=== PATIENT | female | born 1980 | race Caucasian/White ===

== ENCOUNTER 2016-07-06 23:08 | Emergency (ER) | payer SELFPAY ==
[~2016-07-06] VITALS: Ht 160 cm; Wt 45.9 kg
[~2016-07-06 23:08] MED LIST: AMOX500T PO
[2016-07-06 23:16] VITALS: BP 92/68; PULSE 80; RESP 16; TEMP 98.7; O2SAT 97
[2016-07-07 00:45] VITALS: BP 95/65; PULSE 78; RESP 18; TEMP 98.7; O2SAT 98
--- NOTE | 2016-07-07 00:57 | PD ---
HPI Chief Complaint: Medical Clearance Time Seen by Provider: 00:51 Travel History International Travel<30 days: No Contact w/Intl Traveler<30days: No Traveled to known affect area: No History of Present Illness HPI The patient is a 36-year-old female that apparently was here yesterday regarding nausea and vomiting without diarrhea. She feels fine now and wants to go back to work. She denies any fever or diarrhea. 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 The patient thinks it was food poisoning. PFSH Past Medical History Asthma: Yes Blood Disorders: No Anxiety: Yes Depression: Yes Cancer: No Cardiovascular Problems: Yes (ENDOCARDITIS) High Cholesterol: No Chest Pain: Yes Cerebrovascular Accident: No Diabetes: No Diminished Hearing: No Endocrine: No Gastrointestinal Disorders: No GERD: No Genitourinary: No Headaches: No Hepatitis: Yes (HEPATITIS C) Hypertension: No Immune Disorder: No Implanted Vascular Access Dvce: No Kidney Stones: No Musculoskeletal: Yes Neurologic: Yes Psychiatric: No Reproductive: No Respiratory: Yes (ASTHMA TIL AGE 13) Migraines: Yes Seizures: No Thyroid Disease: No Ulcer: No Tetanus Vaccination: > 5 Years Influenza Vaccination: No ?: Not LMP: 06/03/16 : 3 Para: 1 Miscarriage: 2 Past Surgical History Abdominal Surgery: No Cardiac Surgery: No Section: Yes (X 1) Ear Surgery: No Endocrine Surgery: No Eye Surgery: No Genitourinary Surgery: Yes Gynecologic Surgery: No Neurologic Surgery: No Oral Surgery: No Pacemaker: No Thoracic Surgery: No Other Surgery: Yes (C SECTION) Social History Alcohol Use: No Tobacco Use: Yes (4 CIGARETTES PER DAY) 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 Her vital signs are normal. SKIN: Warm and dry. HEAD: Normocephalic. EYES: No scleral icterus. No injection or drainage. NECK: Supple, trachea midline. No JVD or lymphadenopathy. CARDIOVASCULAR: Regular rate and rhythm without murmurs, gallops, or rubs. RESPIRATORY: Breath sounds equal bilaterally. No accessory muscle use. GASTROINTESTINAL: Abdomen soft, non-tender, nondistended. No guarding or rebound is present. MUSCULOSKELETAL: No cyanosis, or edema. BACK: Nontender without obvious deformity. No CVA tenderness. Data Data Last Documented VS Vital Signs Date Time Temp Pulse Resp B/P Pulse Ox O2 Delivery O2 Flow Rate FiO2 07/07/16 00:45 98.7 78 18 95/65 98 MDM Medical Decision Making Medical Screen Exam Complete: Yes Emergency Medical Condition: Yes Medical Record Reviewed: Yes Differential Diagnosis Food poisoning, bacterial enteritis, viral gastroenteritis, gastritis Narrative Course The patient likely has food poisoning. She never had diarrhea, fever or evidence of an infection. All of her symptoms have resolved now. She will be able to go back to work. Nevertheless, she should wash hands very frequently. Diagnosis Primary Impression: Food poisoning Additional Instructions: Wash hands frequently, particularly after you go to the bathroom. Follow-up with your primary care physician next week if you get recurrent symptoms. Med/Other Pt SpecificInfo: No Change to Meds Scripts No Active Prescriptions or Reported Meds Disposition: DISCHARGE HOME Condition: Stable Mata Rodriguez MD Jul 07, 2016 00:57
[2016-07-07 01:05] VITALS: BP 95/64; PULSE 76; RESP 18; O2SAT 97
== END 2016-07-07 01:06 | disposition home or self-care (01) ==
LOC: PHED 23:08
DX: A05.9 Bacterial foodborne intoxication, unspecified (principal); J45.909 Unspecified asthma, uncomplicated; Z72.0 Tobacco use
CPT/HCPCS: 99281

== ENCOUNTER 2016-08-26 16:45 | Emergency (ER) | payer SELFPAY ==
[~2016-08-26] VITALS: Ht 160 cm; Wt 45.0 kg
[2016-08-26 16:48] VITALS: BP 105/59; PULSE 62; RESP 14; TEMP 98.2; O2SAT 98
--- NOTE | 2016-08-26 17:04 | PD ---
HPI . needs note to go to work Chief Complaint: Medical Clearance Time Seen by Provider: 17:04 Travel History International Travel<30 days: No Contact w/Intl Traveler<30days: No Traveled to known affect area: No History of Present Illness HPI 36 yr old female who works at [employer] here for a note to return to work because she was sick from eating bad Checkers. She has no complaints and feels much better. PFSH Past Medical History Asthma: Yes Blood Disorders: No Anxiety: Yes Depression: Yes Cancer: No Cardiovascular Problems: Yes High Cholesterol: No Chest Pain: Yes Cerebrovascular Accident: No Diabetes: No Diminished Hearing: No Endocrine: No Gastrointestinal Disorders: No GERD: No Genitourinary: No Headaches: No Hepatitis: Yes (HEPATITIS C) Hypertension: No Immune Disorder: No Implanted Vascular Access Dvce: No Kidney Stones: No Musculoskeletal: Yes Neurologic: Yes Psychiatric: No Reproductive: No Respiratory: Yes (ASTHMA TIL AGE 13) Migraines: Yes Seizures: No Thyroid Disease: No Ulcer: No Tetanus Vaccination: > 5 Years Influenza Vaccination: No ?: Not LMP: 08/12/16 : 3 Para: 1 Miscarriage: 2 Past Surgical History Abdominal Surgery: No Cardiac Surgery: No Section: Yes (X 1) Ear Surgery: No Endocrine Surgery: No Eye Surgery: No Genitourinary Surgery: Yes Gynecologic Surgery: No Neurologic Surgery: No Oral Surgery: No Pacemaker: No Thoracic Surgery: No Other Surgery: Yes (C SECTION) Social History Alcohol Use: No Tobacco Use: Yes (8 CIGARETTES PER DAY) Substance Use: No (HX IV OPIATES) Allergies-Medications (Allergen,Severity, Reaction): Coded Allergies: Bee Sting (Verified Allergy, Severe, rash, 08/26/16) *MDRO Multi-Drug Resistant Organism (Verified Allergy, Unknown, 07/07/16) Acinetobacter lwoffii Acinetobacter baumannii 2014 Reported Meds & Prescriptions Reported Meds & Active Scripts Active No Active Prescriptions or Reported Medications Review of Systems General / Constitutional: No: Fever Eyes: No: Visual changes HENT: No: Headaches Cardiovascular: No: Chest Pain or Discomfort Respiratory: No: Shortness of Breath Gastrointestinal: No: Abdominal Pain Genitourinary: No: Dysuria Musculoskeletal: No: Pain Skin: No Rash Neurologic: No: Weakness Psychiatric: No: Depression Endocrine: No: Polydipsia Hematologic/Lymphatic: No: Easy Bruising Physical Exam Narrative GENERAL: AAO x 3, no acute distress, Well-nourished, well-developed patient. SKIN: Warm and dry. No visible rashes or bruising. excoriations to the face from picking at skin. no active infection HEAD: Normocephalic and atraumatic. EYES: No scleral icterus. No injection or drainage. ENT: No nasal drainage noted. Mucous membranes pink. Airway patent. NECK: Supple, trachea midline. No JVD. CARDIOVASCULAR: Regular rate and rhythm without murmurs, gallops, or rubs. RESPIRATORY: Breath sounds equal bilaterally. No accessory muscle use. No rhonchi or rales. GASTROINTESTINAL: Abdomen soft, non-tender, nondistended. EXTREMITIES: No cyanosis or edema. BACK: Nontender without obvious deformity. No CVA tenderness. PSYCH: AAO x 3, normal affect. Data Data Last Documented VS Vital Signs Date Time Temp Pulse Resp B/P Pulse Ox O2 Delivery O2 Flow Rate FiO2 08/26/16 16:56 16 08/26/16 16:48 98.2 62 105/59 98 MDM Medical Decision Making Medical Screen Exam Complete: Yes Emergency Medical Condition: Yes Medical Record Reviewed: Yes Differential Diagnosis medical clearance, less likely acute gastroenteritis Narrative Course 36 yr old female who works at [employer] here for a note to return to work because she was sick from eating bad Checkers. She has no complaints and feels much better. Patient seen and examined. She has no acute findings. She will be given a note to return to work. She thanked me for her care. Diagnosis Primary Impression: Food poisoning Qualified Code: T62.94XA - Food poisoning, undetermined intent, initial encounter Patient Instructions: General Instructions Departure Forms: Tests/Procedures, Work Release Enter return to work date: Aug 26, 2016 Scripts No Active Prescriptions or Reported Meds Disposition: DISCHARGE HOME Condition: Stable Ashley Alonzo Aug 26, 2016 17:04
== END 2016-08-26 17:47 | disposition home or self-care (01) ==
LOC: NEPD 16:45
DX: T62.94XA Toxic effect of unspecified noxious substance eaten as food, undetermined, initial encounter (principal); J45.909 Unspecified asthma, uncomplicated; B19.20 Unspecified viral hepatitis C without hepatic coma; F17.210 Nicotine dependence, cigarettes, uncomplicated
CPT/HCPCS: 99282

== ENCOUNTER 2016-10-27 18:22 | Emergency (ER) | payer SELFPAY ==
[~2016-10-27] VITALS: Ht 160 cm; Wt 55.0 kg
[2016-10-27 18:24] VITALS: BP 108/60; PULSE 71; O2SAT 99
[2016-10-27 20:00] VITALS: BP 110/62; PULSE 72; RESP 18; TEMP 98; O2SAT 98
--- NOTE | 2016-10-27 21:35 | RADRPT ---
EXAM DATE/TIME: 10/27/2016 20:55 [facility] COMPARISON: CHEST SINGLE AP, November 13, 2015, 16:59. CHEST PA & LAT, August 31, 2013, 14:04. INDICATIONS : Patient states she has had severe chest pain for two days, she states she previously had fluid behind her heart and she is having the same symptoms. MEDICAL HISTORY : Endocarditis SURGICAL HISTORY : None. ENCOUNTER: Initial ACUITY: 1 day PAIN SCORE: 10/10 LOCATION: Bilateral chest FINDINGS: PA and lateral views of the chest. The lungs are clear. Cardiomediastinal silhouette within normal li mits. No evidence of pleural effusion or pneumothorax. CONCLUSION: No acute cardiopulmonary disease identified. Erasmo Thibodeaux MD on October 27, 2016 at 21:31 Board Certified Radiologist. This report was verified electronically.
--- NOTE | 2016-10-27 22:15 | PD ---
HPI Chief Complaint: Chest Pain Time Seen by Provider: 22:13 Travel History International Travel<30 days: No Contact w/Intl Traveler<30days: No Traveled to known affect area: No History of Present Illness HPI Patient comes in complaining of substernal chest pain on going for 3 days. Patient states pain feels similar to when she had pericardial effusion previously secondary to endocarditis. 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 Patient states she is reformed times 2 years. Patient denies any known fevers, vomiting, abdominal pain, back pain, injury, or numbness or tingling anywhere. Patient reports the pain radiates across her chest and shortness of breath. Patient reports she is supposed to get her valve replacement is uncertain which one and she never did have this done. PFSH Past Medical History Asthma: Yes Blood Disorders: No Anxiety: Yes Depression: Yes Cancer: No Cardiovascular Problems: Yes High Cholesterol: No Chest Pain: Yes Cerebrovascular Accident: No Diabetes: No Diminished Hearing: No Endocrine: No Gastrointestinal Disorders: No GERD: No Genitourinary: No Headaches: No Hepatitis: Yes (HEPATITIS C) Hypertension: No Immune Disorder: No Implanted Vascular Access Dvce: No Kidney Stones: No Musculoskeletal: Yes Neurologic: Yes Psychiatric: No Reproductive: No Respiratory: Yes (ASTHMA TIL AGE 13) Migraines: Yes Seizures: No Thyroid Disease: No Ulcer: No : 3 Para: 1 Miscarriage: 2 Past Surgical History Abdominal Surgery: No Cardiac Surgery: No Section: Yes (X 1) Ear Surgery: No Endocrine Surgery: No Eye Surgery: No Genitourinary Surgery: Yes Gynecologic Surgery: No Neurologic Surgery: No Oral Surgery: No Pacemaker: No Thoracic Surgery: No Other Surgery: Yes (C SECTION) Social History Alcohol Use: No Tobacco Use: Yes (8 CIGARETTES PER DAY) Substance Use: No (HX IV OPIATES) Allergies-Medications (Allergen,Severity, Reaction): Coded Allergies: Bee Sting (Verified Allergy, Severe, rash, 08/26/16) *MDRO Multi-Drug Resistant Organism (Verified Allergy, Unknown, 07/07/16) Acinetobacter lwoffii Acinetobacter baumannii 2013 Reported Meds & Prescriptions Reported Meds & Active Scripts Active No Active Prescriptions or Reported Medications Review of Systems Except as stated in HPI: all other systems reviewed are Neg Physical Exam Narrative GENERAL: Well-developed, well nourished, in no acute distress, and non-ill appearing. SKIN: Focused skin assessment warm and dry. HEAD: Atraumatic. Normocephalic. EYES: Pupils equal and round. EOMI. No scleral icterus. No injection or drainage. ENT: No nasal bleeding or discharge. Mucous membranes pink and moist. NECK: Trachea midline. Supple. No nuclear rigidity. CARDIOVASCULAR: Regular rate and rhythm. Murmur appreciated. RESPIRATORY: No accessory muscle use. No respiratory distress. Clear to auscultation. Breath sounds equal bilaterally. GASTROINTESTINAL: Abdomen soft, non-tender, nondistended. Hepatic and splenic margins not palpable. No pulsatile mass. MUSCULOSKELETAL: No obvious deformities. No clubbing. No cyanosis. No edema. Full range of motion. NEUROLOGICAL: Awake and alert. No obvious cranial nerve deficits. Motor grossly within normal limits. Normal speech. PSYCHIATRIC: Appropriate mood and affect; insight and judgment normal. Data Data Last Documented VS Vital Signs Date Time Temp Pulse Resp B/P Pulse Ox O2 Delivery O2 Flow Rate FiO2 10/27/16 22:42 66 18 99/54 99 Room Air 10/27/16 20:00 98.0 Orders Electrocardiogram (10/27/16 20:42) Chest, Pa & Lat (10/27/16 20:42) Ed Poc Ultrasound (10/27/16 ) Basic Metabolic Panel (Bmp) (10/27/16 22:19) Ckmb (Isoenzyme) Profile (10/27/16 22:19) Complete Blood Count With Diff (10/27/16 22:19) Magnesium (Mg) (10/27/16 22:19) Prothrombin Time / Inr (Pt) (10/27/16 22:19) Act Partial Throm Time (Ptt) (10/27/16 22:19) Troponin I (10/27/16 22:19) Ecg Monitoring (10/27/16 22:19) Bilateral Bp Monitoring (10/27/16 22:19) Iv Access Insert/Monitor (10/27/16 22:19) Oximetry (10/27/16 22:19) Oxygen Administration (10/27/16 22:19) Sodium Chloride 0.9% Flush (Ns Flush) (10/27/16 22:30) Blood Culture (10/27/16 22:28) MDM Medical Decision Making Medical Screen Exam Complete: Yes Emergency Medical Condition: Yes Interpretation(s) Chest x-ray read by the radiologist shows: No acute cardiopulmonary disease. Differential Diagnosis Acute coronary syndrome, endocarditis, pericarditis, pneumonia, pneumothorax, electrolyte abnormality, other Narrative Course Patient seen and examined. Initial laboratory and radiological studies were ordered. Patient was signed out to Dr. Lilly at the end of shift. Please see her doctors for final diagnosis and disposition. Scripts No Active Prescriptions or Reported Meds Gilbert Campbell Oct 27, 2016 22:15
[2016-10-27] MEDS ORDERED: SODIUM CHLORIDE 0.9% FLUSH 10 ML FLUSH IVF PRN (22:30)
[2016-10-27 22:42] VITALS: BP 99/54; PULSE 66; RESP 18; O2SAT 99
[2016-10-27 23:10] VITALS: BP_SYST 104; BP_SYST 106; BP_DIAS 63; BP_DIAS 65
[2016-10-28] LABS: AUTOMATED NEUTROPHIL # 5.4 TH/MM3 (1.8-7.7); BASOPHIL % 0.5 % (0.0-2.0); EOSINOPHIL % 0.4 % (0.0-4.0); HEMO FLAGS DIFF FINAL; MEAN CELL VOLUME 93.2 FL (80.0-100.0); MEAN CORPUSCULAR HEMOGLOBIN 31.1 PG (27.0-34.0); MEAN CORPUSCULAR HGB CONC 33.4 % (32.0-36.0); MONO % 10.8 % (0.0-8.0); NEUT % 64.3 % (16.0-70.0); PLATELET COUNT 134 TH/MM3 (150-450); RED BLOOD COUNT 4.51 MIL/MM3 (4.00-5.30); RED CELL DISTRIBUTION WIDTH 14.2 % (11.6-17.2); WHITE BLOOD COUNT 8.3 TH/MM3 (4.0-11.0)
[2016-10-28 00:15] LABS: APTT (PATIENT) 27.9 SEC (24.3-30.1)
--- NOTE | 2016-10-28 00:17 | PD ---
Data Data Last Documented VS Vital Signs Date Time Temp Pulse Resp B/P Pulse Ox O2 Delivery O2 Flow Rate FiO2 10/27/16 23:31 Room Air 10/27/16 23:10 106/63 104/65 10/27/16 22:42 66 18 99 10/27/16 20:00 98.0 Orders Electrocardiogram (10/27/16 20:42) Chest, Pa & Lat (10/27/16 20:42) Ed Poc Ultrasound (10/27/16 ) Basic Metabolic Panel (Bmp) (10/27/16 22:19) Ckmb (Isoenzyme) Profile (10/27/16 22:19) Complete Blood Count With Diff (10/27/16 22:19) Magnesium (Mg) (10/27/16 22:19) Prothrombin Time / Inr (Pt) (10/27/16 22:19) Act Partial Throm Time (Ptt) (10/27/16 22:19) Troponin I (10/27/16 22:19) Ecg Monitoring (10/27/16 22:19) Bilateral Bp Monitoring (10/27/16 22:19) Iv Access Insert/Monitor (10/27/16 22:19) Oximetry (10/27/16 22:19) Oxygen Administration (10/27/16 22:19) Sodium Chloride 0.9% Flush (Ns Flush) (10/27/16 22:30) Blood Culture (10/27/16 22:28) Labs Laboratory Tests Test 10/27/16 23:30 White Blood Count 8.3 TH/MM3 Red Blood Count 4.51 MIL/MM3 Hemoglobin 14.0 GM/DL Hematocrit 42.0 % Mean Corpuscular Volume 93.2 FL Mean Corpuscular Hemoglobin 31.1 PG Mean Corpuscular Hemoglobin 33.4 % Concent Red Cell Distribution Width 14.2 % Platelet Count 134 TH/MM3 Mean Platelet Volume 10.1 FL Neutrophils (%) (Auto) 64.3 % Lymphocytes (%) (Auto) 24.0 % Monocytes (%) (Auto) 10.8 % Eosinophils (%) (Auto) 0.4 % Basophils (%) (Auto) 0.5 % Neutrophils # (Auto) 5.4 TH/MM3 Lymphocytes # (Auto) 2.0 TH/MM3 Monocytes # (Auto) 0.9 TH/MM3 Eosinophils # (Auto) 0.0 TH/MM3 Basophils # (Auto) 0.0 TH/MM3 CBC Comment DIFF FINAL Differential Comment Prothrombin Time 11.0 SEC Prothromb Time International 1.0 RATIO Ratio Activated Partial 27.9 SEC Thromboplast Time Sodium Level 136 MEQ/L Potassium Level 4.1 MEQ/L Chloride Level 103 MEQ/L Carbon Dioxide Level 26.5 MEQ/L Anion Gap 7 MEQ/L Blood Urea Nitrogen 14 MG/DL Creatinine 0.89 MG/DL Estimat Glomerular Filtration 72 ML/MIN Rate Random Glucose 92 MG/DL Calcium Level 8.7 MG/DL Magnesium Level 1.9 MG/DL Total Creatine Kinase 73 U/L Troponin I LESS THAN 0.02 NG/ML MDM Supervised Visit with KENDELL: Yes Narrative Course I, Dr. Lilly, have reviewed the advance practice practioner's documentation and am in agreement, met with the patient face to face, made the diagnosis, and the medical decision making was done by me. *My assessment and Findings: 36-year-old female with reported history of former IV drug abuse, Dilaudid, previous bacteremia with endocarditis , significant pleural effusion requiring drainage here with complaint of chest pain. She's had 3 days of primarily intermittent substernal chest pain. States that this feels similar to when she's had a pericardial effusion in the past. Mild associated shortness of breath. She denies any recent IV drug abuse stating that she's been clean for approximately 2 years. No fevers, chills. Regular rate and rhythm on exam without evidence of murmur, clear to auscultation. Differential includes atypical chest pain, pericardial effusion, bacteremia, endocarditis, and less likely ACS, PE or dissection. Twelve-lead EKG shows sinus rhythm without ST or T-wave abnormalities and normal intervals. Chest x- ray unremarkable. Bedside ultrasound performed without evidence of pericardial effusion, please see procedure note. Blood cultures were sent, but not febrile or tachycardic here and patient does not have any evidence of new track gurrola on exam. Laboratory workup unremarkable. Blood cultures remain pending. Patient will be discharged home. Procedures Procedure Narrative Emergency department cardiac ultrasound was performed with patient consent. Phased array probe was used in the parasternal long/short access, four-chamber apical revealing no evidence of pericardial effusion. Patient's overall cardiac squeeze was normo-dynamic. Diagnosis Primary Impression: Atypical chest pain Referrals: [facility] as needed Additional Instruction: Tylenol, Motrin as needed for pain. Return to the ER for the warning signs discussed. Med/Other Pt SpecificInfo: No Change to Meds Scripts No Active Prescriptions or Reported Meds Disposition: 01 DISCHARGE HOME Condition: Stable Yakelin Lilly MD Oct 28, 2016 00:17
[2016-10-28 00:28] LABS: ANION GAP 7 MEQ/L (5-15); BICARBONATE 26.5 MEQ/L (21.0-32.0); BLOOD UREA NITROGEN 14 MG/DL (7-18); CHLORIDE 103 MEQ/L (98-107); GLOMERULAR FILTRATION RATE 72 ML/MIN (>89); MAGNESIUM 1.9 MG/DL (1.5-2.5); POTASSIUM 4.1 MEQ/L (3.5-5.1); SODIUM (NA) 136 MEQ/L (136-145)
[2016-10-28 00:31] LABS: CREATINE KINASE 73 U/L (26-192)
--- NOTE | 2016-10-28 13:10 | EKG ---
Date Performed: 10/27/2016 Time Performed: 22:54:47 PTAGE: 36 years EKG: Sinus rhythm INCOMPLETE RIGHT BUNDLE BRANCH BLOCK BORDERLINE ECG NO PREVIOUS TRACING DOCTOR: Modesto Starr Interpretating Date/Time 10/28/2016 13:08:37
== END 2016-10-28 01:55 | disposition home or self-care (01) ==
LOC: NEPE 18:22
DX: R07.2 Precordial pain (principal); R06.02 Shortness of breath; R94.31 Abnormal electrocardiogram [ECG] [EKG]; Z72.0 Tobacco use
CPT/HCPCS: 71020; 80048; 82550; 83735; 84484; 85025; 85610; 85730; 87040; 93005; 99285

== ENCOUNTER 2016-11-22 17:48 | Emergency (ER) | payer SELFPAY ==
[~2016-11-22] VITALS: Ht 160 cm; Wt 45.0 kg
[2016-11-22 17:50] VITALS: BP 118/74; PULSE 88; RESP 20; TEMP 99.1; O2SAT 96
--- NOTE | 2016-11-22 18:31 | PD ---
Physical Exam Date Seen by Provider: Nov 22, 2016 Time Seen by Provider: 18:27 Narrative 36 yo female here for evaluation of left foot pain. Per patient is swollen and painful. Blisters noted. No obvious injury. Going on for some time. Walks a lot. Comes here with significant other with same. Vitals are stable. Awaiting bed placement. Data Data Last Documented VS Vital Signs Date Time Temp Pulse Resp B/P Pulse Ox O2 Delivery O2 Flow Rate FiO2 11/22/16 17:50 99.1 88 20 118/74 96 Room Air [facility] Medical Record Reviewed: Yes Supervised Visit with KENDELL: No Scripts No Active Prescriptions or Reported Meds Raúl Jarrett Nov 22, 2016 18:31
[2016-11-22] MEDS ORDERED: LAMI1SPR TOPICAL (20:42)
--- NOTE | 2016-11-22 20:43 | PD ---
HPI Chief Complaint: Skin Problem Time Seen by Provider: 20:42 Travel History International Travel<30 days: No Contact w/Intl Traveler<30days: No Traveled to known affect area: No History of Present Illness HPI 36-year-old white female presents to emergency Department with complaints of blistering and sores in her feet from walking and when she is. She states the pain is moderate but can be more severe with ambulation. Denies any fever or chills. No alleviating factors. PFSH Past Medical History Asthma: Yes Blood Disorders: No Anxiety: Yes Depression: Yes Cancer: No Cardiovascular Problems: Yes (VEGETATION ON HEART) High Cholesterol: No Chest Pain: Yes Cerebrovascular Accident: No Diabetes: No Diminished Hearing: No Endocrine: No Gastrointestinal Disorders: No GERD: No Genitourinary: No Headaches: Yes Hepatitis: Yes (HEPATITIS C) Hypertension: No Immune Disorder: No Implanted Vascular Access Dvce: No Kidney Stones: No Musculoskeletal: Yes Neurologic: Yes Psychiatric: No Reproductive: No Respiratory: Yes (ASTHMA TIL AGE 13) Migraines: Yes Seizures: No Thyroid Disease: No Ulcer: No Tetanus Vaccination: > 5 Years ?: Not : 3 Para: 1 Miscarriage: 2 Past Surgical History Abdominal Surgery: No Cardiac Surgery: No Section: Yes (X 1) Ear Surgery: No Endocrine Surgery: No Eye Surgery: No Genitourinary Surgery: Yes Gynecologic Surgery: No Neurologic Surgery: No Oral Surgery: No Pacemaker: No Thoracic Surgery: No Other Surgery: Yes (C SECTION) Social History Alcohol Use: No Tobacco Use: No Substance Use: No (HX IV OPIATES ON FOR 9.5 YRS) Allergies-Medications (Allergen,Severity, Reaction): Coded Allergies: Bee Sting (Verified Allergy, Severe, rash, 11/22/16) *MDRO Multi-Drug Resistant Organism (Verified Allergy, Unknown, 11/22/16) Acinetobacter lwoffii Acinetobacter baumannii 2013 Reported Meds & Prescriptions Reported Meds & Active Scripts Active No Active Prescriptions or Reported Medications Review of Systems Except as stated in HPI: all other systems reviewed are Neg Physical Exam Narrative GENERAL: This is a well-nourished, well-developed patient, in no apparent distress. SKIN: Patient has erythema and maceration of the distal forefoot and toes from wet shoes. No signs of secondary infection, ecchymoses or lesions. Warm and dry. HEAD: Atraumatic. Normocephalic. EYES: PERRL, EOMI, no discharge or injection. No scleral icterus. EARS: Clear NOSE: Nasal turbinates appear normal. THROAT: Mucosa pink and moist. Airway patent. NECK: Trachea midline. supple, moves head freely. LUNGS: Clear to auscultation. CV: Regular in rhythm. ABDOMEN: Soft nontender. EXT: No clubbing cyanosis or edema. Data Data Last Documented VS Vital Signs Date Time Temp Pulse Resp B/P Pulse Ox O2 Delivery O2 Flow Rate FiO2 11/22/16 17:50 99.1 88 20 118/74 96 Room Air MDM Medical Decision Making Medical Screen Exam Complete: Yes Emergency Medical Condition: Yes Medical Record Reviewed: Yes Differential Diagnosis MDM: High Differential diagnoses: Abscess, folliculitis, cellulitis, lymphangitis, abrasion, contact dermatitis, tinea Narrative Course This is tinea Diagnosis Primary Impression: tinea pedis Patient Instructions: General Instructions Additional Instructions: Rest. Elevation. Keep clean and dry. Lamisil. Follow-up with a medical doctor in 1-2 weeks. Med/Other Pt SpecificInfo: Prescription(s) given Scripts Terbinafine Topical (Lamisil At Topical)1 % Spray1 Applic TOPICAL BID #1 BOTTLE Ref 0 Prov:Sam Pickering MD 11/22/16 Disposition: 01 DISCHARGE HOME Condition: Stable Eulogio Cardenas Nov 22, 2016 20:43
== END 2016-11-22 20:55 | disposition home or self-care (01) ==
LOC: NEPK 17:48
DX: B35.3 Tinea pedis (principal); B19.20 Unspecified viral hepatitis C without hepatic coma; J45.909 Unspecified asthma, uncomplicated; F41.9 Anxiety disorder, unspecified; F32.9 Major depressive disorder, single episode, unspecified; Z88.8 Allergy status to other drugs, medicaments and biological substances
CPT/HCPCS: 99283

== ENCOUNTER 2018-01-04 10:40 | Inpatient (IN) ==
--- NOTE | 2018-01-04 14:29 | ED ---
HPI General Chief complaint: Extremity Problem,Nontraumatic Stated complaint: General Pain Time Seen by Provider: 01/04/18 14:04 Source: patient, RN notes reviewed and old records reviewed Mode of arrival: wheelchair Limitations: no limitations History of Present Illness HPI narrative: 37-year-old female with history of IV drug use presents to the emergency department for evaluation of generalized weakness, inability to walk. She reports pain in her midline cervical, thoracic, lumbar spine. She reports when she moves her legs, she has severe pain in her lower back. She also reports right-sided chest pain, feels like it is "swollen". Patient is here in 2013 was admitted for endocarditis, sepsis, enhancement in soft tissues/ paraspinal area of L5-S1. She also states she was treated for pericardial effusion in [place] in 2014 and had it drained. She states that she was supposed to undergo surgery, but cannot because of insurance issues. Upon first questioning, the patient declines using IV drugs. However upon instructed the patient how important it was to let me know if she uses IV drugs , she did admit to using IV heroin a week ago. She does have track gurrola on her upper extremities. She states that she feels like she is running a fever. She is not currently on any prescribed medications. Current pain is 10/10. She denies . Location: chest, back, upper extremity and lower extremity Radiation: non-radiation Severity: moderate Severity scale (1-10): 10 Quality: aching Pain Consistency: constant Relieving factors: immobilization Exacerbating factors: movement Related Data Home Medications Medication Instructions Recorded Confirmed No Known Home Medications 01/04/18 01/04/18 Allergies Allergy/AdvReac Type Severity Reaction Status Date / Time bee venom protein (honey bee) Allergy Severe rash Verified 01/04/18 14:34 Review of Systems ROS: all other systems reviewed are negative PMFSH Medical History Medical History Abscess in epidural space of lumbar spine (Acute) Endocarditis (Acute) Hepatitis C (Acute) Hypokalemia (Acute) Hyponatremia (Acute) IVDU (intravenous drug user) (Acute) Osteomyelitis (Acute) Pneumonia (Acute) Renal failure (Acute) Sepsis (Acute) Thrombocytopenia (Acute) UTI (urinary tract infection) (Acute) Surgical History Surgical History History of heart surgery (Acute) Social History Social History Substance History: Active Abuse Smoking Status: Heavy tobacco smoker Tobacco Type: Cigarettes How Often Do You Have a Drink Containing Alcohol: Never Recent Travel in [facility] within the Last 8 Weeks: No Recent Out of Country Travel within the Last 8 Weeks: No Substance Abuse Detail Heroin: Substance Use Status: Active Immunization History Tetanus Immunization: Never Vaccinated Hx Influenza Vaccine This Season: No Exam Narrative Exam Narrative: GENERAL: Thin female patient, appears older than her stated age. Temp 99.7 SKIN: Focused skin assessment warm/dry. HEAD: Normocephalic. Atraumatic EYES: No scleral icterus. No injection or drainage. NECK: Supple, trachea midline. No JVD or lymphadenopathy. CARDIOVASCULAR: Regular rate and rhythm without murmurs, gallops, or rubs. RESPIRATORY: Breath sounds equal bilaterally. No accessory muscle use. Lung sounds are clear to auscultation GASTROINTESTINAL: Abdomen soft, non-tender, nondistended. MUSCULOSKELETAL: No cyanosis, or edema. BACK: No obvious deformity. No CVA tenderness. Patient reports tenderness to palpation over the cervical, thoracic, lumbar spine. Course Initial Documented Vital Signs Temperature 98.5 F 01/04/18 10:45 Pulse Rate 95 H 01/04/18 10:45 Respiratory Rate 18 01/04/18 10:45 Blood Pressure 84/54 L 01/04/18 10:45 Pulse Oximetry 97 01/04/18 10:45 Last Documented Vital Signs Temperature 98.5 F 01/04/18 10:45 Pulse Rate 113 H 01/04/18 17:42 Respiratory Rate 27 H 01/04/18 17:42 Blood Pressure 108/61 01/04/18 17:42 Pulse Oximetry 95 01/04/18 17:42 Medical Decision Making KENDELL Attestation KENDELL supervised visit: Yes Attestation: I, Dr. Ramon, have reviewed the advance practice practitioner's documentation and am in agreement, met with the patient face to face, made the diagnosis, and the medical decision making was done by me. *My assessment and Findings: Patient seen and evaluated with PA, please see PA notes for further details. Here with general weakness, pain all over the body but especially in the back, has previous history of IV drug use, endocarditis, spinal infections, status post valve replacement as well. She came in fairly hypotensive. There is a very high suspicion of sepsis and underlying infection especially with her story. Sepsis workup was initiated. IV vancomycin and antibiotics were initiated in the ER. Chest x-ray shows some signs of pulmonary edema. With patient's cardiac history, there is concern of underlying CHF as well. EKG shows sinus tachycardia at a rate of 100 bpm. She has a right bundle branch block pattern. I do not see any signs of acute ST elevations. Patient's troponin is elevated and there is concern of underlying cardiac issues. Case was discussed with Dr. Rick who states he will see the patient. At this point, case was discussed with Dr. Driscoll, machine deicer element winder for admission. Aggregate critical care time was 30 minutes. Time to perform other separately billable procedures was not included in the critical care time. My time did not include minutes spent treating any other patients simultaneously or on activities that did not directly contribute to the patient's treatment. The services I provided to this patient were to treat and/or prevent clinically significant deterioration that could result in: Worsening sepsis, cardiopulmonary arrest, dysrhythmias, paralysis, I provided critical care services requiring my management, as noted below: Chart data review, documentation time, medication orders and management, vital sign assessments/reviewing monitor data, ordering and reviewing lab tests, ordering and interpreting/reviewing x-rays and diagnostic studies, care of the patient and discussion of the patient with the admitting physicians. MDM Narrative Medical decision making narrative: 37 year old female presents to the emergency department for pain to right arm, bilateral legs, back for 2 days. She does admit IV drug use. According to chart, she has history of endocarditis, sepsis. EKG, CBC, CMP, Magnesium, CK, Troponin, PTT, PT/INR, UA, UDS, UPT, lactic acid, blood cultures x2, chest x-ray, MRI of the cervical, thoracic, and lumbar spine are ordered and pending. Patient is given NS 1 Liter IV bolus, Zofran 4 mg IV. Patient is given vancomycin 1 g IV, Zosyn 3.375 g IV. EKG [-]. CBC shows normal WBC of 6.3, low platelets of 46, 45 band neutrophils. CMP shows hyponatremia of 127, BUN of 32, creatinine of 1.12, glucose 127. Magnesium is 1.8. CK is 4077. Troponin is 2.41. Lipase is 53. PTT is 31.2. PT/INR is 11.6/1.1. UDS and UA are pending. UPT is negative. Chest x-ray shows slight CHF. MRI is unable to be completed because patient has pacemaker wires in her from a previous pacemaker that was removed. CT cervical spine, thoracic spine, lumbar spine are ordered and pending. CT pulmonary angiogram is ordered and pending. Case was discussed with Dr. Driscoll, machine deicer element winder, who accepted admission. I also discussed the case with Dr. Rick, lead pony rider, who is aware of the patient. Medical Screen Exam Complete: Yes Emergency Medical Condition: Yes Medical Records Medical records reviewed: Yes I reviewed the patient's medical records. Lab Data Lab results reviewed: Yes I reviewed the patient's lab results. Result diagrams: 01/04/18 14:30 01/04/18 14:30 POC Results POC Urine Results Negative Lab Results 01/04/18 01/04/18 01/04/18 Range/Units 14:30 14:30 14:30 WBC 6.3 (4.0-11.0) th/mm3 RBC 4.29 (4.00-5.30) mil/mm3 Hgb 13.3 (11.6-15.3) gm/dL Hct 40.1 (35.0-46.0) % MCV 93.5 (80.0-100.0) fL MCH 31.1 (27.0-34.0) pg MCHC 33.2 (32.0-36.0) % RDW 15.4 (11.6-17.2) % Plt Count 46 L (150-450) th/mm3 MPV 10.2 (7.0-11.0) fL Prelim Diff (Auto) Slide review pending Neut % (Auto) 92.7 H (16.0-70.0) % Lymph % (Auto) 3.4 L (9.0-44.0) % Adair % (Auto) 2.8 (0.0-8.0) % Eos % (Auto) 0.9 (0.0-4.0) % Baso % (Auto) 0.2 (0.0-2.0) % Neut # (Auto) 5.8 (1.8-7.7) th/mm3 Lymph # (Auto) 0.2 L (1.0-4.8) th/mm3 Adair # (Auto) 0.2 (0.0-0.9) th/mm3 Eos # (Auto) 0.1 (0.0-0.4) th/mm3 Baso # (Auto) 0.0 (0.0-0.2) th/mm3 WBC Differential Manual diff final Seg Neuts % (Manual) 48 (16-70) % Band Neuts % (Manual) 45 H (0-6) % Lymphocytes % (Manual) 3 L (9-44) % Monocytes % (Manual) 2 (0-8) % Metamyelocytes % (Man) 2 H (0-1) % Abs Neuts (Manual) 6.0 (1.8-7.7) th/mm3 Differential Comment . Platelet Estimate Low L (Normal) Platelet Morphology Enlarged H (Normal) RBC Morphology Normal (Normal) ESR (0-20) mm/hr PT 11.6 (9.8-11.6) sec INR 1.1 Ratio APTT 31.2 H (24.3-30.1) sec Sodium (136-145) meq/L Potassium (3.5-5.1) meq/L Chloride (98-107) meq/L Carbon Dioxide (21.0-32.0) meq/L Anion Gap (5-15) meq/L BUN (7-18) mg/dL Creatinine (0.50-1.00) mg/dL Estimated GFR (>89) mL/min Random Glucose (74-106) mg/dL Lactic Acid (0.4-2.0) mmol/L Calcium (8.5-10.1) mg/dL Magnesium 1.8 (1.5-2.5) mg/dL Total Bilirubin (0.2-1.0) mg/dL AST (15-37) U/L ALT (10-53) U/L Alkaline Phosphatase (45-117) U/L Total Creatine Kinase (26-192) U/L CK-MB (CK-2) (0.5-3.6) ng/mL CK-MB (CK-2) % (0.0-4.0) % Troponin I 2.41 H* (0.02-0.05) ng/mL Total Protein (6.4-8.2) g/dL Albumin (3.4-5.0) g/dL Lipase 53 L (73-393) U/L 01/04/18 01/04/1818 Range/Units 14:30 14:30 14:30 WBC (4.0-11.0) th/mm3 RBC (4.00-5.30) mil/mm3 Hgb (11.6-15.3) gm/dL Hct (35.0-46.0) % MCV (80.0-100.0) fL MCH (27.0-34.0) pg MCHC (32.0-36.0) % RDW (11.6-17.2) % Plt Count (150-450) th/mm3 MPV (7.0-11.0) fL Prelim Diff (Auto) Neut % (Auto) (16.0-70.0) % Lymph % (Auto) (9.0-44.0) % Adair % (Auto) (0.0-8.0) % Eos % (Auto) (0.0-4.0) % Baso % (Auto) (0.0-2.0) % Neut # (Auto) (1.8-7.7) th/mm3 Lymph # (Auto) (1.0-4.8) th/mm3 Adair # (Auto) (0.0-0.9) th/mm3 Eos # (Auto) (0.0-0.4) th/mm3 Baso # (Auto) (0.0-0.2) th/mm3 WBC Differential Seg Neuts % (Manual) (16-70) % Band Neuts % (Manual) (0-6) % Lymphocytes % (Manual) (9-44) % Monocytes % (Manual) (0-8) % Metamyelocytes % (Man) (0-1) % Abs Neuts (Manual) (1.8-7.7) th/mm3 Differential Comment Platelet Estimate (Normal) Platelet Morphology (Normal) RBC Morphology (Normal) ESR (0-20) mm/hr PT (9.8-11.6) sec INR Ratio APTT (24.3-30.1) sec Sodium 127 L (136-145) meq/L Potassium 3.6 (3.5-5.1) meq/L Chloride 94 L (98-107) meq/L Carbon Dioxide 24.3 (21.0-32.0) meq/L Anion Gap 9 (5-15) meq/L BUN 32 H (7-18) mg/dL Creatinine 1.12 H (0.50-1.00) mg/dL Estimated GFR 55 L (>89) mL/min Random Glucose 127 H (74-106) mg/dL Lactic Acid 2.5 H (0.4-2.0) mmol/L Calcium 8.5 (8.5-10.1) mg/dL Magnesium (1.5-2.5) mg/dL Total Bilirubin 1.0 (0.2-1.0) mg/dL AST 235 H (15-37) U/L ALT 103 H (10-53) U/L Alkaline Phosphatase 103 (45-117) U/L Total Creatine Kinase 4077 H (26-192) U/L CK-MB (CK-2) 20.5 H (0.5-3.6) ng/mL CK-MB (CK-2) % 0.5 (0.0-4.0) % Troponin I (0.02-0.05) ng/mL Total Protein 8.4 H (6.4-8.2) g/dL Albumin 3.1 L (3.4-5.0) g/dL Lipase (73-393) U/L 01/04/18 Range/Units 14:30 WBC (4.0-11.0) th/mm3 RBC (4.00-5.30) mil/mm3 Hgb (11.6-15.3) gm/dL Hct (35.0-46.0) % MCV (80.0-100.0) fL MCH (27.0-34.0) pg MCHC (32.0-36.0) % RDW (11.6-17.2) % Plt Count (150-450) th/mm3 MPV (7.0-11.0) fL Prelim Diff (Auto) Neut % (Auto) (16.0-70.0) % Lymph % (Auto) (9.0-44.0) % Adair % (Auto) (0.0-8.0) % Eos % (Auto) (0.0-4.0) % Baso % (Auto) (0.0-2.0) % Neut # (Auto) (1.8-7.7) th/mm3 Lymph # (Auto) (1.0-4.8) th/mm3 Adair # (Auto) (0.0-0.9) th/mm3 Eos # (Auto) (0.0-0.4) th/mm3 Baso # (Auto) (0.0-0.2) th/mm3 WBC Differential Seg Neuts % (Manual) (16-70) % Band Neuts % (Manual) (0-6) % Lymphocytes % (Manual) (9-44) % Monocytes % (Manual) (0-8) % Metamyelocytes % (Man) (0-1) % Abs Neuts (Manual) (1.8-7.7) th/mm3 Differential Comment Platelet Estimate (Normal) Platelet Morphology (Normal) RBC Morphology (Normal) ESR 53 H (0-20) mm/hr PT (9.8-11.6) sec INR Ratio APTT (24.3-30.1) sec Sodium (136-145) meq/L Potassium (3.5-5.1) meq/L Chloride (98-107) meq/L Carbon Dioxide (21.0-32.0) meq/L Anion Gap (5-15) meq/L BUN (7-18) mg/dL Creatinine (0.50-1.00) mg/dL Estimated GFR (>89) mL/min Random Glucose (74-106) mg/dL Lactic Acid (0.4-2.0) mmol/L Calcium (8.5-10.1) mg/dL Magnesium (1.5-2.5) mg/dL Total Bilirubin (0.2-1.0) mg/dL AST (15-37) U/L ALT (10-53) U/L Alkaline Phosphatase (45-117) U/L Total Creatine Kinase (26-192) U/L CK-MB (CK-2) (0.5-3.6) ng/mL CK-MB (CK-2) % (0.0-4.0) % Troponin I (0.02-0.05) ng/mL Total Protein (6.4-8.2) g/dL Albumin (3.4-5.0) g/dL Lipase (73-393) U/L Imaging Data Attestation: I personally reviewed and interpreted this imaging study as follows : Radiologist's impression: Chest X-Ray 08/24/18 14:21 CONCLUSION: Slight CHF. Discharge Plan Discharge Disposition Patient Disposition: 30 Still Patient Discharge Details Diagnosis: Sepsis, Rhabdomyolysis, Elevated troponin, IVDU (intravenous drug user) Physicians Team ED Provider: Angel Ramon ED Midlevel Provider: Genesis Patel Primary Care Provider: Primary Care Carolina Espitia Attending Provider: Margarito Driscoll Other Providers: Tod Segura Franklyn Status ED Status: Admitted Patient
[2018-01-04] MEDS ORDERED: Sod Chloride 0.9% Inj 1,000 ML IV.SIG ONE (14:39)
[2018-01-04] MEDS ORDERED: Vancomycin Inj 1,000 MG in Sodium Chlor 0.9% Inj 250 ML IV.SIG ONE (14:42)
[2018-01-04] MEDS ORDERED: Piperacil/Tazo 3.375 GM Premix 50 ML IV.SIG ONE (14:44)
--- NOTE | 2018-01-04 14:53 | XR ---
EXAM DATE: 01/04/2018 2:44 PM EDT AGE/SEX: 37 years / Female INDICATIONS: Chest pain and shortness of breath. CLINICAL DATA: This is the patient's initial encounter. Patient reports that signs and symptoms have been present for 1 day and indicates a pain score of 8/10. MEDICAL/SURGICAL HISTORY: Asthma. . Valve replacement. [place] [facility] [place]. . FINDINGS: There is mild haziness to the perivascular structures most likely pulmonary edema. Slight cardiomegal y seen. Focal consolidation is not seen. CONCLUSION: Slight CHF. Electronically signed by: Alix Johnson MD 01/04/2018 2:52 PM EDT
[2018-01-04 14:59] LABS: Baso % (Auto) 0.2 % (0.0-2.0); Eos # (Auto) 0.1 th/mm3 (0.0-0.4); Eos % (Auto) 0.9 % (0.0-4.0); Hematocrit 40.1 % (35.0-46.0); Hemoglobin 13.3 gm/dL (11.6-15.3); Lymph # (Auto) 0.2 th/mm3 (1.0-4.8); Lymph % (Auto) 3.4 % (9.0-44.0); Mean Corpuscular HGB Conc 33.2 % (32.0-36.0); Mean Corpuscular Hemoglobin 31.1 pg (27.0-34.0); Mean Corpuscular Volume 93.5 fL (80.0-100.0); Mean Platelet Volume 10.2 fL (7.0-11.0); Mono # (Auto) 0.2 th/mm3 (0.0-0.9); Mono % (Auto) 2.8 % (0.0-8.0); Neut # (Auto) 5.8 th/mm3 (1.8-7.7); Neut % (Auto) 92.7 % (16.0-70.0); Platelet Count 46 th/mm3 (150-450); Red Blood Count 4.29 mil/mm3 (4.00-5.30); Red Cell Distribution Width 15.4 % (11.6-17.2); White Blood Count 6.3 th/mm3 (4.0-11.0)
[2018-01-04 15:09] LABS: Activated Partial Thrombo Time 31.2 sec (24.3-30.1); INR 1.1 Ratio; Prothrombin Time 11.6 sec (9.8-11.6)
[2018-01-04 15:24] LABS: Alanine Aminotransferase 103 U/L (10-53); Albumin 3.1 g/dL (3.4-5.0); Anion Gap 9 meq/L (5-15); Aspartate Aminotransferase 235 U/L (15-37); Blood Urea Nitrogen 32 mg/dL (7-18); Calcium 8.5 mg/dL (8.5-10.1); Carbon Dioxide 24.3 meq/L (21.0-32.0); Chloride 94 meq/L (98-107); Glomerular Filtration Rate 55 mL/min (>89); Glucose,Random 127 mg/dL (74-106); Magnesium 1.8 mg/dL (1.5-2.5); Potassium 3.6 meq/L (3.5-5.1); Sodium 127 meq/L (136-145)
[2018-01-04 15:26] LABS: Alkaline Phosphatase 103 U/L (45-117); Total Protein 8.4 g/dL (6.4-8.2)
[2018-01-04 15:34] LABS: Lymphocytes 3 % (9-44); Metamyelocytes 2 % (0-1); Monocytes 2 % (0-8); RBC Morphology Normal (Normal)
[2018-01-04 15:39] LABS: Troponin I 2.41 ng/mL (0.02-0.05)
[2018-01-04 16:05] LABS: CKMB Percent 0.5 % (0.0-4.0); Creatine Kinase MB 20.5 ng/mL (0.5-3.6)
[2018-01-04] MEDS ORDERED: Vancomycin Consult Pharmacy OTHER PRN (16:55)
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
--- NOTE | 2018-01-04 17:53 | CT ---
EXAM DATE: 01/04/2018 5:45 PM EDT AGE/SEX: 37 years / Female INDICATIONS: Embolism, Heart surgery 3 months ago with valve replacement, complains of chest pain CLINICAL DATA: This is the patient's initial encounter. Patient reports that signs and symptoms have been present for 1 day and indicates a pain score of 10/10. MEDICAL/SURGICAL HISTORY: Hepatitis C. Sepsis. Renal failure, abscess in epidural lumbar spine . Heart valve replacement RADIATION DOSE: 8.96 CTDI (mGy) COMPARISON: No prior exams available for comparison. TECHNIQUE: Volumetric scanning was performed using a multi-row detector CT scanner during bolus infu ann marie of 74ML ml Omnipaque 350 (iohexol) nonionic water-soluble contrast as a single exam dose. The d rufino was post processed with a variety of visualization algorithms including full volume maximum inten sity projection and sliding thin slab reformation. Using automated exposure control and adjustment o f the mA and/or kV according to patient size, radiation dose was kept as low as reasonably achievable to obtain optimal diagnostic quality images. DICOM format image data is available electronically fo r review and comparison. FINDINGS: There is no evidence of PE for technique. The patient is status post median sternotomy. Soft tissue density is present within the anterior mediastinum measures 4.7 cm in AP diameter and it extends towa rds the right side of the mediastinum as well in this location it measures almost 5.3 cm in maximum d iameter. There are small lymph nodes within the mediastinum particularly the AP window as well. Splee n measures 12.3 cm in AP diameter slightly enlarged. Scattered parenchymal infiltrates are seen bilaterally most likely inflammatory process. There is no pleural effusion. CONCLUSION: 1. Abnormal soft tissue density within the mediastinum unusual appearance for adenopathy partially c ould be hyperplasia of the patient's thymic gland, however underlying neoplastic process such as lymp janet is not excluded. 2. Slight cardiomegaly. 3. Bilateral parenchymal infiltrates in the lungs. Electronically signed by: Alix Johnson MD 01/04/2018 5:52 PM EDT
--- NOTE | 2018-01-04 18:00 | CT ---
EXAM DATE: 01/04/2018 5:52 PM EDT AGE/SEX: 37 years / Female INDICATIONS: Abscess, History of abscess in epidural of lumbar spine, complains of right hip pain wi th no known injury CLINICAL DATA: This is the patient's initial encounter. Patient reports that signs and symptoms have been present for 1 day and indicates a pain score of 10/10. MEDICAL/SURGICAL HISTORY: Hepatitis C. Sepsis. renal failure, abscess in epidural of lumbar sp ine . Heart valve replacement RADIATION DOSE: 14.84 CTDI (mGy) COMPARISON: No prior exams available for comparison. TECHNIQUE: Contiguous axial images were obtained using helical multi-row detector technique. Data s ets were acquired after intravenous administration of 74ML ml Omnipaque 350 (iohexol) nonionic water -soluble contrast as a cumulative dose for multiple exams.. The volumetric data was post-processed w ith multiplanar reconstruction in oblique axial, sagittal and coronal planes. Using automated exposur e control and adjustment of the mA and/or kV according to patient size, radiation dose was kept as lo w as reasonably achievable to obtain optimal diagnostic quality images. DICOM format image data is a vailable electronically for review and comparison. FINDINGS: No significant subluxation or soft tissue swelling is seen. No definite epidural abscess is identifi ed. C2-C3: No appreciable compromise to the thecal sac, exiting nerve roots are seen. The neural foramin a are patent bilaterally. No appreciable thecal sac stenosis is seen. C3-C4: No appreciable compromise to the thecal sac, exiting nerve roots are seen. The neural foramin a are patent bilaterally. No appreciable thecal sac stenosis is seen. C4-C5: No appreciable compromise to the thecal sac, exiting nerve roots are seen. The neural foramin a are patent bilaterally. No appreciable thecal sac stenosis is seen. C5-C6: No appreciable compromise to the thecal sac, exiting nerve roots are seen. The neural foramin a are patent bilaterally. No appreciable thecal sac stenosis is seen. C6-C7: No appreciable compromise to the thecal sac, exiting nerve roots are seen. The neural foramin a are patent bilaterally. No appreciable thecal sac stenosis is seen. C7-T1: No appreciable compromise to the thecal sac, exiting nerve roots are seen. The neural foramin a are patent bilaterally. No appreciable thecal sac stenosis is seen. CONCLUSION: Unremarkable study. Electronically signed by: Alix Johnson MD 01/04/2018 5:58 PM EDT
--- NOTE | 2018-01-04 18:04 | CT ---
EXAM DATE: 01/04/2018 5:59 PM EDT AGE/SEX: 37 years / Female INDICATIONS: Abscess, history of abscess in epidural of lumbar spine, right hip pain with no known i njury CLINICAL DATA: This is the patient's initial encounter. Patient reports that signs and symptoms have been present for 1 day and indicates a pain score of 10/10. MEDICAL/SURGICAL HISTORY: Hepatitis C. Sepsis. Centimeters Renal failure . Heart valve replacem ent RADIATION DOSE: 13.41 CTDI (mGy) ; Combined studies COMPARISON: No prior exams available for comparison. TECHNIQUE: Contiguous axial images were acquired using a multirow detector CT scanner after intraven ous administration of 74ML ml Omnipaque 350 (iohexol) nonionic water-soluble contrast as a cumulativ e dose for multiple exams. Multiplanar reconstruction in the sagittal and coronal planes was perfor med. Using automated exposure control and adjustment of the mA and/or kV according to patient size, radiation dose was kept as low as reasonably achievable to obtain optimal diagnostic quality images. DICOM format image data is available electronically for review and comparison. FINDINGS: No significant compression deformities are seen. Discs spaces are grossly intact and not significant ly narrowed. No definite epidural abscess. T1-T2: No appreciable compromise to the thecal sac, spinal cord, or the exiting nerve roots are seen . The neural foramina are grossly patent bilaterally. T2-T3: No appreciable compromise to the thecal sac, spinal cord, or the exiting nerve roots are seen . The neural foramina are grossly patent bilaterally. T3-T4: No appreciable compromise to the thecal sac, spinal cord, or the exiting nerve roots are seen . The neural foramina are grossly patent bilaterally. T4-T5: No appreciable compromise to the thecal sac, spinal cord, or the exiting nerve roots are seen . The neural foramina are grossly patent bilaterally. T5-T6: No appreciable compromise to the thecal sac, spinal cord, or the exiting nerve roots are seen . The neural foramina are grossly patent bilaterally. T6-T7: No appreciable compromise to the thecal sac, spinal cord, or the exiting nerve roots are seen . The neural foramina are grossly patent bilaterally. T7-T8: No appreciable compromise to the thecal sac, spinal cord, or the exiting nerve roots are seen . The neural foramina are grossly patent bilaterally. T8-T9: No appreciable compromise to the thecal sac, spinal cord, or the exiting nerve roots are seen . The neural foramina are grossly patent bilaterally. T9-T10: No appreciable compromise to the thecal sac, spinal cord, or the exiting nerve roots are see n. The neural foramina are grossly patent bilaterally. T10-T11: No appreciable compromise to the thecal sac, spinal cord, or the exiting nerve roots are se en. The neural foramina are grossly patent bilaterally. T11-T12: No appreciable compromise to the thecal sac, spinal cord, or the exiting nerve roots are se en. The neural foramina are grossly patent bilaterally. T12-L1: No appreciable compromise to the thecal sac, spinal cord, or the exiting nerve roots are see n. The neural foramina are grossly patent bilaterally. CONCLUSION: Essentially unremarkable study. Electronically signed by: Alix Johnson MD 01/04/2018 6:03 PM EDT
[2018-01-04 18:07] LABS: Bacteria,Urine Occasional /hpf; Bilirubin,Urine Negative (Negative); Clarity,Urine Cloudy (Clear); Color,Urine Yellow (Yellw/Straw); Glucose,Urine (UA) Negative (Negative); Leukocyte Esterase,Urine Negative (Negative); Nitrite,Urine Negative (Negative); Specific Gravity,Urine 1.023 (1.002-1.035); Squamous Epithelial Cell,Urine 4 /hpf (0-5)
--- NOTE | 2018-01-04 18:22 | CT ---
EXAM DATE: 01/04/2018 6:04 PM EDT AGE/SEX: 37 years / Female INDICATIONS: Abscess, history of abscess in epidural lumbar spine CLINICAL DATA: This is the patient's initial encounter. Patient reports that signs and symptoms have been present for 1 day and indicates a pain score of 10/10. MEDICAL/SURGICAL HISTORY: Hepatitis C. Sepsis. Renal failure . Heart valve replacement RADIATION DOSE: 13.41 CTDI (mGy) ; Combined studies COMPARISON: No prior exams available for comparison. TECHNIQUE: Contiguous axial images were acquired with a multirow detector CT scanner after intraveno us administration of 74ML ml Omnipaque 350 (iohexol) nonionic water-soluble contrast as a cumulative dose for multiple exams. Multiplanar reconstructions in the sagittal and coronal plane were also pe rformed. Using automated exposure control and adjustment of the mA and/or kV according to patient siz e, radiation dose was kept as low as reasonably achievable to obtain optimal diagnostic quality image s. DICOM format image data is available electronically for review and comparison. FINDINGS: Vertebrae: Normal vertebral body height. Alignment: Normal. No subluxation. Post Contrast: No abnormal areas of enhancement are seen in the cord, dural or paraspinal regions. T12-L1: The thecal sac has a normal diameter. No evidence of disc bulge or protrusion. The neural foramina are patent bilaterally. L1-L2: The thecal sac has a normal diameter. No evidence of disc bulge or protrusion. The neural f oramina are patent bilaterally. L2-L3: The thecal sac has a normal diameter. No evidence of disc bulge or protrusion. The neural f oramina are patent bilaterally. L3-L4: The thecal sac has a normal diameter. No evidence of disc bulge or protrusion. The neural f oramina are patent bilaterally. L4-L5: Broad-based bulging of the disc flattens the ventral margin of thecal sac and extends into th e neural foramen bilaterally. L5-S1: Broad-based bulging of the disc flattens the ventral margin of the thecal sac and extends int o the neural foramen bilaterally. The lateral recesses are patent. CONCLUSION: 1. Mild bulging of the L4-5 and L5-S1 disks. 2. No abnormal areas of epidural enhancement seen. Electronically signed by: Tan Mckenzie MD 01/04/2018 6:21 PM EDT
[2018-01-04 18:32] LABS: Amphetamine Screen,Urine Neg (Neg); Barbiturate Screen,Urine Neg (Neg); Cannabinoid Screen,Urine Pos (Neg); Cocaine Screen,Urine Pos (Neg)
[2018-01-04 18:33] LABS: Opiate Screen,Urine Neg (Neg)
[2018-01-04] MEDS: Famotidine 20 MG Tablet PO SCH (20:00)
[2018-01-04] MEDS ORDERED: Enoxaparin Inj 40 MG/0.4 ML Syringe SQ SCH (20:00)
[2018-01-04 20:40] LABS: Troponin I 1.61 ng/mL (0.02-0.05)
[2018-01-04] MEDS: Gabapentin 100 MG Capsule PO SCH (21:42)
[2018-01-05 02:31] LABS: Hematocrit 36.5 % (35.0-46.0); Hemoglobin 12.5 gm/dL (11.6-15.3); Mean Corpuscular HGB Conc 34.1 % (32.0-36.0); Mean Corpuscular Hemoglobin 31.6 pg (27.0-34.0); Mean Corpuscular Volume 92.5 fL (80.0-100.0); Mean Platelet Volume 10.2 fL (7.0-11.0); Platelet Count 28 th/mm3 (150-450); Red Blood Count 3.95 mil/mm3 (4.00-5.30); Red Cell Distribution Width 15.2 % (11.6-17.2); White Blood Count 5.7 th/mm3 (4.0-11.0)
[2018-01-05 03:02] LABS: Alanine Aminotransferase 75 U/L (10-53); Albumin 2.4 g/dL (3.4-5.0); Alkaline Phosphatase 77 U/L (45-117); Anion Gap 10 meq/L (5-15); Aspartate Aminotransferase 132 U/L (15-37); Blood Urea Nitrogen 24 mg/dL (7-18); Calcium 7.8 mg/dL (8.5-10.1); Carbon Dioxide 22.7 meq/L (21.0-32.0); Chloride 100 meq/L (98-107); Creatine Kinase 1551 U/L (26-192); Glomerular Filtration Rate 62 mL/min (>89); Glucose,Random 98 mg/dL (74-106); Phosphorus 3.1 mg/dL (2.5-4.9); Potassium 3.3 meq/L (3.5-5.1); Sodium 133 meq/L (136-145); Total Protein 6.8 g/dL (6.4-8.2)
[2018-01-05 03:04] LABS: Troponin I 0.94 ng/mL (0.02-0.05)
[2018-01-05] MEDS: Vancomycin Inj 850 MG in Sodium Chlor 0.9% Inj 250 ML IV.SIG SCH ×2 (03:40→17:08)
[2018-01-05 03:49] LABS: CKMB Percent 0.3 % (0.0-4.0); Creatine Kinase MB 5.4 ng/mL (0.5-3.6)
[2018-01-05 03:55] LABS: Lymphocytes 10 % (9-44); Monocytes 11 % (0-8)
[2018-01-05] MEDS ORDERED: Chlorhexidine Gluconate 2% 1 Pack (2 Cloths) TOPICAL PRN (04:00)
[2018-01-05] MEDS: Gabapentin 100 MG Capsule PO SCH ×3 (04:59→22:12)
[2018-01-05] MEDS: Chlorhexidine Gluconate 2% 1 Pack (2 Cloths) TOPICAL SCH (04:59)
[2018-01-05] MEDS: Acetaminophen 325 MG Tablet PO PRN ×2 (05:47→15:41)
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
[2018-01-05] MEDS: Famotidine 20 MG Tablet PO SCH ×2 (08:43→22:12)
--- NOTE | 2018-01-05 09:01 | P.CONID ---
History of Present Illness Service: Infectious disease Consult date: 01/05/18 Requesting Physician: Margarito Driscoll Reason for Consult: Evaluate patient for possible PDE, history of endocarditis, Primary Care Provider: No Primary Care Physician Chief Complaint: Generalized weakness, inability to walk History of Present Illness: Patient seen and examined. Records reviewed. Patient is not a very good historian. Patient is a 37-year-old female, presented to the hospital complaining of right- sided back pain hip pain, fever and chills. She is also complaining of pain in her right upper extremity. She had noted that she has difficulty moving it because of the pain. Patient history is significant for treatment of tricuspid valve endocarditis back in 2013, lumbar spine infection,, and she was in the hospital for quite a long time, and subsequently developed other kinds of bacteremia which was felt to be related to PICC. She had Klebsiella, Acinetobacter, candidemia, as well as Mycobacterium abscesses. Recently she was hospitalized in the hospital in [place], and the patient stated she was there from July - September 2017. She was treated with 6 weeks of IV antibiotics for endocarditis, and she was also told that she had a hip infection , but she did not have any surgery for the hip. Patient stated she had valve surgery around September 28, and she thinks it might be the tricuspid valve, however she signed out AGAINST MEDICAL ADVICE about 3 days after the surgery. Her boyfriend has been helping her take care of her incision. She came back to this area. Patient denies any significant cough or congestion. No chest pain or shortness of breath. No nausea or vomiting or diarrhea. She has had some incontinence which he attributes due to inability to ambulate secondary to her back and hip pain. On presentation she has been febrile up to 102. She had a CTA which did not show any pulmonary embolism, but it did show abnormalities in the lung as well as some opacity seen on the anterior mediastinum. I had reviewed with radiology and there is also a density seen in the right sternoclavicular joint, and the anterior mediastinum opacity looks like it may be a complex fluid collection. CAT scan of her spine, cervical, thoracic, and lumbar did not show any significant abnormality. 2 blood cultures on admission are now reported as growing gram-positive cocci in pairs and clusters. Patient is currently on vancomycin and meropenem. 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 Review of Systems Constitutional: Reports body ache(s), Reports chills, Reports fever(s) Eyes: Denies discharge, Denies dry eyes Ears, Nose, Mouth, and Throat: Denies difficulty swallowing, Denies mouth lesions, Denies nasal congestion, Denies nasal discharge, Denies sore throat Cardiovascular: Denies chest pain, Denies shortness of breath Respiratory: Denies cough, Denies shortness of breath Gastrointestinal: Denies abdominal pain, Denies loose stools, Denies nausea, Denies pain with swallowing, Denies vomiting Genitourinary: Denies painful urination Musculoskeletal: Reports joint pain, Reports joint swelling Skin/Breast: Denies rash, Denies sores PMFSH - History History Provided By: Patient - Medical History Medical History: Medical History (Last Reviewed 01/05/18 @ 08:48 by Katie Richard MD) Abscess in epidural space of lumbar spine Endocarditis Hepatitis C Hypokalemia Hyponatremia IVDU (intravenous drug user) Osteomyelitis Pneumonia Renal failure Sepsis Thrombocytopenia UTI (urinary tract infection) - Surgical History Surgical History: Surgical History (Last Reviewed 01/05/18 @ 08:48 by Katie Richard MD) History of heart surgery - Tobacco History Tobacco Use In Past 30 Days: Yes Smoking Status: Heavy tobacco smoker Tobacco Type: Cigarettes - Alcohol History How Often Do You Have a Drink Containing Alcohol: Never - Substance Use History Substance History: Active Abuse - Substance Use Type Heroin Status: Active - Travel History Recent Travel in the [place] Within the Last 8 Weeks: No Recent Travel Out of the Country Within the Last 8 Weeks: No - Immunization History Tetanus Immunization: Never Vaccinated Hx Influenza Vaccine This Season: No Medications and Allergies Active Medications: Active Medications Acetaminophen (Tylenol) 650 mg PO Q6H PRN PRN Reason: PAIN 6-10 AND/OR FEVER >101F Last Admin: 01/05/18 05:47 Dose: 650 mg Al Hydroxide/Mg Hydroxide (Milk Of Magnneida Liq) 30 ml PO Q12H PRN PRN Reason: Mild Constipation Albuterol (Duoneb Neb (Prn)) 1 ampul NEB Q2HR NEB PRN PRN Reason: WHEEZING Chlorhexidine Gluconate (Chlorhexidine 2% Cloth) 3 pack TOPICAL DAILY@0400 PRN PRN Reason: Extra cloth needed Stop: 01/10/18 03:59 Chlorhexidine Gluconate (Chlorhexidine 2% Cloth) 3 pack TOPICAL DAILY@0400 [facility] Stop: 01/10/18 03:59 Last Admin: 01/05/18 04:59 Dose: 3 pack Famotidine (Pepcid) 20 mg PO BID [facility] Last Admin: 01/04/18 20:00 Dose: 20 mg Gabapentin (Neurontin) 100 mg PO Q8H [facility] Last Admin: 01/05/18 04:59 Dose: 100 mg Lactated Ringer's (Lr 1000 Ml Inj) 1,000 mls @ 100 mls/hr IV.CONT .Q10H [facility] Last Admin: 01/05/18 06:32 Dose: 100 mls/hr Meropenem 1,000 mg/ Sodium (Chloride) 100 mls @ 200 mls/hr IV.SIG Q8H [facility] Last Infusion: 01/05/18 06:49 Dose: Infused Vancomycin HCl 850 mg/ Sodium (Chloride) 258.5 mls @ 250 mls/hr IV.SIG Q12H [facility] Last Infusion: 01/05/18 06:32 Dose: Infused Miscellaneous Information ([facility] Ordered Lab Info) 1 each OTHER ONCE ONE Stop: 01/06/18 14:46 Ondansetron HCl (Zofran Inj) 4 mg IV.PUSH Q6H PRN PRN Reason: NAUSEA OR VOMITING Oxycodone/Acetaminophen (Percocet 5/325 Mg) 1 tab PO Q4H PRN PRN Reason: PAIN SCALE 1 TO 5 Last Admin: 01/05/18 04:59 Dose: 1 tab Pharmacy Profile Note (Vancomycin Consult Pharmacy) 1 each OTHER UNSCH PRN PRN Reason: Pharmacy to dose Allergies Allergy/AdvReac Type Severity Reaction Status Date / Time bee venom protein (honey bee) Allergy Severe rash Verified 01/04/18 14:34 Home Medications Medication Instructions Recorded Confirmed Type No Known Home Medications 01/04/18 01/04/18 History Exam Vital signs: Vital Signs 01/04/18 10:45 01/04/18 14:19 01/04/18 14:21 Temperature 98.5 F Pulse Rate 95 H 118 H 120 H Respiratory Rate 18 18 Blood Pressure 84/54 L 100/59 L Pulse Oximetry 97 98 94 L 01/04/18 14:54 01/04/18 17:42 01/04/18 17:53 Temperature Pulse Rate 119 H 113 H 116 H Respiratory Rate 18 27 H 29 H Blood Pressure 103/65 108/61 Pulse Oximetry 95 95 01/04/18 17:55 01/04/18 18:00 01/04/18 19:00 Temperature 102.5 F H Pulse Rate 116 H 114 H 111 H Respiratory Rate 33 H 28 H 24 Blood Pressure 97/55 L 89/54 L 90/53 L Pulse Oximetry 93 L 95 97 01/04/18 20:00 01/04/18 21:00 01/04/18 22:00 Temperature 100.5 F H Pulse Rate 112 H 108 H 96 H Respiratory Rate 24 18 15 Blood Pressure 93/54 L 98/51 L 91/53 L Pulse Oximetry 93 L 92 L 93 L 01/04/18 23:00 01/05/18 00:00 01/05/18 01:00 Temperature 100.8 F H Pulse Rate 94 H 92 H 99 H Respiratory Rate 16 17 24 Blood Pressure 95/55 L 97/67 L 102/69 Pulse Oximetry 92 L 97 99 01/05/18 02:00 01/05/18 03:00 01/05/18 04:00 Temperature 102.9 F H Pulse Rate 104 H 112 H 115 H Respiratory Rate 20 22 21 Blood Pressure 105/60 109/63 106/59 L Pulse Oximetry 93 L 93 L 91 L 01/05/18 05:00 01/05/18 06:00 01/05/18 07:00 Temperature 98.4 F Pulse Rate 115 H 117 H 114 H Respiratory Rate 23 19 16 Blood Pressure 105/62 105/62 97/51 L Pulse Oximetry 94 L 90 L 92 L 01/05/18 08:00 Temperature Pulse Rate 99 H Respiratory Rate 12 Blood Pressure 89/53 L Pulse Oximetry 95 Intake & Output 01/04/18 01/05/18 01/05/18 18:59 06:59 18:59 Intake Total 1300 / 1300 1958.5 / 1958.5 Output Total 200 / 200 1999 / 1999 Balance 1100 / 1100 -41.5 / -41.5 Weight 49.895 kg 50 kg Intake: IV 1300 / 1300 1458.5 / 1458.5 LR 1000 mL Inj 1,000 ML @ 100 1000 / 1000 mls/hr IV.CONT .Q10H [facility] Rx#: [id number] Merrem Inj 1,000 MG In NS Inj 200 / 200 100 ML @ 200 mls/hr IV.SIG Q8H [facility] Rx#:[id number] Zosyn 3.375 GM Premix 50 ML @ 50 / 50 100 mls/hr IV.SIG ONCE ONE Rx#: [id number] NS Inj 1,000 ML @ Wide Open IV. 1000 / 1000 SIG BOLUS ONE Rx#:[id number] Vancomycin Inj 1,000 MG In NS 250 / 250 Inj 250 ML @ 250 mls/hr IV.SIG ONCE ONE Rx#:[id number] Vancomycin Inj 850 MG In NS Inj 258.5 / 258.5 250 ML @ 250 mls/hr IV.SIG Q12H [facility] Rx#:[id number] Oral 500 / 500 Output: Urine 200 / 200 1999 / 1999 Other: # Voids 1 3 Weight On Admission 49 kg Narrative: Physical Examination GENERAL: Patient is a well-nourished, well-developed female, not in respiratory distress. SKIN: Warm and dry, no generalized rash, no ecchymoses, and no evidence of embolic lesions. HEAD: Atraumatic. Normocephalic. No temporal wasting, or tenderness. EYES: Mccoll conjunctiva. No petechia or hemorrhage. Pupils equal, round and reactive to light. Extraocular movements full and intact. No scleral icterus. No injection or drainage. EARS, NOSE AND THROAT: Nose without bleeding or purulent nasal discharge. No sinus tenderness. Mucous membranes pink and moist. No oral lesions noted. No exudate. No oral thrush. NECK: Trachea midline. Supple and not tender, no meningeal signs. There is a tender fluctuant area in her R sternoclavicular joint. CARDIOVASCULAR: Regular rate and rhythm, tachycardic. No murmurs, rubs or gallops heard. healed incision, no sternal instability RESPIRATORY: Clear to auscultation. Breath sounds equal bilaterally. No rales , wheezing or rhonchi. Decreased at the bases ABDOMEN: Soft, non-tender, nondistended. Bowel sounds present and normoactive. No guarding. No rebound. No organomegaly. EXTREMITIES: No clubbing, cyanosis, or edema.No joint effusion, has good ROM. No swelling or redness noted in her R hip. No calf tenderness. BACK: tender to R of lumbar spined NEUROLOGICAL: Awake and alert. Cranial nerves are grossly intact. Symmetrical motor strength. PSYCHIATRIC: Normal affect, calm and cooperative. LINE: No evidence of infection Results - Labs CBC & Chem 7: 01/05/18 02:16 01/05/18 02:16 Labs: Laboratory Results - last 24 hr 01/04/18 01/04/18 01/04/18 14:30 14:30 14:30 WBC RBC Hgb Hct MCV MCH MCHC RDW Plt Count MPV Prelim Diff (Auto) Neut % (Auto) Lymph % (Auto) Webster % (Auto) Eos % (Auto) Baso % (Auto) Neut # (Auto) Lymph # (Auto) Webster # (Auto) Eos # (Auto) Baso # (Auto) WBC Differential Seg Neuts % (Manual) Band Neuts % (Manual) Lymphocytes % (Manual) Monocytes % (Manual) Metamyelocytes % (Man) Abs Neuts (Manual) Differential Comment Platelet Estimate Platelet Morphology RBC Morphology ESR PT 11.6 INR 1.1 APTT 31.2 H Sodium Cancelled Potassium Cancelled Chloride Cancelled Carbon Dioxide Cancelled Anion Gap Cancelled BUN Cancelled Creatinine Cancelled Estimated GFR Cancelled Random Glucose Cancelled Osmolality Lactic Acid Calcium Cancelled Phosphorus Magnesium 1.8 Total Bilirubin AST ALT Alkaline Phosphatase Total Creatine Kinase Cancelled CK-MB (CK-2) CK-MB (CK-2) % Troponin I Cancelled 2.41 H* C-Reactive Protein B-Natriuretic Peptide Total Protein Albumin Lipase 53 L Beta HCG, Qual Urine Color Urine Clarity Urine pH Ur Specific Spencer Urine Protein Urine Glucose (UA) Urine Ketones Urine Occult Blood Urine Nitrate Urine Bilirubin Urine Urobilinogen Ur Leukocyte Esterase Urine WBC Ur Squamous Epith Cells Urine Bacteria Micro UA Comment Ur Microscopic Review Urine Culture Comments Nasal Screen MRSA (PCR) Urine Opiates Screen Ur Barbiturates Screen Ur Amphetamines Screen U Benzodiazepines Scrn Urine Cocaine Screen U Cannabinoids Screen 01/04/18 01/04/18 01/04/18 14:30 14:30 14:30 WBC 6.3 RBC 4.29 Hgb 13.3 Hct 40.1 MCV 93.5 MCH 31.1 MCHC 33.2 RDW 15.4 Plt Count 46 L MPV 10.2 Prelim Diff (Auto) Slide review pending Neut % (Auto) 92.7 H Lymph % (Auto) 3.4 L Webster % (Auto) 2.8 Eos % (Auto) 0.9 Baso % (Auto) 0.2 Neut # (Auto) 5.8 Lymph # (Auto) 0.2 L Webster # (Auto) 0.2 Eos # (Auto) 0.1 Baso # (Auto) 0.0 WBC Differential Manual diff final Seg Neuts % (Manual) 48 Band Neuts % (Manual) 45 H Lymphocytes % (Manual) 3 L Monocytes % (Manual) 2 Metamyelocytes % (Man) 2 H Abs Neuts (Manual) 6.0 Differential Comment . Platelet Estimate Low L Platelet Morphology Enlarged H RBC Morphology Normal ESR PT INR APTT Sodium 127 L Potassium 3.6 Chloride 94 L Carbon Dioxide 24.3 Anion Gap 9 BUN 32 H Creatinine 1.12 H Estimated GFR 55 L Random Glucose 127 H Osmolality Lactic Acid 2.5 H Calcium 8.5 Phosphorus Magnesium Total Bilirubin 1.0 AST 235 H ALT 103 H Alkaline Phosphatase 103 Total Creatine Kinase CK-MB (CK-2) CK-MB (CK-2) % Troponin I C-Reactive Protein B-Natriuretic Peptide Total Protein 8.4 H Albumin 3.1 L Lipase Beta HCG, Qual Urine Color Urine Clarity Urine pH Ur Specific Spencer Urine Protein Urine Glucose (UA) Urine Ketones Urine Occult Blood Urine Nitrate Urine Bilirubin Urine Urobilinogen Ur Leukocyte Esterase Urine WBC Ur Squamous Epith Cells Urine Bacteria Micro UA Comment Ur Microscopic Review Urine Culture Comments Nasal Screen MRSA (PCR) Urine Opiates Screen Ur Barbiturates Screen Ur Amphetamines Screen U Benzodiazepines Scrn Urine Cocaine Screen U Cannabinoids Screen 01/04/18 01/04/18 01/04/18 14:30 14:30 14:30 WBC RBC Hgb Hct MCV MCH MCHC RDW Plt Count MPV Prelim Diff (Auto) Neut % (Auto) Lymph % (Auto) Webster % (Auto) Eos % (Auto) Baso % (Auto) Neut # (Auto) Lymph # (Auto) Webster # (Auto) Eos # (Auto) Baso # (Auto) WBC Differential Seg Neuts % (Manual) Band Neuts % (Manual) Lymphocytes % (Manual) Monocytes % (Manual) Metamyelocytes % (Man) Abs Neuts (Manual) Differential Comment Platelet Estimate Platelet Morphology RBC Morphology ESR PT INR APTT Sodium Potassium Chloride Carbon Dioxide Anion Gap BUN Creatinine Estimated GFR Random Glucose Osmolality Lactic Acid Calcium Phosphorus Magnesium Total Bilirubin AST ALT Alkaline Phosphatase Total Creatine Kinase 4077 H CK-MB (CK-2) 20.5 H CK-MB (CK-2) % 0.5 Troponin I C-Reactive Protein 33.00 H B-Natriuretic Peptide 150 H Total Protein Albumin Lipase Beta HCG, Qual Urine Color Urine Clarity Urine pH Ur Specific Spencer Urine Protein Urine Glucose (UA) Urine Ketones Urine Occult Blood Urine Nitrate Urine Bilirubin Urine Urobilinogen Ur Leukocyte Esterase Urine WBC Ur Squamous Epith Cells Urine Bacteria Micro UA Comment Ur Microscopic Review Urine Culture Comments Nasal Screen MRSA (PCR) Urine Opiates Screen Ur Barbiturates Screen Ur Amphetamines Screen U Benzodiazepines Scrn Urine Cocaine Screen U Cannabinoids Screen 01/04/18 01/04/18 01/04/18 14:30 14:30 17:32 WBC RBC Hgb Hct MCV MCH MCHC RDW Plt Count MPV Prelim Diff (Auto) Neut % (Auto) Lymph % (Auto) Webster % (Auto) Eos % (Auto) Baso % (Auto) Neut # (Auto) Lymph # (Auto) Webster # (Auto) Eos # (Auto) Baso # (Auto) WBC Differential Seg Neuts % (Manual) Band Neuts % (Manual) Lymphocytes % (Manual) Monocytes % (Manual) Metamyelocytes % (Man) Abs Neuts (Manual) Differential Comment Platelet Estimate Platelet Morphology RBC Morphology ESR 53 H PT INR APTT Sodium Potassium Chloride Carbon Dioxide Anion Gap BUN Creatinine Estimated GFR Random Glucose Osmolality 284 Lactic Acid 1.5 Calcium Phosphorus Magnesium Total Bilirubin AST ALT Alkaline Phosphatase Total Creatine Kinase CK-MB (CK-2) CK-MB (CK-2) % Troponin I C-Reactive Protein B-Natriuretic Peptide Total Protein Albumin Lipase Beta HCG, Qual Urine Color Urine Clarity Urine pH Ur Specific Spencer Urine Protein Urine Glucose (UA) Urine Ketones Urine Occult Blood Urine Nitrate Urine Bilirubin Urine Urobilinogen Ur Leukocyte Esterase Urine WBC Ur Squamous Epith Cells Urine Bacteria Micro UA Comment Ur Microscopic Review Urine Culture Comments Nasal Screen MRSA (PCR) Urine Opiates Screen Ur Barbiturates Screen Ur Amphetamines Screen U Benzodiazepines Scrn Urine Cocaine Screen U Cannabinoids Screen 01/04/18 01/04/18 01/04/18 17:40 17:40 18:00 WBC RBC Hgb Hct MCV MCH MCHC RDW Plt Count MPV Prelim Diff (Auto) Neut % (Auto) Lymph % (Auto) Webster % (Auto) Eos % (Auto) Baso % (Auto) Neut # (Auto) Lymph # (Auto) Webster # (Auto) Eos # (Auto) Baso # (Auto) WBC Differential Seg Neuts % (Manual) Band Neuts % (Manual) Lymphocytes % (Manual) Monocytes % (Manual) Metamyelocytes % (Man) Abs Neuts (Manual) Differential Comment Platelet Estimate Platelet Morphology RBC Morphology ESR PT INR APTT Sodium Potassium Chloride Carbon Dioxide Anion Gap BUN Creatinine Estimated GFR Random Glucose Osmolality Lactic Acid Calcium Phosphorus Magnesium Total Bilirubin AST ALT Alkaline Phosphatase Total Creatine Kinase CK-MB (CK-2) CK-MB (CK-2) % Troponin I C-Reactive Protein B-Natriuretic Peptide Total Protein Albumin Lipase Beta HCG, Qual Urine Color Yellow Urine Clarity Cloudy H Urine pH 5.0 Ur Specific Spencer 1.023 Urine Protein Negative Urine Glucose (UA) Negative Urine Ketones Negative Urine Occult Blood Negative Urine Nitrate Negative Urine Bilirubin Negative Urine Urobilinogen 2.0 H Ur Leukocyte Esterase Negative Urine WBC 8 H Ur Squamous Epith Cells 4 Urine Bacteria Occasional H Micro UA Comment Culture indicated Ur Microscopic Review Not Reportable Urine Culture Comments Culture indicated Nasal Screen MRSA (PCR) Mrsa detected Urine Opiates Screen Neg Ur Barbiturates Screen Neg Ur Amphetamines Screen Neg U Benzodiazepines Scrn Neg Urine Cocaine Screen Pos H U Cannabinoids Screen Pos H 01/04/18 01/04/18 01/05/18 19:41 19:41 02:16 WBC 5.7 RBC 3.95 L Hgb 12.5 Hct 36.5 MCV 92.5 MCH 31.6 MCHC 34.1 RDW 15.2 Plt Count 28 L D MPV 10.2 Prelim Diff (Auto) Manual diff required Neut % (Auto) Lymph % (Auto) Webster % (Auto) Eos % (Auto) Baso % (Auto) Neut # (Auto) Lymph # (Auto) Webster # (Auto) Eos # (Auto) Baso # (Auto) WBC Differential Manual diff final Seg Neuts % (Manual) 49 Band Neuts % (Manual) 30 H Lymphocytes % (Manual) 10 Monocytes % (Manual) 11 H Metamyelocytes % (Man) Abs Neuts (Manual) 4.5 Differential Comment . Platelet Estimate Low L Platelet Morphology Enlarged H RBC Morphology ESR PT INR APTT Sodium 128 L Potassium Chloride Carbon Dioxide Anion Gap BUN Creatinine Estimated GFR Random Glucose Osmolality Lactic Acid 1.2 Calcium Phosphorus Magnesium Total Bilirubin AST ALT Alkaline Phosphatase Total Creatine Kinase CK-MB (CK-2) CK-MB (CK-2) % Troponin I 1.61 H* D C-Reactive Protein B-Natriuretic Peptide Total Protein Albumin Lipase Beta HCG, Qual Urine Color Urine Clarity Urine pH Ur Specific Spencer Urine Protein Urine Glucose (UA) Urine Ketones Urine Occult Blood Urine Nitrate Urine Bilirubin Urine Urobilinogen Ur Leukocyte Esterase Urine WBC Ur Squamous Epith Cells Urine Bacteria Micro UA Comment Ur Microscopic Review Urine Culture Comments Nasal Screen MRSA (PCR) Urine Opiates Screen Ur Barbiturates Screen Ur Amphetamines Screen U Benzodiazepines Scrn Urine Cocaine Screen U Cannabinoids Screen 01/05/18 01/05/18 01/05/18 02:16 02:16 02:16 WBC RBC Hgb Hct MCV MCH MCHC RDW Plt Count MPV Prelim Diff (Auto) Neut % (Auto) Lymph % (Auto) Webster % (Auto) Eos % (Auto) Baso % (Auto) Neut # (Auto) Lymph # (Auto) Webster # (Auto) Eos # (Auto) Baso # (Auto) WBC Differential Seg Neuts % (Manual) Band Neuts % (Manual) Lymphocytes % (Manual) Monocytes % (Manual) Metamyelocytes % (Man) Abs Neuts (Manual) Differential Comment Platelet Estimate Platelet Morphology RBC Morphology ESR PT INR APTT Sodium 133 L Potassium 3.3 L Chloride 100 Carbon Dioxide 22.7 Anion Gap 10 BUN 24 H Creatinine 1.00 Estimated GFR 62 L Random Glucose 98 Osmolality Lactic Acid 2.7 H Calcium 7.8 L Phosphorus 3.1 Magnesium 2.0 Total Bilirubin 1.0 AST 132 H ALT 75 H Alkaline Phosphatase 77 Total Creatine Kinase 1551 H CK-MB (CK-2) 5.4 H CK-MB (CK-2) % 0.3 Troponin I 0.94 H* D C-Reactive Protein B-Natriuretic Peptide Total Protein 6.8 D Albumin 2.4 L D Lipase Beta HCG, Qual Less than 1.0 Urine Color Urine Clarity Urine pH Ur Specific Spencer Urine Protein Urine Glucose (UA) Urine Ketones Urine Occult Blood Urine Nitrate Urine Bilirubin Urine Urobilinogen Ur Leukocyte Esterase Urine WBC Ur Squamous Epith Cells Urine Bacteria Micro UA Comment Ur Microscopic Review Urine Culture Comments Nasal Screen MRSA (PCR) Urine Opiates Screen Ur Barbiturates Screen Ur Amphetamines Screen U Benzodiazepines Scrn Urine Cocaine Screen U Cannabinoids Screen - Imaging Impressions Chest X-Ray 01/04/18 14:21 CONCLUSION: Slight CHF. Chest CTA 01/04/18 15:25 CONCLUSION: 1. Abnormal soft tissue density within the mediastinum unusual appearance for adenopathy partially could be hyperplasia of the patient's thymic gland, however underlying neoplastic process such as lymphoma is not excluded. 2. Slight cardiomegaly. 3. Bilateral parenchymal infiltrates in the lungs. Cervical Spine CT 01/04/18 16:23 CONCLUSION: Unremarkable study. Lumbar Spine CT 01/04/18 16:23 CONCLUSION: 1. Mild bulging of the L4-5 and L5-S1 disks. 2. No abnormal areas of epidural enhancement seen. Thoracic Spine CT 01/04/18 16:23 CONCLUSION: Essentially unremarkable study. Assessment and Plan - Plan Impression Sepsis, BC (+) GPC - very worrisome for PVE - ?mediastinitis and infected R sternoclavicular joint S/P Rx for endocarditis this year Episode of endocarditis 2013, and lumbar spine infection IVDU Recommendation Repeat BC to document clearing Await echo, likely will need ZEHRA Consult CTS - to evaluate for possible mediastinitis and infected right sternoclavicular joint Get records from other hospital - in [place] Continue vanco and Meropenem for now until more results available from C/S Follow C/S Follow temps Monitor progress Further recommendation to follow once work-up is completed I will follow along with you Thank you for this consultation
--- NOTE | 2018-01-05 11:15 | CT ---
EXAM DATE: 01/05/2018 11:01 AM EDT AGE/SEX: 37 years / Female INDICATIONS: Suspected endocarditis with right hip pain CLINICAL DATA: This is the patient's initial encounter. Patient reports that signs and symptoms have been present for 3 days and indicates a pain score of 10/10. MEDICAL/SURGICAL HISTORY: Hepatitis C. Sepsis. Renal Failure, Abscess to epidural in lumbar spine None. RADIATION DOSE: 6.28 CTDI (mGy) COMPARISON: No prior exams available for comparison. TECHNIQUE: Multiple contiguous axial images were acquired using a multirow detector CT scanner witho ut contrast. Multiplanar reconstruction was performed in the sagittal and coronal planes. Using aut omated exposure control and adjustment of the mA and/or kV according to patient size, radiation dose was kept as low as reasonably achievable to obtain optimal diagnostic quality images. DICOM format i mage data is available electronically for review and comparison. FINDINGS: Bones: The bony structures about the hip are in normal alignment. The trabecular pattern of the fem oral neck is intact. No fracture is seen. The bony pelvic ring is intact. Sclerotic focus within t he femoral head and acetabulum likely bone islands. Joints: No significant arthropathy or bony hypertrophy is seen. The articular surface of the femora l head is smooth. Soft Tissues: Unremarkable for a non-contrast study. Other: No foreign bodies seen. Trace pelvic free fluid. CONCLUSION: 1. Right hip appears unremarkable. No fracture. Electronically signed by: Trenton Banuelos MD 01/05/2018 11:14 AM EDT
[2018-01-05 14:07] LABS: Hepatitits B Surface Antigen Reactive (Nonreactive)
[2018-01-05 14:20] LABS: Hepatitis A IgM Antibody Nonreactive (Nonreactive)
[2018-01-05 16:28] LABS: Baso % (Auto) 0.2 % (0.0-2.0); Eos % (Auto) 0.1 % (0.0-4.0); Hematocrit 36.8 % (35.0-46.0); Hemoglobin 12.2 gm/dL (11.6-15.3); Lymph # (Auto) 0.3 th/mm3 (1.0-4.8); Lymph % (Auto) 4.1 % (9.0-44.0); Mean Corpuscular HGB Conc 33.1 % (32.0-36.0); Mean Corpuscular Hemoglobin 31.5 pg (27.0-34.0); Mean Corpuscular Volume 95.3 fL (80.0-100.0); Mono # (Auto) 0.5 th/mm3 (0.0-0.9); Mono % (Auto) 6.2 % (0.0-8.0); Neut # (Auto) 6.5 th/mm3 (1.8-7.7); Neut % (Auto) 89.4 % (16.0-70.0); Platelet Count 35 th/mm3 (150-450); Red Blood Count 3.86 mil/mm3 (4.00-5.30); Red Cell Distribution Width 15.9 % (11.6-17.2); White Blood Count 7.3 th/mm3 (4.0-11.0)
[2018-01-05 16:41] LABS: Activated Partial Thrombo Time 30.1 sec (24.3-30.1); INR 1.2 Ratio; Prothrombin Time 11.9 sec (9.8-11.6)
[2018-01-05 16:56] LABS: Lymphocytes 3 % (9-44); Monocytes 5 % (0-8)
[2018-01-05 16:57] LABS: Toxic Vacuolation Present
[2018-01-05 16:59] LABS: RBC Morphology Normal (Normal)
--- NOTE | 2018-01-05 17:21 | ECG ---
Date Performed: 01/04/2018 Time Performed: 11:11:35 PTAGE: 37 years EKG: SINUS TACHYCARDIA WITH SHORT ND INTERVAL LEFT ATRIAL ENLARGEMENT RIGHT BUNDLE BRANCH BLOCK MARKED T-WAVE ABNORMALITY, CONSIDER ANTERIOR ISCHEMIA ABNORMAL ECG NO PREVIOUS TRACING DOCTOR: Thomas Wu Interpretating Date/Time 01/05/2018 17:19:00
--- NOTE | 2018-01-05 20:08 | US ---
EXAM DATE: 01/05/2018 7:45 PM EDT AGE/SEX: 37 years / Female INDICATIONS: Elevated lab values. CLINICAL DATA: This is the patient's initial encounter. Patient reports that signs and symptoms have been present for 1 day and indicates a pain score of 3/10. MEDICAL/SURGICAL HISTORY: Hepatitis C. Abscess. Endocarditis. Hypokalemia. Hypernatremia. IV dr ug use. Osteomyelitis. Pneumonia. Renal failure. Sepsis. Thrombocytopenia. Urinary tract infection. . Heart surgery. COMPARISON: No prior exams available for comparison. MEASUREMENTS: Liver:__ 17.4 cm. Common Bile Duct:___ 3mm. Right Kidney:___12.4 x 4.8 x 4.8 cm. Left Kidney:___11.7 x 5.1 x 5.4 cm. Spleen:___14.0 cm. FINDINGS: Liver: Normal echotexture without focal lesion or ductal dilatation. Portal Vein: Hepatopedal flow seen in portal vein. Common Duct: No intraluminal mass or stone visualized. Gallbladder: Inspissated sludge is identified in the gallbladder. Pancreas: The visualized portions are within normal limits Right Kidney: Trace perinephric fluid is noted. There is no evidence of hydronephrosis. Left Kidney: Trace perinephric fluid is noted. There is no evidence of hydronephrosis Ascites: None Pleural Effusion: None Spleen: Spleen is mildly enlarged. Aorta: Non aneurysmal. IVC: Within normal limits Other: None. CONCLUSION: 1. Gallbladder sludge 2. Mild splenomegaly 3. Bilateral perinephric fluid 4. No other significant abnormality. Electronically signed by: Danish Carrington MD 01/05/2018 8:07 PM EDT
[2018-01-06] MEDS: Acetaminophen 325 MG Tablet PO PRN ×2 (00:06→21:38)
[2018-01-06] MEDS: Vancomycin Inj 850 MG in Sodium Chlor 0.9% Inj 250 ML IV.SIG SCH ×2 (03:43→19:44)
[2018-01-06] MEDS: Chlorhexidine Gluconate 2% 1 Pack (2 Cloths) TOPICAL SCH (03:44)
[2018-01-06 04:06] LABS: Hematocrit 30.9 % (35.0-46.0); Hemoglobin 10.4 gm/dL (11.6-15.3); Mean Corpuscular HGB Conc 33.6 % (32.0-36.0); Mean Corpuscular Hemoglobin 31.7 pg (27.0-34.0); Mean Corpuscular Volume 94.4 fL (80.0-100.0); Mean Platelet Volume 12.2 fL (7.0-11.0); Platelet Count 24 th/mm3 (150-450); Red Blood Count 3.28 mil/mm3 (4.00-5.30); Red Cell Distribution Width 15.6 % (11.6-17.2); White Blood Count 7.7 th/mm3 (4.0-11.0)
[2018-01-06] MEDS: Gabapentin 100 MG Capsule PO SCH ×3 (06:11→21:16)
[2018-01-06 06:15] LABS: CKMB Percent 0.7 % (0.0-4.0); Creatine Kinase MB 2.3 ng/mL (0.5-3.6)
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
[2018-01-06 07:43] LABS: Eosinophils 1 % (0-4); Lymphocytes 3 % (9-44); Monocytes 8 % (0-8); Platelet Morphology Normal (Normal)
--- NOTE | 2018-01-06 08:37 | P.PNID ---
Subjective Remarks: Patient is a 37-year-old female, presented to the hospital complaining of right- sided back pain hip pain, fever and chills. She is also complaining of pain in her right upper extremity. She had noted that she has difficulty moving it because of the pain. Patient history is significant for treatment of tricuspid valve endocarditis back in 2013, lumbar spine infection,, and she was in the hospital for quite a long time, and subsequently developed other kinds of bacteremia which was felt to be related to PICC. She had Klebsiella, Acinetobacter, candidemia, as well as Mycobacterium abscesses. Recently she was hospitalized in the hospital in [place], and the patient stated she was there from July - September 2017. She was treated with 6 weeks of IV antibiotics for endocarditis, and she was also told that she had a hip infection , but she did not have any surgery for the hip. Patient stated she had valve surgery around September 28, and she thinks it might be the tricuspid valve, however she signed out AGAINST MEDICAL ADVICE about 3 days after the surgery. Her boyfriend has been helping her take care of her incision. She came back to this area. Patient denies any significant cough or congestion. No chest pain or shortness of breath. No nausea or vomiting or diarrhea. She has had some incontinence which he attributes due to inability to ambulate secondary to her back and hip pain. On presentation she has been febrile up to 102. She had a CTA which did not show any pulmonary embolism, but it did show abnormalities in the lung as well as some opacity seen on the anterior mediastinum. I had reviewed with radiology and there is also a density seen in the right sternoclavicular joint, and the anterior mediastinum opacity looks like it may be a complex fluid collection. CAT scan of her spine, cervical, thoracic, and lumbar did not show any significant abnormality. 2 blood cultures on admission are now reported as growing gram-positive cocci in pairs and clusters. Patient is currently on vancomycin and meropenem. 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 Notes reviewed Last fever yesterday afternoon Afebrile this morning C/O pain on R side from shoulder to the R hip Hip CT no fluid in joint C/O pain in lower back/ischial R BC with MRSA Awaiting CTS evaluation Platelets very low 24K Fibrinogen ok Antibiotics: Vancomycin Merem Lines: PIV no evid of infection Past Medical History: Abscess in epidural space of lumbar spine Endocarditis Hepatitis C Hypokalemia Hyponatremia IVDU (intravenous drug user) Osteomyelitis Pneumonia Renal failure Sepsis Thrombocytopenia UTI (urinary tract infection) S/P valve surgery Allergies/Adverse Reactions: Allergies bee venom protein (honey bee) Allergy (Severe, Verified 01/04/18 14:34) rash Objective Vital Signs 01/05/18 09:00 01/05/18 10:00 01/05/18 10:03 Temperature Pulse Rate 92 H 89 81 Respiratory Rate 12 23 14 Blood Pressure 84/52 L 79/51 L 71/48 L Pulse Oximetry 97 100 100 01/05/18 10:15 01/05/18 10:30 01/05/18 10:46 Temperature Pulse Rate 84 84 84 Respiratory Rate 19 13 17 Blood Pressure 85/60 L 81/53 L 79/55 L Pulse Oximetry 100 97 100 01/05/18 10:47 01/05/18 11:00 01/05/18 11:02 Temperature Pulse Rate 87 85 84 Respiratory Rate 19 18 21 Blood Pressure 82/53 L 84/51 L 80/51 L Pulse Oximetry 100 99 98 01/05/18 11:10 01/05/18 11:13 01/05/18 11:15 Temperature Pulse Rate 84 83 85 Respiratory Rate 17 16 15 Blood Pressure 79/50 L 82/52 L 80/53 L Pulse Oximetry 97 98 96 01/05/18 11:30 01/05/18 11:45 01/05/18 12:00 Temperature Pulse Rate 86 86 87 Respiratory Rate 12 14 17 Blood Pressure 85/53 L 83/51 L 88/54 L Pulse Oximetry 96 98 100 01/05/18 12:16 01/05/18 12:46 01/05/18 12:50 Temperature Pulse Rate 91 H 95 H 95 H Respiratory Rate 24 20 19 Blood Pressure 84/58 L 52/35 L 89/57 L Pulse Oximetry 98 97 96 01/05/18 13:00 01/05/18 13:15 01/05/18 13:30 Temperature Pulse Rate 98 H 101 H 105 H Respiratory Rate 21 21 24 Blood Pressure 101/64 101/64 102/65 Pulse Oximetry 95 95 94 L 01/05/18 13:45 01/05/18 14:00 01/05/18 14:15 Temperature Pulse Rate 105 H 108 H 111 H Respiratory Rate 24 23 22 Blood Pressure 99/67 L 109/69 98/60 L Pulse Oximetry 95 94 L 93 L 01/05/18 14:30 01/05/18 14:45 01/05/18 15:00 Temperature 99.5 F 102.5 F H Pulse Rate 115 H 114 H 117 H Respiratory Rate 18 20 20 Blood Pressure 102/64 97/60 L 99/61 L Pulse Oximetry 90 L 93 L 92 L 01/05/18 15:15 01/05/18 15:30 01/05/18 15:45 Temperature Pulse Rate 118 H 120 H 118 H Respiratory Rate 22 22 24 Blood Pressure 98/55 L 101/55 L 98/56 L Pulse Oximetry 92 L 92 L 97 01/05/18 16:00 01/05/18 16:15 01/05/18 16:30 Temperature Pulse Rate 120 H 115 H 111 H Respiratory Rate 21 28 H 27 H Blood Pressure 93/52 L 91/54 L 81/47 L Pulse Oximetry 95 94 L 94 L 01/05/18 16:45 01/05/18 16:57 01/05/18 17:00 Temperature Pulse Rate 109 H 108 H Respiratory Rate 23 16 20 Blood Pressure 87/50 L 90/51 L Pulse Oximetry 94 L 92 L 01/05/18 17:15 01/05/18 17:30 01/05/18 17:45 Temperature Pulse Rate 103 H 100 H 98 H Respiratory Rate 19 14 14 Blood Pressure 86/49 L 89/50 L 92/50 L Pulse Oximetry 94 L 94 L 95 01/05/18 18:00 01/05/18 19:00 01/05/18 20:00 Temperature 98.8 F Pulse Rate 96 H 86 92 H Respiratory Rate 14 18 22 Blood Pressure 85/49 L 86/54 L 82/50 L Pulse Oximetry 96 97 99 01/05/18 21:00 01/05/18 22:00 01/05/18 23:00 Temperature Pulse Rate 88 86 89 Respiratory Rate 13 11 L 15 Blood Pressure 80/52 L 80/49 L 83/56 L Pulse Oximetry 94 L 93 L 92 L 01/06/18 00:00 01/06/18 01:00 01/06/18 02:00 Temperature 97.5 F L Pulse Rate 123 H 123 H 109 H Respiratory Rate 49 H 24 20 Blood Pressure 132/71 85/50 L 73/36 L Pulse Oximetry 92 L 89 L 96 01/06/18 03:00 01/06/18 04:00 01/06/18 05:00 Temperature 97.7 F Pulse Rate 99 H 81 79 Respiratory Rate 15 12 19 Blood Pressure 86/52 L 83/51 L 85/51 L Pulse Oximetry 99 100 100 01/06/18 06:00 Temperature 97.6 F Pulse Rate 76 Respiratory Rate 11 L Blood Pressure 84/54 L Pulse Oximetry 100 Intake & Output 01/05/18 01/06/18 01/06/18 18:59 06:59 18:59 Intake Total 1658.5 / 1658.5 1958.5 / 1958.5 Output Total 400 / 400 1000 / 1000 Balance 1258.5 / 1258.5 958.5 / 958.5 Intake: IV 1358.5 / 1358.5 1458.5 / 1458.5 LR 1000 mL Inj 1,000 ML @ 100 1000 / 1000 1000 / 1000 mls/hr IV.CONT .Q10H MIGDALIA Rx#: [id number] Merrem Inj 1,000 MG In NS Inj 100 / 100 200 / 200 100 ML @ 200 mls/hr IV.SIG Q8H MIGDALIA Rx#:[id number] Vancomycin Inj 850 MG In NS Inj 258.5 / 258.5 258.5 / 258.5 250 ML @ 250 mls/hr IV.SIG Q12H MIGDALIA Rx#:[id number] Oral 300 / 300 500 / 500 Output: Urine 400 / 400 1000 / 1000 Other: # Voids 2 01/04/18 17:40 Clean Catch Urine Urine Culture - Final No growth in 48 hours 01/06/18 02:42 Blood - Peripheral Aerobic Blood Culture - Pending 01/06/18 02:42 Blood - Peripheral Anaerobic Blood Culture - Pending 01/05/18 15:57 Blood - Peripheral Aerobic Blood Culture - Pending 01/05/18 15:57 Blood - Peripheral Anaerobic Blood Culture - Pending 01/05/18 15:55 Blood - Peripheral Aerobic Blood Culture - Pending 01/05/18 15:55 Blood - Peripheral Anaerobic Blood Culture - Pending 01/04/18 14:30 Blood - Peripheral Aerobic Blood Culture - Preliminary S. aureus MRSA 01/04/18 14:30 Blood - Peripheral Anaerobic Blood Culture - Preliminary gram positive cocci 01/04/18 14:35 Blood - Peripheral Aerobic Blood Culture - Preliminary gram positive cocci 01/04/18 14:35 Blood - Peripheral Anaerobic Blood Culture - Preliminary gram positive cocci Lab - Hematology Results 01/04/18 01/04/18 01/05/18 14:30 14:30 02:16 WBC 6.3 5.7 RBC 4.29 3.95 L Hgb 13.3 12.5 Hct 40.1 36.5 MCV 93.5 92.5 MCH 31.1 31.6 MCHC 33.2 34.1 RDW 15.4 15.2 Plt Count 46 L 28 L D MPV 10.2 10.2 Prelim Diff (Auto) Slide review pending Manual diff required Neut % (Auto) 92.7 H Lymph % (Auto) 3.4 L [place] % (Auto) 2.8 Eos % (Auto) 0.9 Baso % (Auto) 0.2 Neut # (Auto) 5.8 Lymph # (Auto) 0.2 L [place] # (Auto) 0.2 Eos # (Auto) 0.1 Baso # (Auto) 0.0 WBC Differential Manual diff final Manual diff final Seg Neuts % (Manual) 48 49 Band Neuts % (Manual) 45 H 30 H Lymphocytes % (Manual) 3 L 10 Monocytes % (Manual) 2 11 H Eosinophils % (Manual) Metamyelocytes % (Man) 2 H Abs Neuts (Manual) 6.0 4.5 Differential Comment . . Toxic Vacuolation Platelet Estimate Low L Low L Platelet Morphology Enlarged H Enlarged H RBC Morphology Normal ESR 53 H 01/05/18 01/06/18 16:05 02:42 WBC 7.3 7.7 RBC 3.86 L 3.28 L Hgb 12.2 10.4 L Hct 36.8 30.9 L MCV 95.3 94.4 MCH 31.5 31.7 MCHC 33.1 33.6 RDW 15.9 15.6 Plt Count 35 L 24 L D MPV 11.0 12.2 H Prelim Diff (Auto) Slide review pending Manual diff required Neut % (Auto) 89.4 H Lymph % (Auto) 4.1 L [place] % (Auto) 6.2 Eos % (Auto) 0.1 Baso % (Auto) 0.2 Neut # (Auto) 6.5 Lymph # (Auto) 0.3 L [place] # (Auto) 0.5 Eos # (Auto) 0.0 Baso # (Auto) 0.0 WBC Differential Manual diff final Manual diff final Seg Neuts % (Manual) 71 H 67 Band Neuts % (Manual) 21 H 21 H Lymphocytes % (Manual) 3 L 3 L Monocytes % (Manual) 5 8 Eosinophils % (Manual) 1 Metamyelocytes % (Man) Abs Neuts (Manual) 6.7 6.8 Differential Comment . . Toxic Vacuolation Present H Platelet Estimate Low L Low L Platelet Morphology Enlarged H Normal RBC Morphology Normal ESR Lab - Chemistry Results 01/04/18 01/04/18 01/04/18 14:30 14:30 14:30 Sodium Cancelled 127 L Potassium Cancelled 3.6 Chloride Cancelled 94 L Carbon Dioxide Cancelled 24.3 Anion Gap Cancelled 9 BUN Cancelled 32 H Creatinine Cancelled 1.12 H Estimated GFR Cancelled 55 L Random Glucose Cancelled 127 H Osmolality Lactic Acid Calcium Cancelled 8.5 Phosphorus Magnesium 1.8 Total Bilirubin 1.0 AST 235 H ALT 103 H Alkaline Phosphatase 103 Total Creatine Kinase Cancelled CK-MB (CK-2) CK-MB (CK-2) % Troponin I Cancelled 2.41 H* C-Reactive Protein B-Natriuretic Peptide Total Protein 8.4 H Albumin 3.1 L Lipase 53 L Beta HCG, Qual 01/04/18 01/04/18 01/04/18 14:30 14:30 14:30 Sodium Potassium Chloride Carbon Dioxide Anion Gap BUN Creatinine Estimated GFR Random Glucose Osmolality Lactic Acid 2.5 H Calcium Phosphorus Magnesium Total Bilirubin AST ALT Alkaline Phosphatase Total Creatine Kinase 4077 H CK-MB (CK-2) 20.5 H CK-MB (CK-2) % 0.5 Troponin I C-Reactive Protein 33.00 H B-Natriuretic Peptide Total Protein Albumin Lipase Beta HCG, Qual 01/04/18 01/04/18 01/04/18 14:30 14:30 17:32 Sodium Potassium Chloride Carbon Dioxide Anion Gap BUN Creatinine Estimated GFR Random Glucose Osmolality 284 Lactic Acid 1.5 Calcium Phosphorus Magnesium Total Bilirubin AST ALT Alkaline Phosphatase Total Creatine Kinase CK-MB (CK-2) CK-MB (CK-2) % Troponin I C-Reactive Protein B-Natriuretic Peptide 150 H Total Protein Albumin Lipase Beta HCG, Qual 01/04/18 01/04/18 01/05/18 19:41 19:41 02:16 Sodium 128 L 133 L Potassium 3.3 L Chloride 100 Carbon Dioxide 22.7 Anion Gap 10 BUN 24 H Creatinine 1.00 Estimated GFR 62 L Random Glucose 98 Osmolality Lactic Acid 1.2 Calcium 7.8 L Phosphorus 3.1 Magnesium 2.0 Total Bilirubin 1.0 AST 132 H ALT 75 H Alkaline Phosphatase 77 Total Creatine Kinase 1551 H CK-MB (CK-2) 5.4 H CK-MB (CK-2) % 0.3 Troponin I 1.61 H* D 0.94 H* D C-Reactive Protein B-Natriuretic Peptide Total Protein 6.8 D Albumin 2.4 L D Lipase Beta HCG, Qual 01/05/18 01/05/18 01/05/18 02:16 02:16 16:05 Sodium Potassium Chloride Carbon Dioxide Anion Gap BUN Creatinine Estimated GFR Random Glucose Osmolality Lactic Acid 2.7 H 2.3 H Calcium Phosphorus Magnesium Total Bilirubin AST ALT Alkaline Phosphatase Total Creatine Kinase CK-MB (CK-2) CK-MB (CK-2) % Troponin I C-Reactive Protein B-Natriuretic Peptide Total Protein Albumin Lipase Beta HCG, Qual Less than 1.0 01/06/18 02:42 Sodium Potassium Chloride Carbon Dioxide Anion Gap BUN Creatinine Estimated GFR Random Glucose Osmolality Lactic Acid Calcium Phosphorus Magnesium Total Bilirubin AST ALT Alkaline Phosphatase Total Creatine Kinase 348 H CK-MB (CK-2) 2.3 CK-MB (CK-2) % 0.7 Troponin I C-Reactive Protein B-Natriuretic Peptide Total Protein Albumin Lipase Beta HCG, Qual Imaging: ITS Impressions Chest X-Ray 01/04/18 14:21 CONCLUSION: Slight CHF. Chest CTA 01/04/18 15:25 CONCLUSION: 1. Abnormal soft tissue density within the mediastinum unusual appearance for adenopathy partially could be hyperplasia of the patient's thymic gland, however underlying neoplastic process such as lymphoma is not excluded. 2. Slight cardiomegaly. 3. Bilateral parenchymal infiltrates in the lungs. Cervical Spine CT 01/04/18 16:23 CONCLUSION: Unremarkable study. Lumbar Spine CT 01/04/18 16:23 CONCLUSION: 1. Mild bulging of the L4-5 and L5-S1 disks. 2. No abnormal areas of epidural enhancement seen. Thoracic Spine CT 01/04/18 16:23 CONCLUSION: Essentially unremarkable study. Abdomen Ultrasound 01/05/18 00:00 CONCLUSION: 1. Gallbladder sludge 2. Mild splenomegaly 3. Bilateral perinephric fluid 4. No other significant abnormality. Hip CT 01/05/18 00:00 CONCLUSION: 1. Right hip appears unremarkable. No fracture. Physical Exam: GENERAL: awake and alert, not in respiratory distress. SKIN: Warm and dry, no generalized rash HEAD: Atraumatic. Normocephalic. No temporal wasting, or tenderness. EYES: [place] conjunctiva. No petechia or hemorrhage. Pupils equal, round and reactive to light. Extraocular movements full and intact. No scleral icterus. No injection or drainage. EARS, NOSE AND THROAT: Nose without bleeding or purulent nasal discharge. No sinus tenderness. Mucous membranes pink and moist. No oral lesions noted. No exudate. No oral thrush. NECK: Trachea midline. Supple and not tender, no meningeal signs. There is a tender fluctuant area in her R sternoclavicular joint. CARDIOVASCULAR: Regular rate and rhythm, tachycardic. No murmurs, rubs or gallops heard. healed incision, no sternal instability RESPIRATORY: Clear to auscultation. Breath sounds equal bilaterally. No rales , wheezing or rhonchi. Decreased at the bases ABDOMEN: Soft, non-tender, nondistended. Bowel sounds present and normoactive. No guarding. No rebound. No organomegaly. EXTREMITIES: No clubbing, cyanosis, or edema. No joint effusion, has good ROM. No swelling or redness noted in her R hip. No calf tenderness. Able to flex her R hip BACK: tender to R of lumbar spine NEUROLOGICAL: Awake and alert. Cranial nerves are grossly intact. Symmetrical motor strength. PSYCHIATRIC: Normal affect, calm and cooperative. LINE: No evidence of infection Assessment and Plan - Plan Impression Sepsis, BC (+) GPC - very worrisome for PVE - ?mediastinitis and infected R sternoclavicular joint - CT lumbar spine ok; ?pelvic bone, SI joint S/P Rx for endocarditis this year Episode of endocarditis 2013, and lumbar spine infection IVDU Recommendation Repeat BC to document clearing Await echo, likely will need ZEHRA Await consultation CTS - to evaluate for possible mediastinitis and infected right sternoclavicular joint Get records from other hospital - in [place] Continue vanco Stop Meropenem Follow C/S Follow temps Monitor progress May need imaging of pelvis, CT or MRI Follow platelet count Explained plan to patient D/W Dr Praneeth Bruno ([facility]) D/W RN
[2018-01-06] MEDS: Mupirocin 2% Nasal Oint Topical Syringe EACH NARE SCH ×2 (12:19→21:19)
[2018-01-06] MEDS: Famotidine 20 MG Tablet PO SCH ×2 (12:19→21:19)
--- NOTE | 2018-01-06 12:40 | P.CON ---
History of Present Illness Service: CT Surgery Consult date: 01/06/18 Requesting Physician: Katie Richard Reason for Consult: MRSA sepsis s/p TV replacement and ongoing IV drug use Primary Care Provider: No Primary Care Physician Chief Complaint: Generalized weakness, inability to walk History of Present Illness: 37y/o female with documented ongoing history of IV drug abuse for at least 4 years presents with MRSA sepsis. She had a tricuspid valve replacement ~3 months ago in [place], [place] in the setting of ongoing drug use and apparently signed-out AMA 3 days postop. The records of this episode of care are not available and she is a poor historian. She has been admitted to [facility] for this before with a prolonged hospitalization in 2013. She admits to using IV drugs within a week before admission. She has not had a recent echocardiogram. She does have positive blood cultures for MRSA. Review of Systems Constitutional: Reports anorexia, Reports body ache(s), Reports chills, Reports fatigue, Reports fever(s), Reports lack of energy, Reports malaise, Reports night sweats, Reports weakness Eyes: Denies blind spots, Denies blurry vision, Denies bulging eyes, Denies change in vision, Denies double vision, Denies discharge, Denies dry eyes, Denies floaters, Denies irritation, Denies itchy eyes, Denies loss of vision, Denies pain, Denies requires corrective lenses, Denies sensitivity to light, Denies other Ears, Nose, Mouth, and Throat: Denies abnormal hearing, Denies bleeding gums, Denies bad breath, Denies change in voice, Denies dental pain, Denies difficulty swallowing, Denies dizziness, Denies dry mouth, Denies ear discharge , Denies ear pain, Denies facial pain, Denies headache(s), Denies hearing loss, Denies hoarseness, Denies lip swelling, Denies nosebleed, Denies mouth lesions, Denies mouth pain, Denies nasal congestion, Denies nasal discharge, Denies nasal obstruction, Denies nasal trauma, Denies neck lump, Denies neck pain, Denies nose pain, Denies pain with swallowing, Denies poor balance, Denies post nasal drip, Denies ringing in the ears, Denies sinus pain, Denies sinus pressure , Denies sore throat, Denies throat swelling, Denies tongue swelling, Denies other Cardiovascular: Reports chest pain Respiratory: Reports cough, Reports shortness of breath with activity Gastrointestinal: Reports nausea Musculoskeletal: Reports body aches, Reports joint pain, Reports muscle weakness Skin/Breast: Denies acne, Denies bleeding lesions, Denies boil, Denies breast swelling, Denies breast skin changes, Denies breast pain, Denies breast lump, Denies change in breast shape, Denies change in hair, Denies change in skin color, Denies changing lesions, Denies dry skin, Denies excessive hair growth, Denies hair loss, Denies itching, Denies lesions, Denies nail changes, Denies new lesions, Denies nipple discharge, Denies non-healing lesions, Denies redness , Denies sensitivity to light, Denies rash, Denies skin pain, Denies skin ulcer , Denies sores, Denies stretch gurrola, Denies unusual bruising, Denies wounds, Denies yellowing of the skin, Denies other Neurologic: Denies abnormal hearing, Denies abnormal movements, Denies abnormal speech, Denies abnormal walking, Denies behavioral changes, Denies burning sensations, Denies confusion, Denies dizziness, Denies fainting, Denies frequent falls, Denies headache(s), Denies lack of coordination, Denies localized weakness, Denies loss of vision, Denies memory loss, Denies numbness, Denies other visual disturbances, Denies radiating pain, Denies restless legs, Denies convulsions, Denies seizure-like activity, Denies sensory deficit, Denies tingling, Denies tingling/numbness/burning sensations, Denies tremor(s), Denies unsteadiness, Denies weakness, Denies other Psychiatric: Denies abnormal sleep pattern, Denies anxiety, Denies behavioral changes, Denies change in appetite, Denies change in sex drive, Denies confusion , Denies depression, Denies difficulty concentrating, Denies hearing things others do not hear, Denies hopelessness, Denies irritability, Denies lack of enjoyment, Denies memory loss, Denies mood swings, Denies panic attacks, Denies paranoia, Denies seeing things others do not see, Denies sensing things others do not sense, Denies tactile hallucinations, Denies thoughts of hurting/killing others, Denies thoughts of hurting/killing yourself, Denies other Endocrine: Denies cold intolerance, Denies excessive sweating, Denies flushing, Denies heat intolerance, Denies increased hunger, Denies increased thirst, Denies increased urination, Denies rapid, pounding, or irregular heartbeat, Denies other Hematologic/Lymphatic: Denies easy bleeding, Denies easy bruising, Denies enlarged lymph nodes, Denies other Allergic/Immunologic: Denies GI upset with certain foods, Denies hives, Denies itchy eyes, Denies lip swelling, Denies seasonal runny nose, Denies throat swelling, Denies tongue swelling, Denies wheezing, Denies other PMFSH - History History Provided By: Patient - Medical History Medical History: Medical History (Last Reviewed 01/05/18 @ 08:48 by Katie Richard MD) Abscess in epidural space of lumbar spine Endocarditis Hepatitis C Hypokalemia Hyponatremia IVDU (intravenous drug user) Osteomyelitis Pneumonia Renal failure Sepsis Thrombocytopenia UTI (urinary tract infection) - Surgical History Surgical History: Surgical History (Last Reviewed 01/05/18 @ 08:48 by Katie Richard MD) History of heart surgery - Tobacco History Second Hand Smoke Exposure: Yes Tobacco Use In Past 30 Days: Yes Smoking Status: Heavy tobacco smoker Tobacco Type: Cigarettes - Alcohol History How Often Do You Have a Drink Containing Alcohol: Never - Substance Use History Substance History: Active Abuse - Substance Use Type Heroin Status: Active - Travel History Recent Travel in the [place] Within the Last 8 Weeks: No Recent Travel Out of the Country Within the Last 8 Weeks: No - Immunization History Tetanus Immunization: Never Vaccinated Hx Influenza Vaccine This Season: No Medications and Allergies Active Medications: Active Medications Acetaminophen (Tylenol) 650 mg PO Q6H PRN PRN Reason: PAIN 1-5 AND/OR FEVER >101F Last Admin: 01/06/18 00:06 Dose: 650 mg Al Hydroxide/Mg Hydroxide (Milk Of Magnesia Liq) 30 ml PO Q12H PRN PRN Reason: Mild Constipation Albuterol (Albuterol Neb (Prn)) 2.5 mg NEB Q2HR NEB PRN PRN Reason: DYSPNEA Chlorhexidine Gluconate (Chlorhexidine 2% Cloth) 3 pack TOPICAL DAILY@0400 PRN PRN Reason: Extra cloth needed Stop: 01/10/18 03:59 Chlorhexidine Gluconate (Chlorhexidine 2% Cloth) 3 pack TOPICAL DAILY@0400 [facility] Stop: 01/10/18 03:59 Last Admin: 01/06/18 03:44 Dose: 3 pack Famotidine (Pepcid) 20 mg PO BID [facility] Last Admin: 01/06/18 12:19 Dose: 20 mg Gabapentin (Neurontin) 100 mg PO Q8H [facility] Last Admin: 01/06/18 06:11 Dose: 100 mg Hydromorphone HCl (Dilaudid Pf Inj) 1 mg IV.PUSH Q4H PRN PRN Reason: BREAKTHROUGH PAIN Lactated Ringer's (Lr 1000 Ml Inj) 1,000 mls @ 100 mls/hr IV.CONT .Q10H [facility] Last Admin: 01/06/18 02:49 Dose: 100 mls/hr Meropenem 1,000 mg/ Sodium (Chloride) 100 mls @ 200 mls/hr IV.SIG Q8H [facility] Last Infusion: 01/06/18 05:03 Dose: Infused Vancomycin HCl 850 mg/ Sodium (Chloride) 258.5 mls @ 250 mls/hr IV.SIG Q12H [facility] Last Infusion: 01/06/18 05:03 Dose: Infused Miscellaneous Information ([facility] Ordered Lab Info) 1 each OTHER ONCE ONE Stop: 01/06/18 14:46 Mupirocin (Bactroban 2% Nasal Oint) 1 applicatio EACH NARE BID [facility] Last Admin: 01/06/18 12:19 Dose: 1 applicatio Ondansetron HCl (Zofran Inj) 4 mg IV.PUSH Q6H PRN PRN Reason: NAUSEA OR VOMITING Oxycodone HCl (Roxicodone) 5 mg PO Q4H PRN PRN Reason: PAIN 6-10;IF UNABLE TO TAKE PO Last Admin: 01/06/18 08:43 Dose: 5 mg Pharmacy Profile Note (Vancomycin Consult Pharmacy) 1 each OTHER UNSCH PRN PRN Reason: Pharmacy to dose Allergies Allergy/AdvReac Type Severity Reaction Status Date / Time bee venom protein (honey bee) Allergy Severe rash Verified 01/04/18 14:34 Home Medications Medication Instructions Recorded Confirmed Type No Known Home Medications 01/04/18 01/04/18 History Physical Exam Vital signs: Vital Signs 01/05/18 12:46 01/05/18 12:50 01/05/18 13:00 Temperature Pulse Rate 95 H 95 H 98 H Respiratory Rate 20 19 21 Blood Pressure 52/35 L 89/57 L 101/64 Pulse Oximetry 97 96 95 01/05/18 13:15 01/05/18 13:30 01/05/18 13:45 Temperature Pulse Rate 101 H 105 H 105 H Respiratory Rate 21 24 24 Blood Pressure 101/64 102/65 99/67 L Pulse Oximetry 95 94 L 95 01/05/18 14:00 01/05/18 14:15 01/05/18 14:30 Temperature 99.5 F Pulse Rate 108 H 111 H 115 H Respiratory Rate 23 22 18 Blood Pressure 109/69 98/60 L 102/64 Pulse Oximetry 94 L 93 L 90 L 01/05/18 14:45 01/05/18 15:00 01/05/18 15:15 Temperature 102.5 F H Pulse Rate 114 H 117 H 118 H Respiratory Rate 20 20 22 Blood Pressure 97/60 L 99/61 L 98/55 L Pulse Oximetry 93 L 92 L 92 L 01/05/18 15:30 01/05/18 15:45 01/05/18 16:00 Temperature Pulse Rate 120 H 118 H 120 H Respiratory Rate 22 24 21 Blood Pressure 101/55 L 98/56 L 93/52 L Pulse Oximetry 92 L 97 95 01/05/18 16:15 01/05/18 16:30 01/05/18 16:45 Temperature Pulse Rate 115 H 111 H 109 H Respiratory Rate 28 H 27 H 23 Blood Pressure 91/54 L 81/47 L 87/50 L Pulse Oximetry 94 L 94 L 94 L 01/05/18 16:57 01/05/18 17:00 01/05/18 17:15 Temperature Pulse Rate 108 H 103 H Respiratory Rate 16 20 19 Blood Pressure 90/51 L 86/49 L Pulse Oximetry 92 L 94 L 01/05/18 17:30 01/05/18 17:45 01/05/18 18:00 Temperature Pulse Rate 100 H 98 H 96 H Respiratory Rate 14 14 14 Blood Pressure 89/50 L 92/50 L 85/49 L Pulse Oximetry 94 L 95 96 01/05/18 19:00 01/05/18 20:00 01/05/18 21:00 Temperature 98.8 F Pulse Rate 86 92 H 88 Respiratory Rate 18 22 13 Blood Pressure 86/54 L 82/50 L 80/52 L Pulse Oximetry 97 99 94 L 01/05/18 22:00 01/05/18 23:00 01/06/18 00:00 Temperature 97.5 F L Pulse Rate 86 89 123 H Respiratory Rate 11 L 15 49 H Blood Pressure 80/49 L 83/56 L 132/71 Pulse Oximetry 93 L 92 L 92 L 01/06/18 01:00 01/06/18 02:00 01/06/18 03:00 Temperature Pulse Rate 123 H 109 H 99 H Respiratory Rate 24 20 15 Blood Pressure 85/50 L 73/36 L 86/52 L Pulse Oximetry 89 L 96 99 01/06/18 04:00 01/06/18 05:00 01/06/18 06:00 Temperature 97.7 F 97.6 F Pulse Rate 81 79 76 Respiratory Rate 12 19 11 L Blood Pressure 83/51 L 85/51 L 84/54 L Pulse Oximetry 100 100 100 01/06/18 07:00 01/06/18 08:00 01/06/18 09:13 Temperature 99.2 F Pulse Rate 80 77 Respiratory Rate 13 15 18 Blood Pressure 87/53 L 85/54 L Pulse Oximetry 100 100 01/06/18 10:00 Temperature Pulse Rate Respiratory Rate Blood Pressure Pulse Oximetry 94 L Intake & Output 01/05/18 01/06/18 01/06/18 18:59 06:59 18:59 Intake Total 1658.5 / 1658.5 1958.5 / 1958.5 Output Total 400 / 400 1000 / 1000 Balance 1258.5 / 1258.5 958.5 / 958.5 Intake: IV 1358.5 / 1358.5 1458.5 / 1458.5 LR 1000 mL Inj 1,000 ML @ 100 1000 / 1000 1000 / 1000 mls/hr IV.CONT .Q10H [facility] Rx#: [id number] Merrem Inj 1,000 MG In NS Inj 100 / 100 200 / 200 100 ML @ 200 mls/hr IV.SIG Q8H [facility] Rx#:[id number] Vancomycin Inj 850 MG In NS Inj 258.5 / 258.5 258.5 / 258.5 250 ML @ 250 mls/hr IV.SIG Q12H [facility] Rx#:[id number] Oral 300 / 300 500 / 500 Output: Urine 400 / 400 1000 / 1000 Other: # Voids 2 - Constitutional no acute distress - Routine HEENT Exam Head: Present: normocephalic, atraumatic Eye: Present: EOMI, PERRL, normal accommodation ENT: Present: mucous membranes moist - Routine Neck Exam Present: supple - Routine Respiratory Exam Present: rhonchi - Routine Cardiovascular Exam Present: RRR - Routine Abdominal Exam Present: soft, normoactive bowel sounds - Routine Extremities Exam Present: pulses intact - Routine Skin Exam Present: intact - Routine Neurological Exam Present: alert, oriented X3 - Routine Psychiatric Exam Present: normal affect Assessment and Plan - Assessment (1) S/P tricuspid valve replacement Code(s): Z95.4 - Presence of other heart-valve replacement Status: Acute (2) Sepsis Code(s): A41.9 - Sepsis, unspecified organism Status: Acute (3) IVDU (intravenous drug user) Code(s): F19.90 - Other psychoactive substance use, unspecified, uncomplicated Status: Acute - Plan 37y/o female with h/o ongoing IV drug abuse s/p TV replacement by history 3 months ago possibly at [facility]. Consult by Dr. Rick noted and plan for ZEHRA tomorrow. She most likely has endocarditis associated with the prosthetic valve,and should be transferred back to the hospital in [place] where she had recent open-heart surgery. I suspect that will not be feasible based on her ongoing high-risk behavior, and I would certainly NOT entertain REDO open heart surgery in this patient. Recommend supportive care and will sign-off. (2) Sepsis Qualifiers: Sepsis type: methicillin resistant Staphylococcus aureus Qualified Code(s): A41.02 - Sepsis due to Methicillin resistant Staphylococcus aureus
--- NOTE | 2018-01-06 13:20 | ECG ---
Date Performed: 01/04/2018 Time Performed: 21:48:38 PTAGE: 37 years EKG: Sinus rhythm POSSIBLE LEFT ATRIAL ENLARGEMENT RIGHT BUNDLE BRANCH BLOCK ABNORMAL ECG PREVIOUS TRACING : 01/04/2018 11.11 Compared to previous tracing, sinus rate is slower DOCTOR: Tod Segura Interpretating Date/Time 01/06/2018 13:19:30
[2018-01-06] MEDS ORDERED: Pharmacy Ordered Lab Info OTHER ONE (14:45)
[2018-01-06] MEDS ORDERED: Norepinephrine Inj 4 MG in Sodium Chlor 0.9% Inj 246 ML IV.SIG PRN (16:24)
[2018-01-06 17:18] LABS: Vancomycin,Trough 15.1 mcg/mL (5.0-10.0)
--- NOTE | 2018-01-06 17:54 | P.PCN ---
Date of procedure: 01/06/18 Pre-op diagnosis: Severe hypotension Post-op diagnosis: same Procedure: DATE: 01/06/2018 CENTRAL LINE PLACEMENT: Left internal jugular vein. Ultrasound-guided INDICATION: Central venous access CONSENT Informed consent for procedure was obtained from patient. DESCRIPTION OF THE PROCEDURE The patient was placed in supine position. The skin was cleansed with Chloraprep. Additional barrier precautions included large sterile drape, sterile gloves, sterile gown, face mask, and hat. 1 % lidocaine was used for local anesthesia. Under direct ultrasound guidance and on initial attempt, the vein was accessed with an introducer needle. The guide wire was advanced and the tract was dilated. Using Seldinger technique a 7 Turkish 20 cm antimicrobial coated triple-lumen catheter was advanced to a depth of 20 centimeters. The guide wire was removed. All ports had good return of dark venous blood and flushed easily with saline. The central line was secured with 2.0 silk. A sterile dressing with antibiotic disc was applied. Please note that site was sutured as unable to place StatLock as is unable to adhesive to skin ESTIMATED BLOOD LOSS: Minimal COMPLICATIONS: No apparent complications. STAT chest x-ray pending at time of dictation
--- NOTE | 2018-01-06 18:54 | XR ---
EXAM DATE: 01/06/2018 6:10 PM EDT AGE/SEX: 37 years / Female INDICATIONS: Central line placement CLINICAL DATA: This is the patient's subsequent encounter. Patient reports that signs and symptoms h ave been present for 3 days and indicates a pain score of 0/10. MEDICAL/SURGICAL HISTORY: . Hepatitis C. Abscess. Endocarditis. Hypokalemia. Hypernatremia. IV drug use. Osteomyelitis. Pneumonia. Renal failure. Sepsis. Thrombocytopenia. Urinary tract infection . CABG. COMPARISON: C, CHEST 1V SINGLE AP, 01/04/2018. . FINDINGS: A left internal jugular central venous catheter has been inserted. Its tip appears to be positioned w ithin the right atrium. Graphic and increase in vascular congestion has developed. There is early int erstitial edema and moderate cardiomegaly. Postsurgical changes from open heart surgery are again not ed. There is no evidence of pneumothorax. CONCLUSION: Interval placement of a left jugular central venous catheter with its tip in the superior right atriu m. No evidence of pneumothorax. Increasing pulmonary congestion. Electronically signed by: Danish Carrington MD 01/06/2018 6:53 PM EDT
[2018-01-06 19:44] LABS: Anion Gap 8 meq/L (5-15); Aspartate Aminotransferase 45 U/L (15-37); Blood Urea Nitrogen 16 mg/dL (7-18); Calcium 8.1 mg/dL (8.5-10.1); Carbon Dioxide 24.8 meq/L (21.0-32.0); Chloride 101 meq/L (98-107); Glomerular Filtration Rate Greater Than 89 mL/min (>89); Glucose,Random 105 mg/dL (74-106); Magnesium 1.7 mg/dL (1.5-2.5)
[2018-01-06 19:47] LABS: Alanine Aminotransferase 48 U/L (10-53); Alkaline Phosphatase 131 U/L (45-117); Total Protein 5.6 g/dL (6.4-8.2)
[2018-01-06] MEDS ORDERED: Potassium Chloride 25 MEQ Effervescent Tablet PO PRN (20:09)
[2018-01-06] MEDS ORDERED: Potassium Chlor 40 mEq Premix 40 MEQ/100 ML PIGGYBACK IV.SIG PRN (20:09)
[2018-01-06] MEDS ORDERED: Magnesium Sulfate Inj 4 GM in Sodium Chlor 0.9% Inj 92 ML IV.SIG PRN (20:09)
[2018-01-06] MEDS ORDERED: Potassium Phosphate 500 MG Soluble Tablet PO PRN ×2 (20:09)
[2018-01-06] MEDS ORDERED: Magnesium Sulfate Inj 2 GM in Sodium Chlor 0.9% Inj 96 ML IV.SIG PRN (20:09)
[2018-01-06] MEDS ORDERED: Magnesium Oxide 400 MG Tablet PO PRN (20:09)
[2018-01-06] MEDS ORDERED: Sodium Phosphate Inj 30 MMOL in Sodium Chlor 0.9% Inj 250 ML IV.SIG PRN (20:09)
[2018-01-06] MEDS ORDERED: Potassium Phosphate Inj 30 MMOL in Sodium Chlor 0.9% Inj 250 ML IV.SIG PRN (20:09)
[2018-01-06] MEDS ORDERED: Potassium Chlor 20 mEq Premix 20 MEQ/100 ML PIGGYBACK IV.SIG PRN ×2 (20:09)
[2018-01-06] MEDS: Mag Sulf 1 gm/100 ml Premix 100 ML IV.SIG SCH ×2 (21:16→22:44)
[2018-01-06] MEDS: Potassium Chloride Inj 30 MEQ in Sodium Chlor 0.9% Inj 100 ML IV.SIG SCH (22:45)
[2018-01-07] MEDS: Vancomycin Inj 850 MG in Sodium Chlor 0.9% Inj 250 ML IV.SIG SCH ×2 (03:26→14:52)
[2018-01-07] MEDS: Potassium Chloride Inj 30 MEQ in Sodium Chlor 0.9% Inj 100 ML IV.SIG SCH (04:40)
[2018-01-07] MEDS: Chlorhexidine Gluconate 2% 1 Pack (2 Cloths) TOPICAL SCH (04:40)
[2018-01-07 05:10] LABS: Hematocrit 27.5 % (35.0-46.0); Hemoglobin 9.3 gm/dL (11.6-15.3); Mean Corpuscular HGB Conc 33.9 % (32.0-36.0); Mean Corpuscular Hemoglobin 31.5 pg (27.0-34.0); Mean Corpuscular Volume 92.8 fL (80.0-100.0); Mean Platelet Volume 9.9 fL (7.0-11.0); Platelet Count 25 th/mm3 (150-450); Red Blood Count 2.97 mil/mm3 (4.00-5.30); Red Cell Distribution Width 15.6 % (11.6-17.2); White Blood Count 10.6 th/mm3 (4.0-11.0)
[2018-01-07 05:20] LABS: Activated Partial Thrombo Time 28.7 sec (24.3-30.1); INR 1.2 Ratio; Prothrombin Time 11.8 sec (9.8-11.6)
[2018-01-07 05:52] LABS: Alanine Aminotransferase 43 U/L (10-53); Albumin 1.9 g/dL (3.4-5.0); Alkaline Phosphatase 135 U/L (45-117); Anion Gap 9 meq/L (5-15); Aspartate Aminotransferase 31 U/L (15-37); Blood Urea Nitrogen 13 mg/dL (7-18); Calcium 7.8 mg/dL (8.5-10.1); Carbon Dioxide 25.5 meq/L (21.0-32.0); Chloride 104 meq/L (98-107); Glomerular Filtration Rate Greater Than 89 mL/min (>89); Glucose,Random 105 mg/dL (74-106); Magnesium 2.2 mg/dL (1.5-2.5); Phosphorus 1.4 mg/dL (2.5-4.9); Sodium 138 meq/L (136-145); Total Protein 5.3 g/dL (6.4-8.2)
[2018-01-07 06:15] LABS: Creatine Kinase 86 U/L (26-192); Potassium 2.9 meq/L (3.5-5.1)
[2018-01-07] MEDS: Gabapentin 100 MG Capsule PO SCH ×3 (06:31→23:30)
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
[2018-01-07 07:42] LABS: Lymphocytes 2 % (9-44); Monocytes 3 % (0-8)
[2018-01-07 07:43] LABS: Platelet Morphology Normal (Normal)
[2018-01-07] MEDS: Mupirocin 2% Nasal Oint Topical Syringe EACH NARE SCH ×2 (08:17→20:07)
[2018-01-07] MEDS: Famotidine 20 MG Tablet PO SCH ×2 (08:17→20:07)
[2018-01-07] MEDS ORDERED: Gentamicin/NS 80 mg Premix 100 ML IV.SIG ONE (09:04)
--- NOTE | 2018-01-07 09:05 | P.PNCA ---
Subjective Interval history: Denies angina, dyspnea, dizziness, palpitations, nausea. Slept intermittently. Physical Exam Vital signs: Vital Signs 01/06/18 09:04 01/06/18 09:13 01/06/18 10:00 Temperature 99.3 F Pulse Rate 133 H 118 H Respiratory Rate 47 H 18 28 H Blood Pressure 140/73 93/54 L Pulse Oximetry 71 L 90 L 01/06/18 11:00 01/06/18 12:00 01/06/18 13:00 Temperature 99.6 F 99.3 F Pulse Rate 111 H 96 H 87 Respiratory Rate 19 16 15 Blood Pressure 88/50 L 84/48 L 83/53 L Pulse Oximetry 97 98 100 01/06/18 14:00 01/06/18 15:00 01/06/18 15:44 Temperature Pulse Rate 84 88 87 Respiratory Rate 21 22 23 Blood Pressure 87/52 L 77/44 L Pulse Oximetry 100 100 100 01/06/18 15:45 01/06/18 16:00 01/06/18 16:55 Temperature 98.9 F 98.3 F Pulse Rate 86 81 89 Respiratory Rate 28 H 21 25 H Blood Pressure 77/45 L 77/41 L 77/41 L Pulse Oximetry 100 100 100 01/06/18 17:00 01/06/18 17:15 01/06/18 17:30 Temperature 99 F Pulse Rate 88 97 H 89 Respiratory Rate 27 H 32 H 28 H Blood Pressure 85/53 L 106/62 96/53 L Pulse Oximetry 100 100 100 01/06/18 17:33 01/06/18 17:34 01/06/18 17:36 Temperature Pulse Rate 87 92 H Respiratory Rate 26 H 18 28 H Blood Pressure 95/52 L 104/56 L Pulse Oximetry 100 100 01/06/18 17:39 01/06/18 17:42 01/06/18 17:45 Temperature Pulse Rate 93 H 94 H 97 H Respiratory Rate 27 H 37 H 30 H Blood Pressure 94/51 L 94/54 L 97/58 L Pulse Oximetry 100 100 100 01/06/18 17:48 01/06/18 17:51 01/06/18 17:54 Temperature Pulse Rate 96 H 96 H 94 H Respiratory Rate 29 H 22 27 H Blood Pressure 94/58 L 95/54 L 88/53 L Pulse Oximetry 100 100 100 01/06/18 18:00 08/26/18 18:30 01/06/18 19:00 Temperature Pulse Rate 93 H 88 93 H Respiratory Rate 31 H 24 26 H Blood Pressure 93/52 L 93/57 L 95/58 L Pulse Oximetry 100 100 100 01/06/18 19:30 01/06/18 20:00 01/06/18 21:00 Temperature 103.1 F H Pulse Rate 95 H 103 H Respiratory Rate 25 H 44 H Blood Pressure 97/58 L 130/84 Pulse Oximetry 96 97 80 L 01/06/18 22:00 01/06/18 23:00 01/07/18 00:00 Temperature Pulse Rate 112 H 107 H 98 H Respiratory Rate 29 H 18 16 Blood Pressure 99/51 L 98/52 L 91/53 L Pulse Oximetry 91 L 93 L 89 L 01/07/18 00:30 01/07/18 01:00 01/07/18 01:30 Temperature Pulse Rate 91 H 86 83 Respiratory Rate 15 14 16 Blood Pressure 93/54 L 89/52 L 94/55 L Pulse Oximetry 89 L 88 L 92 L 01/07/18 02:00 01/07/18 02:30 01/07/18 03:00 Temperature Pulse Rate 86 81 79 Respiratory Rate 14 15 17 Blood Pressure 91/54 L 96/52 L 90/56 L Pulse Oximetry 93 L 93 L 93 L 01/07/18 03:30 01/07/18 04:00 01/07/18 04:30 Temperature Pulse Rate 77 75 73 Respiratory Rate 17 15 14 Blood Pressure 90/50 L 84/49 L 86/50 L Pulse Oximetry 93 L 93 L 92 L 01/07/18 05:00 01/07/18 05:30 01/07/18 06:00 Temperature Pulse Rate 72 79 79 Respiratory Rate 15 16 16 Blood Pressure 90/50 L 92/50 L 88/56 L Pulse Oximetry 93 L 92 L 94 L 01/07/18 06:30 Temperature Pulse Rate 77 Respiratory Rate 31 H Blood Pressure 88/56 L Pulse Oximetry 97 Intake & Output 01/06/18 01/07/18 01/07/18 18:59 06:59 18:59 Intake Total 1100 / 1100 1605 / 1605 350 / 350 Output Total 500 / 500 Balance 600 / 600 1605 / 1605 350 / 350 Weight 55.5 kg Intake: IV 1100 / 1100 1565 / 1565 350 / 350 LR 1000 mL Inj 1,000 ML @ 100 1000 / 1000 1000 / 1000 mls/hr IV.CONT .Q10H MIGDALIA Rx#: [id number] Magnesium Sulfate 1 gm/D5W 100 100 / 100 ml Premix 100 ML @ 100 mls/hr IV.SIG Q1H MIGDALIA Rx#:[id number] Merrem Inj 1,000 MG In NS Inj 100 / 100 100 / 100 100 / 100 100 ML @ 200 mls/hr IV.SIG Q8H MIGDALIA Rx#:[id number] KCl Inj 30 MEQ In NS Inj 100 ML 115 / 115 @ 38.333 mls/hr IV.SIG Q3H MIGDALIA Rx#:[id number] Vancomycin Inj 850 MG In NS Inj 250 / 250 250 / 250 250 ML @ 250 mls/hr IV.SIG Q12H MIGDALIA Rx#:[id number] Oral 40 / 40 Intake (Blood Product) Amt 0 / 0 Plt Pheresis A Leukoreduced 0 / 0 Unit [id number] Output: Urine 500 / 500 Other: # Voids 3 6 - Constitutional no acute distress - Routine Neck Exam Absent: JVD - Routine Respiratory Exam Present: CTA bilaterally - Routine Cardiovascular Exam Present: RRR, S1, S2, murmur. Absent: gallop Comments: I/ systolic murmur diffusely. Normal S2 - Routine Abdominal Exam Present: soft, normoactive bowel sounds. Absent: tenderness - Routine Extremities Exam Absent: cyanosis, clubbing, edema Assessment and Plan - Assessment (1) Endocarditis Code(s): I38 - Endocarditis, valve unspecified Status: Chronic Plan: Fairly large vegetation encompassing patient's tricuspid valve on ZEHRA. Recommend CV surgery consult though mortality risk of reoperation very high. (2) Elevated troponin Code(s): R74.8 - Abnormal levels of other serum enzymes Status: Acute Plan: Doubt elevation in troponin due to ACS, obstructive CAD. Likely due to endocarditis, possibly with some embolic phenomena. (3) S/P tricuspid valve replacement Code(s): Z95.4 - Presence of other heart-valve replacement Status: Chronic - Plan Code Status: full code (1) Endocarditis Qualifiers: Endocarditis type: infective Infective endocarditis organism: bacterial Chronicity: subacute Qualified Code(s): I33.0 - Acute and subacute infective endocarditis
--- NOTE | 2018-01-07 09:13 | P.PNID ---
Subjective Remarks: Patient is a 37-year-old female, presented to the hospital complaining of right- sided back pain hip pain, fever and chills. She is also complaining of pain in her right upper extremity. She had noted that she has difficulty moving it because of the pain. Patient history is significant for treatment of tricuspid valve endocarditis back in 2013, lumbar spine infection,, and she was in the hospital for quite a long time, and subsequently developed other kinds of bacteremia which was felt to be related to PICC. She had Klebsiella, Acinetobacter, candidemia, as well as Mycobacterium abscesses. Recently she was hospitalized in the hospital in [place], and the patient stated she was there from July - September 2017. She was treated with 6 weeks of IV antibiotics for endocarditis, and she was also told that she had a hip infection , but she did not have any surgery for the hip. Patient stated she had valve surgery around September 28, and she thinks it might be the tricuspid valve, however she signed out AGAINST MEDICAL ADVICE about 3 days after the surgery. Her boyfriend has been helping her take care of her incision. She came back to this area. Patient denies any significant cough or congestion. No chest pain or shortness of breath. No nausea or vomiting or diarrhea. She has had some incontinence which he attributes due to inability to ambulate secondary to her back and hip pain. On presentation she has been febrile up to 102. She had a CTA which did not show any pulmonary embolism, but it did show abnormalities in the lung as well as some opacity seen on the anterior mediastinum. I had reviewed with radiology and there is also a density seen in the right sternoclavicular joint, and the anterior mediastinum opacity looks like it may be a complex fluid collection. CAT scan of her spine, cervical, thoracic, and lumbar did not show any significant abnormality. 2 blood cultures on admission are now reported as growing gram-positive cocci in pairs and clusters. Patient is currently on vancomycin and meropenem. 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 Notes reviewed Febrile last night Just had ZEHRA done - large vegetation encompassing the TV prosthesis BC from yesterday still (+) Records from [place] not available yet C/O pain on R hip and buttock slightly better C/O pain on her R neck area Hip CT no fluid in joint Platelets very low 24K Fibrinogen ok Antibiotics: Vancomycin Lines: Central line Past Medical History: Abscess in epidural space of lumbar spine Endocarditis Hepatitis C Hypokalemia Hyponatremia IVDU (intravenous drug user) Osteomyelitis Pneumonia Renal failure Sepsis Thrombocytopenia UTI (urinary tract infection) S/P valve surgery Allergies/Adverse Reactions: Allergies bee venom protein (honey bee) Allergy (Severe, Verified 01/04/18 14:34) rash Objective Vital Signs 01/06/18 09:13 01/06/18 10:00 01/06/18 11:00 Temperature 99.3 F 99.6 F Pulse Rate 118 H 111 H Respiratory Rate 18 28 H 19 Blood Pressure 93/54 L 88/50 L Pulse Oximetry 90 L 97 01/06/18 12:00 01/06/18 13:00 01/06/18 14:00 Temperature 99.3 F Pulse Rate 96 H 87 84 Respiratory Rate 16 15 21 Blood Pressure 84/48 L 83/53 L 87/52 L Pulse Oximetry 98 100 100 01/06/18 15:00 01/06/18 15:44 01/06/18 15:45 Temperature Pulse Rate 88 87 86 Respiratory Rate 22 23 28 H Blood Pressure 77/44 L 77/45 L Pulse Oximetry 100 100 100 01/06/18 16:00 01/06/18 16:55 01/06/18 17:00 Temperature 98.9 F 98.3 F 99 F Pulse Rate 81 89 88 Respiratory Rate 21 25 H 27 H Blood Pressure 77/41 L 77/41 L 85/53 L Pulse Oximetry 100 100 100 01/06/18 17:15 01/06/18 17:30 01/06/18 17:33 Temperature Pulse Rate 97 H 89 87 Respiratory Rate 32 H 28 H 26 H Blood Pressure 106/62 96/53 L 95/52 L Pulse Oximetry 100 100 100 01/06/18 17:34 01/06/18 17:36 01/06/18 17:39 Temperature Pulse Rate 92 H 93 H Respiratory Rate 18 28 H 27 H Blood Pressure 104/56 L 94/51 L Pulse Oximetry 100 100 01/06/18 17:42 01/06/18 17:45 01/06/18 17:48 Temperature Pulse Rate 94 H 97 H 96 H Respiratory Rate 37 H 30 H 29 H Blood Pressure 94/54 L 97/58 L 94/58 L Pulse Oximetry 100 100 100 08/26/18 17:51 01/06/18 17:54 01/06/18 18:00 Temperature Pulse Rate 96 H 94 H 93 H Respiratory Rate 22 27 H 31 H Blood Pressure 95/54 L 88/53 L 93/52 L Pulse Oximetry 100 100 100 01/06/18 18:30 01/06/18 19:00 01/06/18 19:30 Temperature Pulse Rate 88 93 H Respiratory Rate 24 26 H Blood Pressure 93/57 L 95/58 L Pulse Oximetry 100 100 96 01/06/18 20:00 01/06/18 21:00 01/06/18 22:00 Temperature 103.1 F H Pulse Rate 95 H 103 H 112 H Respiratory Rate 25 H 44 H 29 H Blood Pressure 97/58 L 130/84 99/51 L Pulse Oximetry 97 80 L 91 L 01/06/18 23:00 01/07/18 00:00 01/07/18 00:30 Temperature Pulse Rate 107 H 98 H 91 H Respiratory Rate 18 16 15 Blood Pressure 98/52 L 91/53 L 93/54 L Pulse Oximetry 93 L 89 L 89 L 01/07/18 01:00 01/07/18 01:30 01/07/18 02:00 Temperature Pulse Rate 86 83 86 Respiratory Rate 14 16 14 Blood Pressure 89/52 L 94/55 L 91/54 L Pulse Oximetry 88 L 92 L 93 L 01/07/18 02:30 01/07/18 03:00 01/07/18 03:30 Temperature Pulse Rate 81 79 77 Respiratory Rate 15 17 17 Blood Pressure 96/52 L 90/56 L 90/50 L Pulse Oximetry 93 L 93 L 93 L 01/07/18 04:00 01/07/18 04:30 01/07/18 05:00 Temperature Pulse Rate 75 73 72 Respiratory Rate 15 14 15 Blood Pressure 84/49 L 86/50 L 90/50 L Pulse Oximetry 93 L 92 L 93 L 01/07/18 05:30 01/07/18 06:00 01/07/18 06:30 Temperature Pulse Rate 79 79 77 Respiratory Rate 16 16 31 H Blood Pressure 92/50 L 88/56 L 88/56 L Pulse Oximetry 92 L 94 L 97 Intake & Output 01/06/18 01/07/18 01/07/18 18:59 06:59 18:59 Intake Total 1100 / 1100 1605 / 1605 350 / 350 Output Total 500 / 500 Balance 600 / 600 1605 / 1605 350 / 350 Weight 55.5 kg Intake: IV 1100 / 1100 1565 / 1565 350 / 350 LR 1000 mL Inj 1,000 ML @ 100 1000 / 1000 1000 / 1000 mls/hr IV.CONT .Q10H MIGDAL[facility] Rx#: [id number] Magnesium Sulfate 1 gm/D5W 100 100 / 100 ml Premix 100 ML @ 100 mls/hr IV.SIG Q1H MIGDALIA Rx#:[id number] Merrem Inj 1,000 MG In NS Inj 100 / 100 100 / 100 100 / 100 100 ML @ 200 mls/hr IV.SIG Q8H MIGDALIA Rx#:[id number] KCl Inj 30 MEQ In NS Inj 100 ML 115 / 115 @ 38.333 mls/hr IV.SIG Q3H MIGDALIA Rx#:[id number] Vancomycin Inj 850 MG In NS Inj 250 / 250 250 / 250 250 ML @ 250 mls/hr IV.SIG Q12H MIGDALIA Rx#:[id number] Oral 40 / 40 Intake (Blood Product) Amt 0 / 0 Plt Pheresis A Leukoreduced 0 / 0 Unit [id number] Output: Urine 500 / 500 Other: # Voids 3 6 01/05/18 15:55 Blood - Peripheral Aerobic Blood Culture - Preliminary gram positive cocci 01/05/18 15:55 Blood - Peripheral Anaerobic Blood Culture - Final S. aureus MRSA 01/04/18 14:35 Blood - Peripheral Aerobic Blood Culture - Final S. aureus MRSA 01/04/18 14:35 Blood - Peripheral Anaerobic Blood Culture - Final S. aureus MRSA 01/04/18 14:30 Blood - Peripheral Aerobic Blood Culture - Final S. aureus MRSA 01/04/18 14:30 Blood - Peripheral Anaerobic Blood Culture - Final S. aureus MRSA 01/06/18 02:42 Blood - Peripheral Aerobic Blood Culture - Preliminary gram positive cocci 01/06/18 02:42 Blood - Peripheral Anaerobic Blood Culture - Preliminary gram positive cocci 01/05/18 15:57 Blood - Peripheral Aerobic Blood Culture - Preliminary No growth in 1 day 01/05/18 15:57 Blood - Peripheral Anaerobic Blood Culture - Preliminary No growth in 1 day 01/04/18 17:40 Clean Catch Urine Urine Culture - Final No growth in 48 hours Lab - Hematology Results 01/05/18 01/06/18 01/07/18 16:05 02:42 04:55 WBC 7.3 7.7 10.6 RBC 3.86 L 3.28 L 2.97 L Hgb 12.2 10.4 L 9.3 L Hct 36.8 30.9 L 27.5 L MCV 95.3 94.4 92.8 MCH 31.5 31.7 31.5 MCHC 33.1 33.6 33.9 RDW 15.9 15.6 15.6 Plt Count 35 L 24 L D 25 L MPV 11.0 12.2 H 9.9 Prelim Diff (Auto) Slide review pending Manual diff required Manual diff required Neut % (Auto) 89.4 H Lymph % (Auto) 4.1 L Vance % (Auto) 6.2 Eos % (Auto) 0.1 Baso % (Auto) 0.2 Neut # (Auto) 6.5 Lymph # (Auto) 0.3 L Vance # (Auto) 0.5 Eos # (Auto) 0.0 Baso # (Auto) 0.0 WBC Differential Manual diff final Manual diff final Manual diff final Seg Neuts % (Manual) 71 H 67 71 H Band Neuts % (Manual) 21 H 21 H 24 H Lymphocytes % (Manual) 3 L 3 L 2 L Monocytes % (Manual) 5 8 3 Eosinophils % (Manual) 1 Abs Neuts (Manual) 6.7 6.8 10.1 H Differential Comment . . . Toxic Vacuolation Present H Platelet Estimate Low L Low L Low L Platelet Morphology Enlarged H Normal Normal RBC Morphology Normal Lab - Chemistry Results 01/05/18 01/06/18 01/06/18 16:05 02:42 10:50 Sodium Potassium Chloride Carbon Dioxide Anion Gap BUN Creatinine Estimated GFR Random Glucose Lactic Acid 2.3 H 1.5 Calcium Phosphorus Magnesium Total Bilirubin AST ALT Alkaline Phosphatase Total Creatine Kinase 348 H CK-MB (CK-2) 2.3 CK-MB (CK-2) % 0.7 Total Protein Albumin 01/06/18 01/07/18 01/07/18 18:00 04:45 04:55 Sodium 138 Potassium 3.0 L 2.9 L* Chloride 101 104 Carbon Dioxide 24.8 25.5 Anion Gap 8 9 BUN 16 13 Creatinine 0.68 0.60 Estimated GFR Greater than 89 Greater than 89 Random Glucose 105 105 Lactic Acid 0.8 Calcium 8.1 L 7.8 L Phosphorus 1.4 L Magnesium 1.7 2.2 Total Bilirubin 1.5 H 1.5 H AST 45 H 31 ALT 48 43 Alkaline Phosphatase 131 H 135 H Total Creatine Kinase 86 CK-MB (CK-2) CK-MB (CK-2) % Total Protein 5.6 L D 5.3 L Albumin 2.0 L 1.9 L Imaging: ITS Impressions Chest CTA 01/04/18 15:25 CONCLUSION: 1. Abnormal soft tissue density within the mediastinum unusual appearance for adenopathy partially could be hyperplasia of the patient's thymic gland, however underlying neoplastic process such as lymphoma is not excluded. 2. Slight cardiomegaly. 3. Bilateral parenchymal infiltrates in the lungs. Cervical Spine CT 01/04/18 16:23 CONCLUSION: Unremarkable study. Lumbar Spine CT 01/04/18 16:23 CONCLUSION: 1. Mild bulging of the L4-5 and L5-S1 disks. 2. No abnormal areas of epidural enhancement seen. Thoracic Spine CT 01/04/18 16:23 CONCLUSION: Essentially unremarkable study. Abdomen Ultrasound 01/05/18 00:00 CONCLUSION: 1. Gallbladder sludge 2. Mild splenomegaly 3. Bilateral perinephric fluid 4. No other significant abnormality. Hip CT 01/05/18 00:00 CONCLUSION: 1. Right hip appears unremarkable. No fracture. Chest X-Ray 01/06/18 00:00 CONCLUSION: Interval placement of a left jugular central venous catheter with its tip in the superior right atrium. No evidence of pneumothorax. Increasing pulmonary congestion. Physical Exam: GENERAL: awake and alert, looks dyspneic when talking SKIN: Warm and dry, no generalized rash HEAD: Atraumatic. Normocephalic. No temporal wasting, or tenderness. EYES: [place] conjunctiva. No petechia or hemorrhage. Pupils equal, round and reactive to light. Extraocular movements full and intact. No scleral icterus. No injection or drainage. EARS, NOSE AND THROAT: Nose without bleeding or purulent nasal discharge. No sinus tenderness. Mucous membranes pink and moist. No oral lesions noted. No exudate. No oral thrush. NECK: Trachea midline. Supple and not tender, no meningeal signs. There is a tender fluctuant area in her R sternoclavicular joint unchanged CARDIOVASCULAR: Regular rate and rhythm, tachycardic. No murmurs, rubs or gallops heard. healed incision, no sternal instability RESPIRATORY: Coarse BS matty ABDOMEN: Soft, non-tender, nondistended. Bowel sounds present and normoactive. No guarding. No rebound. No organomegaly. EXTREMITIES: No clubbing, cyanosis, or edema. No joint effusion, has good ROM. No swelling or redness noted in her R hip. No calf tenderness. Able to flex her R hip BACK: tender to R of lumbar spine NEUROLOGICAL: Grossly non-focal PSYCHIATRIC: Normal affect, calm and cooperative. LINE: No evidence of infection Assessment and Plan - Plan Impression Sepsis, BC (+) MRSA - has a large veg around her TV prosthesis - possible mediastinitis and infected R sternoclavicular joint - CT lumbar spine ok; ?pelvic bone, SI joint S/P Rx for endocarditis this year Episode of endocarditis 2013, and lumbar spine infection IVDU Thrombocytopenia, due to sepsis Recommendation Repeat BC to document clearing Await records from other hospital - in [place] Continue vanco Add gentamicin Follow C/S Follow temps Monitor progress Follow platelet count very difficult situation CTS recommended transfer back to [place] where she had her surgery D/W RN
[2018-01-07] MEDS: HYDROmorphone PF Inj 2 MG/ML Vial IV.PUSH PRN ×2 (09:16→20:06)
[2018-01-07] MEDS: Acetaminophen 325 MG Tablet PO PRN (09:16)
[2018-01-07] MEDS ORDERED: Gentamicin Consult Pharmacy 1 EACH OTHER SCH (10:00)
--- NOTE | 2018-01-07 10:05 | P.PNCV ---
- Note Subjective/Hospital Course: Patient s/p ZEHRA this morning. Large vegetation noted on prosthetic tricuspid valve. I reviewed the CT scan and she appears to have some loculated pericardial fluid. I do not see any evidence of mediastinitis. Objective: Vital Signs - 24 hr 01/06/18 10:00 01/06/18 11:00 01/06/18 12:00 Temperature 99.3 F 99.6 F 99.3 F Pulse Rate 118 H 111 H 96 H Respiratory Rate 28 H 19 16 Blood Pressure 93/54 L 88/50 L 84/48 L Pulse Oximetry 90 L 97 98 01/06/18 13:00 01/06/18 14:00 01/06/18 15:00 Temperature Pulse Rate 87 84 88 Respiratory Rate 15 21 22 Blood Pressure 83/53 L 87/52 L Pulse Oximetry 100 100 100 01/06/18 15:44 01/06/18 15:45 01/06/18 16:00 Temperature 98.9 F Pulse Rate 87 86 81 Respiratory Rate 23 28 H 21 Blood Pressure 77/44 L 77/45 L 77/41 L Pulse Oximetry 100 100 100 01/06/18 16:55 01/06/18 17:00 01/06/18 17:15 Temperature 98.3 F 99 F Pulse Rate 89 88 97 H Respiratory Rate 25 H 27 H 32 H Blood Pressure 77/41 L 85/53 L 106/62 Pulse Oximetry 100 100 100 01/06/18 17:30 01/06/18 17:33 01/06/18 17:34 Temperature Pulse Rate 89 87 Respiratory Rate 28 H 26 H 18 Blood Pressure 96/53 L 95/52 L Pulse Oximetry 100 100 01/06/18 17:36 01/06/18 17:39 01/06/18 17:42 Temperature Pulse Rate 92 H 93 H 94 H Respiratory Rate 28 H 27 H 37 H Blood Pressure 104/56 L 94/51 L 94/54 L Pulse Oximetry 100 100 100 01/06/18 17:45 01/06/18 17:48 01/06/18 17:51 Temperature Pulse Rate 97 H 96 H 96 H Respiratory Rate 30 H 29 H 22 Blood Pressure 97/58 L 94/58 L 95/54 L Pulse Oximetry 100 100 100 01/06/18 17:54 01/06/18 18:00 01/06/18 18:30 Temperature Pulse Rate 94 H 93 H 88 Respiratory Rate 27 H 31 H 24 Blood Pressure 88/53 L 93/52 L 93/57 L Pulse Oximetry 100 100 100 01/06/18 19:00 01/06/18 19:30 01/06/18 20:00 Temperature 103.1 F H Pulse Rate 93 H 95 H Respiratory Rate 26 H 25 H Blood Pressure 95/58 L 97/58 L Pulse Oximetry 100 96 97 01/06/18 21:00 01/06/18 22:00 01/06/18 23:00 Temperature Pulse Rate 103 H 112 H 107 H Respiratory Rate 44 H 29 H 18 Blood Pressure 130/84 99/51 L 98/52 L Pulse Oximetry 80 L 91 L 93 L 01/07/18 00:00 01/07/18 00:30 01/07/18 01:00 Temperature Pulse Rate 98 H 91 H 86 Respiratory Rate 16 15 14 Blood Pressure 91/53 L 93/54 L 89/52 L Pulse Oximetry 89 L 89 L 88 L 01/07/18 01:30 01/07/18 02:00 01/07/18 02:30 Temperature Pulse Rate 83 86 81 Respiratory Rate 16 14 15 Blood Pressure 94/55 L 91/54 L 96/52 L Pulse Oximetry 92 L 93 L 93 L 01/07/18 03:00 01/07/18 03:30 01/07/18 04:00 Temperature Pulse Rate 79 77 75 Respiratory Rate 17 17 15 Blood Pressure 90/56 L 90/50 L 84/49 L Pulse Oximetry 93 L 93 L 93 L 01/07/18 04:30 01/07/18 05:00 01/07/18 05:30 Temperature Pulse Rate 73 72 79 Respiratory Rate 14 15 16 Blood Pressure 86/50 L 90/50 L 92/50 L Pulse Oximetry 92 L 93 L 92 L 01/07/18 06:00 01/07/18 06:30 01/07/18 08:00 Temperature Pulse Rate 79 77 93 H Respiratory Rate 16 31 H Blood Pressure 88/56 L 88/56 L Pulse Oximetry 94 L 97 95 01/07/18 09:00 Temperature Pulse Rate 113 H Respiratory Rate Blood Pressure Pulse Oximetry Labs: Laboratory Results - last 12 hr 01/07/18 01/07/18 01/07/18 04:45 04:55 04:55 WBC 10.6 RBC 2.97 L Hgb 9.3 L Hct 27.5 L MCV 92.8 MCH 31.5 MCHC 33.9 RDW 15.6 Plt Count 25 L MPV 9.9 Prelim Diff (Auto) Manual diff required WBC Differential Manual diff final Seg Neuts % (Manual) 71 H Band Neuts % (Manual) 24 H Lymphocytes % (Manual) 2 L Monocytes % (Manual) 3 Abs Neuts (Manual) 10.1 H Differential Comment . Platelet Estimate Low L Platelet Morphology Normal PT INR APTT Fibrinogen Sodium 138 Potassium 2.9 L* Chloride 104 Carbon Dioxide 25.5 Anion Gap 9 BUN 13 Creatinine 0.60 Estimated GFR Greater than 89 Random Glucose 105 Lactic Acid 0.8 Calcium 7.8 L Phosphorus 1.4 L Magnesium 2.2 Total Bilirubin 1.5 H AST 31 ALT 43 Alkaline Phosphatase 135 H Total Creatine Kinase 86 Total Protein 5.3 L Albumin 1.9 L 01/07/18 04:55 WBC RBC Hgb Hct MCV MCH MCHC RDW Plt Count MPV Prelim Diff (Auto) WBC Differential Seg Neuts % (Manual) Band Neuts % (Manual) Lymphocytes % (Manual) Monocytes % (Manual) Abs Neuts (Manual) Differential Comment Platelet Estimate Platelet Morphology PT 11.8 H INR 1.2 APTT 28.7 Fibrinogen 354 Sodium Potassium Chloride Carbon Dioxide Anion Gap BUN Creatinine Estimated GFR Random Glucose Lactic Acid Calcium Phosphorus Magnesium Total Bilirubin AST ALT Alkaline Phosphatase Total Creatine Kinase Total Protein Albumin Result Diagrams: 01/07/18 04:55 01/07/18 04:55 Imaging: Chest CTA 01/04/18 15:25 CONCLUSION: 1. Abnormal soft tissue density within the mediastinum unusual appearance for adenopathy partially could be hyperplasia of the patient's thymic gland, however underlying neoplastic process such as lymphoma is not excluded. 2. Slight cardiomegaly. 3. Bilateral parenchymal infiltrates in the lungs. Cervical Spine CT 01/04/18 16:23 CONCLUSION: Unremarkable study. Lumbar Spine CT 01/04/18 16:23 CONCLUSION: 1. Mild bulging of the L4-5 and L5-S1 disks. 2. No abnormal areas of epidural enhancement seen. Thoracic Spine CT 01/04/18 16:23 CONCLUSION: Essentially unremarkable study. Abdomen Ultrasound 01/05/18 00:00 CONCLUSION: 1. Gallbladder sludge 2. Mild splenomegaly 3. Bilateral perinephric fluid 4. No other significant abnormality. Hip CT 01/05/18 00:00 CONCLUSION: 1. Right hip appears unremarkable. No fracture. Chest X-Ray 01/06/18 00:00 CONCLUSION: Interval placement of a left jugular central venous catheter with its tip in the superior right atrium. No evidence of pneumothorax. Increasing pulmonary congestion. Incision: Patient refused examination this morning. - Plan (2) Sepsis I reviewed her chest CT and see no evidence of mediastinitis. 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 She may have a sternoclavicular abscess, but refused examination this morning. I do not see any radiologic findings to support this diagnosis. She is also seriously malnourished with significant electrolyte abnormalities which need to be corrected. Her nutritional status has likely retarded healing of her sternotomy, but her sternum is stable. Her non-compliance and long history of high-risk behavior precludes surgical intervention and her prognosis is very poor. None of her medical records from [place] are in the chart, but since she had recent surgical intervention there, I recommend contacting the care team there for consideration of transfer for continuity of care. I doubt she would be accepted however as she reportedly signed-out AMA. (2) Sepsis Qualifiers: Sepsis type: methicillin resistant Staphylococcus aureus Qualified Code(s): A41.02 - Sepsis due to Methicillin resistant Staphylococcus aureus
[2018-01-07] MEDS: GENTAMICIN IV.SIG SCH ×2 (11:07→19:36)
[2018-01-07] MEDS: SODIUM CHLOR 0.9% IV.SIG SCH ×2 (11:07→19:36)
--- NOTE | 2018-01-07 11:20 | ECHRPT ---
Indication: ENDOCARDITIS, POSS SEPSIS CONCLUSIONS Normal left ventricular size. Wall thickness is normal. Mild global hypokinesis. The left ventricular systolic function is mildly reduced with an estimated ejection fraction in the range of 45- 50%. Approximately 2.7 x 1.0 irregular, homogeneous echodensity is evident mostly on the atrial surface of the prosthetic tricuspid valve leaflet, consistent with vegetation. Mild tricuspid regurgitation. The right ventricular systoilc function is normal. The right ventricular size is low normal. Structurally normal mitral valve. Trace mitral valve regurgitation. BP: / HR: Rhythm: MEASUREMENTS (Male / Female) Normal Values Technical Quality: DOPPLER TR Peak Velocity 286.0 cm/s Pulmonary Artery Systolic 42.7 mmHg TR Peak Gradient 32.7 mmHg Right Ventricular Systoli 42.7 mmHg Right Atrial Pressure 10.0 mmHg Medications Complications Proc. Components FINDINGS LEFT VENTRICLE Normal left ventricular size. Wall thickness is normal. The left ventricular systolic function is mildly reduced with an estimated ejection fraction in the range of 45- 50%. Mild global hypokinesis. RIGHT VENTRICLE The right ventricular systoilc function is normal. The right ventricular size is low normal. LEFT ATRIUM The left atrial size is normal. RIGHT ATRIUM The right atrial size is normal. ATRIAL SEPTUM Normal atrial septal thickness without atrial level shunting by limited color doppler interrogation. AORTA The aortic root and proximal ascending aorta are normal in size on limited imaging. MITRAL VALVE Structurally normal mitral valve. Trace mitral valve regurgitation. AORTIC VALVE Trileaflet aortic valve. No aortic valve stenosis or regurgitation. TRICUSPID VALVE Approximately 2.7 x 1.0 irregular, homogeneous echodensity is evident mostly on the atrial surface of the prosthetic tricuspid valve leaflet, consistent with vegetation. Mild tricuspid regurgitation. VESSELS The inferior vena cava is normal in size. PULMONARY VALVE Mild pulmonary valve regurgitation. PERICADIUM No pericardial effusion. Bobo Rick MD (Electronically Signed) Final Date:07 January 2018 11:19
[2018-01-07] MEDS ORDERED: Phenylephrine/NS 1000 MCG/10ML Syringe IV.PUSH ONE (12:00)
[2018-01-08] MEDS: HYDROmorphone PF Inj 2 MG/ML Vial IV.PUSH PRN ×3 (00:39→20:01)
[2018-01-08] MEDS: SODIUM CHLOR 0.9% IV.SIG SCH ×3 (03:40→20:01)
[2018-01-08] MEDS: Vancomycin Inj 850 MG in Sodium Chlor 0.9% Inj 250 ML IV.SIG SCH ×2 (03:40→14:26)
[2018-01-08] MEDS: Chlorhexidine Gluconate 2% 1 Pack (2 Cloths) TOPICAL SCH (03:40)
[2018-01-08] MEDS: GENTAMICIN IV.SIG SCH ×3 (03:40→20:01)
[2018-01-08 06:03] LABS: Baso % (Auto) 0.4 % (0.0-2.0); Eos % (Auto) 0.4 % (0.0-4.0); Hematocrit 26.3 % (35.0-46.0); Hemoglobin 9.1 gm/dL (11.6-15.3); Lymph # (Auto) 1.1 th/mm3 (1.0-4.8); Lymph % (Auto) 11.2 % (9.0-44.0); Mean Corpuscular HGB Conc 34.8 % (32.0-36.0); Mean Corpuscular Hemoglobin 31.8 pg (27.0-34.0); Mean Corpuscular Volume 91.6 fL (80.0-100.0); Mean Platelet Volume 10.2 fL (7.0-11.0); Mono # (Auto) 0.9 th/mm3 (0.0-0.9); Mono % (Auto) 9.3 % (0.0-8.0); Neut % (Auto) 78.7 % (16.0-70.0); Platelet Count 51 th/mm3 (150-450); Red Blood Count 2.87 mil/mm3 (4.00-5.30); White Blood Count 10.2 th/mm3 (4.0-11.0)
[2018-01-08] MEDS: Gabapentin 100 MG Capsule PO SCH ×2 (06:11→14:26)
[2018-01-08 06:37] LABS: Alanine Aminotransferase 36 U/L (10-53); Albumin 1.8 g/dL (3.4-5.0); Alkaline Phosphatase 157 U/L (45-117); Anion Gap 9 meq/L (5-15); Aspartate Aminotransferase 24 U/L (15-37); Blood Urea Nitrogen 11 mg/dL (7-18); Calcium 7.6 mg/dL (8.5-10.1); Carbon Dioxide 24.6 meq/L (21.0-32.0); Chloride 105 meq/L (98-107); Glomerular Filtration Rate Greater Than 89 mL/min (>89); Glucose,Random 106 mg/dL (74-106); Magnesium 1.5 mg/dL (1.5-2.5); Potassium 3.1 meq/L (3.5-5.1); Sodium 139 meq/L (136-145); Total Protein 5.4 g/dL (6.4-8.2)
[2018-01-08 07:46] LABS: Lymphocytes 3 % (9-44); Monocytes 7 % (0-8)
[2018-01-08 07:48] LABS: Platelet Morphology Normal (Normal)
[2018-01-08] MEDS: Mupirocin 2% Nasal Oint Topical Syringe EACH NARE SCH ×2 (08:30→20:01)
[2018-01-08] MEDS: Famotidine 20 MG Tablet PO SCH ×2 (08:30→20:01)
[2018-01-08] MEDS: Potassium Chlor 40 mEq Premix 40 MEQ/100 ML PIGGYBACK IV.SIG PRN ×2 (08:30→12:35)
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
[2018-01-08] MEDS ORDERED: [UNRECOGNIZED DRUG - OTHER] OTHER ONE (10:45)
[2018-01-08] MEDS ORDERED: [UNRECOGNIZED DRUG - OTHER] OTHER ONE (12:30)
--- NOTE | 2018-01-08 13:42 | P.PNID ---
Subjective Remarks: Patient is a 37-year-old female, presented to the hospital complaining of right- sided back pain hip pain, fever and chills. She is also complaining of pain in her right upper extremity. She had noted that she has difficulty moving it because of the pain. Patient history is significant for treatment of tricuspid valve endocarditis back in 2013, lumbar spine infection,, and she was in the hospital for quite a long time, and subsequently developed other kinds of bacteremia which was felt to be related to PICC. She had Klebsiella, Acinetobacter, candidemia, as well as Mycobacterium abscesses. Recently she was hospitalized in the hospital in [place], and the patient stated she was there from July - September 2017. She was treated with 6 weeks of IV antibiotics for endocarditis, and she was also told that she had a hip infection , but she did not have any surgery for the hip. Patient stated she had valve surgery around September 28, and she thinks it might be the tricuspid valve, however she signed out AGAINST MEDICAL ADVICE about 3 days after the surgery. Her boyfriend has been helping her take care of her incision. She came back to this area. Patient denies any significant cough or congestion. No chest pain or shortness of breath. No nausea or vomiting or diarrhea. She has had some incontinence which he attributes due to inability to ambulate secondary to her back and hip pain. On presentation she has been febrile up to 102. She had a CTA which did not show any pulmonary embolism, but it did show abnormalities in the lung as well as some opacity seen on the anterior mediastinum. I had reviewed with radiology and there is also a density seen in the right sternoclavicular joint, and the anterior mediastinum opacity looks like it may be a complex fluid collection. CAT scan of her spine, cervical, thoracic, and lumbar did not show any significant abnormality. 2 blood cultures on admission are now reported as growing gram-positive cocci in pairs and clusters. Patient is currently on vancomycin and meropenem. 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 Notes reviewed Temps ok ZEHRA - large vegetation encompassing the TV prosthesis Last (+) BC 01/06 CTS notes reviewed - no evidence of mediastinitis Records from [place] not available yet C/O pain on R hip and buttock slightly better C/O pain on her R neck area Hip CT no fluid in joint Platelets very low 24K Fibrinogen ok Antibiotics: Vancomycin Lines: Central line Past Medical History: Abscess in epidural space of lumbar spine Endocarditis Hepatitis C Hypokalemia Hyponatremia IVDU (intravenous drug user) Osteomyelitis Pneumonia Renal failure Sepsis Thrombocytopenia UTI (urinary tract infection) S/P valve surgery Allergies/Adverse Reactions: Allergies bee venom protein (honey bee) Allergy (Severe, Verified 01/04/18 14:34) rash Objective Vital Signs 01/07/18 14:00 01/07/18 15:00 01/07/18 16:00 Temperature 97.7 F Pulse Rate 74 83 82 Respiratory Rate 20 26 H 28 H Blood Pressure 78/44 L 92/57 L 93/61 L Pulse Oximetry 97 97 100 01/07/18 17:00 01/07/18 18:00 01/07/18 19:00 Temperature 97.3 F L Pulse Rate 72 69 76 Respiratory Rate 19 29 H 18 Blood Pressure 90/53 L 77/44 L 96/53 L Pulse Oximetry 95 98 92 L 01/07/18 20:00 01/07/18 20:43 01/07/18 21:00 Temperature Pulse Rate 75 77 Respiratory Rate 27 H 20 Blood Pressure 87/52 L 88/56 L Pulse Oximetry 97 96 95 01/07/18 22:00 01/07/18 23:00 01/08/18 00:00 Temperature 99.6 F Pulse Rate 76 78 80 Respiratory Rate 23 20 18 Blood Pressure 85/48 L 94/57 L 97/55 L Pulse Oximetry 98 94 L 98 01/08/18 01:00 01/08/18 02:00 01/08/18 03:00 Temperature 98.6 F Pulse Rate 82 83 85 Respiratory Rate 14 15 16 Blood Pressure 95/52 L 97/56 L 95/52 L Pulse Oximetry 97 98 96 01/08/18 04:00 01/08/18 04:37 01/08/18 05:00 Temperature Pulse Rate 76 76 74 Respiratory Rate 19 18 23 Blood Pressure 89/53 L 92/56 L Pulse Oximetry 100 100 100 01/08/18 06:00 01/08/18 07:00 01/08/18 08:00 Temperature Pulse Rate 78 81 89 Respiratory Rate 16 15 18 Blood Pressure 97/57 L Pulse Oximetry 98 91 L 94 L 01/08/18 08:26 01/08/18 09:00 01/08/18 10:00 Temperature Pulse Rate 85 100 H 92 H Respiratory Rate 22 28 H Blood Pressure 89/54 L Pulse Oximetry 94 L 93 L 98 01/08/18 10:01 01/08/18 11:00 Temperature Pulse Rate 92 H 87 Respiratory Rate 28 H 25 H Blood Pressure 107/55 L 106/63 Pulse Oximetry 97 97 Intake & Output 01/07/18 01/08/18 01/08/18 18:59 06:59 18:59 Intake Total 2831.875 / 2831.875 941.250 / 941.250 Output Total 1100 / 1100 750 / 750 Balance 1731.875 / 1731.875 191.250 / 191.250 Weight 53 kg Intake: IV 2291.875 / 2291.875 461.250 / 461.250 LR 1000 mL Inj 1,000 ML @ 100 1000 / 1000 mls/hr IV.CONT .Q10H MIGDALIA Rx#: [id number] Gentamicin Inj 55 MG In NS Inj 101.375 / 101.375 202.750 / 202.750 100 ML @ 100 mls/hr IV.SIG Q8H MIGDALIA Rx#:[id number] Merrem Inj 1,000 MG In NS Inj 200 / 200 100 ML @ 200 mls/hr IV.SIG Q8H MIGDALIA Rx#:[id number] KCl 40 mEq Premix Inj 40 meq In 100 / 100 100 ml @ 25 mls/hr IV.SIG UNSCH PRN Rx#:[id number] KCl Inj 30 MEQ In NS Inj 100 ML 115 / 115 @ 38.333 mls/hr IV.SIG Q3H MIGDALIA Rx#:[id number] Vancomycin Inj 850 MG In NS Inj 775.5 / 775.5 258.5 / 258.5 250 ML @ 250 mls/hr IV.SIG Q12H MIGDALIA Rx#:[id number] Oral 540 / 540 480 / 480 Output: Urine 1100 / 1100 750 / 750 Other: # Voids 2 Date of Last Bowel Movement 01/07/18 01/07/18 01/07/18 # Bowel Movements 1 01/08/18 11:30 Blood - Peripheral Aerobic Blood Culture - Pending 01/08/18 11:30 Blood - Peripheral Anaerobic Blood Culture - Pending 01/08/18 11:35 Blood - Peripheral Aerobic Blood Culture - Pending 01/08/18 11:35 Blood - Peripheral Anaerobic Blood Culture - Pending 01/06/18 02:42 Blood - Peripheral Aerobic Blood Culture - Final S. aureus MRSA 01/06/18 02:42 Blood - Peripheral Anaerobic Blood Culture - Preliminary S. aureus MRSA 01/05/18 15:55 Blood - Peripheral Aerobic Blood Culture - Final S. aureus MRSA 01/05/18 15:55 Blood - Peripheral Anaerobic Blood Culture - Final S. aureus MRSA 01/05/18 15:57 Blood - Peripheral Aerobic Blood Culture - Preliminary gram positive cocci 01/05/18 15:57 Blood - Peripheral Anaerobic Blood Culture - Preliminary gram positive cocci 01/08/18 05:00 Blood - Peripheral Aerobic Blood Culture - Pending 01/08/18 05:00 Blood - Peripheral Anaerobic Blood Culture - Pending 01/04/18 14:35 Blood - Peripheral Aerobic Blood Culture - Final S. aureus MRSA 01/04/18 14:35 Blood - Peripheral Anaerobic Blood Culture - Final S. aureus MRSA 01/04/18 14:30 Blood - Peripheral Aerobic Blood Culture - Final S. aureus MRSA 01/04/18 14:30 Blood - Peripheral Anaerobic Blood Culture - Final S. aureus MRSA 01/04/18 17:40 Clean Catch Urine Urine Culture - Final No growth in 48 hours Lab - Hematology Results 01/07/18 01/08/18 04:55 05:00 WBC 10.6 10.2 RBC 2.97 L 2.87 L Hgb 9.3 L 9.1 L Hct 27.5 L 26.3 L MCV 92.8 91.6 MCH 31.5 31.8 MCHC 33.9 34.8 RDW 15.6 16.0 Plt Count 25 L 51 L D MPV 9.9 10.2 Prelim Diff (Auto) Manual diff required Slide review pending Neut % (Auto) 78.7 H Lymph % (Auto) 11.2 [place] % (Auto) 9.3 H Eos % (Auto) 0.4 Baso % (Auto) 0.4 Neut # (Auto) 8.0 H Lymph # (Auto) 1.1 [place] # (Auto) 0.9 Eos # (Auto) 0.0 Baso # (Auto) 0.0 WBC Differential Manual diff final Manual diff final Seg Neuts % (Manual) 71 H 65 Band Neuts % (Manual) 24 H 25 H Lymphocytes % (Manual) 2 L 3 L Monocytes % (Manual) 3 7 Abs Neuts (Manual) 10.1 H 9.2 H Differential Comment . . Platelet Estimate Low L Low L Platelet Morphology Normal Normal Lab - Chemistry Results 01/06/18 01/07/18 01/07/18 18:00 04:45 04:55 Sodium 138 Potassium 3.0 L 2.9 L* Chloride 101 104 Carbon Dioxide 24.8 25.5 Anion Gap 8 9 BUN 16 13 Creatinine 0.68 0.60 Estimated GFR Greater than 89 Greater than 89 POC Glucose Random Glucose 105 105 Lactic Acid 0.8 Calcium 8.1 L 7.8 L Phosphorus 1.4 L Magnesium 1.7 2.2 Total Bilirubin 1.5 H 1.5 H AST 45 H 31 ALT 48 43 Alkaline Phosphatase 131 H 135 H Total Creatine Kinase 86 Total Protein 5.6 L D 5.3 L Albumin 2.0 L 1.9 L 01/07/18 01/07/18 01/08/18 10:32 18:00 05:00 Sodium 139 Potassium 3.9 D 3.1 L D Chloride 105 Carbon Dioxide 24.6 Anion Gap 9 BUN 11 Creatinine 0.60 Estimated GFR Greater than 89 POC Glucose 118 H Random Glucose 106 Lactic Acid Calcium 7.6 L Phosphorus Magnesium 1.5 D Total Bilirubin 1.1 H AST 24 ALT 36 Alkaline Phosphatase 157 H Total Creatine Kinase Total Protein 5.4 L Albumin 1.8 L Imaging: ITS Impressions Chest CTA 01/04/18 15:25 CONCLUSION: 1. Abnormal soft tissue density within the mediastinum unusual appearance for adenopathy partially could be hyperplasia of the patient's thymic gland, however underlying neoplastic process such as lymphoma is not excluded. 2. Slight cardiomegaly. 3. Bilateral parenchymal infiltrates in the lungs. Cervical Spine CT 01/04/18 16:23 CONCLUSION: Unremarkable study. Lumbar Spine CT 01/04/18 16:23 CONCLUSION: 1. Mild bulging of the L4-5 and L5-S1 disks. 2. No abnormal areas of epidural enhancement seen. Thoracic Spine CT 01/04/18 16:23 CONCLUSION: Essentially unremarkable study. Abdomen Ultrasound 01/05/18 00:00 CONCLUSION: 1. Gallbladder sludge 2. Mild splenomegaly 3. Bilateral perinephric fluid 4. No other significant abnormality. Hip CT 01/05/18 00:00 CONCLUSION: 1. Right hip appears unremarkable. No fracture. Chest X-Ray 01/06/18 00:00 CONCLUSION: Interval placement of a left jugular central venous catheter with its tip in the superior right atrium. No evidence of pneumothorax. Increasing pulmonary congestion. Physical Exam: GENERAL: awake and alert, looks dyspneic when talking SKIN: Warm and dry, no generalized rash HEAD: Atraumatic. Normocephalic. No temporal wasting, or tenderness. EYES: [place] conjunctiva. No petechia or hemorrhage. Pupils equal, round and reactive to light. Extraocular movements full and intact. No scleral icterus. No injection or drainage. EARS, NOSE AND THROAT: Nose without bleeding or purulent nasal discharge. No sinus tenderness. Mucous membranes pink and moist. No oral lesions noted. No exudate. No oral thrush. NECK: Trachea midline. Supple and not tender, no meningeal signs. There is a tender fluctuant area in her R sternoclavicular joint unchanged CARDIOVASCULAR: Regular rate and rhythm, tachycardic. No murmurs, rubs or gallops heard. healed incision, no sternal instability RESPIRATORY: Coarse BS matty ABDOMEN: Soft, non-tender, nondistended. Bowel sounds present and normoactive. No guarding. No rebound. No organomegaly. EXTREMITIES: No clubbing, cyanosis, or edema. No joint effusion, has good ROM. No swelling or redness noted in her R hip. No calf tenderness. Able to flex her R hip BACK: tender to R of lumbar spine NEUROLOGICAL: Grossly non-focal PSYCHIATRIC: Normal affect, calm and cooperative. LINE: No evidence of infection Assessment and Plan - Plan Impression Sepsis, BC (+) MRSA - has a large veg around her TV prosthesis - has infected R sternoclavicular joint - CT lumbar spine ok; ?pelvic bone, SI joint S/P Rx for endocarditis this year TV PVE, MRSA Episode of endocarditis 2013, and lumbar spine infection IVDU Thrombocytopenia, due to sepsis Recommendation Repeat BC to document clearing Await records from other hospital - in [place] Continue vanco Continue gentamicin - follow creatinine closely Follow C/S Follow temps Monitor progress Follow platelet count very difficult situation CTS recommended transfer back to [place] where she had her surgery
[2018-01-08] MEDS ORDERED: Pharmacy Ordered Lab Info OTHER ONE (14:45)
[2018-01-09] MEDS: HYDROmorphone PF Inj 2 MG/ML Vial IV.PUSH PRN ×2 (02:03→08:00)
[2018-01-09] MEDS ORDERED: Pharmacy Ordered Lab Info OTHER ONE (03:45)
[2018-01-09 05:06] LABS: Baso % (Auto) 0.3 % (0.0-2.0); Eos # (Auto) 0.1 th/mm3 (0.0-0.4); Eos % (Auto) 0.8 % (0.0-4.0); Hematocrit 26.5 % (35.0-46.0); Lymph # (Auto) 1.3 th/mm3 (1.0-4.8); Lymph % (Auto) 13.5 % (9.0-44.0); Mean Corpuscular HGB Conc 34.2 % (32.0-36.0); Mean Corpuscular Hemoglobin 31.6 pg (27.0-34.0); Mean Corpuscular Volume 92.5 fL (80.0-100.0); Mean Platelet Volume 9.9 fL (7.0-11.0); Mono % (Auto) 10.2 % (0.0-8.0); Neut # (Auto) 7.3 th/mm3 (1.8-7.7); Neut % (Auto) 75.2 % (16.0-70.0); Platelet Count 70 th/mm3 (150-450); Red Blood Count 2.86 mil/mm3 (4.00-5.30); Red Cell Distribution Width 15.6 % (11.6-17.2); White Blood Count 9.8 th/mm3 (4.0-11.0)
[2018-01-09 05:24] LABS: Albumin 1.9 g/dL (3.4-5.0); Anion Gap 7 meq/L (5-15); Aspartate Aminotransferase 19 U/L (15-37); Blood Urea Nitrogen 10 mg/dL (7-18); Calcium 7.9 mg/dL (8.5-10.1); Carbon Dioxide 28.6 meq/L (21.0-32.0); Chloride 101 meq/L (98-107); Glomerular Filtration Rate Greater Than 89 mL/min (>89); Glucose,Random 96 mg/dL (74-106); Magnesium 1.4 mg/dL (1.5-2.5); Sodium 137 meq/L (136-145)
[2018-01-09] MEDS: Vancomycin Inj 850 MG in Sodium Chlor 0.9% Inj 250 ML IV.SIG SCH (05:31)
[2018-01-09] MEDS: SODIUM CHLOR 0.9% IV.SIG SCH ×3 (05:32→22:37)
[2018-01-09] MEDS: GENTAMICIN IV.SIG SCH ×3 (05:32→22:37)
[2018-01-09 05:39] LABS: Alanine Aminotransferase 33 U/L (10-53); Alkaline Phosphatase 190 U/L (45-117); Phosphorus 2.7 mg/dL (2.5-4.9); Total Protein 5.8 g/dL (6.4-8.2)
[2018-01-09] MEDS: Gabapentin 100 MG Capsule PO SCH ×4 (06:27→22:38)
[2018-01-09] MEDS: Chlorhexidine Gluconate 2% 1 Pack (2 Cloths) TOPICAL SCH (06:28)
[2018-01-09 06:50] LABS: Lymphocytes 13 % (9-44); Monocytes 7 % (0-8)
[2018-01-09 06:51] LABS: Platelet Morphology Normal (Normal)
[2018-01-09] MEDS: Mupirocin 2% Nasal Oint Topical Syringe EACH NARE SCH ×2 (08:00→22:39)
[2018-01-09] MEDS: Famotidine 20 MG Tablet PO SCH ×2 (08:00→22:38)
--- NOTE | 2018-01-09 09:19 | P.PNID ---
Subjective Remarks: Patient is a 37-year-old female, presented to the hospital complaining of right- sided back pain hip pain, fever and chills. She is also complaining of pain in her right upper extremity. She had noted that she has difficulty moving it because of the pain. Patient history is significant for treatment of tricuspid valve endocarditis back in 2013, lumbar spine infection,, and she was in the hospital for quite a long time, and subsequently developed other kinds of bacteremia which was felt to be related to PICC. She had Klebsiella, Acinetobacter, candidemia, as well as Mycobacterium abscesses. Recently she was hospitalized in the hospital in [place], and the patient stated she was there from July - September 2017. She was treated with 6 weeks of IV antibiotics for endocarditis, and she was also told that she had a hip infection , but she did not have any surgery for the hip. Patient stated she had valve surgery around September 28, and she thinks it might be the tricuspid valve, however she signed out AGAINST MEDICAL ADVICE about 3 days after the surgery. Her boyfriend has been helping her take care of her incision. She came back to this area. Patient denies any significant cough or congestion. No chest pain or shortness of breath. No nausea or vomiting or diarrhea. She has had some incontinence which he attributes due to inability to ambulate secondary to her back and hip pain. On presentation she has been febrile up to 102. She had a CTA which did not show any pulmonary embolism, but it did show abnormalities in the lung as well as some opacity seen on the anterior mediastinum. I had reviewed with radiology and there is also a density seen in the right sternoclavicular joint, and the anterior mediastinum opacity looks like it may be a complex fluid collection. CAT scan of her spine, cervical, thoracic, and lumbar did not show any significant abnormality. 2 blood cultures on admission are now reported as growing gram-positive cocci in pairs and clusters. Patient is currently on vancomycin and meropenem. 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 Notes reviewed Temps low grade last night Feels a little better ZEHRA - large vegetation encompassing the TV prosthesis Last (+) 01/06 CTS notes reviewed - no evidence of mediastinitis Records from [place] not available yet C/O pain on her R neck area Hip CT no fluid in joint Platelets improving Fibrinogen ok Antibiotics: Vancomycin Gentamicin Lines: Central line Past Medical History: Abscess in epidural space of lumbar spine Endocarditis Hepatitis C Hypokalemia Hyponatremia IVDU (intravenous drug user) Osteomyelitis Pneumonia Renal failure Sepsis Thrombocytopenia UTI (urinary tract infection) S/P valve surgery Allergies/Adverse Reactions: Allergies bee venom protein (honey bee) Allergy (Severe, Verified 01/04/18 14:34) rash Objective Vital Signs 01/08/18 10:00 01/08/18 10:01 01/08/18 11:00 Temperature Pulse Rate 92 H 92 H 87 Respiratory Rate 28 H 28 H 25 H Blood Pressure 107/55 L 106/63 Pulse Oximetry 98 97 97 01/08/18 12:00 01/08/18 13:00 01/08/18 14:00 Temperature Pulse Rate 88 89 96 H Respiratory Rate 24 26 H 29 H Blood Pressure Pulse Oximetry 95 94 L 97 01/08/18 14:25 01/08/18 15:00 01/08/18 16:00 Temperature Pulse Rate 93 H 93 H 96 H Respiratory Rate 33 H 31 H 30 H Blood Pressure 102/58 L 122/69 113/60 Pulse Oximetry 96 97 92 L 01/08/18 17:00 01/08/18 18:00 01/08/18 19:00 Temperature Pulse Rate 102 H 97 H 95 H Respiratory Rate 25 H 29 H 30 H Blood Pressure 110/57 L 98/52 L Pulse Oximetry 95 99 96 01/08/18 19:35 01/08/18 20:00 01/08/18 21:00 Temperature 100.2 F H Pulse Rate 99 H 100 H 95 H Respiratory Rate 35 H 28 H 14 Blood Pressure 100/53 L 102/59 L 98/57 L Pulse Oximetry 97 94 L 90 L 01/08/18 21:16 01/08/18 22:00 01/08/18 23:00 Temperature 98.8 F Pulse Rate 93 H 91 H Respiratory Rate 16 16 Blood Pressure 97/58 L 99/56 L Pulse Oximetry 98 92 L 92 L 01/09/18 00:00 01/09/18 01:00 01/09/18 01:32 Temperature 98.8 F Pulse Rate 89 79 84 Respiratory Rate 17 16 16 Blood Pressure 99/58 L 84/45 L 102/56 L Pulse Oximetry 94 L 94 L 94 L 01/09/18 02:00 08/29/18 02:10 01/09/18 03:00 Temperature Pulse Rate 79 83 Respiratory Rate 18 14 15 Blood Pressure 89/53 L 93/54 L Pulse Oximetry 94 L 94 L 01/09/18 04:00 01/09/18 05:00 01/09/18 05:14 Temperature 99.2 F Pulse Rate 85 86 Respiratory Rate 15 30 H 16 Blood Pressure 94/53 L 108/59 L Pulse Oximetry 95 97 01/09/18 06:00 01/09/18 07:00 Temperature Pulse Rate 85 86 Respiratory Rate 21 18 Blood Pressure 97/59 L 103/58 L Pulse Oximetry 96 93 L Intake & Output 01/08/18 01/09/18 01/09/18 18:59 06:59 18:59 Intake Total 1859.875 / 1859.875 801.25 / 801.25 459.75 / 459.75 Output Total 1600 / 1600 800 / 800 Balance 259.875 / 259.875 1.25 / 1.25 459.75 / 459.75 Weight 53 kg Intake: IV 659.875 / 659.875 101.25 / 101.25 459.75 / 459.75 Gentamicin Inj 50 MG In NS Inj 101.375 / 101.375 101.25 / 101.25 101.25 / 101.25 100 ML @ 100 mls/hr IV.SIG Q8H MIGDALIA Rx#:[id number] Magnesium Sulfate Inj 2 GM In 100 / 100 NS Inj 96 ML @ 50 mls/hr IV.SIG UNSCH PRN Rx#:[id number] KCl 40 mEq Premix Inj 40 meq In 200 / 200 100 ml @ 25 mls/hr IV.SIG Q2H PRN Rx#:[id number] Vancomycin Inj 850 MG In NS Inj 258.5 / 258.5 258.5 / 258.5 250 ML @ 250 mls/hr IV.SIG Q12H MIGDALIA Rx#:[id number] Oral 1200 / 1200 350 / 350 Other 350 / 350 Output: Urine 1600 / 1600 800 / 800 Other: Date of Last Bowel Movement 01/07/18 01/07/18 01/06/18 02:42 Blood - Peripheral Aerobic Blood Culture - Final S. aureus MRSA 01/06/18 02:42 Blood - Peripheral Anaerobic Blood Culture - Final S. aureus MRSA 01/05/18 15:57 Blood - Peripheral Aerobic Blood Culture - Final S. aureus MRSA 01/05/18 15:57 Blood - Peripheral Anaerobic Blood Culture - Final S. aureus MRSA 01/08/18 11:30 Blood - Peripheral Aerobic Blood Culture - Pending 01/08/18 11:30 Blood - Peripheral Anaerobic Blood Culture - Pending 01/08/18 11:35 Blood - Peripheral Aerobic Blood Culture - Pending 01/08/18 11:35 Blood - Peripheral Anaerobic Blood Culture - Pending 01/05/18 15:55 Blood - Peripheral Aerobic Blood Culture - Final S. aureus MRSA 01/05/18 15:55 Blood - Peripheral Anaerobic Blood Culture - Final S. aureus MRSA 01/08/18 05:00 Blood - Peripheral Aerobic Blood Culture - Pending 01/08/18 05:00 Blood - Peripheral Anaerobic Blood Culture - Pending 01/04/18 14:35 Blood - Peripheral Aerobic Blood Culture - Final S. aureus MRSA 01/04/18 14:35 Blood - Peripheral Anaerobic Blood Culture - Final S. aureus MRSA 01/04/18 14:30 Blood - Peripheral Aerobic Blood Culture - Final S. aureus MRSA 01/04/18 14:30 Blood - Peripheral Anaerobic Blood Culture - Final S. aureus MRSA 01/04/18 17:40 Clean Catch Urine Urine Culture - Final No growth in 48 hours Lab - Hematology Results 01/08/18 01/09/18 05:00 04:30 WBC 10.2 9.8 RBC 2.87 L 2.86 L Hgb 9.1 L 9.0 L Hct 26.3 L 26.5 L MCV 91.6 92.5 MCH 31.8 31.6 MCHC 34.8 34.2 RDW 16.0 15.6 Plt Count 51 L D 70 L D MPV 10.2 9.9 Prelim Diff (Auto) Slide review pending Slide review pending Neut % (Auto) 78.7 H 75.2 H Lymph % (Auto) 11.2 13.5 [place] % (Auto) 9.3 H 10.2 H Eos % (Auto) 0.4 0.8 Baso % (Auto) 0.4 0.3 Neut # (Auto) 8.0 H 7.3 Lymph # (Auto) 1.1 1.3 [place] # (Auto) 0.9 1.0 H Eos # (Auto) 0.0 0.1 Baso # (Auto) 0.0 0.0 WBC Differential Manual diff final Manual diff final Seg Neuts % (Manual) 65 72 H Band Neuts % (Manual) 25 H 8 H Lymphocytes % (Manual) 3 L 13 Monocytes % (Manual) 7 7 Abs Neuts (Manual) 9.2 H 7.8 H Differential Comment . . Platelet Estimate Low L Low L Platelet Morphology Normal Normal Lab - Chemistry Results 01/07/18 01/07/18 01/08/18 10:32 18:00 05:00 Sodium 139 Potassium 3.9 D 3.1 L D Chloride 105 Carbon Dioxide 24.6 Anion Gap 9 BUN 11 Creatinine 0.60 Estimated GFR Greater than 89 POC Glucose 118 H Random Glucose 106 Calcium 7.6 L Phosphorus Magnesium 1.5 D Total Bilirubin 1.1 H AST 24 ALT 36 Alkaline Phosphatase 157 H Total Protein 5.4 L Albumin 1.8 L 01/08/18 01/09/18 22:00 04:30 Sodium 137 Potassium 3.9 D 4.0 Chloride 101 Carbon Dioxide 28.6 Anion Gap 7 BUN 10 Creatinine 0.59 Estimated GFR Greater than 89 POC Glucose Random Glucose 96 Calcium 7.9 L Phosphorus 2.7 D Magnesium 1.4 L Total Bilirubin 1.1 H AST 19 ALT 33 Alkaline Phosphatase 190 H Total Protein 5.8 L Albumin 1.9 L Imaging: ITS Impressions Chest CTA 01/04/18 15:25 CONCLUSION: 1. Abnormal soft tissue density within the mediastinum unusual appearance for adenopathy partially could be hyperplasia of the patient's thymic gland, however underlying neoplastic process such as lymphoma is not excluded. 2. Slight cardiomegaly. 3. Bilateral parenchymal infiltrates in the lungs. Cervical Spine CT 01/04/18 16:23 CONCLUSION: Unremarkable study. Lumbar Spine CT 01/04/18 16:23 CONCLUSION: 1. Mild bulging of the L4-5 and L5-S1 disks. 2. No abnormal areas of epidural enhancement seen. Thoracic Spine CT 01/04/18 16:23 CONCLUSION: Essentially unremarkable study. Abdomen Ultrasound 01/05/18 00:00 CONCLUSION: 1. Gallbladder sludge 2. Mild splenomegaly 3. Bilateral perinephric fluid 4. No other significant abnormality. Hip CT 01/05/18 00:00 CONCLUSION: 1. Right hip appears unremarkable. No fracture. Chest X-Ray 01/06/18 00:00 CONCLUSION: Interval placement of a left jugular central venous catheter with its tip in the superior right atrium. No evidence of pneumothorax. Increasing pulmonary congestion. Physical Exam: GENERAL: awake and alert, looks dyspneic when talking SKIN: Warm and dry, no generalized rash HEAD: Atraumatic. Normocephalic. No temporal wasting, or tenderness. EYES: [place] conjunctiva. No petechia or hemorrhage. Pupils equal, round and reactive to light. Extraocular movements full and intact. No scleral icterus. No injection or drainage. EARS, NOSE AND THROAT: Mucous membranes pink and moist. No oral lesions noted. No exudate. No oral thrush. NECK: Trachea midline. Supple and not tender, no meningeal signs. There is a tender fluctuant area in her R sternoclavicular joint, looks less red, size same to a little smaller. CARDIOVASCULAR: Regular rate and rhythm, tachycardic. No murmurs, rubs or gallops heard. healed incision, no sternal instability RESPIRATORY: Coarse BS matty ABDOMEN: Soft, non-tender, nondistended. Bowel sounds present and normoactive. No guarding. No rebound. No organomegaly. EXTREMITIES: No clubbing, cyanosis, or edema. No joint effusion, has good ROM. No swelling or redness noted in her R hip. No calf tenderness. Able to flex her R hip BACK: tender to R of lumbar spine NEUROLOGICAL: Grossly non-focal PSYCHIATRIC: Normal affect, calm and cooperative. LINE: No evidence of infection Assessment and Plan - Plan Impression Sepsis, BC (+) MRSA - has a large veg around her TV prosthesis - has infected R sternoclavicular joint - CT lumbar spine ok; ?pelvic bone, SI joint S/P Rx for endocarditis this year TV PVE, MRSA Episode of endocarditis 2013, and lumbar spine infection IVDU Thrombocytopenia, due to sepsis Recommendation Follow C/S Await records from other hospital - in [place] Continue vanco Continue gentamicin - follow creatinine closely Follow C/S Follow temps Monitor progress Follow platelet count CTS recommended transfer back to [place] where she had her surgery
--- NOTE | 2018-01-09 10:26 | P.PNIM ---
Subjective Interval history: Patient reports feeling better overall but still complaining of generalized pain. Some SOB with minimal exertion. Right SCM area painful. Physical Exam Vital signs: Vital Signs 01/08/18 11:00 01/08/18 12:00 01/08/18 13:00 Temperature Pulse Rate 87 88 89 Respiratory Rate 25 H 24 26 H Blood Pressure 106/63 Pulse Oximetry 97 95 94 L 01/08/18 14:00 01/08/18 14:25 01/08/18 15:00 Temperature Pulse Rate 96 H 93 H 93 H Respiratory Rate 29 H 33 H 31 H Blood Pressure 102/58 L 122/69 Pulse Oximetry 97 96 97 01/08/18 16:00 01/08/18 17:00 01/08/18 18:00 Temperature Pulse Rate 96 H 102 H 97 H Respiratory Rate 30 H 25 H 29 H Blood Pressure 113/60 110/57 L 98/52 L Pulse Oximetry 92 L 95 99 01/08/18 19:00 01/08/18 19:35 01/08/18 20:00 Temperature 100.2 F H Pulse Rate 95 H 99 H 100 H Respiratory Rate 30 H 35 H 28 H Blood Pressure 100/53 L 102/59 L Pulse Oximetry 96 97 94 L 01/08/18 21:00 01/08/18 21:16 01/08/18 22:00 Temperature Pulse Rate 95 H 93 H Respiratory Rate 14 16 Blood Pressure 98/57 L 97/58 L Pulse Oximetry 90 L 98 92 L 01/08/18 23:00 01/09/18 00:00 01/09/18 01:00 Temperature 98.8 F 98.8 F Pulse Rate 91 H 89 79 Respiratory Rate 16 17 16 Blood Pressure 99/56 L 99/58 L 84/45 L Pulse Oximetry 92 L 94 L 94 L 01/09/18 01:32 01/09/18 02:00 01/09/18 02:10 Temperature Pulse Rate 84 79 Respiratory Rate 16 18 14 Blood Pressure 102/56 L 89/53 L Pulse Oximetry 94 L 94 L 01/09/18 03:00 01/09/18 04:00 01/09/18 05:00 Temperature 99.2 F Pulse Rate 83 85 86 Respiratory Rate 15 15 30 H Blood Pressure 93/54 L 94/53 L 108/59 L Pulse Oximetry 94 L 95 97 01/09/18 05:14 01/09/18 06:00 01/09/18 07:00 Temperature Pulse Rate 85 86 Respiratory Rate 16 21 18 Blood Pressure 97/59 L 103/58 L Pulse Oximetry 96 93 L 01/09/18 08:00 01/09/18 09:00 Temperature 98.5 F Pulse Rate 90 92 H Respiratory Rate 22 17 Blood Pressure 102/60 102/62 Pulse Oximetry 94 L 93 L Intake & Output 01/08/18 01/09/18 01/09/18 18:59 06:59 18:59 Intake Total 1859.875 / 1859.875 801.25 / 801.25 459.75 / 459.75 Output Total 1600 / 1600 800 / 800 Balance 259.875 / 259.875 1.25 / 1.25 459.75 / 459.75 Weight 53 kg Intake: IV 659.875 / 659.875 101.25 / 101.25 459.75 / 459.75 Gentamicin Inj 50 MG In NS Inj 101.375 / 101.375 101.25 / 101.25 101.25 / 101.25 100 ML @ 100 mls/hr IV.SIG Q8H MIGDALIA Rx#:[id number] Magnesium Sulfate Inj 2 GM In 100 / 100 NS Inj 96 ML @ 50 mls/hr IV.SIG UNSCH PRN Rx#:[id number] KCl 40 mEq Premix Inj 40 meq In 200 / 200 100 ml @ 25 mls/hr IV.SIG Q2H PRN Rx#:[id number] Vancomycin Inj 850 MG In NS Inj 258.5 / 258.5 258.5 / 258.5 250 ML @ 250 mls/hr IV.SIG Q12H MIGDALIA Rx#:[id number] Oral 1200 / 1200 350 / 350 Other 350 / 350 Output: Urine 1600 / 1600 800 / 800 Other: Date of Last Bowel Movement 01/07/18 01/07/18 01/07/18 Narrative: GENERAL: Thin appearing female SKIN: Right SCM area of fluctuance. Tender to palpation. CARDIOVASCULAR: Normal rate and regular rhythm. 2 out of 6 YARIEL murmur RESPIRATORY: Good respiratory efforts. Breath sounds equal and clear to auscultation bilaterally. Diminished breath sounds at the bases GASTROINTESTINAL: Abdomen soft, non-tender, non-distended. Normal active bowel sounds MUSCULOSKELETAL: Extremities without cyanosis, or edema. NEURO: Alert & Oriented x4 to person, place, time, situation. Moves all ext x4 PSYCH: Appropriate mood and affect. Results - Labs CBC & Chem 7: 01/09/18 04:30 01/09/18 04:30 Laboratory Results - last 24 hr 01/08/18 01/08/18 01/08/18 10:50 12:30 14:15 WBC RBC Hgb Hct MCV MCH MCHC RDW Plt Count MPV Prelim Diff (Auto) Neut % (Auto) Lymph % (Auto) [place] % (Auto) Eos % (Auto) Baso % (Auto) Neut # (Auto) Lymph # (Auto) [place] # (Auto) Eos # (Auto) Baso # (Auto) WBC Differential Seg Neuts % (Manual) Band Neuts % (Manual) Lymphocytes % (Manual) Monocytes % (Manual) Abs Neuts (Manual) Differential Comment Platelet Estimate Platelet Morphology Sodium Potassium Chloride Carbon Dioxide Anion Gap BUN Creatinine Estimated GFR Random Glucose Calcium Phosphorus Magnesium Total Bilirubin AST ALT Alkaline Phosphatase Total Protein Albumin Gentamicin Peak 2.3 L Gentamicin Trough 1.0 Vancomycin Trough 13.0 H 01/08/18 01/09/18 01/09/18 22:00 04:30 04:30 WBC 9.8 RBC 2.86 L Hgb 9.0 L Hct 26.5 L MCV 92.5 MCH 31.6 MCHC 34.2 RDW 15.6 Plt Count 70 L D MPV 9.9 Prelim Diff (Auto) Slide review pending Neut % (Auto) 75.2 H Lymph % (Auto) 13.5 [place] % (Auto) 10.2 H Eos % (Auto) 0.8 Baso % (Auto) 0.3 Neut # (Auto) 7.3 Lymph # (Auto) 1.3 [place] # (Auto) 1.0 H Eos # (Auto) 0.1 Baso # (Auto) 0.0 WBC Differential Manual diff final Seg Neuts % (Manual) 72 H Band Neuts % (Manual) 8 H Lymphocytes % (Manual) 13 Monocytes % (Manual) 7 Abs Neuts (Manual) 7.8 H Differential Comment . Platelet Estimate Low L Platelet Morphology Normal Sodium 137 Potassium 3.9 D 4.0 Chloride 101 Carbon Dioxide 28.6 Anion Gap 7 BUN 10 Creatinine 0.59 Estimated GFR Greater than 89 Random Glucose 96 Calcium 7.9 L Phosphorus 2.7 D Magnesium 1.4 L Total Bilirubin 1.1 H AST 19 ALT 33 Alkaline Phosphatase 190 H Total Protein 5.8 L Albumin 1.9 L Gentamicin Peak Gentamicin Trough Vancomycin Trough Microbiology 01/08/18 11:30 Blood - Peripheral Aerobic Blood Culture - Preliminary gram positive cocci 01/06/18 02:42 Blood - Peripheral Aerobic Blood Culture - Final S. aureus MRSA 01/06/18 02:42 Blood - Peripheral Anaerobic Blood Culture - Final S. aureus MRSA 01/05/18 15:57 Blood - Peripheral Aerobic Blood Culture - Final S. aureus MRSA 01/05/18 15:57 Blood - Peripheral Anaerobic Blood Culture - Final S. aureus MRSA 01/05/18 15:55 Blood - Peripheral Aerobic Blood Culture - Final S. aureus MRSA 01/05/18 15:55 Blood - Peripheral Anaerobic Blood Culture - Final S. aureus MRSA Assessment and Plan - Plan 37-year-old female with recurrent tricuspid valve endocarditis, MRSA bacteremia , probable right SCM abscess, IV drug user. Recurrent tricuspid valve endocarditis, MRSA bacteremia, right SCM abscess: Patient had recent tricuspid valve replacement in [place] about 3 months ago. She reported left AMA. Awaiting records from the outside hospital. - Appreciate ID following. Continue vancomycin and gentamicin. - Repeat cultures still positive for MRSA - CT surgery following. Plans for probable abscess per CT surgery. Patient previously refused examination per surgery notes. Elevated troponin:-secondary to above. Troponin trended down. Elevated liver enzymes in the setting of hepatitis C -We will need outpatient follow-up with GI to consider treatment. IV drug use: - Patient has been extensively counseled on cessation. - Start downgrading pain medication. Change breakthrough pain medication from Dilaudid to morphine. Anemia and thrombocytopenia: - Continue to monitor. Thrombocytopenia improving. - Transfuse as needed. GI prophylaxis: Stool softener PRN constipation. DVT PPx: SCDs Discharge Planning: Hemodynamically stable for transfer to floor.
[2018-01-09] MEDS: Mag Sulf 1 gm/100 ml Premix 100 ML IV.SIG SCH ×2 (12:30→14:11)
[2018-01-09] MEDS: Vancomycin Inj 1,000 MG in Sodium Chlor 0.9% Inj 250 ML IV.SIG SCH (15:25)
[2018-01-09] MEDS: Morphine Inj 4 MG/ML Vial IV.PUSH PRN ×2 (16:42→22:49)
[2018-01-09 17:51] LABS: Hepatitis C RNA (PCR) log IUs 3.18
[2018-01-10] MEDS: Vancomycin Inj 1,000 MG in Sodium Chlor 0.9% Inj 250 ML IV.SIG SCH ×2 (02:50→15:57)
[2018-01-10] MEDS: SODIUM CHLOR 0.9% IV.SIG SCH ×3 (04:08→19:36)
[2018-01-10] MEDS: GENTAMICIN IV.SIG SCH ×3 (04:08→19:36)
[2018-01-10] MEDS: Gabapentin 100 MG Capsule PO SCH ×3 (06:01→22:04)
[2018-01-10 06:25] LABS: Baso # (Auto) 0.1 th/mm3 (0.0-0.2); Baso % (Auto) 0.5 % (0.0-2.0); Eos # (Auto) 0.1 th/mm3 (0.0-0.4); Eos % (Auto) 0.6 % (0.0-4.0); Hematocrit 26.7 % (35.0-46.0); Hemoglobin 9.1 gm/dL (11.6-15.3); Lymph # (Auto) 1.1 th/mm3 (1.0-4.8); Lymph % (Auto) 7.7 % (9.0-44.0); Mean Corpuscular HGB Conc 34.3 % (32.0-36.0); Mean Corpuscular Hemoglobin 31.6 pg (27.0-34.0); Mean Corpuscular Volume 92.1 fL (80.0-100.0); Mean Platelet Volume 9.9 fL (7.0-11.0); Mono # (Auto) 1.1 th/mm3 (0.0-0.9); Mono % (Auto) 7.1 % (0.0-8.0); Neut # (Auto) 12.5 th/mm3 (1.8-7.7); Neut % (Auto) 84.1 % (16.0-70.0); Platelet Count 70 th/mm3 (150-450); Red Cell Distribution Width 15.5 % (11.6-17.2); White Blood Count 14.9 th/mm3 (4.0-11.0)
[2018-01-10 06:54] LABS: Anion Gap 7 meq/L (5-15); Blood Urea Nitrogen 10 mg/dL (7-18); Calcium 7.9 mg/dL (8.5-10.1); Carbon Dioxide 28.9 meq/L (21.0-32.0); Chloride 104 meq/L (98-107); Glomerular Filtration Rate Greater Than 89 mL/min (>89); Glucose,Random 89 mg/dL (74-106); Magnesium 1.8 mg/dL (1.5-2.5); Sodium 140 meq/L (136-145)
[2018-01-10 08:28] LABS: Lymphocytes 6 % (9-44); Monocytes 4 % (0-8); Myelocytes 1 % (0-0); Toxic Granulation 1+
[2018-01-10 08:29] LABS: Platelet Morphology Normal (Normal)
[2018-01-10] MEDS: Famotidine 20 MG Tablet PO SCH ×2 (08:30→20:56)
[2018-01-10] MEDS: Mupirocin 2% Nasal Oint Topical Syringe EACH NARE SCH ×2 (08:30→20:56)
[2018-01-10] MEDS: Acetaminophen 325 MG Tablet PO PRN ×2 (11:11→19:35)
[2018-01-10] MEDS: Morphine Inj 4 MG/ML Vial IV.PUSH PRN ×3 (11:12→22:04)
[2018-01-10] MEDS ORDERED: [UNRECOGNIZED DRUG - OTHER] OTHER ONE (11:45)
--- NOTE | 2018-01-10 12:13 | P.PNID ---
Subjective Remarks: Patient is a 37-year-old female, presented to the hospital complaining of right- sided back pain hip pain, fever and chills. She is also complaining of pain in her right upper extremity. She had noted that she has difficulty moving it because of the pain. Patient history is significant for treatment of tricuspid valve endocarditis back in 2013, lumbar spine infection,, and she was in the hospital for quite a long time, and subsequently developed other kinds of bacteremia which was felt to be related to PICC. She had Klebsiella, Acinetobacter, candidemia, as well as Mycobacterium abscesses. Recently she was hospitalized in the hospital in [place], and the patient stated she was there from July - September 2017. She was treated with 6 weeks of IV antibiotics for endocarditis, and she was also told that she had a hip infection , but she did not have any surgery for the hip. Patient stated she had valve surgery around September 28, and she thinks it might be the tricuspid valve, however she signed out AGAINST MEDICAL ADVICE about 3 days after the surgery. Her boyfriend has been helping her take care of her incision. She came back to this area. Patient denies any significant cough or congestion. No chest pain or shortness of breath. No nausea or vomiting or diarrhea. She has had some incontinence which he attributes due to inability to ambulate secondary to her back and hip pain. On presentation she has been febrile up to 102. She had a CTA which did not show any pulmonary embolism, but it did show abnormalities in the lung as well as some opacity seen on the anterior mediastinum. I had reviewed with radiology and there is also a density seen in the right sternoclavicular joint, and the anterior mediastinum opacity looks like it may be a complex fluid collection. CAT scan of her spine, cervical, thoracic, and lumbar did not show any significant abnormality. 2 blood cultures on admission are now reported as growing gram-positive cocci in pairs and clusters. Patient is currently on vancomycin and meropenem. 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 Notes reviewed Temp up to 103 today No new complaint - same pain on R clavicle/shoulder when she moves her RUE Pain in R buttock as before, moving her RLE ok All BC (+), no negative C/S yet Feels a little better ZEHRA - large vegetation encompassing the TV prosthesis WBC up to 14.9 Antibiotics: Vancomycin Gentamicin Lines: Central line Past Medical History: Abscess in epidural space of lumbar spine Endocarditis Hepatitis C Hypokalemia Hyponatremia IVDU (intravenous drug user) Osteomyelitis Pneumonia Renal failure Sepsis Thrombocytopenia UTI (urinary tract infection) S/P valve surgery Allergies/Adverse Reactions: Allergies bee venom protein (honey bee) Allergy (Severe, Verified 01/04/18 14:34) rash Objective Vital Signs 01/09/18 13:00 01/09/18 14:00 01/09/18 16:00 Temperature 100.9 F H Pulse Rate 85 87 121 H Respiratory Rate 23 19 18 Blood Pressure 101/61 111/63 112/55 L Pulse Oximetry 99 97 86 L 01/09/18 17:00 01/09/18 20:00 01/10/18 00:00 Temperature 99 F 98.1 F Pulse Rate 123 H 90 78 Respiratory Rate 18 18 Blood Pressure 87/52 L 97/55 L Pulse Oximetry 97 97 01/10/18 04:00 01/10/18 06:16 01/10/18 10:55 Temperature 98.2 F 103.0 F H Pulse Rate 70 63 Respiratory Rate 18 Blood Pressure 93/55 L Pulse Oximetry 98 Intake & Output 01/09/18 01/10/18 01/10/18 18:59 06:59 18:59 Intake Total 1020.00 / 1020.00 942.25 / 942.25 Output Total 1800 / 1800 Balance 1020.00 / 1020.00 -857.75 / -857.75 Weight 56.9 kg Intake: IV 1020.00 / 1020.00 462.25 / 462.25 Gentamicin Inj 50 MG In NS Inj 202.50 / 202.50 203.25 / 203.25 100 ML @ 100 mls/hr IV.SIG Q8H MIGDALIA Rx#:[id number] Magnesium Sulfate 1 gm/D5W 100 200 / 200 ml Premix 100 ML @ 100 mls/hr IV.SIG Q1H MIGDALIA Rx#:[id number] Vancomycin Inj 1,000 MG In NS 259 / 259 259 / 259 Inj 250 ML @ 250 mls/hr IV.SIG Q12H MIGDALIA Rx#:[id number] Vancomycin Inj 850 MG In NS Inj 258.5 / 258.5 250 ML @ 250 mls/hr IV.SIG Q12H MIGDALIA Rx#:[id number] Oral 480 / 480 Output: Urine 1800 / 1800 Other: # Voids 1 Date of Last Bowel Movement 01/07/18 01/08/18 # Bowel Movements 0 01/08/18 11:30 Blood - Peripheral Aerobic Blood Culture - Final S. aureus MRSA 01/08/18 11:30 Blood - Peripheral Anaerobic Blood Culture - Preliminary No growth in 2 days 01/08/18 11:35 Blood - Peripheral Aerobic Blood Culture - Final S. aureus MRSA 01/08/18 11:35 Blood - Peripheral Anaerobic Blood Culture - Preliminary No growth in 2 days 01/08/18 05:00 Blood - Peripheral Aerobic Blood Culture - Final S. aureus MRSA 01/08/18 05:00 Blood - Peripheral Anaerobic Blood Culture - Preliminary No growth in 2 days 01/05/18 15:57 Blood - Peripheral Aerobic Blood Culture - Final S. aureus MRSA 01/05/18 15:57 Blood - Peripheral Anaerobic Blood Culture - Final S. aureus MRSA 01/06/18 02:42 Blood - Peripheral Aerobic Blood Culture - Final S. aureus MRSA 01/06/18 02:42 Blood - Peripheral Anaerobic Blood Culture - Final S. aureus MRSA 01/05/18 15:55 Blood - Peripheral Aerobic Blood Culture - Final S. aureus MRSA 01/05/18 15:55 Blood - Peripheral Anaerobic Blood Culture - Final S. aureus MRSA 01/04/18 14:35 Blood - Peripheral Aerobic Blood Culture - Final S. aureus MRSA 01/04/18 14:35 Blood - Peripheral Anaerobic Blood Culture - Final S. aureus MRSA 01/04/18 14:30 Blood - Peripheral Aerobic Blood Culture - Final S. aureus MRSA 01/04/18 14:30 Blood - Peripheral Anaerobic Blood Culture - Final S. aureus MRSA Lab - Hematology Results 01/09/18 01/10/18 04:30 06:05 WBC 9.8 14.9 H RBC 2.86 L 2.90 L Hgb 9.0 L 9.1 L Hct 26.5 L 26.7 L MCV 92.5 92.1 MCH 31.6 31.6 MCHC 34.2 34.3 RDW 15.6 15.5 Plt Count 70 L D 70 L MPV 9.9 9.9 Prelim Diff (Auto) Slide review pending Slide review pending Neut % (Auto) 75.2 H 84.1 H Lymph % (Auto) 13.5 7.7 L Clark % (Auto) 10.2 H 7.1 Eos % (Auto) 0.8 0.6 Baso % (Auto) 0.3 0.5 Neut # (Auto) 7.3 12.5 H Lymph # (Auto) 1.3 1.1 Clark # (Auto) 1.0 H 1.1 H Eos # (Auto) 0.1 0.1 Baso # (Auto) 0.0 0.1 WBC Differential Manual diff final Manual diff final Seg Neuts % (Manual) 72 H 84 H Band Neuts % (Manual) 8 H 5 Lymphocytes % (Manual) 13 6 L Monocytes % (Manual) 7 4 Myelocytes % (Man) 1 H Abs Neuts (Manual) 7.8 H 13.4 H Differential Comment . . Toxic Granulation 1+ H Platelet Estimate Low L Low L Platelet Morphology Normal Normal Lab - Chemistry Results 01/08/18 01/09/18 01/10/18 22:00 04:30 06:05 Sodium 137 140 Potassium 3.9 D 4.0 4.0 Chloride 101 104 Carbon Dioxide 28.6 28.9 Anion Gap 7 7 BUN 10 10 Creatinine 0.59 0.63 Estimated GFR Greater than 89 Greater than 89 Random Glucose 96 89 Calcium 7.9 L 7.9 L Phosphorus 2.7 D Magnesium 1.4 L 1.8 Total Bilirubin 1.1 H AST 19 ALT 33 Alkaline Phosphatase 190 H Total Protein 5.8 L Albumin 1.9 L Imaging: ITS Impressions Chest CTA 01/04/18 15:25 CONCLUSION: 1. Abnormal soft tissue density within the mediastinum unusual appearance for adenopathy partially could be hyperplasia of the patient's thymic gland, however underlying neoplastic process such as lymphoma is not excluded. 2. Slight cardiomegaly. 3. Bilateral parenchymal infiltrates in the lungs. Cervical Spine CT 01/04/18 16:23 CONCLUSION: Unremarkable study. Lumbar Spine CT 01/04/18 16:23 CONCLUSION: 1. Mild bulging of the L4-5 and L5-S1 disks. 2. No abnormal areas of epidural enhancement seen. Thoracic Spine CT 01/04/18 16:23 CONCLUSION: Essentially unremarkable study. Abdomen Ultrasound 01/05/18 00:00 CONCLUSION: 1. Gallbladder sludge 2. Mild splenomegaly 3. Bilateral perinephric fluid 4. No other significant abnormality. Hip CT 01/05/18 00:00 CONCLUSION: 1. Right hip appears unremarkable. No fracture. Chest X-Ray 01/06/18 00:00 CONCLUSION: Interval placement of a left jugular central venous catheter with its tip in the superior right atrium. No evidence of pneumothorax. Increasing pulmonary congestion. Physical Exam: GENERAL: awake and alert, looks comfortable at rest SKIN: Warm and dry, no generalized rash HEAD: Atraumatic. Normocephalic. No temporal wasting, or tenderness. EYES: Badger conjunctiva. No petechia or hemorrhage. Pupils equal, round and reactive to light. Extraocular movements full and intact. No scleral icterus. No injection or drainage. EARS, NOSE AND THROAT: Mucous membranes pink and moist. No oral lesions noted. No exudate. No oral thrush. NECK: Trachea midline. Supple and not tender, no meningeal signs. There is a tender fluctuant area in her R sternoclavicular joint, looks less red, size looks smaller. CARDIOVASCULAR: Regular rate and rhythm, tachycardic. No murmurs, rubs or gallops heard. healed incision, no sternal instability RESPIRATORY: Coarse BS matty ABDOMEN: Soft, non-tender, nondistended. Bowel sounds present and normoactive. No guarding. No rebound. No organomegaly. EXTREMITIES: No clubbing, cyanosis, or edema. No swelling or redness noted in her R hip. No calf tenderness. Able to flex her R hip BACK: tender to R of lumbar spine at buttock NEUROLOGICAL: Grossly non-focal PSYCHIATRIC: Normal affect, calm and cooperative. LINE: No evidence of infection Assessment and Plan - Plan Impression Sepsis, BC (+) MRSA - has a large veg around her TV prosthesis - has infected R sternoclavicular joint - CT lumbar spine ok; ?pelvic bone, SI joint S/P Rx for endocarditis this year TV PVE, MRSA - BC peristent (+) Episode of endocarditis 2013 and lumbar spine infection IVDU Thrombocytopenia, due to sepsis,improving Recurrent fevers Recommendation Repeat C/S CXR Ua and C/S Add Teflaro Add Diflucan Continue vanco Continue gentamicin - follow creatinine closely Follow C/S Follow temps Monitor progress CTS recommended transfer back to [place] where she had her surgery
--- NOTE | 2018-01-10 14:06 | XR ---
EXAM DATE: 01/10/2018 1:55 PM EDT AGE/SEX: 37 years / Female INDICATIONS: . Right side chest pain. CLINICAL DATA: This is the patient's subsequent encounter. Patient reports that signs and symptoms h ave been present for 1 month and indicates a pain score of 4/10. MEDICAL/SURGICAL HISTORY: . Hepatitis C. Abscess. Endocarditis. Hypokalemia. Hypernatremia. IV drug use. Osteomyelitis. Pneumonia. Renal failure. Sepsis. Thrombocytopenia. Urinary tract infection . Valve replacement. . COMPARISON: [facility] – [place], CHEST 1V SINGLE AP, 01/06/2018. . FINDINGS: There is increased interstitial markings bilaterally suggestive of some pulmonary edema. The heart si ze is enlarged but stable. There is no evidence of pneumothorax. There is a left-sided central line i n place. There is evidence of previous cardiothoracic surgery. Compared to the prior study there has been no significant changes. CONCLUSION: Increased interstitial markings bilaterally suggestive of pulmonary edema. No significant changes compared to the prior study. Electronically signed by: Greg Winston MD 01/10/2018 2:04 PM EDT
[2018-01-10] MEDS: Fluconazole 100 MG Tablet PO SCH (14:49)
--- NOTE | 2018-01-10 15:59 | P.PN ---
Subjective Interval history: Nursing denies any deterioration since last night. Patient herself has no new complaints today. When I notify her that her previous provider documented that she refused a physical exam, patient responds by saying that she would never refuse help. When asked if there was any particular reason that she might have at some point refusing examination she cannot think of a reason. Patient reiterates her hesitation about being treated again by her CTS surgeon in [place]. Physical Exam Vital signs: Vital Signs 01/09/18 16:00 01/09/18 17:00 01/09/18 20:00 Temperature 100.9 F H 99 F Pulse Rate 121 H 123 H 90 Respiratory Rate 18 18 Blood Pressure 112/55 L 87/52 L Pulse Oximetry 86 L 97 01/10/18 00:00 01/10/18 04:00 01/10/18 06:16 Temperature 98.1 F 98.2 F Pulse Rate 78 70 63 Respiratory Rate 18 18 Blood Pressure 97/55 L 93/55 L Pulse Oximetry 97 98 01/10/18 10:55 Temperature 103.0 F H Pulse Rate Respiratory Rate Blood Pressure Pulse Oximetry Intake & Output 01/09/18 01/10/18 01/10/18 18:59 06:59 18:59 Intake Total 1020.00 / 1020.00 942.25 / 942.25 101.25 / 101.25 Output Total 1800 / 1800 Balance 1020.00 / 1020.00 -857.75 / -857.75 101.25 / 101.25 Weight 56.9 kg Intake: IV 1020.00 / 1020.00 462.25 / 462.25 101.25 / 101.25 Gentamicin Inj 50 MG In NS Inj 202.50 / 202.50 203.25 / 203.25 101.25 / 101.25 100 ML @ 100 mls/hr IV.SIG Q8H MIGDALIA Rx#:[id number] Magnesium Sulfate 1 gm/D5W 100 200 / 200 ml Premix 100 ML @ 100 mls/hr IV.SIG Q1H MIGDALIA Rx#:[id number] Vancomycin Inj 1,000 MG In NS 259 / 259 259 / 259 Inj 250 ML @ 250 mls/hr IV.SIG Q12H MIGDALIA Rx#:[id number] Vancomycin Inj 850 MG In NS Inj 258.5 / 258.5 250 ML @ 250 mls/hr IV.SIG Q12H MIGDALIA Rx#:[id number] Oral 480 / 480 Output: Urine 1800 / 1800 Other: # Voids 1 Date of Last Bowel Movement 01/07/18 01/08/18 # Bowel Movements 0 Narrative: Previous surgical scar midline chest Heart sounds regular rate rhythm, no murmurs Clear lungs bilaterally, unlabored breathing Working with physical therapy ask working on range of motion of her legs while she lies in bed Results - Labs CBC & Chem 7: 01/10/18 06:05 01/10/18 06:05 Laboratory Results - last 24 hr 01/06/18 01/10/18 01/10/18 10:50 06:05 06:05 WBC 14.9 H RBC 2.90 L Hgb 9.1 L Hct 26.7 L MCV 92.1 MCH 31.6 MCHC 34.3 RDW 15.5 Plt Count 70 L MPV 9.9 Prelim Diff (Auto) Slide review pending Neut % (Auto) 84.1 H Lymph % (Auto) 7.7 L Pope % (Auto) 7.1 Eos % (Auto) 0.6 Baso % (Auto) 0.5 Neut # (Auto) 12.5 H Lymph # (Auto) 1.1 Pope # (Auto) 1.1 H Eos # (Auto) 0.1 Baso # (Auto) 0.1 WBC Differential Manual diff final Seg Neuts % (Manual) 84 H Band Neuts % (Manual) 5 Lymphocytes % (Manual) 6 L Monocytes % (Manual) 4 Myelocytes % (Man) 1 H Abs Neuts (Manual) 13.4 H Differential Comment . Toxic Granulation 1+ H Platelet Estimate Low L Platelet Morphology Normal Sodium 140 Potassium 4.0 Chloride 104 Carbon Dioxide 28.9 Anion Gap 7 BUN 10 Creatinine 0.63 Estimated GFR Greater than 89 Random Glucose 89 Calcium 7.9 L Magnesium 1.8 Gentamicin Trough HCV RNA (PCR) IUs/ml 1530 H HCV RNA PCR log IUs/ml 3.18 H 01/10/18 11:45 WBC RBC Hgb Hct MCV MCH MCHC RDW Plt Count MPV Prelim Diff (Auto) Neut % (Auto) Lymph % (Auto) Pope % (Auto) Eos % (Auto) Baso % (Auto) Neut # (Auto) Lymph # (Auto) Pope # (Auto) Eos # (Auto) Baso # (Auto) WBC Differential Seg Neuts % (Manual) Band Neuts % (Manual) Lymphocytes % (Manual) Monocytes % (Manual) Myelocytes % (Man) Abs Neuts (Manual) Differential Comment Toxic Granulation Platelet Estimate Platelet Morphology Sodium Potassium Chloride Carbon Dioxide Anion Gap BUN Creatinine Estimated GFR Random Glucose Calcium Magnesium Gentamicin Trough 0.7 HCV RNA (PCR) IUs/ml HCV RNA PCR log IUs/ml Microbiology 01/08/18 11:30 Blood - Peripheral Aerobic Blood Culture - Final S. aureus MRSA 01/08/18 11:30 Blood - Peripheral Anaerobic Blood Culture - Preliminary No growth in 2 days 01/08/18 11:35 Blood - Peripheral Aerobic Blood Culture - Final S. aureus MRSA 01/08/18 11:35 Blood - Peripheral Anaerobic Blood Culture - Preliminary No growth in 2 days 01/08/18 05:00 Blood - Peripheral Aerobic Blood Culture - Final S. aureus MRSA 01/08/18 05:00 Blood - Peripheral Anaerobic Blood Culture - Preliminary No growth in 2 days 01/05/18 15:57 Blood - Peripheral Aerobic Blood Culture - Final S. aureus MRSA 01/05/18 15:57 Blood - Peripheral Anaerobic Blood Culture - Final S. aureus MRSA - Imaging Impressions Chest X-Ray 01/10/18 00:00 CONCLUSION: Increased interstitial markings bilaterally suggestive of pulmonary edema. No significant changes compared to the prior study. 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 Recurrent tricuspid valve endocarditis, MRSA bacteremia, right SCM abscess: Patient had recent tricuspid valve replacement in [place] about 3 months ago. She reportedly left AMA. Awaiting records from the outside hospital. - Appreciate ID following. Continue vancomycin and gentamicin. - Repeat cultures still positive for MRSA -CTS anticipates poor prognosis, otherwise is ultimately recommended transfer back to the patient's surgeon in [place] to which the patient is very hesitant of doing so. Elevated troponin:-secondary to above. Troponin trended down. Elevated liver enzymes in the setting of hepatitis C -We will need outpatient follow-up with GI to consider treatment. IV drug use: -Morphine Hep B and Hep C Anemia and thrombocytopenia: - Continue to monitor. Thrombocytopenia improving. - Transfuse as needed. GI prophylaxis: Stool softener PRN constipation. DVT PPx: SCDs
[2018-01-10 19:40] LABS: Bacteria,Urine Occasional /hpf; Bilirubin,Urine Negative (Negative); Clarity,Urine Hazy (Clear); Color,Urine Yellow (Yellw/Straw); Glucose,Urine (UA) Negative (Negative); Hyaline Casts,Urine 1 /lpf (0-3); Leukocyte Esterase,Urine Small (Negative); Mucus,Urine Few /lpf (Occasional); Nitrite,Urine Negative (Negative); Specific Gravity,Urine 1.005 (1.002-1.035); Squamous Epithelial Cell,Urine 6 /hpf (0-5); Urobilinogen,Urine 4 or Greater mg/dL (Less than 2)
[2018-01-11] MEDS: Vancomycin Inj 1,000 MG in Sodium Chlor 0.9% Inj 250 ML IV.SIG SCH ×2 (03:14→14:58)
[2018-01-11] MEDS: SODIUM CHLOR 0.9% IV.SIG SCH ×3 (04:20→20:24)
[2018-01-11] MEDS: GENTAMICIN IV.SIG SCH ×3 (04:20→20:24)
[2018-01-11] MEDS: Morphine Inj 4 MG/ML Vial IV.PUSH PRN ×3 (04:25→20:28)
[2018-01-11] MEDS: Gabapentin 100 MG Capsule PO SCH ×3 (06:28→22:35)
[2018-01-11] MEDS: Fluconazole 100 MG Tablet PO SCH (08:12)
[2018-01-11] MEDS: Famotidine 20 MG Tablet PO SCH ×2 (08:12→20:25)
[2018-01-11] MEDS: Mupirocin 2% Nasal Oint Topical Syringe EACH NARE SCH ×2 (08:12→20:25)
[2018-01-11] MEDS: Acetaminophen 325 MG Tablet PO PRN (09:24)
--- NOTE | 2018-01-11 13:10 | P.PN ---
Subjective Interval history: Nursing denies any deterioration since last night except for a low manual blood pressure with the 80 systolic. Patient did have more fevers again up to 102. Patient herself reports some nausea vomiting. She says she cannot remember the name of the cardio thoracic surgeon with [facility] but knows that it was in [place] in the hospitals name was [facility]. She is willing to entertain the notion of being transferred back there if deemed medically beneficial. Physical Exam Vital signs: Vital Signs 01/10/18 18:00 01/10/18 20:00 01/10/18 23:49 Temperature 103.2 F H 98.2 F Pulse Rate 74 97 H 73 Respiratory Rate 16 18 Blood Pressure 94/53 L 85/50 L Pulse Oximetry 94 L 95 01/11/18 03:00 01/11/18 04:00 01/11/18 04:28 Temperature 97.5 F L Pulse Rate 64 70 Respiratory Rate 20 Blood Pressure 87/51 L 89/57 L Pulse Oximetry 94 L 01/11/18 08:00 01/11/18 09:22 01/11/18 11:07 Temperature 101.2 F H Pulse Rate 111 H Respiratory Rate 18 7 L Blood Pressure 101/51 L Pulse Oximetry 96 96 01/11/18 12:00 Temperature 97.2 F L Pulse Rate 79 Respiratory Rate 18 Blood Pressure Pulse Oximetry 94 L Intake & Output 01/10/18 01/11/18 01/11/18 18:59 06:59 18:59 Intake Total 1171.25 / 1171.25 1612.50 / 1612.50 101.25 / 101.25 Output Total 1000 / 1000 Balance 171.25 / 171.25 1612.50 / 1612.50 101.25 / 101.25 Weight 52 kg Intake: IV 451.25 / 451.25 652.50 / 652.50 101.25 / 101.25 Teflaro Inj 600 MG In NS Inj 100 / 100 200 / 200 100 ML @ 100 mls/hr IV.SIG Q8H MIGDALIA Rx#:[id number] Gentamicin Inj 50 MG In NS Inj 101.25 / 101.25 202.50 / 202.50 101.25 / 101.25 100 ML @ 100 mls/hr IV.SIG Q8H MIGDALIA Rx#:[id number] Vancomycin Inj 1,000 MG In NS 250 / 250 250 / 250 Inj 250 ML @ 250 mls/hr IV.SIG Q12H MIGDALIA Rx#:[id number] Oral 720 / 720 960 / 960 Output: Urine 1000 / 1000 Other: Date of Last Bowel Movement 01/08/18 # Bowel Movements 0 Narrative: Heart sounds regular rate rhythm, no murmurs Clear lungs bilaterally, unlabored breathing Results - Labs CBC & Chem 7: 01/10/18 06:05 01/10/18 06:05 Laboratory Results - last 24 hr 01/10/18 18:35 Urine Color Yellow Urine Clarity Hazy H Urine pH 7.0 Ur Specific Childs 1.005 Urine Protein Negative Urine Glucose (UA) Negative Urine Ketones Negative Urine Occult Blood Moderate H Urine Nitrate Negative Urine Bilirubin Negative Urine Urobilinogen 4 or greater Ur Leukocyte Esterase Small H Urine RBC 1 Urine WBC 31 H Ur Squamous Epith Cells 6 Urine Bacteria Occasional H Hyaline Casts 1 Urine Mucus Few H Micro UA Comment Culture indicated Ur Microscopic Review Not Reportable Urine Culture Comments Culture indicated Microbiology 01/10/18 12:51 Blood - Peripheral Aerobic Blood Culture - Preliminary No growth in 1 day 01/10/18 12:51 Blood - Peripheral Anaerobic Blood Culture - Preliminary No growth in 1 day 01/10/18 12:46 Blood - Peripheral Aerobic Blood Culture - Preliminary No growth in 1 day 01/10/18 12:46 Blood - Peripheral Anaerobic Blood Culture - Preliminary No growth in 1 day 01/08/18 11:30 Blood - Peripheral Aerobic Blood Culture - Final S. aureus MRSA 01/08/18 11:30 Blood - Peripheral Anaerobic Blood Culture - Preliminary No growth in 3 days 01/08/18 11:35 Blood - Peripheral Aerobic Blood Culture - Final S. aureus MRSA 01/08/18 11:35 Blood - Peripheral Anaerobic Blood Culture - Preliminary No growth in 3 days 01/08/18 05:00 Blood - Peripheral Aerobic Blood Culture - Final S. aureus MRSA 01/08/18 05:00 Blood - Peripheral Anaerobic Blood Culture - Preliminary No growth in 3 days 01/05/18 15:57 Blood - Peripheral Aerobic Blood Culture - Final S. aureus MRSA 01/05/18 15:57 Blood - Peripheral Anaerobic Blood Culture - Final S. aureus MRSA - Imaging Impressions Chest X-Ray 01/10/18 00:00 CONCLUSION: Increased interstitial markings bilaterally suggestive of pulmonary edema. No significant changes compared to the prior study. 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 Sepsis w/ hypotension Recurrent tricuspid valve endocarditis, MRSA bacteremia, right SCM abscess: Patient had recent tricuspid valve replacement in [place] about 3 months ago. She reportedly left AMA. Awaiting records from the outside hospital. - Appreciate ID following. Continue vancomycin and gentamicin. - Repeat cultures still positive for MRSA -CTS anticipates poor prognosis, otherwise is ultimately recommended transfer back to the patient's surgeon in [place]; will attempt contact. - starting Fluid boluses and transferring to ICU; alrdy on brd spectrum abx Elevated troponin:-secondary to above. Troponin trended down. Elevated liver enzymes in the setting of hepatitis C -We will need outpatient follow-up with GI to consider treatment. IV drug use: -Morphine Hep B and Hep C Anemia and thrombocytopenia: - Continue to monitor. Thrombocytopenia improving. - Transfuse as needed. GI prophylaxis: Stool softener PRN constipation. DVT PPx: SCDs
--- NOTE | 2018-01-11 13:31 | P.PNID ---
Subjective Remarks: Patient is a 37-year-old female, presented to the hospital complaining of right- sided back pain hip pain, fever and chills. She is also complaining of pain in her right upper extremity. She had noted that she has difficulty moving it because of the pain. Patient history is significant for treatment of tricuspid valve endocarditis back in 2013, lumbar spine infection,, and she was in the hospital for quite a long time, and subsequently developed other kinds of bacteremia which was felt to be related to PICC. She had Klebsiella, Acinetobacter, candidemia, as well as Mycobacterium abscesses. Recently she was hospitalized in the hospital in [place], and the patient stated she was there from July - September 2017. She was treated with 6 weeks of IV antibiotics for endocarditis, and she was also told that she had a hip infection , but she did not have any surgery for the hip. Patient stated she had valve surgery around September 28, and she thinks it might be the tricuspid valve, however she signed out AGAINST MEDICAL ADVICE about 3 days after the surgery. Her boyfriend has been helping her take care of her incision. She came back to this area. Patient denies any significant cough or congestion. No chest pain or shortness of breath. No nausea or vomiting or diarrhea. She has had some incontinence which he attributes due to inability to ambulate secondary to her back and hip pain. On presentation she has been febrile up to 102. She had a CTA which did not show any pulmonary embolism, but it did show abnormalities in the lung as well as some opacity seen on the anterior mediastinum. I had reviewed with radiology and there is also a density seen in the right sternoclavicular joint, and the anterior mediastinum opacity looks like it may be a complex fluid collection. CAT scan of her spine, cervical, thoracic, and lumbar did not show any significant abnormality. 2 blood cultures on admission are now reported as growing gram-positive cocci in pairs and clusters. Patient is currently on vancomycin and meropenem. 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 Notes reviewed Having intermittent fevers BP has been running on low side since yesterday No dizziness Feels better Moving RUE better; has been doing more moving No diarrhea NO rash or itching Had some nausea today, but no vomiting CXR with stable bilateral infiltrates WBC higher 14K Creatinie ok Last (+) BC 01/08 UA wit some pyuria, UC pending ZEHRA - large vegetation encompassing the TV prosthesis Antibiotics: Vancomycin Gentamicin Teflaro Lines: Central line Past Medical History: Abscess in epidural space of lumbar spine Endocarditis Hepatitis C Hypokalemia Hyponatremia IVDU (intravenous drug user) Osteomyelitis Pneumonia Renal failure Sepsis Thrombocytopenia UTI (urinary tract infection) S/P valve surgery Allergies/Adverse Reactions: Allergies bee venom protein (honey bee) Allergy (Severe, Verified 01/04/18 14:34) rash Objective Vital Signs 01/10/18 18:00 01/10/18 20:00 01/10/18 23:49 Temperature 103.2 F H 98.2 F Pulse Rate 74 97 H 73 Respiratory Rate 16 18 Blood Pressure 94/53 L 85/50 L Pulse Oximetry 94 L 95 01/11/18 03:00 01/11/18 04:00 01/11/18 04:28 Temperature 97.5 F L Pulse Rate 64 70 Respiratory Rate 20 Blood Pressure 87/51 L 89/57 L Pulse Oximetry 94 L 01/11/18 08:00 01/11/18 09:22 01/11/18 11:07 Temperature 101.2 F H Pulse Rate 111 H Respiratory Rate 18 7 L Blood Pressure 101/51 L Pulse Oximetry 96 96 01/11/18 12:00 Temperature 97.2 F L Pulse Rate 79 Respiratory Rate 18 Blood Pressure Pulse Oximetry 94 L Intake & Output 01/10/18 01/11/18 01/11/18 18:59 06:59 18:59 Intake Total 1171.25 / 1171.25 1612.50 / 1612.50 101.25 / 101.25 Output Total 1000 / 1000 Balance 171.25 / 171.25 1612.50 / 1612.50 101.25 / 101.25 Weight 52 kg Intake: IV 451.25 / 451.25 652.50 / 652.50 101.25 / 101.25 Teflaro Inj 600 MG In NS Inj 100 / 100 200 / 200 100 ML @ 100 mls/hr IV.SIG Q8H [facility] Rx#:[id number] Gentamicin Inj 50 MG In NS Inj 101.25 / 101.25 202.50 / 202.50 101.25 / 101.25 100 ML @ 100 mls/hr IV.SIG Q8H [facility] Rx#:[id number] Vancomycin Inj 1,000 MG In NS 250 / 250 250 / 250 Inj 250 ML @ 250 mls/hr IV.SIG Q12H [facility] Rx#:[id number] Oral 720 / 720 960 / 960 Output: Urine 1000 / 1000 Other: Date of Last Bowel Movement 01/08/18 # Bowel Movements 0 01/10/18 12:51 Blood - Peripheral Aerobic Blood Culture - Preliminary No growth in 1 day 01/10/18 12:51 Blood - Peripheral Anaerobic Blood Culture - Preliminary No growth in 1 day 01/10/18 12:46 Blood - Peripheral Aerobic Blood Culture - Preliminary No growth in 1 day 01/10/18 12:46 Blood - Peripheral Anaerobic Blood Culture - Preliminary No growth in 1 day 01/08/18 11:30 Blood - Peripheral Aerobic Blood Culture - Final S. aureus MRSA 01/08/18 11:30 Blood - Peripheral Anaerobic Blood Culture - Preliminary No growth in 3 days 01/08/18 11:35 Blood - Peripheral Aerobic Blood Culture - Final S. aureus MRSA 01/08/18 11:35 Blood - Peripheral Anaerobic Blood Culture - Preliminary No growth in 3 days 01/08/18 05:00 Blood - Peripheral Aerobic Blood Culture - Final S. aureus MRSA 01/08/18 05:00 Blood - Peripheral Anaerobic Blood Culture - Preliminary No growth in 3 days 01/11/18 04:58 Blood - Peripheral Aerobic Blood Culture - Pending 01/11/18 04:58 Blood - Peripheral Anaerobic Blood Culture - Pending 01/10/18 18:35 Clean Catch Urine Urine Culture - Pending 01/05/18 15:57 Blood - Peripheral Aerobic Blood Culture - Final S. aureus MRSA 01/05/18 15:57 Blood - Peripheral Anaerobic Blood Culture - Final S. aureus MRSA 01/06/18 02:42 Blood - Peripheral Aerobic Blood Culture - Final S. aureus MRSA 01/06/18 02:42 Blood - Peripheral Anaerobic Blood Culture - Final S. aureus MRSA 01/05/18 15:55 Blood - Peripheral Aerobic Blood Culture - Final S. aureus MRSA 01/05/18 15:55 Blood - Peripheral Anaerobic Blood Culture - Final S. aureus MRSA Lab - Hematology Results 01/10/18 06:05 WBC 14.9 H RBC 2.90 L Hgb 9.1 L Hct 26.7 L MCV 92.1 MCH 31.6 MCHC 34.3 RDW 15.5 Plt Count 70 L MPV 9.9 Prelim Diff (Auto) Slide review pending Neut % (Auto) 84.1 H Lymph % (Auto) 7.7 L [place] % (Auto) 7.1 Eos % (Auto) 0.6 Baso % (Auto) 0.5 Neut # (Auto) 12.5 H Lymph # (Auto) 1.1 [place] # (Auto) 1.1 H Eos # (Auto) 0.1 Baso # (Auto) 0.1 WBC Differential Manual diff final Seg Neuts % (Manual) 84 H Band Neuts % (Manual) 5 Lymphocytes % (Manual) 6 L Monocytes % (Manual) 4 Myelocytes % (Man) 1 H Abs Neuts (Manual) 13.4 H Differential Comment . Toxic Granulation 1+ H Platelet Estimate Low L Platelet Morphology Normal Lab - Chemistry Results 01/10/18 06:05 Sodium 140 Potassium 4.0 Chloride 104 Carbon Dioxide 28.9 Anion Gap 7 BUN 10 Creatinine 0.63 Estimated GFR Greater than 89 Random Glucose 89 Calcium 7.9 L Magnesium 1.8 Imaging: ITS Impressions Chest CTA 01/04/18 15:25 CONCLUSION: 1. Abnormal soft tissue density within the mediastinum unusual appearance for adenopathy partially could be hyperplasia of the patient's thymic gland, however underlying neoplastic process such as lymphoma is not excluded. 2. Slight cardiomegaly. 3. Bilateral parenchymal infiltrates in the lungs. Cervical Spine CT 01/04/18 16:23 CONCLUSION: Unremarkable study. Lumbar Spine CT 01/04/18 16:23 CONCLUSION: 1. Mild bulging of the L4-5 and L5-S1 disks. 2. No abnormal areas of epidural enhancement seen. Thoracic Spine CT 01/04/18 16:23 CONCLUSION: Essentially unremarkable study. Abdomen Ultrasound 01/05/18 00:00 CONCLUSION: 1. Gallbladder sludge 2. Mild splenomegaly 3. Bilateral perinephric fluid 4. No other significant abnormality. Hip CT 01/05/18 00:00 CONCLUSION: 1. Right hip appears unremarkable. No fracture. Chest X-Ray 01/10/18 00:00 CONCLUSION: Increased interstitial markings bilaterally suggestive of pulmonary edema. No significant changes compared to the prior study. Physical Exam: GENERAL: awake and alert, looks comfortable at rest SKIN: Warm and dry, no generalized rash HEAD: Atraumatic. Normocephalic. No temporal wasting, or tenderness. EYES: [place] conjunctiva. No petechia or hemorrhage. Pupils equal, round and reactive to light. Extraocular movements full and intact. No scleral icterus. No injection or drainage. EARS, NOSE AND THROAT: Mucous membranes pink and moist. No oral lesions noted. No exudate. No oral thrush. NECK: Trachea midline. Supple and not tender, no meningeal signs. There is a tender fluctuant area in her R sternoclavicular joint, looks less red, size smaller. CARDIOVASCULAR: Regular rate and rhythm, tachycardic. No murmurs, rubs or gallops heard. healed incision, no sternal instability RESPIRATORY: Coarse BS matty ABDOMEN: Soft, non-tender, nondistended. Bowel sounds present and normoactive. No guarding. No rebound. No organomegaly. EXTREMITIES: No clubbing, cyanosis, or edema. No swelling or redness noted in her R hip. No calf tenderness. Able to flex her R hip BACK: tender to R of lumbar spine at buttock NEUROLOGICAL: Grossly non-focal PSYCHIATRIC: Normal affect, calm and cooperative. LINE: No evidence of infection Assessment and Plan - Plan Impression Sepsis, BC (+) MRSA - has a large veg around her TV prosthesis - has infected R sternoclavicular joint - CT lumbar spine ok; ?pelvic bone, SI joint S/P Rx for endocarditis this year TV PVE, MRSA - BC peristent (+) Episode of endocarditis 2013 and lumbar spine infection IVDU Thrombocytopenia, due to sepsis,improving Recurrent fevers Recommendation Continue Teflaro Continue Diflucan Continue vanco Continue gentamicin this weekend - follow creatinine closely Follow C/S Follow temps Repeat CBC If BC negative, and she continues to have fevers, will consider drug fever from Vancomycin Monitor progress CTS recommended transfer back to [place] where she had her surgery D/W Dr Knight (HEPAS) D/W RN
[2018-01-11] MEDS: Sod Chloride 0.9% Inj 1,000 ML IV.SIG SCH (13:42)
[2018-01-11] MEDS: Sod Chloride 0.9% Inj 1,000 ML IV.CONT SCH (14:58)
[2018-01-12] MEDS: Sod Chloride 0.9% Inj 1,000 ML IV.CONT SCH ×3 (00:44→18:23)
[2018-01-12] MEDS ORDERED: Pharmacy Ordered Lab Info OTHER ONE (02:45)
[2018-01-12] MEDS: Vancomycin Inj 1,000 MG in Sodium Chlor 0.9% Inj 250 ML IV.SIG SCH ×2 (03:02→16:52)
[2018-01-12 04:25] LABS: Baso # (Auto) 0.1 th/mm3 (0.0-0.2); Baso % (Auto) 0.5 % (0.0-2.0); Eos % (Auto) 0.4 % (0.0-4.0); Hematocrit 25.9 % (35.0-46.0); Hemoglobin 8.6 gm/dL (11.6-15.3); Mean Corpuscular HGB Conc 33.3 % (32.0-36.0); Mean Corpuscular Hemoglobin 31.5 pg (27.0-34.0); Mean Corpuscular Volume 94.5 fL (80.0-100.0); Mean Platelet Volume 9.5 fL (7.0-11.0); Mono # (Auto) 0.7 th/mm3 (0.0-0.9); Mono % (Auto) 5.5 % (0.0-8.0); Neut # (Auto) 10.5 th/mm3 (1.8-7.7); Neut % (Auto) 85.6 % (16.0-70.0); Platelet Count 64 th/mm3 (150-450); Red Blood Count 2.73 mil/mm3 (4.00-5.30); Red Cell Distribution Width 15.5 % (11.6-17.2); White Blood Count 12.3 th/mm3 (4.0-11.0)
[2018-01-12] MEDS: GENTAMICIN IV.SIG SCH ×3 (05:01→20:11)
[2018-01-12] MEDS: SODIUM CHLOR 0.9% IV.SIG SCH ×3 (05:01→20:11)
[2018-01-12] MEDS: Gabapentin 100 MG Capsule PO SCH ×3 (05:02→21:42)
--- NOTE | 2018-01-12 07:18 | P.PN ---
Subjective Interval history: Patient seen and examined this morning. Continues to be hypotensive. T-max of 101.2 noted yesterday morning. She continues to have shortness of breath with exertion. She endorses chills. Discussed case with nurse, no overnight events , no change in clinical status. Has hypotension, but is asymptomatic. Tolerating her diet. Urinating without issues. Endorse SOB and CP with exertion. States morphine helps her chills. Physical Exam Vital signs: Vital Signs 01/11/18 08:00 01/11/18 09:22 01/11/18 11:07 Temperature 101.2 F H Pulse Rate 111 H Respiratory Rate 18 7 L Blood Pressure 101/51 L Pulse Oximetry 96 96 01/11/18 12:00 01/11/18 13:31 01/11/18 17:00 Temperature 97.2 F L 97.6 F Pulse Rate 83 64 Respiratory Rate 18 18 Blood Pressure 90/75 L 92/56 L Pulse Oximetry 94 L 01/11/18 20:00 01/11/18 21:00 01/12/18 01:00 Temperature Pulse Rate 64 86 79 Respiratory Rate 18 17 Blood Pressure 108/56 L 90/53 L Pulse Oximetry 94 L 99 97 01/12/18 05:00 Temperature Pulse Rate 77 Respiratory Rate 14 Blood Pressure 95/51 L Pulse Oximetry 97 Intake & Output 01/11/18 01/11/18 01/12/18 06:59 18:59 06:59 Intake Total 1612.50 / 1612.50 551.25 / 551.25 2652.50 / 2652.50 Output Total 1000 / 1000 1000 / 1000 Balance 1612.50 / 1612.50 -448.75 / -448.75 1652.50 / 1652.50 Weight 52 kg 51 kg Intake: IV 652.50 / 652.50 451.25 / 451.25 1652.50 / 1652.50 NS Inj 1,000 ML @ 100 mls/hr IV 1000 / 1000 .CONT .Q10H [facility] Rx#:[id number] Teflaro Inj 600 MG In NS Inj 200 / 200 100 / 100 200 / 200 100 ML @ 100 mls/hr IV.SIG Q8H [facility] Rx#:[id number] Gentamicin Inj 50 MG In NS Inj 202.50 / 202.50 101.25 / 101.25 202.50 / 202.50 100 ML @ 100 mls/hr IV.SIG Q8H [facility] Rx#:[id number] Vancomycin Inj 1,000 MG In NS 250 / 250 250 / 250 250 / 250 Inj 250 ML @ 250 mls/hr IV.SIG Q12H [facility] Rx#:[id number] Oral 960 / 960 100 / 100 1000 / 1000 Output: Urine 1000 / 1000 1000 / 1000 Other: # Voids 2 Date of Last Bowel Movement 01/10/18 01/10/18 # Bowel Movements 0 Narrative: GENERAL: Well-appearing, no acute distress, shivering SKIN: Warm and dry. HEAD: Normocephalic. EYES: No scleral icterus. No injection or drainage. NECK: Supple, trachea midline. No JVD or lymphadenopathy. CARDIOVASCULAR: Regular rate and rhythm +YARIEL 2/6 RESPIRATORY: Breath sounds equal bilaterally. No accessory muscle use. GASTROINTESTINAL: Abdomen soft, non-tender, nondistended. MUSCULOSKELETAL: No cyanosis, or edema. Results - Labs CBC & Chem 7: 01/12/18 04:03 01/12/18 04:03 Laboratory Results - last 24 hr 01/12/18 01/12/18 04:03 04:03 WBC 12.3 H RBC 2.73 L Hgb 8.6 L Hct 25.9 L MCV 94.5 MCH 31.5 MCHC 33.3 RDW 15.5 Plt Count 64 L MPV 9.5 Prelim Diff (Auto) Slide review pending Neut % (Auto) 85.6 H Lymph % (Auto) 8.0 L [place] % (Auto) 5.5 Eos % (Auto) 0.4 Baso % (Auto) 0.5 Neut # (Auto) 10.5 H Lymph # (Auto) 1.0 [place] # (Auto) 0.7 Eos # (Auto) 0.0 Baso # (Auto) 0.1 Differential Comment . Creatinine 0.78 Estimated GFR 83 L Microbiology 01/10/18 18:35 Clean Catch Urine Urine Culture - Preliminary No growth in 24 hours 01/10/18 12:51 Blood - Peripheral Aerobic Blood Culture - Preliminary No growth in 1 day 01/10/18 12:51 Blood - Peripheral Anaerobic Blood Culture - Preliminary No growth in 1 day 01/10/18 12:46 Blood - Peripheral Aerobic Blood Culture - Preliminary No growth in 1 day 01/10/18 12:46 Blood - Peripheral Anaerobic Blood Culture - Preliminary No growth in 1 day 01/08/18 11:30 Blood - Peripheral Aerobic Blood Culture - Final S. aureus MRSA 01/08/18 11:30 Blood - Peripheral Anaerobic Blood Culture - Preliminary No growth in 3 days 01/08/18 11:35 Blood - Peripheral Aerobic Blood Culture - Final S. aureus MRSA 01/08/18 11:35 Blood - Peripheral Anaerobic Blood Culture - Preliminary No growth in 3 days 01/08/18 05:00 Blood - Peripheral Aerobic Blood Culture - Final S. aureus MRSA 01/08/18 05:00 Blood - Peripheral Anaerobic Blood Culture - Preliminary No growth in 3 days - Imaging Chest CTA 01/04/18 15:25 CONCLUSION: 1. Abnormal soft tissue density within the mediastinum unusual appearance for adenopathy partially could be hyperplasia of the patient's thymic gland, however underlying neoplastic process such as lymphoma is not excluded. 2. Slight cardiomegaly. 3. Bilateral parenchymal infiltrates in the lungs. Cervical Spine CT 01/04/18 16:23 CONCLUSION: Unremarkable study. Lumbar Spine CT 01/04/18 16:23 CONCLUSION: 1. Mild bulging of the L4-5 and L5-S1 disks. 2. No abnormal areas of epidural enhancement seen. Thoracic Spine CT 01/04/18 16:23 CONCLUSION: Essentially unremarkable study. Abdomen Ultrasound 01/05/18 00:00 CONCLUSION: 1. Gallbladder sludge 2. Mild splenomegaly 3. Bilateral perinephric fluid 4. No other significant abnormality. Hip CT 01/05/18 00:00 CONCLUSION: 1. Right hip appears unremarkable. No fracture. Chest X-Ray 01/10/18 00:00 CONCLUSION: Increased interstitial markings bilaterally suggestive of pulmonary edema. Assessment and Plan - Plan In summary this is a 37-year-old female patient with a medical history that is significant for IV drug abuse, endocarditis, status post valve replacement 3 months ago, discitis/osteomyelitis of the lumbar spine, and right infected hip. She presented with generalized weakness and inability to walk. She met sepsis criteria on admission. She was initially admitted to the intensive care unit. On admission patient was found to have an elevated lactic acid and EKG changes consistent for ischemic changes. 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 Sepsis Recurrent tricuspid valve endocarditis--large vegetation noted along tricuspid valve prosthesis MRSA bacteremia--blood cultures on 01/04, 01/05, 01/06, 01/08 are positive for MRSA. Repeat blood cultures on 830 show no growth to date Has right infected sternoclavicular joint Urine culture negative Infectious diseases following: Continue Teflaro, Diflucan, vancomycin, gentamicin. Creatinine needs to be followed closely. Per infectious disease if blood cultures are negative and she continues to have fevers consider drug fever from vancomycin. Patient with recent tricuspid valve replacement on Evelina by 3 months ago, she apparently left AMA, apparently hospital records have been requested and there is consideration of transferring the patient back to [place] CT surgery anticipate poor prognosis--> suggest patient be transferred? Elevated troponin Likely secondary to above Hepatitis B and hepatitis C Elevated LFTs noted Anemia and thrombocytopenia Femoral cytopenia likely secondary to sepsis, it is improving Transfuse as needed GI prophylaxis: Stool softeners as needed DVT prophylaxis bilateral SCDs Discussed Condition With: Patients nurse. Discharge Planning: Patient currently on IV abx for endocarditis with bacteremia, anticipate long stay. Previous notes suggest that patient be transferred back to [place] where valve was replaced 3 months ago. Unsure if this has been pursued. Will reach out to . Will observe patient today in ICU, if remains clinically stable, can transfer out of the ICU tomorrow.
[2018-01-12] MEDS: Morphine Inj 4 MG/ML Vial IV.PUSH PRN ×3 (07:46→22:04)
[2018-01-12] MEDS: Fluconazole 100 MG Tablet PO SCH (08:32)
[2018-01-12] MEDS: Mupirocin 2% Nasal Oint Topical Syringe EACH NARE SCH ×2 (08:32→20:11)
[2018-01-12] MEDS: Famotidine 20 MG Tablet PO SCH ×2 (08:33→20:12)
[2018-01-12 08:46] LABS: Lymphocytes 2 % (9-44); Monocytes 2 % (0-8)
[2018-01-12 08:47] LABS: Platelet Morphology Normal (Normal)
[2018-01-12] MEDS: Sod Chloride 0.9% Inj 1,000 ML IV.SIG SCH (18:17)
[2018-01-13] MEDS: Vancomycin Inj 1,000 MG in Sodium Chlor 0.9% Inj 250 ML IV.SIG SCH ×2 (04:21→14:38)
[2018-01-13 04:51] LABS: Baso % (Auto) 0.4 % (0.0-2.0); Eos % (Auto) 0.2 % (0.0-4.0); Hematocrit 24.7 % (35.0-46.0); Hemoglobin 8.3 gm/dL (11.6-15.3); Lymph # (Auto) 1.2 th/mm3 (1.0-4.8); Lymph % (Auto) 10.2 % (9.0-44.0); Mean Corpuscular HGB Conc 33.5 % (32.0-36.0); Mean Corpuscular Hemoglobin 31.4 pg (27.0-34.0); Mean Corpuscular Volume 93.8 fL (80.0-100.0); Mean Platelet Volume 9.7 fL (7.0-11.0); Mono # (Auto) 0.8 th/mm3 (0.0-0.9); Mono % (Auto) 6.6 % (0.0-8.0); Neut # (Auto) 9.6 th/mm3 (1.8-7.7); Neut % (Auto) 82.6 % (16.0-70.0); Platelet Count 66 th/mm3 (150-450); Red Blood Count 2.64 mil/mm3 (4.00-5.30); White Blood Count 11.6 th/mm3 (4.0-11.0)
[2018-01-13 05:03] LABS: Calcium 7.7 mg/dL (8.5-10.1); Carbon Dioxide 26.9 meq/L (21.0-32.0); Potassium 4.2 meq/L (3.5-5.1)
[2018-01-13] MEDS: GENTAMICIN IV.SIG SCH ×3 (05:42→20:02)
[2018-01-13] MEDS: Gabapentin 100 MG Capsule PO SCH ×3 (05:42→21:34)
[2018-01-13] MEDS: SODIUM CHLOR 0.9% IV.SIG SCH ×3 (05:42→20:02)
[2018-01-13] MEDS: Morphine Inj 4 MG/ML Vial IV.PUSH PRN ×4 (05:54→20:02)
--- NOTE | 2018-01-13 07:11 | P.PN ---
Subjective Interval history: Patient seen and examined this morning, their vitals are stable and the patient is afebrile. Patient continues to be hypotensive, she is asymptomatic. Patient feels well this am. States she is feeling better this am. Denies CP or difficulty breathing. Physical Exam Vital signs: Vital Signs 01/12/18 08:00 01/12/18 08:16 01/12/18 09:00 Temperature 98.4 F Pulse Rate 87 Respiratory Rate 20 16 Blood Pressure Pulse Oximetry 92 L 100 01/12/18 13:00 01/12/18 16:50 01/12/18 17:53 Temperature 98.2 F Pulse Rate 74 65 Respiratory Rate 20 24 24 Blood Pressure 93/59 L 95/53 L Pulse Oximetry 97 99 01/12/18 18:25 01/12/18 20:00 01/12/18 21:00 Temperature 99.1 F Pulse Rate 76 76 Respiratory Rate 20 21 Blood Pressure 90/55 L Pulse Oximetry 100 98 01/12/18 21:05 01/12/18 23:14 01/13/18 01:00 Temperature 98.9 F Pulse Rate 85 Respiratory Rate 15 Blood Pressure 95/51 L Pulse Oximetry 96 97 97 01/13/18 05:00 Temperature 98.2 F Pulse Rate 67 Respiratory Rate 14 Blood Pressure 91/54 L Pulse Oximetry 97 Intake & Output 01/12/18 01/13/18 01/13/18 18:59 06:59 18:59 Intake Total 3451.25 / 3451.25 1052.50 / 1052.50 Balance 3451.25 / 3451.25 1052.50 / 1052.50 Weight 51 kg Intake: IV 3451.25 / 3451.25 652.50 / 652.50 NS Inj 1,000 ML @ 100 mls/hr IV 1999 / 1999 .CONT .Q10H [facility] Rx#:[id number] Teflaro Inj 600 MG In NS Inj 100 / 100 200 / 200 100 ML @ 100 mls/hr IV.SIG Q8H [facility] Rx#:[id number] Gentamicin Inj 50 MG In NS Inj 101.25 / 101.25 202.50 / 202.50 100 ML @ 100 mls/hr IV.SIG Q8H [facility] Rx#:[id number] NS Inj 1,000 ML @ Wide Open IV. 1000 / 1000 SIG BOLUS [facility] Rx#:[id number] Vancomycin Inj 1,000 MG In NS 250 / 250 250 / 250 Inj 250 ML @ 250 mls/hr IV.SIG Q12H [facility] Rx#:[id number] Oral 400 / 400 Other: # Voids 1 6 Date of Last Bowel Movement 01/10/18 Narrative: GENERAL: Well-appearing, no acute distress SKIN: Warm and dry. HEAD: Normocephalic. EYES: No scleral icterus. No injection or drainage. NECK: Supple, trachea midline. No JVD or lymphadenopathy. CARDIOVASCULAR: Regular rate and rhythm +YARIEL 2/6 RESPIRATORY: Breath sounds equal bilaterally. No accessory muscle use. GASTROINTESTINAL: Abdomen soft, non-tender, nondistended. MUSCULOSKELETAL: No cyanosis, or edema. Results - Labs CBC & Chem 7: 01/13/18 04:30 01/13/18 04:30 Laboratory Results - last 24 hr 01/12/18 01/13/18 01/13/18 04:03 04:30 04:30 WBC 11.6 H RBC 2.64 L Hgb 8.3 L Hct 24.7 L MCV 93.8 MCH 31.4 MCHC 33.5 RDW 15.0 Plt Count 66 L MPV 9.7 Prelim Diff (Auto) Slide review pending Neut % (Auto) 82.6 H Lymph % (Auto) 10.2 [place] % (Auto) 6.6 Eos % (Auto) 0.2 Baso % (Auto) 0.4 Neut # (Auto) 9.6 H Lymph # (Auto) 1.2 [place] # (Auto) 0.8 Eos # (Auto) 0.0 Baso # (Auto) 0.0 WBC Differential Manual diff final Seg Neuts % (Manual) 88 H Band Neuts % (Manual) 8 H Lymphocytes % (Manual) 2 L Monocytes % (Manual) 2 Abs Neuts (Manual) 11.8 H Differential Comment . Platelet Estimate Low L Platelet Morphology Normal Sodium 138 Potassium 4.2 Chloride 103 Carbon Dioxide 26.9 Anion Gap 8 BUN 8 Creatinine 0.76 Estimated GFR 86 L Random Glucose 96 Calcium 7.7 L Microbiology 01/11/18 04:58 Blood - Peripheral Aerobic Blood Culture - Preliminary No growth in 1 day 01/11/18 04:58 Blood - Peripheral Anaerobic Blood Culture - Preliminary No growth in 1 day 01/10/18 12:51 Blood - Peripheral Aerobic Blood Culture - Preliminary gram positive cocci 01/10/18 12:51 Blood - Peripheral Anaerobic Blood Culture - Preliminary No growth in 2 days 01/10/18 12:46 Blood - Peripheral Aerobic Blood Culture - Preliminary No growth in 2 days 01/10/18 12:46 Blood - Peripheral Anaerobic Blood Culture - Preliminary No growth in 2 days 01/08/18 11:30 Blood - Peripheral Aerobic Blood Culture - Final S. aureus MRSA 01/08/18 11:30 Blood - Peripheral Anaerobic Blood Culture - Preliminary No growth in 4 days 01/08/18 11:35 Blood - Peripheral Aerobic Blood Culture - Final S. aureus MRSA 01/08/18 11:35 Blood - Peripheral Anaerobic Blood Culture - Preliminary No growth in 4 days 01/08/18 05:00 Blood - Peripheral Aerobic Blood Culture - Final S. aureus MRSA 01/08/18 05:00 Blood - Peripheral Anaerobic Blood Culture - Preliminary No growth in 4 days 01/10/18 18:35 Clean Catch Urine Urine Culture - Final <10,000 cfu/mL gram positive chepe - no further workup Assessment and Plan - Plan In summary this is a 37-year-old female patient with a medical history that is significant for IV drug abuse, endocarditis, status post valve replacement 3 months ago, discitis/osteomyelitis of the lumbar spine, and right infected hip. She presented with generalized weakness and inability to walk. She met sepsis criteria on admission. She was initially admitted to the intensive care unit. On admission patient was found to have an elevated lactic acid and EKG changes consistent for ischemic changes. 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 Sepsis Recurrent tricuspid valve endocarditis--large vegetation noted along tricuspid valve prosthesis MRSA bacteremia--blood cultures on 01/04, 01/05, 01/06, 01/08 are positive for MRSA. Repeat blood cultures on 01/10 1/2 tubes growing gram positive cocci, repeat cultures obtained 01/12 Has right infected sternoclavicular joint Urine culture negative Infectious diseases following: Continue Teflaro, Diflucan, vancomycin, gentamicin. Creatinine needs to be followed closely. Per infectious disease if blood cultures are negative and she continues to have fevers consider drug fever from vancomycin. Patient with recent tricuspid valve replacement on Evelina by 3 months ago, she apparently left AMA, apparently hospital records have been requested and there is consideration of transferring the patient back to [place] CT surgery anticipate poor prognosis--> suggest patient be transferred? Elevated troponin Likely secondary to above Hepatitis B and hepatitis C Elevated LFTs noted Anemia and thrombocytopenia Femoral cytopenia likely secondary to sepsis, it is improving Transfuse as needed GI prophylaxis: Stool softeners as needed DVT prophylaxis bilateral SCDs Discharge Planning: Patient currently on IV abx for endocarditis with bacteremia, anticipate long stay. Previous notes suggest that patient be transferred back to [place] where valve was replaced 3 months ago. Unsure if this has been pursued. Will reach out to . Will observe patient today in ICU, if remains clinically stable, can transfer out of the ICU tomorrow.
[2018-01-13] MEDS: Sod Chloride 0.9% Inj 1,000 ML IV.CONT SCH ×2 (07:12→15:36)
[2018-01-13] MEDS: Mupirocin 2% Nasal Oint Topical Syringe EACH NARE SCH ×2 (08:53→20:03)
[2018-01-13] MEDS: Famotidine 20 MG Tablet PO SCH ×2 (08:53→20:03)
[2018-01-13] MEDS: Fluconazole 100 MG Tablet PO SCH (08:53)
[2018-01-13 09:12] LABS: Lymphocytes 3 % (9-44); Monocytes 3 % (0-8); Platelet Morphology Normal (Normal); Toxic Granulation 1+
[2018-01-13] MEDS: Acetaminophen 325 MG Tablet PO PRN (16:05)
[2018-01-14] MEDS: Morphine Inj 4 MG/ML Vial IV.PUSH PRN ×4 (00:04→20:39)
[2018-01-14] MEDS: Vancomycin Inj 1,000 MG in Sodium Chlor 0.9% Inj 250 ML IV.SIG SCH (02:26)
[2018-01-14] MEDS ORDERED: Pharmacy Ordered Lab Info OTHER SCH (02:45)
[2018-01-14] MEDS: SODIUM CHLOR 0.9% IV.SIG SCH (03:27)
[2018-01-14] MEDS: GENTAMICIN IV.SIG SCH (03:27)
[2018-01-14] MEDS: Gabapentin 100 MG Capsule PO SCH ×3 (05:55→21:28)
[2018-01-14 06:28] LABS: Vancomycin,Trough 28.5 mcg/mL (5.0-10.0)
--- NOTE | 2018-01-14 07:13 | P.PN ---
Subjective Interval history: Patient seen and examined this morning, their vitals are stable and the patient is afebrile. T-max 100.7 on 01/13. Fevers and chills noted overnight. Denies CP or SOB. No overnight events. Case discussed with nurse, patient eating well. Urinating without issues. Physical Exam Vital signs: Vital Signs 01/13/18 08:00 01/13/18 08:16 01/13/18 09:00 Temperature 99.2 F Pulse Rate 67 67 Respiratory Rate 20 17 Blood Pressure 92/51 L Pulse Oximetry 92 L 92 L 01/13/18 13:00 01/13/18 16:00 01/13/18 17:00 Temperature 98.7 F 100.7 F H 99.3 F Pulse Rate 79 77 Respiratory Rate 17 18 Blood Pressure 100/55 L 94/52 L Pulse Oximetry 96 96 01/13/18 20:00 01/13/18 21:00 01/13/18 21:19 Temperature 97.8 F Pulse Rate 57 L 58 L Respiratory Rate 20 Blood Pressure 92/51 L Pulse Oximetry 98 96 01/14/18 01:00 01/14/18 05:00 Temperature 98.0 F 99.5 F Pulse Rate 60 77 Respiratory Rate 20 18 Blood Pressure 109/61 96/50 L Pulse Oximetry 98 97 Intake & Output 01/13/18 01/14/18 01/14/18 18:59 06:59 18:59 Intake Total 3411.25 / 3411.25 1552.50 / 1552.50 Balance 3411.25 / 3411.25 1552.50 / 1552.50 Weight 48.7 kg Intake: IV 2451.25 / 2451.25 652.50 / 652.50 NS Inj 1,000 ML @ 100 mls/hr IV 1000 / 1000 .CONT .Q10H [facility] Rx#:[id number] Teflaro Inj 600 MG In NS Inj 100 / 100 200 / 200 100 ML @ 100 mls/hr IV.SIG Q8H [facility] Rx#:[id number] Gentamicin Inj 50 MG In NS Inj 101.25 / 101.25 202.50 / 202.50 100 ML @ 100 mls/hr IV.SIG Q8H [facility] Rx#:[id number] NS Inj 1,000 ML @ Wide Open IV. 1000 / 1000 SIG BOLUS [facility] Rx#:[id number] Vancomycin Inj 1,000 MG In NS 250 / 250 250 / 250 Inj 250 ML @ 250 mls/hr IV.SIG Q12H [facility] Rx#:[id number] Oral 960 / 960 900 / 900 Other: # Voids 5 4 Date of Last Bowel Movement 01/11/18 01/11/18 Narrative: GENERAL: Well-appearing, no acute distress SKIN: Warm and dry. HEAD: Normocephalic. EYES: No scleral icterus. No injection or drainage. NECK: Supple, trachea midline. No JVD or lymphadenopathy. CARDIOVASCULAR: Regular rate and rhythm +YARIEL 1/6 RESPIRATORY: Breath sounds equal bilaterally. No accessory muscle use. GASTROINTESTINAL: Abdomen soft, non-tender, nondistended. MUSCULOSKELETAL: No cyanosis, or edema. Results - Labs CBC & Chem 7: 01/13/18 04:30 01/14/18 05:30 Laboratory Results - last 24 hr 01/13/18 01/14/18 04:30 05:30 WBC Differential Manual diff final Seg Neuts % (Manual) 84 H Band Neuts % (Manual) 10 H Lymphocytes % (Manual) 3 L Monocytes % (Manual) 3 Abs Neuts (Manual) 10.9 H Toxic Granulation 1+ H Platelet Estimate Low L Platelet Morphology Normal Creatinine 0.79 Estimated GFR 82 L Vancomycin Trough 28.5 H Microbiology 01/10/18 12:51 Blood - Peripheral Aerobic Blood Culture - Preliminary Staphylococcus coag positive 01/10/18 12:51 Blood - Peripheral Anaerobic Blood Culture - Preliminary No growth in 3 days 01/12/18 04:03 Blood - Peripheral Aerobic Blood Culture - Preliminary No growth in 1 day 01/12/18 04:03 Blood - Peripheral Anaerobic Blood Culture - Preliminary No growth in 1 day 01/11/18 04:58 Blood - Peripheral Aerobic Blood Culture - Preliminary No growth in 2 days 01/11/18 04:58 Blood - Peripheral Anaerobic Blood Culture - Preliminary No growth in 2 days 01/10/18 12:46 Blood - Peripheral Aerobic Blood Culture - Preliminary No growth in 3 days 01/10/18 12:46 Blood - Peripheral Anaerobic Blood Culture - Preliminary No growth in 3 days 01/08/18 11:30 Blood - Peripheral Aerobic Blood Culture - Final S. aureus MRSA 01/08/18 11:30 Blood - Peripheral Anaerobic Blood Culture - Final No growth in 5 days 01/08/18 11:35 Blood - Peripheral Aerobic Blood Culture - Final S. aureus MRSA 01/08/18 11:35 Blood - Peripheral Anaerobic Blood Culture - Final No growth in 5 days 01/08/18 05:00 Blood - Peripheral Aerobic Blood Culture - Final S. aureus MRSA 01/08/18 05:00 Blood - Peripheral Anaerobic Blood Culture - Final No growth in 5 days Assessment and Plan - Plan In summary this is a 37-year-old female patient with a medical history that is significant for IV drug abuse, endocarditis, status post valve replacement 3 months ago, discitis/osteomyelitis of the lumbar spine, and right infected hip. She presented with generalized weakness and inability to walk. She met sepsis criteria on admission. She was initially admitted to the intensive care unit. On admission patient was found to have an elevated lactic acid and EKG changes consistent for ischemic changes. 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 Sepsis Recurrent tricuspid valve endocarditis--large vegetation noted along tricuspid valve prosthesis Has right infected sternoclavicular joint Urine culture gram + chepe Infectious diseases following: Continue Teflaro, Diflucan, vancomycin, gentamicin. Creatinine needs to be followed closely. Per infectious disease if blood cultures are negative and she continues to have fevers consider drug fever from vancomycin. Patient with recent tricuspid valve replacement on [place] by 3 months ago, she apparently left AMA, apparently hospital records have been requested and there is consideration of transferring the patient back to [place] CT surgery anticipate poor prognosis--> suggest patient be transferred? Blood cultures - 01/04, 01/05, 01/06, 01/08 are positive for MRSA. - 01/10 1/ tubes growing staph coagulase-positive - 01/11 one tube obtained, negative to date - 01/12 one tube obtained, negative to date Elevated troponin Likely secondary to above Hepatitis B and hepatitis C Elevated LFTs noted Anemia and thrombocytopenia Femoral cytopenia likely secondary to sepsis, it is improving Transfuse as needed GI prophylaxis: Stool softeners as needed DVT prophylaxis bilateral SCDs Discharge Planning: Patient currently on IV abx for endocarditis with bacteremia, anticipate long stay. Previous notes suggest that patient be transferred back to [place] where valve was replaced [address] to case management. On January 13 order was placed for patient to be transferred out of the ICU.
[2018-01-14] MEDS: Sod Chloride 0.9% Inj 1,000 ML IV.CONT SCH ×2 (07:56→20:22)
--- NOTE | 2018-01-14 08:32 | P.PNID ---
Subjective Remarks: Patient is a 37-year-old female, presented to the hospital complaining of right- sided back pain hip pain, fever and chills. She is also complaining of pain in her right upper extremity. She had noted that she has difficulty moving it because of the pain. Patient history is significant for treatment of tricuspid valve endocarditis back in 2013, lumbar spine infection,, and she was in the hospital for quite a long time, and subsequently developed other kinds of bacteremia which was felt to be related to PICC. She had Klebsiella, Acinetobacter, candidemia, as well as Mycobacterium abscesses. Recently she was hospitalized in the hospital in [place], and the patient stated she was there from July - September 2017. She was treated with 6 weeks of IV antibiotics for endocarditis, and she was also told that she had a hip infection , but she did not have any surgery for the hip. Patient stated she had valve surgery around September 28, and she thinks it might be the tricuspid valve, however she signed out AGAINST MEDICAL ADVICE about 3 days after the surgery. Her boyfriend has been helping her take care of her incision. She came back to this area. Patient denies any significant cough or congestion. No chest pain or shortness of breath. No nausea or vomiting or diarrhea. She has had some incontinence which he attributes due to inability to ambulate secondary to her back and hip pain. On presentation she has been febrile up to 102. She had a CTA which did not show any pulmonary embolism, but it did show abnormalities in the lung as well as some opacity seen on the anterior mediastinum. I had reviewed with radiology and there is also a density seen in the right sternoclavicular joint, and the anterior mediastinum opacity looks like it may be a complex fluid collection. CAT scan of her spine, cervical, thoracic, and lumbar did not show any significant abnormality. 2 blood cultures on admission are now reported as growing gram-positive cocci in pairs and clusters. Patient is currently on vancomycin and meropenem. 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 Notes reviewed Having intermittent fevers Feels better No rash or itching CXR with stable bilateral infiltrates WBC lower at 12.3K Creatinine ok Last (+) BC 01/10 ZEHRA - large vegetation encompassing the TV prosthesis Antibiotics: Vancomycin Gentamicin Teflaro Lines: Central line Past Medical History: Abscess in epidural space of lumbar spine Endocarditis Hepatitis C Hypokalemia Hyponatremia IVDU (intravenous drug user) Osteomyelitis Pneumonia Renal failure Sepsis Thrombocytopenia UTI (urinary tract infection) S/P valve surgery Allergies/Adverse Reactions: Allergies bee venom protein (honey bee) Allergy (Severe, Verified 01/04/18 14:34) rash Objective Vital Signs 01/13/18 09:00 01/13/18 13:00 01/13/18 16:00 Temperature 99.2 F 98.7 F 100.7 F H Pulse Rate 67 79 77 Respiratory Rate 17 17 18 Blood Pressure 92/51 L 100/55 L 94/52 L Pulse Oximetry 92 L 96 96 01/13/18 17:00 01/13/18 20:00 01/13/18 21:00 Temperature 99.3 F 97.8 F Pulse Rate 57 L 58 L Respiratory Rate 20 Blood Pressure 92/51 L Pulse Oximetry 98 01/13/18 21:19 01/14/18 01:00 01/14/18 05:00 Temperature 98.0 F 99.5 F Pulse Rate 60 77 Respiratory Rate 20 18 Blood Pressure 109/61 96/50 L Pulse Oximetry 96 98 97 Intake & Output 01/13/18 01/14/18 01/14/18 18:59 06:59 18:59 Intake Total 3411.25 / 3411.25 1552.50 / 1552.50 1000 / 1000 Balance 3411.25 / 3411.25 1552.50 / 1552.50 1000 / 1000 Weight 48.7 kg Intake: IV 2451.25 / 2451.25 652.50 / 652.50 1000 / 1000 NS Inj 1,000 ML @ 100 mls/hr IV 1000 / 1000 1000 / 1000 .CONT .Q10H [facility] Rx#:[id number] Teflaro Inj 600 MG In NS Inj 100 / 100 200 / 200 100 ML @ 100 mls/hr IV.SIG Q8H [facility] Rx#:[id number] Gentamicin Inj 50 MG In NS Inj 101.25 / 101.25 202.50 / 202.50 100 ML @ 100 mls/hr IV.SIG Q8H [facility] Rx#:[id number] NS Inj 1,000 ML @ Wide Open IV. 1000 / 1000 SIG BOLUS [facility] Rx#:[id number] Vancomycin Inj 1,000 MG In NS 250 / 250 250 / 250 Inj 250 ML @ 250 mls/hr IV.SIG Q12H [facility] Rx#:[id number] Oral 960 / 960 900 / 900 Other: # Voids 5 4 Date of Last Bowel Movement 01/11/18 01/11/18 01/10/18 12:51 Blood - Peripheral Aerobic Blood Culture - Preliminary Staphylococcus coag positive 01/10/18 12:51 Blood - Peripheral Anaerobic Blood Culture - Preliminary No growth in 3 days 01/12/18 04:03 Blood - Peripheral Aerobic Blood Culture - Preliminary No growth in 1 day 01/12/18 04:03 Blood - Peripheral Anaerobic Blood Culture - Preliminary No growth in 1 day 01/11/18 04:58 Blood - Peripheral Aerobic Blood Culture - Preliminary No growth in 2 days 01/11/18 04:58 Blood - Peripheral Anaerobic Blood Culture - Preliminary No growth in 2 days 01/10/18 12:46 Blood - Peripheral Aerobic Blood Culture - Preliminary No growth in 3 days 01/10/18 12:46 Blood - Peripheral Anaerobic Blood Culture - Preliminary No growth in 3 days 01/08/18 11:30 Blood - Peripheral Aerobic Blood Culture - Final S. aureus MRSA 01/08/18 11:30 Blood - Peripheral Anaerobic Blood Culture - Final No growth in 5 days 01/08/18 11:35 Blood - Peripheral Aerobic Blood Culture - Final S. aureus MRSA 01/08/18 11:35 Blood - Peripheral Anaerobic Blood Culture - Final No growth in 5 days 01/08/18 05:00 Blood - Peripheral Aerobic Blood Culture - Final S. aureus MRSA 01/08/18 05:00 Blood - Peripheral Anaerobic Blood Culture - Final No growth in 5 days 01/10/18 18:35 Clean Catch Urine Urine Culture - Final <10,000 cfu/mL gram positive chepe - no further workup Lab - Hematology Results 01/12/18 01/13/18 04:03 04:30 WBC 11.6 H RBC 2.64 L Hgb 8.3 L Hct 24.7 L MCV 93.8 MCH 31.4 MCHC 33.5 RDW 15.0 Plt Count 66 L MPV 9.7 Prelim Diff (Auto) Slide review pending Neut % (Auto) 82.6 H Lymph % (Auto) 10.2 [place] % (Auto) 6.6 Eos % (Auto) 0.2 Baso % (Auto) 0.4 Neut # (Auto) 9.6 H Lymph # (Auto) 1.2 [place] # (Auto) 0.8 Eos # (Auto) 0.0 Baso # (Auto) 0.0 WBC Differential Manual diff final Manual diff final Seg Neuts % (Manual) 88 H 84 H Band Neuts % (Manual) 8 H 10 H Lymphocytes % (Manual) 2 L 3 L Monocytes % (Manual) 2 3 Abs Neuts (Manual) 11.8 H 10.9 H Differential Comment . Toxic Granulation 1+ H Platelet Estimate Low L Low L Platelet Morphology Normal Normal Lab - Chemistry Results 01/13/18 01/14/18 04:30 05:30 Sodium 138 Potassium 4.2 Chloride 103 Carbon Dioxide 26.9 Anion Gap 8 BUN 8 Creatinine 0.76 0.79 Estimated GFR 86 L 82 L Random Glucose 96 Calcium 7.7 L Imaging: ITS Impressions Chest CTA 01/04/18 15:25 CONCLUSION: 1. Abnormal soft tissue density within the mediastinum unusual appearance for adenopathy partially could be hyperplasia of the patient's thymic gland, however underlying neoplastic process such as lymphoma is not excluded. 2. Slight cardiomegaly. 3. Bilateral parenchymal infiltrates in the lungs. Cervical Spine CT 01/04/18 16:23 CONCLUSION: Unremarkable study. Lumbar Spine CT 01/04/18 16:23 CONCLUSION: 1. Mild bulging of the L4-5 and L5-S1 disks. 2. No abnormal areas of epidural enhancement seen. Thoracic Spine CT 01/04/18 16:23 CONCLUSION: Essentially unremarkable study. Abdomen Ultrasound 01/05/18 00:00 CONCLUSION: 1. Gallbladder sludge 2. Mild splenomegaly 3. Bilateral perinephric fluid 4. No other significant abnormality. Hip CT 01/05/18 00:00 CONCLUSION: 1. Right hip appears unremarkable. No fracture. Chest X-Ray 01/10/18 00:00 CONCLUSION: Increased interstitial markings bilaterally suggestive of pulmonary edema. No significant changes compared to the prior study. Physical Exam: GENERAL: awake and alert, NAD SKIN: Warm and dry, no generalized rash HEAD: Atraumatic. Normocephalic. No temporal wasting, or tenderness. EYES: [place] conjunctiva. No petechia or hemorrhage. Pupils equal, round and reactive to light. Extraocular movements full and intact. No scleral icterus. No injection or drainage. EARS, NOSE AND THROAT: Mucous membranes pink and moist. No oral lesions noted. No exudate. No oral thrush. NECK: Trachea midline. Supple and not tender, no meningeal signs. There is a tender fluctuant area in her R sternoclavicular joint, looks less red, size smaller. CARDIOVASCULAR: Regular rate and rhythm. No murmurs, rubs or gallops heard. healed incision, no sternal instability RESPIRATORY: Coarse BS matty ABDOMEN: Soft, non-tender, nondistended. Bowel sounds present and normoactive. No guarding. No rebound. No organomegaly. EXTREMITIES: No clubbing, cyanosis, or edema. No calf tenderness. Good ROM R hip BACK: tender to R of lumbar spine at buttock NEUROLOGICAL: Grossly non-focal PSYCHIATRIC: Normal affect, calm and cooperative. LINE: No evidence of infection Assessment and Plan - Plan Impression Sepsis, BC (+) MRSA - has a large veg around her TV prosthesis - has infected R sternoclavicular joint - CT lumbar spine ok; ?pelvic bone, SI joint S/P Rx for endocarditis this year TV PVE, MRSA - BC peristent (+) Episode of endocarditis 2013 and lumbar spine infection IVDU Thrombocytopenia, due to sepsis,improving Recurrent fevers Recommendation Continue Teflaro Continue Diflucan Continue vanco Stop Gentamicin Follow C/S Follow temps If BC negative, and she continues to have fevers, will consider drug fever from Vancomycin Monitor progress CTS recommended transfer back to [place] where she had her surgery D/W RN
[2018-01-14] MEDS: Mupirocin 2% Nasal Oint Topical Syringe EACH NARE SCH ×2 (09:04→20:21)
[2018-01-14] MEDS: Fluconazole 100 MG Tablet PO SCH (09:04)
[2018-01-14] MEDS: Famotidine 20 MG Tablet PO SCH ×2 (09:05→20:20)
[2018-01-14] MEDS: Acetaminophen 325 MG Tablet PO PRN (20:47)
[2018-01-14] MEDS ORDERED: Sod Chloride 0.9% Inj 1,000 ML IV.SIG SCH (23:59)
[2018-01-15] MEDS ORDERED: Sod Chloride 0.9% Inj 1,000 ML IV.SIG SCH (03:15)
[2018-01-15 04:58] LABS: Baso # (Auto) 0.1 th/mm3 (0.0-0.2); Baso % (Auto) 0.7 % (0.0-2.0); Eos % (Auto) 0.3 % (0.0-4.0); Hematocrit 26.3 % (35.0-46.0); Hemoglobin 8.8 gm/dL (11.6-15.3); Lymph # (Auto) 1.2 th/mm3 (1.0-4.8); Lymph % (Auto) 12.1 % (9.0-44.0); Mean Corpuscular HGB Conc 33.3 % (32.0-36.0); Mean Corpuscular Hemoglobin 31.7 pg (27.0-34.0); Mean Corpuscular Volume 95.3 fL (80.0-100.0); Mean Platelet Volume 9.5 fL (7.0-11.0); Mono # (Auto) 0.6 th/mm3 (0.0-0.9); Mono % (Auto) 5.5 % (0.0-8.0); Neut # (Auto) 8.1 th/mm3 (1.8-7.7); Neut % (Auto) 81.4 % (16.0-70.0); Platelet Count 85 th/mm3 (150-450); Red Blood Count 2.76 mil/mm3 (4.00-5.30); Red Cell Distribution Width 14.9 % (11.6-17.2)
[2018-01-15 05:23] LABS: Calcium 7.6 mg/dL (8.5-10.1); Carbon Dioxide 22.4 meq/L (21.0-32.0); Potassium 3.8 meq/L (3.5-5.1)
[2018-01-15] MEDS: Gabapentin 100 MG Capsule PO SCH ×3 (05:35→21:08)
[2018-01-15 06:52] LABS: Platelet Morphology Normal (Normal)
[2018-01-15] MEDS: Sod Chloride 0.9% Inj 1,000 ML IV.CONT SCH ×2 (07:45→16:09)
[2018-01-15] MEDS: Mupirocin 2% Nasal Oint Topical Syringe EACH NARE SCH ×2 (08:59→20:29)
[2018-01-15] MEDS: Fluconazole 100 MG Tablet PO SCH (08:59)
[2018-01-15] MEDS: Famotidine 20 MG Tablet PO SCH ×2 (08:59→20:29)
--- NOTE | 2018-01-15 10:52 | P.PNID ---
Subjective Remarks: Patient is a 37-year-old female, presented to the hospital complaining of right- sided back pain hip pain, fever and chills. She is also complaining of pain in her right upper extremity. She had noted that she has difficulty moving it because of the pain. Patient history is significant for treatment of tricuspid valve endocarditis back in 2013, lumbar spine infection,, and she was in the hospital for quite a long time, and subsequently developed other kinds of bacteremia which was felt to be related to PICC. She had Klebsiella, Acinetobacter, candidemia, as well as Mycobacterium abscesses. Recently she was hospitalized in the hospital in [place], and the patient stated she was there from July - September 2017. She was treated with 6 weeks of IV antibiotics for endocarditis, and she was also told that she had a hip infection , but she did not have any surgery for the hip. Patient stated she had valve surgery around September 28, and she thinks it might be the tricuspid valve, however she signed out AGAINST MEDICAL ADVICE about 3 days after the surgery. Her boyfriend has been helping her take care of her incision. She came back to this area. Patient denies any significant cough or congestion. No chest pain or shortness of breath. No nausea or vomiting or diarrhea. She has had some incontinence which he attributes due to inability to ambulate secondary to her back and hip pain. On presentation she has been febrile up to 102. She had a CTA which did not show any pulmonary embolism, but it did show abnormalities in the lung as well as some opacity seen on the anterior mediastinum. I had reviewed with radiology and there is also a density seen in the right sternoclavicular joint, and the anterior mediastinum opacity looks like it may be a complex fluid collection. CAT scan of her spine, cervical, thoracic, and lumbar did not show any significant abnormality. 2 blood cultures on admission are now reported as growing gram-positive cocci in pairs and clusters. Patient is currently on vancomycin and meropenem. 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 Notes reviewed Temps ok C/O intermittent chills Feels better - still with some R chest discomfort when she is on her R side lying down No rash or itching No diarrhea Last CXR with bilateral infiltrates WBC now normal Creatinine ok Last (+) BC 01/10 ZEHRA - large vegetation encompassing the TV prosthesis Antibiotics: Vancomycin Teflaro Lines: Central line Past Medical History: Abscess in epidural space of lumbar spine Endocarditis Hepatitis C Hypokalemia Hyponatremia IVDU (intravenous drug user) Osteomyelitis Pneumonia Renal failure Sepsis Thrombocytopenia UTI (urinary tract infection) S/P valve surgery Allergies/Adverse Reactions: Allergies bee venom protein (honey bee) Allergy (Severe, Verified 01/04/18 14:34) rash Objective Vital Signs 01/14/18 13:00 01/14/18 17:00 01/14/18 20:00 Temperature 99.2 F 99.2 F Pulse Rate 69 76 77 Respiratory Rate 18 19 Blood Pressure 94/51 L 97/51 L Pulse Oximetry 100 100 01/14/18 20:04 01/14/18 21:00 01/15/18 00:00 Temperature 99.9 F H 97.3 F L Pulse Rate 78 62 Respiratory Rate 20 16 Blood Pressure 87/50 L 76/44 L Pulse Oximetry 98 100 95 01/15/18 05:00 Temperature 97.7 F Pulse Rate 60 Respiratory Rate 19 Blood Pressure 91/54 L Pulse Oximetry 95 Intake & Output 01/14/18 01/15/18 01/15/18 18:59 06:59 18:59 Intake Total 2059 / 2059 1160 / 1160 600 / 600 Balance 2059 / 2059 1160 / 1160 600 / 600 Weight 49.1 kg Intake: IV 1100 / 1100 200 / 200 600 / 600 NS Inj 1,000 ML @ 100 mls/hr IV 1000 / 1000 600 / 600 .CONT .Q10H MIGDALIA Rx#:[id number] Teflaro Inj 600 MG In NS Inj 100 / 100 200 / 200 100 ML @ 100 mls/hr IV.SIG Q8H MIGDALIA Rx#:[id number] Oral 960 / 960 960 / 960 Other: # Voids 5 5 Date of Last Bowel Movement 01/12/18 01/12/18 01/12/18 04:03 Blood - Peripheral Aerobic Blood Culture - Preliminary No growth in 2 days 01/12/18 04:03 Blood - Peripheral Anaerobic Blood Culture - Preliminary No growth in 2 days 01/11/18 04:58 Blood - Peripheral Aerobic Blood Culture - Preliminary No growth in 3 days 01/11/18 04:58 Blood - Peripheral Anaerobic Blood Culture - Preliminary No growth in 3 days 01/10/18 12:51 Blood - Peripheral Aerobic Blood Culture - Final S. aureus MRSA 01/10/18 12:51 Blood - Peripheral Anaerobic Blood Culture - Preliminary No growth in 4 days 01/10/18 12:46 Blood - Peripheral Aerobic Blood Culture - Preliminary No growth in 4 days 01/10/18 12:46 Blood - Peripheral Anaerobic Blood Culture - Preliminary No growth in 4 days 01/08/18 11:30 Blood - Peripheral Aerobic Blood Culture - Final S. aureus MRSA 01/08/18 11:30 Blood - Peripheral Anaerobic Blood Culture - Final No growth in 5 days 01/08/18 11:35 Blood - Peripheral Aerobic Blood Culture - Final S. aureus MRSA 01/08/18 11:35 Blood - Peripheral Anaerobic Blood Culture - Final No growth in 5 days 01/08/18 05:00 Blood - Peripheral Aerobic Blood Culture - Final S. aureus MRSA 01/08/18 05:00 Blood - Peripheral Anaerobic Blood Culture - Final No growth in 5 days 01/10/18 18:35 Clean Catch Urine Urine Culture - Final <10,000 cfu/mL gram positive chepe - no further workup Lab - Hematology Results 01/15/18 04:50 WBC 10.0 RBC 2.76 L Hgb 8.8 L Hct 26.3 L MCV 95.3 MCH 31.7 MCHC 33.3 RDW 14.9 Plt Count 85 L MPV 9.5 Prelim Diff (Auto) Slide review pending Neut % (Auto) 81.4 H Lymph % (Auto) 12.1 [place] % (Auto) 5.5 Eos % (Auto) 0.3 Baso % (Auto) 0.7 Neut # (Auto) 8.1 H Lymph # (Auto) 1.2 [place] # (Auto) 0.6 Eos # (Auto) 0.0 Baso # (Auto) 0.1 WBC Differential . Diff Scan Auto diff confirmed Differential Comment . Platelet Estimate Low L Platelet Morphology Normal Lab - Chemistry Results 01/14/18 01/15/18 05:30 04:50 Sodium 140 Potassium 3.8 Chloride 109 H Carbon Dioxide 22.4 Anion Gap 9 BUN 9 Creatinine 0.79 0.80 Estimated GFR 82 L 81 L Random Glucose 114 H Calcium 7.6 L Imaging: ITS Impressions Chest CTA 01/04/18 15:25 CONCLUSION: 1. Abnormal soft tissue density within the mediastinum unusual appearance for adenopathy partially could be hyperplasia of the patient's thymic gland, however underlying neoplastic process such as lymphoma is not excluded. 2. Slight cardiomegaly. 3. Bilateral parenchymal infiltrates in the lungs. Cervical Spine CT 01/04/18 16:23 CONCLUSION: Unremarkable study. Lumbar Spine CT 01/04/18 16:23 CONCLUSION: 1. Mild bulging of the L4-5 and L5-S1 disks. 2. No abnormal areas of epidural enhancement seen. Thoracic Spine CT 01/04/18 16:23 CONCLUSION: Essentially unremarkable study. Abdomen Ultrasound 01/05/18 00:00 CONCLUSION: 1. Gallbladder sludge 2. Mild splenomegaly 3. Bilateral perinephric fluid 4. No other significant abnormality. Hip CT 01/05/18 00:00 CONCLUSION: 1. Right hip appears unremarkable. No fracture. Chest X-Ray 01/10/18 00:00 CONCLUSION: Increased interstitial markings bilaterally suggestive of pulmonary edema. No significant changes compared to the prior study. Physical Exam: GENERAL: awake and alert, NAD SKIN: Warm and dry, no generalized rash HEAD: Atraumatic. Normocephalic. No temporal wasting, or tenderness. EYES: [place] conjunctiva. No petechia or hemorrhage. Pupils equal, round and reactive to light. Extraocular movements full and intact. No scleral icterus. No injection or drainage. EARS, NOSE AND THROAT: Mucous membranes pink and moist. No oral lesions noted. No exudate. No oral thrush. NECK: Trachea midline. Supple and not tender, no meningeal signs. There is a tender fluctuant area in her R sternoclavicular joint, getting smaller and less irizarry. CARDIOVASCULAR: Regular rate and rhythm. No murmurs, rubs or gallops heard. healed incision, no sternal instability RESPIRATORY: Coarse BS matty ABDOMEN: Soft, non-tender, nondistended. Bowel sounds present and normoactive. No guarding. No rebound. No organomegaly. EXTREMITIES: No clubbing, cyanosis, or edema. No calf tenderness. Good ROM R hip BACK: tender to R of lumbar spine at buttock NEUROLOGICAL: Grossly non-focal PSYCHIATRIC: Normal affect, calm and cooperative. LINE: No evidence of infection Assessment and Plan - Plan Impression Sepsis, BC (+) MRSA - has a large veg around her TV prosthesis - has infected R sternoclavicular joint - CT lumbar spine ok; ?pelvic bone, SI joint S/P Rx for endocarditis this year TV PVE, MRSA - BC peristent (+) Episode of endocarditis 2013 and lumbar spine infection IVDU Thrombocytopenia, due to sepsis,improving Recurrent fevers Recommendation Continue Teflaro Continue Diflucan Continue vanco Follow C/S Follow temps Monitor progress Explained plan to patient
[2018-01-15] MEDS: Vancomycin Inj 750 MG in Sodium Chlor 0.9% Inj 250 ML IV.SIG SCH (13:19)
--- NOTE | 2018-01-15 14:48 | P.PNIM ---
Subjective Interval history: Continues to be followed regarding her history of IV drug use tricuspid valve endocarditis prosthetic valve that is. No new issues today Wanting pain medications Has been cleared to transfer to the floor and has a bed available on 1400 Physical Exam Vital signs: Vital Signs 01/14/18 17:00 01/14/18 20:00 01/14/18 20:04 Temperature 99.2 F Pulse Rate 76 77 Respiratory Rate 19 Blood Pressure 97/51 L Pulse Oximetry 100 98 01/14/18 21:00 01/15/18 00:00 01/15/18 05:00 Temperature 99.9 F H 97.3 F L 97.7 F Pulse Rate 78 62 60 Respiratory Rate 20 16 19 Blood Pressure 87/50 L 76/44 L 91/54 L Pulse Oximetry 100 95 95 Intake & Output 01/14/18 01/15/18 01/15/18 18:59 06:59 18:59 Intake Total 2059 1160 / 1160 600 / 600 Balance 2059 1160 / 1160 600 / 600 Weight 49.1 kg Intake: IV 1100 / 1100 200 / 200 600 / 600 NS Inj 1,000 ML @ 100 mls/hr IV 1000 / 1000 600 / 600 .CONT .Q10H MIGDALIA Rx#:[id number] Teflaro Inj 600 MG In NS Inj 100 / 100 200 / 200 100 ML @ 100 mls/hr IV.SIG Q8H MIGDALIA Rx#:[id number] Oral 960 / 960 960 / 960 Other: # Voids 5 5 Date of Last Bowel Movement 01/12/18 01/12/18 Narrative: GENERAL: Well-appearing, no acute distress SKIN: Warm and dry. HEAD: Normocephalic. EYES: No scleral icterus. No injection or drainage. NECK: Supple, trachea midline. No JVD or lymphadenopathy. CARDIOVASCULAR: Regular rate and rhythm +YARIEL 1/6 RESPIRATORY: Breath sounds equal bilaterally. No accessory muscle use. GASTROINTESTINAL: Abdomen soft, non-tender, nondistended. MUSCULOSKELETAL: No cyanosis, or edema. Results - Labs CBC & Chem 7: 01/15/18 04:50 01/15/18 04:50 Laboratory Results - last 24 hr 01/15/18 01/15/18 04:50 04:50 WBC 10.0 RBC 2.76 L Hgb 8.8 L Hct 26.3 L MCV 95.3 MCH 31.7 MCHC 33.3 RDW 14.9 Plt Count 85 L MPV 9.5 Prelim Diff (Auto) Slide review pending Neut % (Auto) 81.4 H Lymph % (Auto) 12.1 [place] % (Auto) 5.5 Eos % (Auto) 0.3 Baso % (Auto) 0.7 Neut # (Auto) 8.1 H Lymph # (Auto) 1.2 [place] # (Auto) 0.6 Eos # (Auto) 0.0 Baso # (Auto) 0.1 WBC Differential . Diff Scan Auto diff confirmed Differential Comment . Platelet Estimate Low L Platelet Morphology Normal Sodium 140 Potassium 3.8 Chloride 109 H Carbon Dioxide 22.4 Anion Gap 9 BUN 9 Creatinine 0.80 Estimated GFR 81 L Random Glucose 114 H Calcium 7.6 L Random Vancomycin 5.0 Microbiology 01/12/18 04:03 Blood - Peripheral Aerobic Blood Culture - Preliminary No growth in 3 days 01/12/18 04:03 Blood - Peripheral Anaerobic Blood Culture - Preliminary No growth in 3 days 01/11/18 04:58 Blood - Peripheral Aerobic Blood Culture - Preliminary No growth in 4 days 01/11/18 04:58 Blood - Peripheral Anaerobic Blood Culture - Preliminary No growth in 4 days 01/10/18 12:51 Blood - Peripheral Aerobic Blood Culture - Final S. aureus MRSA 01/10/18 12:51 Blood - Peripheral Anaerobic Blood Culture - Final No growth in 5 days 01/10/18 12:46 Blood - Peripheral Aerobic Blood Culture - Final No growth in 5 days 01/10/18 12:46 Blood - Peripheral Anaerobic Blood Culture - Final No growth in 5 days - Imaging Chest X-Ray 01/04/18 14:21 CONCLUSION: Slight CHF. Chest CTA 01/04/18 15:25 CONCLUSION: 1. Abnormal soft tissue density within the mediastinum unusual appearance for adenopathy partially could be hyperplasia of the patient's thymic gland, however underlying neoplastic process such as lymphoma is not excluded. 2. Slight cardiomegaly. 3. Bilateral parenchymal infiltrates in the lungs. Cervical Spine CT 01/04/18 16:23 CONCLUSION: Unremarkable study. Lumbar Spine CT 01/04/18 16:23 CONCLUSION: 1. Mild bulging of the L4-5 and L5-S1 disks. 2. No abnormal areas of epidural enhancement seen. Thoracic Spine CT 01/04/18 16:23 CONCLUSION: Essentially unremarkable study. Abdomen Ultrasound 01/05/18 00:00 CONCLUSION: 1. Gallbladder sludge 2. Mild splenomegaly 3. Bilateral perinephric fluid 4. No other significant abnormality. Hip CT 01/05/18 00:00 CONCLUSION: 1. Right hip appears unremarkable. No fracture. Chest X-Ray 01/06/18 00:00 CONCLUSION: Interval placement of a left jugular central venous catheter with its tip in the superior right atrium. No evidence of pneumothorax. Increasing pulmonary congestion. Chest X-Ray 01/10/18 00:00 CONCLUSION: Increased interstitial markings bilaterally suggestive of pulmonary edema. No significant changes compared to the prior study. - Procedures ZEHRA 01-07 Assessment and Plan - Plan In summary this is a 37-year-old female patient with a medical history that is significant for IV drug abuse, endocarditis, status post valve replacement 3 months ago, discitis/osteomyelitis of the lumbar spine, and right infected hip. She presented with generalized weakness and inability to walk. She met sepsis criteria on admission. She was initially admitted to the intensive care unit. On admission patient was found to have an elevated lactic acid and EKG changes consistent for ischemic changes. 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 Sepsis Recurrent tricuspid valve endocarditis--large vegetation noted along tricuspid valve prosthesis Has right infected sternoclavicular joint Urine culture gram + chepe Infectious diseases following: Continue Teflaro, Diflucan, vancomycin, gentamicin. Creatinine needs to be followed closely. Per infectious disease if blood cultures are negative and she continues to have fevers consider drug fever from vancomycin. Patient with recent tricuspid valve replacement on [place] by 3 months ago, she apparently left A, apparently hospital records have been requested and there is consideration of transferring the patient back to [place] CT surgery anticipate poor prognosis--> suggest patient be transferred? Blood cultures - 01/04, 01/05, 01/06, 01/08 are positive for MRSA. - 01/10 1/2 tubes growing staph coagulase-positive - 01/11 one tube obtained, negative to date - 01/12 one tube obtained, negative to date Elevated troponin Likely secondary to above Hepatitis B and hepatitis C Elevated LFTs noted Anemia and thrombocytopenia Temporal cytopenia likely secondary to sepsis, it is improving Transfuse as needed GI prophylaxis: Stool softeners as needed DVT prophylaxis bilateral SCDs Chronic pain and drug-seeking behavior Discharge Planning: Patient currently on IV abx for endocarditis with bacteremia, anticipate long stay. Previous notes suggest that patient be transferred back to [place] where valve was replaced [address] to case management. On January 13 order was placed for patient to be transferred out of the ICU. Code Status: Full code Discussed Condition With: RN and patient and case specialist Discharge Planning: Pending clearance by infectious disease
[2018-01-16] MEDS: Vancomycin Inj 750 MG in Sodium Chlor 0.9% Inj 250 ML IV.SIG SCH ×2 (00:37→12:02)
[2018-01-16] MEDS: Sod Chloride 0.9% Inj 1,000 ML IV.CONT SCH ×3 (04:58→18:21)
[2018-01-16] MEDS: Gabapentin 100 MG Capsule PO SCH ×3 (05:04→21:00)
[2018-01-16] MEDS: Famotidine 20 MG Tablet PO SCH ×2 (08:28→20:57)
[2018-01-16] MEDS: Fluconazole 100 MG Tablet PO SCH (08:28)
[2018-01-16] MEDS: Mupirocin 2% Nasal Oint Topical Syringe EACH NARE SCH ×2 (08:28→20:57)
--- NOTE | 2018-01-16 08:35 | P.PNID ---
Subjective Remarks: Patient is a 37-year-old female, presented to the hospital complaining of right- sided back pain hip pain, fever and chills. She is also complaining of pain in her right upper extremity. She had noted that she has difficulty moving it because of the pain. Patient history is significant for treatment of tricuspid valve endocarditis back in 2013, lumbar spine infection,, and she was in the hospital for quite a long time, and subsequently developed other kinds of bacteremia which was felt to be related to PICC. She had Klebsiella, Acinetobacter, candidemia, as well as Mycobacterium abscesses. Recently she was hospitalized in the hospital in [place], and the patient stated she was there from July - September 2017. She was treated with 6 weeks of IV antibiotics for endocarditis, and she was also told that she had a hip infection , but she did not have any surgery for the hip. Patient stated she had valve surgery around September 28, and she thinks it might be the tricuspid valve, however she signed out AGAINST MEDICAL ADVICE about 3 days after the surgery. Her boyfriend has been helping her take care of her incision. She came back to this area. Patient denies any significant cough or congestion. No chest pain or shortness of breath. No nausea or vomiting or diarrhea. She has had some incontinence which he attributes due to inability to ambulate secondary to her back and hip pain. On presentation she has been febrile up to 102. She had a CTA which did not show any pulmonary embolism, but it did show abnormalities in the lung as well as some opacity seen on the anterior mediastinum. I had reviewed with radiology and there is also a density seen in the right sternoclavicular joint, and the anterior mediastinum opacity looks like it may be a complex fluid collection. CAT scan of her spine, cervical, thoracic, and lumbar did not show any significant abnormality. 2 blood cultures on admission are now reported as growing gram-positive cocci in pairs and clusters. Patient is currently on vancomycin and meropenem. 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 Notes reviewed Temps ok Feels better - still with some R chest discomfort when she is on her R side lying down No rash or itching No diarrhea Last CXR with bilateral infiltrates WBC normal Creatinine ok Last (+) BC 01/10, no new (+) BC ZEHRA - large vegetation encompassing the TV prosthesis Antibiotics: Vancomycin Teflaro Lines: Central line Past Medical History: Abscess in epidural space of lumbar spine Endocarditis Hepatitis C Hypokalemia Hyponatremia IVDU (intravenous drug user) Osteomyelitis Pneumonia Renal failure Sepsis Thrombocytopenia UTI (urinary tract infection) S/P valve surgery Allergies/Adverse Reactions: Allergies bee venom protein (honey bee) Allergy (Severe, Verified 01/04/18 14:34) rash Objective Vital Signs 01/15/18 09:00 01/15/18 13:00 01/15/18 16:35 Temperature 98 F 98.2 F 97.8 F Pulse Rate 62 66 64 Respiratory Rate 19 19 20 Blood Pressure 93/54 L 92/52 L 83/50 L Pulse Oximetry 95 95 96 01/15/18 17:33 01/15/18 20:00 01/15/18 21:00 Temperature 98.3 F Pulse Rate 68 70 Respiratory Rate 18 Blood Pressure 92/55 L 91/52 L Pulse Oximetry 96 01/16/18 00:00 01/16/18 00:02 01/16/18 03:59 Temperature 98.2 F Pulse Rate 71 82 76 Respiratory Rate 16 Blood Pressure 90/54 L Pulse Oximetry 91 L 01/16/18 04:00 Temperature 98.7 F Pulse Rate 78 Respiratory Rate 16 Blood Pressure 94/51 L Pulse Oximetry 93 L Intake & Output 01/15/18 01/16/18 01/16/18 18:59 06:59 18:59 Intake Total 1357.5 / 1357.5 457.5 / 457.5 Balance 1357.5 / 1357.5 457.5 / 457.5 Weight 49.3 kg Intake: IV 1357.5 / 1357.5 457.5 / 457.5 NS Inj 1,000 ML @ 100 mls/hr IV 1000 / 1000 .CONT .Q10H MIGDALIA Rx#:[id number] Teflaro Inj 600 MG In NS Inj 100 / 100 200 / 200 100 ML @ 100 mls/hr IV.SIG Q8H MIGDALIA Rx#:[id number] Vancomycin Inj 750 MG In NS Inj 257.5 / 257.5 257.5 / 257.5 250 ML @ 250 mls/hr IV.SIG Q12H MIGDALIA Rx#:[id number] Other: # Voids 3 Date of Last Bowel Movement 01/12/18 # Bowel Movements 1 01/12/18 04:03 Blood - Peripheral Aerobic Blood Culture - Preliminary No growth in 3 days 01/12/18 04:03 Blood - Peripheral Anaerobic Blood Culture - Preliminary No growth in 3 days 01/11/18 04:58 Blood - Peripheral Aerobic Blood Culture - Preliminary No growth in 4 days 01/11/18 04:58 Blood - Peripheral Anaerobic Blood Culture - Preliminary No growth in 4 days 01/10/18 12:51 Blood - Peripheral Aerobic Blood Culture - Final S. aureus MRSA 01/10/18 12:51 Blood - Peripheral Anaerobic Blood Culture - Final No growth in 5 days 01/10/18 12:46 Blood - Peripheral Aerobic Blood Culture - Final No growth in 5 days 01/10/18 12:46 Blood - Peripheral Anaerobic Blood Culture - Final No growth in 5 days 01/08/18 11:30 Blood - Peripheral Aerobic Blood Culture - Final S. aureus MRSA 01/08/18 11:30 Blood - Peripheral Anaerobic Blood Culture - Final No growth in 5 days 01/08/18 11:35 Blood - Peripheral Aerobic Blood Culture - Final S. aureus MRSA 01/08/18 11:35 Blood - Peripheral Anaerobic Blood Culture - Final No growth in 5 days 01/08/18 05:00 Blood - Peripheral Aerobic Blood Culture - Final S. aureus MRSA 01/08/18 05:00 Blood - Peripheral Anaerobic Blood Culture - Final No growth in 5 days Lab - Hematology Results 01/15/18 04:50 WBC 10.0 RBC 2.76 L Hgb 8.8 L Hct 26.3 L MCV 95.3 MCH 31.7 MCHC 33.3 RDW 14.9 Plt Count 85 L MPV 9.5 Prelim Diff (Auto) Slide review pending Neut % (Auto) 81.4 H Lymph % (Auto) 12.1 [place] % (Auto) 5.5 Eos % (Auto) 0.3 Baso % (Auto) 0.7 Neut # (Auto) 8.1 H Lymph # (Auto) 1.2 [place] # (Auto) 0.6 Eos # (Auto) 0.0 Baso # (Auto) 0.1 WBC Differential . Diff Scan Auto diff confirmed Differential Comment . Platelet Estimate Low L Platelet Morphology Normal Lab - Chemistry Results 01/15/18 04:50 Sodium 140 Potassium 3.8 Chloride 109 H Carbon Dioxide 22.4 Anion Gap 9 BUN 9 Creatinine 0.80 Estimated GFR 81 L Random Glucose 114 H Calcium 7.6 L Imaging: ITS Impressions Chest CTA 01/04/18 15:25 CONCLUSION: 1. Abnormal soft tissue density within the mediastinum unusual appearance for adenopathy partially could be hyperplasia of the patient's thymic gland, however underlying neoplastic process such as lymphoma is not excluded. 2. Slight cardiomegaly. 3. Bilateral parenchymal infiltrates in the lungs. Cervical Spine CT 01/04/18 16:23 CONCLUSION: Unremarkable study. Lumbar Spine CT 01/04/18 16:23 CONCLUSION: 1. Mild bulging of the L4-5 and L5-S1 disks. 2. No abnormal areas of epidural enhancement seen. Thoracic Spine CT 01/04/18 16:23 CONCLUSION: Essentially unremarkable study. Abdomen Ultrasound 01/05/18 00:00 CONCLUSION: 1. Gallbladder sludge 2. Mild splenomegaly 3. Bilateral perinephric fluid 4. No other significant abnormality. Hip CT 01/05/18 00:00 CONCLUSION: 1. Right hip appears unremarkable. No fracture. Chest X-Ray 01/10/18 00:00 CONCLUSION: Increased interstitial markings bilaterally suggestive of pulmonary edema. No significant changes compared to the prior study. Physical Exam: GENERAL: awake and alert, NAD SKIN: Warm and dry, no generalized rash HEAD: Atraumatic. Normocephalic. No temporal wasting, or tenderness. EYES: [place] conjunctiva. No petechia or hemorrhage. No scleral icterus. No injection or drainage. EARS, NOSE AND THROAT: Mucous membranes pink and moist. No oral lesions noted. No exudate. No oral thrush. NECK: Trachea midline. Supple and not tender, no meningeal signs. There is a tender fluctuant area in her R sternoclavicular joint, getting smaller and less irizarry. CARDIOVASCULAR: Regular rate and rhythm. No murmurs, rubs or gallops heard. healed incision, no sternal instability RESPIRATORY: Coarse BS matty ABDOMEN: Soft, non-tender, nondistended. Bowel sounds present and normoactive. No guarding. No rebound. No organomegaly. EXTREMITIES: No clubbing, cyanosis, or edema. No calf tenderness. Good ROM R hip BACK: tender to R of lumbar spine at buttock NEUROLOGICAL: Grossly non-focal PSYCHIATRIC: Normal affect, calm and cooperative. LINE: No evidence of infection Assessment and Plan - Plan Impression Sepsis, BC (+) MRSA - has a large veg around her TV prosthesis - has infected R sternoclavicular joint, improving - CT lumbar spine ok; ?pelvic bone, SI joint S/P Rx for endocarditis this year TV PVE, MRSA - BC peristent (+) Episode of endocarditis 2013 and lumbar spine infection IVDU Thrombocytopenia, due to sepsis,improving Recurrent fevers Recommendation Continue Teflaro Stop Diflucan Continue vanco Follow new C/S Follow temps Will need 6-8 weeks IV Abx from last (+) BC, and possibly an oral Abx jail Monitor progress Explained plan to patient I will be off Jan 17- Other ID MD covering in my absence
[2018-01-16 09:09] LABS: Baso # (Auto) 0.1 th/mm3 (0.0-0.2); Baso % (Auto) 0.8 % (0.0-2.0); Eos % (Auto) 0.2 % (0.0-4.0); Hematocrit 25.8 % (35.0-46.0); Hemoglobin 8.8 gm/dL (11.6-15.3); Lymph # (Auto) 1.4 th/mm3 (1.0-4.8); Lymph % (Auto) 15.1 % (9.0-44.0); Mean Corpuscular HGB Conc 34.3 % (32.0-36.0); Mean Corpuscular Volume 93.5 fL (80.0-100.0); Mono # (Auto) 0.6 th/mm3 (0.0-0.9); Mono % (Auto) 6.4 % (0.0-8.0); Neut % (Auto) 77.5 % (16.0-70.0); Platelet Count 112 th/mm3 (150-450); Red Blood Count 2.76 mil/mm3 (4.00-5.30); Red Cell Distribution Width 14.6 % (11.6-17.2); White Blood Count 9.1 th/mm3 (4.0-11.0)
[2018-01-16] MEDS ORDERED: Pharmacy Ordered Lab Info OTHER SCH (11:45)
[2018-01-16 12:57] LABS: Alanine Aminotransferase 27 U/L (10-53); Albumin 1.9 g/dL (3.4-5.0); Alkaline Phosphatase 207 U/L (45-117); Anion Gap 8 meq/L (5-15); Aspartate Aminotransferase 24 U/L (15-37); Blood Urea Nitrogen 8 mg/dL (7-18); Calcium 6.8 mg/dL (8.5-10.1); Carbon Dioxide 23.1 meq/L (21.0-32.0); Chloride 110 meq/L (98-107); Glomerular Filtration Rate Greater Than 89 mL/min (>89); Glucose,Random 76 mg/dL (74-106); Magnesium 1.6 mg/dL (1.5-2.5); Phosphorus 3.7 mg/dL (2.5-4.9); Potassium 3.6 meq/L (3.5-5.1); Sodium 141 meq/L (136-145); Total Protein 5.6 g/dL (6.4-8.2); Vancomycin,Trough 9.5 mcg/mL (5.0-10.0)
--- NOTE | 2018-01-16 16:42 | P.PNIM ---
Subjective Interval history: - Continues to be followed regarding her history of IV drug use tricuspid valve endocarditis prosthetic valve that is. No new issues today Wanting pain medications Has been cleared to transfer to the floor and has a bed available on 1400 01-16 CONTINUE ANTIBIOTICS NO NEW COMPLAINTS WILL BE WITH US FOR AWHILE DUE TO IV ANTIBIOTICS DUE TO TRICUSPID PROSTHETIC VALVE ENDOCARDITIS Physical Exam Vital signs: Vital Signs 01/15/18 17:33 01/15/18 20:00 01/15/18 21:00 Temperature 98.3 F Pulse Rate 68 70 Respiratory Rate 18 Blood Pressure 92/55 L 91/52 L Pulse Oximetry 96 01/16/18 00:00 01/16/18 00:02 01/16/18 03:59 Temperature 98.2 F Pulse Rate 71 82 76 Respiratory Rate 16 Blood Pressure 90/54 L Pulse Oximetry 91 L 01/16/18 04:00 01/16/18 08:00 01/16/18 12:00 Temperature 98.7 F 98.1 F 99.7 F H Pulse Rate 78 79 67 Respiratory Rate 16 18 18 Blood Pressure 94/51 L 100/56 L 104/50 L Pulse Oximetry 93 L 94 L 96 Intake & Output 01/15/18 01/16/18 01/16/18 18:59 06:59 18:59 Intake Total 1357.5 / 1357.5 457.5 / 457.5 957.5 / 957.5 Balance 1357.5 / 1357.5 457.5 / 457.5 957.5 / 957.5 Weight 49.3 kg Intake: IV 1357.5 / 1357.5 457.5 / 457.5 957.5 / 957.5 NS Inj 1,000 ML @ 100 mls/hr IV 1000 / 1000 600 / 600 .CONT .Q10H [facility]IG[facility] Rx#:[id number] Teflaro Inj 600 MG In NS Inj 100 / 100 200 / 200 100 / 100 100 ML @ 100 mls/hr IV.SIG Q8H [facility]IG[facility] Rx#:[id number] Vancomycin Inj 750 MG In NS Inj 257.5 / 257.5 257.5 / 257.5 257.5 / 257.5 250 ML @ 250 mls/hr IV.SIG Q12H MIGDALIA Rx#:[id number] Other: # Voids 3 Date of Last Bowel Movement 01/12/18 01/12/18 # Bowel Movements 1 Narrative: GENERAL: Well-appearing, no acute distress SKIN: Warm and dry. HEAD: Normocephalic. EYES: No scleral icterus. No injection or drainage. NECK: Supple, trachea midline. No JVD or lymphadenopathy. CARDIOVASCULAR: Regular rate and rhythm +YARIEL 1/6 RESPIRATORY: Breath sounds equal bilaterally. No accessory muscle use. GASTROINTESTINAL: Abdomen soft, non-tender, nondistended. MUSCULOSKELETAL: No cyanosis, or edema. Results - Labs CBC & Chem 7: 01/16/18 08:31 01/16/18 12:00 Laboratory Results - last 24 hr 01/16/18 01/16/18 01/16/18 08:31 08:31 12:00 WBC 9.1 RBC 2.76 L Hgb 8.8 L Hct 25.8 L MCV 93.5 MCH 32.0 MCHC 34.3 RDW 14.6 Plt Count 112 L D MPV 9.0 Neut % (Auto) 77.5 H Lymph % (Auto) 15.1 [place] % (Auto) 6.4 Eos % (Auto) 0.2 Baso % (Auto) 0.8 Neut # (Auto) 7.0 Lymph # (Auto) 1.4 [place] # (Auto) 0.6 Eos # (Auto) 0.0 Baso # (Auto) 0.1 WBC Differential . Differential Comment Auto diff final Sodium 141 Potassium 3.6 Chloride 110 H Carbon Dioxide 23.1 Anion Gap 8 BUN 9 8 Creatinine 0.85 0.59 Estimated GFR 75 L Greater than 89 Random Glucose 76 Calcium 6.8 L* D Prot Corrected Calcium 7.6 L Phosphorus 3.7 Magnesium 1.6 Total Bilirubin 0.5 AST 24 ALT 27 Alkaline Phosphatase 207 H Total Protein 5.6 L Albumin 1.9 L Vancomycin Trough 9.5 Microbiology 01/12/18 04:03 Blood - Peripheral Aerobic Blood Culture - Preliminary No growth in 4 days 01/12/18 04:03 Blood - Peripheral Anaerobic Blood Culture - Preliminary No growth in 4 days 01/11/18 04:58 Blood - Peripheral Aerobic Blood Culture - Final No growth in 5 days 01/11/18 04:58 Blood - Peripheral Anaerobic Blood Culture - Final No growth in 5 days - Imaging Chest X-Ray 01/04/18 14:21 CONCLUSION: Slight CHF. Chest CTA 01/04/18 15:25 CONCLUSION: 1. Abnormal soft tissue density within the mediastinum unusual appearance for adenopathy partially could be hyperplasia of the patient's thymic gland, however underlying neoplastic process such as lymphoma is not excluded. 2. Slight cardiomegaly. 3. Bilateral parenchymal infiltrates in the lungs. Cervical Spine CT 01/04/18 16:23 CONCLUSION: Unremarkable study. Lumbar Spine CT 01/04/18 16:23 CONCLUSION: 1. Mild bulging of the L4-5 and L5-S1 disks. 2. No abnormal areas of epidural enhancement seen. Thoracic Spine CT 01/04/18 16:23 CONCLUSION: Essentially unremarkable study. Abdomen Ultrasound 01/05/18 00:00 CONCLUSION: 1. Gallbladder sludge 2. Mild splenomegaly 3. Bilateral perinephric fluid 4. No other significant abnormality. Hip CT 01/05/18 00:00 CONCLUSION: 1. Right hip appears unremarkable. No fracture. Chest X-Ray 01/06/18 00:00 CONCLUSION: Interval placement of a left jugular central venous catheter with its tip in the superior right atrium. No evidence of pneumothorax. Increasing pulmonary congestion. Chest X-Ray 01/10/18 00:00 CONCLUSION: Increased interstitial markings bilaterally suggestive of pulmonary edema. No significant changes compared to the prior study. - Procedures ZEHRA 01-07 Assessment and Plan - Plan In summary this is a 37-year-old female patient with a medical history that is significant for IV drug abuse, endocarditis, status post valve replacement 3 months ago, discitis/osteomyelitis of the lumbar spine, and right infected hip. She presented with generalized weakness and inability to walk. She met sepsis criteria on admission. She was initially admitted to the intensive care unit. On admission patient was found to have an elevated lactic acid and EKG changes consistent for ischemic changes. 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 Sepsis Recurrent tricuspid valve endocarditis--large vegetation noted along tricuspid valve prosthesis Has right infected sternoclavicular joint Urine culture gram + chepe Infectious diseases following: Continue Teflaro, Diflucan, vancomycin, gentamicin. Creatinine needs to be followed closely. Per infectious disease if blood cultures are negative and she continues to have fevers consider drug fever from vancomycin. Patient with recent tricuspid valve replacement on Evelina by 3 months ago, she apparently left AMA, apparently hospital records have been requested and there is consideration of transferring the patient back to [place] CT surgery anticipate poor prognosis--> suggest patient be transferred? Blood cultures - 01/04, 01/05, 01/06, 01/08 are positive for MRSA. - 01/10 1/ tubes growing staph coagulase-positive - 01/11 one tube obtained, negative to date - 01/12 one tube obtained, negative to date Elevated troponin Likely secondary to above Hepatitis B and hepatitis C Elevated LFTs noted Anemia and thrombocytopenia Temporal cytopenia likely secondary to sepsis, it is improving Transfuse as needed GI prophylaxis: Stool softeners as needed DVT prophylaxis bilateral SCDs Chronic pain and drug-seeking behavior Discharge Planning: Patient currently on IV abx for endocarditis with bacteremia, anticipate long stay. Previous notes suggest that patient be transferred back to [place] where valve was replaced 3 months ago. case management CONSULTED. On January 13 order was placed for patient to be transferred out of the ICU. Code Status: FULL CODE Discussed Condition With: RN AND PT AND CM Discharge Planning: Pending clearance by infectious disease
[2018-01-17] MEDS: Sod Chloride 0.9% Inj 1,000 ML IV.CONT SCH ×4 (00:33→17:59)
[2018-01-17] MEDS: Vancomycin Inj 1,000 MG in Sodium Chlor 0.9% Inj 250 ML IV.SIG SCH ×2 (01:34→13:53)
[2018-01-17] MEDS: Gabapentin 100 MG Capsule PO SCH ×3 (05:25→21:09)
[2018-01-17] MEDS: Mupirocin 2% Nasal Oint Topical Syringe EACH NARE SCH ×2 (10:12→21:07)
[2018-01-17] MEDS: Famotidine 20 MG Tablet PO SCH ×2 (10:12→21:07)
[2018-01-17] MEDS: Fluconazole 100 MG Tablet PO SCH (10:12)
--- NOTE | 2018-01-17 15:36 | P.PNIM ---
Subjective Interval history: 9-4 Continues to be followed regarding her history of IV drug use tricuspid valve endocarditis prosthetic valve that is. No new issues today Wanting pain medications Has been cleared to transfer to the floor and has a bed available on 1400 01-16 CONTINUE ANTIBIOTICS NO NEW COMPLAINTS WILL BE WITH US FOR AWHILE DUE TO IV ANTIBIOTICS DUE TO TRICUSPID PROSTHETIC VALVE ENDOCARDITIS 01-17 NO NEW ISSUES CONTINUE ANTIBIOTICS NO SOB, NO CHEST PAIN OR PALPITATIONS DW RN AND PT AND CM Physical Exam Vital signs: Vital Signs 01/16/18 16:00 01/16/18 20:00 01/17/18 00:00 Temperature 101.0 F H 98.9 F 98.4 F Pulse Rate 70 73 74 Respiratory Rate 18 18 18 Blood Pressure 102/55 L 95/50 L 96/58 L Pulse Oximetry 96 93 L 92 L 01/17/18 04:00 01/17/18 08:00 01/17/18 12:00 Temperature 98.3 F Pulse Rate 76 71 62 Respiratory Rate 18 Blood Pressure 98/59 L Pulse Oximetry 94 L Intake & Output 01/16/18 01/17/18 01/17/18 18:59 06:59 18:59 Intake Total 1357.5 / 1357.5 1450 / 1450 1100 / 1100 Balance 1357.5 / 1357.5 1450 / 1450 1100 / 1100 Weight 49 kg Intake: IV 1357.5 / 1357.5 1450 / 1450 1100 / 1100 NS Inj 1,000 ML @ 100 mls/hr IV 1000 / 1000 1000 / 1000 1000 / 1000 .CONT .Q10H [facility]IG[facility] Rx#:[id number] Teflaro Inj 600 MG In NS Inj 100 / 100 200 / 200 100 / 100 100 ML @ 100 mls/hr IV.SIG Q8H [facility]IG[facility] Rx#:[id number] Vancomycin Inj 1,000 MG In NS 250 / 250 Inj 250 ML @ 250 mls/hr IV.SIG Q12H [facility]IGDALIA Rx#:[id number] Vancomycin Inj 750 MG In NS Inj 257.5 / 257.5 250 ML @ 250 mls/hr IV.SIG Q12H [facility]IG[facility]ALIA Rx#:[id number] Other: Date of Last Bowel Movement 01/12/18 Narrative: GENERAL: Well-appearing, no acute distress SKIN: Warm and dry. HEAD: Normocephalic. EYES: No scleral icterus. No injection or drainage. NECK: Supple, trachea midline. No JVD or lymphadenopathy. CARDIOVASCULAR: Regular rate and rhythm +YARIEL 1/6 RESPIRATORY: Breath sounds equal bilaterally. No accessory muscle use. GASTROINTESTINAL: Abdomen soft, non-tender, nondistended. MUSCULOSKELETAL: No cyanosis, or edema. Results - Labs CBC & Chem 7: 01/16/18 08:31 01/17/18 06:13 Laboratory Results - last 24 hr 01/17/18 06:13 BUN 10 Creatinine 0.77 Estimated GFR 84 L Microbiology 01/12/18 04:03 Blood - Peripheral Aerobic Blood Culture - Final No growth in 5 days 01/12/18 04:03 Blood - Peripheral Anaerobic Blood Culture - Final No growth in 5 days - Imaging Chest X-Ray 01/04/18 14:21 CONCLUSION: Slight CHF. Chest CTA 01/04/18 15:25 CONCLUSION: 1. Abnormal soft tissue density within the mediastinum unusual appearance for adenopathy partially could be hyperplasia of the patient's thymic gland, however underlying neoplastic process such as lymphoma is not excluded. 2. Slight cardiomegaly. 3. Bilateral parenchymal infiltrates in the lungs. Cervical Spine CT 01/04/18 16:23 CONCLUSION: Unremarkable study. Lumbar Spine CT 01/04/18 16:23 CONCLUSION: 1. Mild bulging of the L4-5 and L5-S1 disks. 2. No abnormal areas of epidural enhancement seen. Thoracic Spine CT 01/04/18 16:23 CONCLUSION: Essentially unremarkable study. Abdomen Ultrasound 01/05/18 00:00 CONCLUSION: 1. Gallbladder sludge 2. Mild splenomegaly 3. Bilateral perinephric fluid 4. No other significant abnormality. Hip CT 01/05/18 00:00 CONCLUSION: 1. Right hip appears unremarkable. No fracture. Chest X-Ray 01/06/18 00:00 CONCLUSION: Interval placement of a left jugular central venous catheter with its tip in the superior right atrium. No evidence of pneumothorax. Increasing pulmonary congestion. Chest X-Ray 01/10/18 00:00 CONCLUSION: Increased interstitial markings bilaterally suggestive of pulmonary edema. No significant changes compared to the prior study. - Procedures ZEHRA 8 Assessment and Plan - Plan In summary this is a 37-year-old female patient with a medical history that is significant for IV drug abuse, endocarditis, status post valve replacement 3 months ago, discitis/osteomyelitis of the lumbar spine, and right infected hip. She presented with generalized weakness and inability to walk. She met sepsis criteria on admission. She was initially admitted to the intensive care unit. On admission patient was found to have an elevated lactic acid and EKG changes consistent for ischemic changes. 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 Sepsis Recurrent tricuspid valve endocarditis--large vegetation noted along tricuspid valve prosthesis Has right infected sternoclavicular joint Urine culture gram + chepe Infectious diseases following: Continue Teflaro, Diflucan, vancomycin, gentamicin. Creatinine needs to be followed closely. Per infectious disease if blood cultures are negative and she continues to have fevers consider drug fever from vancomycin. Patient with recent tricuspid valve replacement on Evelina by 3 months ago, she apparently left AMA, apparently hospital records have been requested and there is consideration of transferring the patient back to [place] CT surgery anticipate poor prognosis--> suggest patient be transferred? Blood cultures - 01/04, 01/05, 01/06, 01/08 are positive for MRSA. - 01/10 1/2 tubes growing staph coagulase-positive - 01/11 one tube obtained, negative to date - 01/12 one tube obtained, negative to date Elevated troponin Likely secondary to above Hepatitis B and hepatitis C Elevated LFTs noted Anemia and thrombocytopenia Temporal cytopenia likely secondary to sepsis, it is improving Transfuse as needed GI prophylaxis: Stool softeners as needed DVT prophylaxis bilateral SCDs Chronic pain and drug-seeking behavior Discharge Planning: Patient currently on IV abx for endocarditis with bacteremia, anticipate long stay. Previous notes suggest that patient be transferred back to [place] where valve was replaced 3 months ago. case management CONSULTED. On January 13 order was placed for patient to be transferred out of the ICU. Code Status: FULL CODE Discussed Condition With: RN AND PT AND CM Discharge Planning: Pending clearance by infectious disease
[2018-01-18] MEDS: Vancomycin Inj 1,000 MG in Sodium Chlor 0.9% Inj 250 ML IV.SIG SCH ×2 (00:09→11:59)
[2018-01-18] MEDS: Sod Chloride 0.9% Inj 1,000 ML IV.CONT SCH ×2 (04:09→16:43)
[2018-01-18] MEDS: Gabapentin 100 MG Capsule PO SCH ×3 (06:30→21:44)
[2018-01-18] MEDS: Fluconazole 100 MG Tablet PO SCH (08:03)
[2018-01-18] MEDS: Famotidine 20 MG Tablet PO SCH ×2 (08:03→21:45)
[2018-01-18] MEDS: Mupirocin 2% Nasal Oint Topical Syringe EACH NARE SCH ×2 (08:08→21:46)
--- NOTE | 2018-01-18 11:04 | P.PNIM ---
Subjective Interval history: 9-4 Continues to be followed regarding her history of IV drug use tricuspid valve endocarditis prosthetic valve that is. No new issues today Wanting pain medications Has been cleared to transfer to the floor and has a bed available on 1400 5 CONTINUE ANTIBIOTICS NO NEW COMPLAINTS WILL BE WITH US FOR AWHILE DUE TO IV ANTIBIOTICS DUE TO TRICUSPID PROSTHETIC VALVE ENDOCARDITIS 01-17 NO NEW ISSUES CONTINUE ANTIBIOTICS NO SOB, NO CHEST PAIN OR PALPITATIONS DW RN AND PT AND CM 01-18 CONTINUE ANTIBIOTICS FOR TRICUSPID VALVE PROSTHETIC VALVE ENDOCARDITIS NO SOB, NO CHEST PAIN OR FEVERS OR PALPITATIONS DW RN AND PT AND CM Physical Exam Vital signs: Vital Signs 01/17/18 12:00 01/17/18 20:00 01/17/18 20:30 Temperature 98.5 F Pulse Rate 62 66 Respiratory Rate 17 18 Blood Pressure 113/62 Pulse Oximetry 93 L 01/17/18 22:11 01/18/18 00:00 01/18/18 03:45 Temperature 97.8 F 98.8 F Pulse Rate 84 94 H Respiratory Rate 18 15 18 Blood Pressure 133/88 102/55 L Pulse Oximetry 98 94 L 01/18/18 03:58 01/18/18 08:00 Temperature 97.7 F Pulse Rate 81 65 Respiratory Rate 16 Blood Pressure 91/54 L Pulse Oximetry 94 L Intake & Output 01/17/18 01/18/18 01/18/18 18:59 06:59 18:59 Intake Total 2350 / 2350 2110 / 2110 Output Total 1250 / 1250 Balance 2350 / 2350 860 / 860 Weight 48.9 kg Intake: IV 2350 / 2350 1450 / 1450 NS Inj 1,000 ML @ 100 mls/hr IV 1999 / 2000 1000 / 1000 .CONT .Q10H [facility] Rx#:[id number] Teflaro Inj 600 MG In NS Inj 100 / 100 200 / 200 100 ML @ 100 mls/hr IV.SIG Q8H [facility] Rx#:[id number] Vancomycin Inj 1,000 MG In NS 250 / 250 250 / 250 Inj 250 ML @ 250 mls/hr IV.SIG Q12H [facility] Rx#:[id number] Oral 660 / 660 Output: Urine 1250 / 1250 Other: Date of Last Bowel Movement 01/16/18 Narrative: GENERAL: Well-appearing, no acute distress SKIN: Warm and dry. HEAD: Normocephalic. EYES: No scleral icterus. No injection or drainage. NECK: Supple, trachea midline. No JVD or lymphadenopathy. CARDIOVASCULAR: Regular rate and rhythm +YARIEL 1/6 RESPIRATORY: Breath sounds equal bilaterally. No accessory muscle use. GASTROINTESTINAL: Abdomen soft, non-tender, nondistended. MUSCULOSKELETAL: No cyanosis, or edema. Results - Labs CBC & Chem 7: 01/16/18 08:31 01/17/18 06:13 Microbiology 01/12/18 04:03 Blood - Peripheral Aerobic Blood Culture - Final No growth in 5 days 01/12/18 04:03 Blood - Peripheral Anaerobic Blood Culture - Final No growth in 5 days - Procedures ZEHRA 8 Assessment and Plan - Plan In summary this is a 37-year-old female patient with a medical history that is significant for IV drug abuse, endocarditis, status post valve replacement 3 months ago, discitis/osteomyelitis of the lumbar spine, and right infected hip. She presented with generalized weakness and inability to walk. She met sepsis criteria on admission. She was initially admitted to the intensive care unit. On admission patient was found to have an elevated lactic acid and EKG changes consistent for ischemic changes. 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 Sepsis Recurrent tricuspid valve endocarditis--large vegetation noted along tricuspid valve prosthesis Has right infected sternoclavicular joint Urine culture gram + chepe Infectious diseases following: Continue Teflaro, Diflucan, vancomycin, gentamicin. Creatinine needs to be followed closely. Per infectious disease if blood cultures are negative and she continues to have fevers consider drug fever from vancomycin. Patient with recent tricuspid valve replacement on [place] by 3 months ago, she apparently left A, apparently hospital records have been requested and there is consideration of transferring the patient back to [place] CT surgery anticipate poor prognosis--> suggest patient be transferred? Blood cultures - 01/04, 01/05, 01/06, 01/08 are positive for MRSA. - 01/10 1/2 tubes growing staph coagulase-positive - 01/11 one tube obtained, negative to date - 01/12 one tube obtained, negative to date Elevated troponin Likely secondary to above Hepatitis B and hepatitis C Elevated LFTs noted Anemia and thrombocytopenia Temporal cytopenia likely secondary to sepsis, it is improving Transfuse as needed GI prophylaxis: Stool softeners as needed DVT prophylaxis bilateral SCDs Chronic pain and drug-seeking behavior Discharge Planning: Patient currently on IV abx for endocarditis with bacteremia, anticipate long stay. Previous notes suggest that patient be transferred back to [place] where valve was replaced 3 months ago. case management CONSULTED. On January 13 order was placed for patient to be transferred out of the ICU. Code Status: FULL CODE Discussed Condition With: HUMBERTO RN AND PT AND CM Discharge Planning: Pending clearance by infectious disease
[2018-01-18] MEDS ORDERED: Pharmacy Ordered Lab Info OTHER ONE (11:45)
[2018-01-19] MEDS: Vancomycin Inj 1,000 MG in Sodium Chlor 0.9% Inj 250 ML IV.SIG SCH ×2 (01:44→12:00)
[2018-01-19] MEDS: Sod Chloride 0.9% Inj 1,000 ML IV.CONT SCH ×3 (01:45→23:03)
[2018-01-19] MEDS: Gabapentin 100 MG Capsule PO SCH ×3 (05:35→23:04)
[2018-01-19] MEDS: Famotidine 20 MG Tablet PO SCH ×2 (10:12→23:02)
[2018-01-19] MEDS: Fluconazole 100 MG Tablet PO SCH (10:12)
[2018-01-19] MEDS: Mupirocin 2% Nasal Oint Topical Syringe EACH NARE SCH ×2 (10:13→23:03)
--- NOTE | 2018-01-19 15:32 | P.PNIM ---
Subjective Interval history: 9-4 Continues to be followed regarding her history of IV drug use tricuspid valve endocarditis prosthetic valve that is. No new issues today Wanting pain medications Has been cleared to transfer to the floor and has a bed available on 1400 01-16 CONTINUE ANTIBIOTICS NO NEW COMPLAINTS WILL BE WITH US FOR AWHILE DUE TO IV ANTIBIOTICS DUE TO TRICUSPID PROSTHETIC VALVE ENDOCARDITIS 01-17 NO NEW ISSUES CONTINUE ANTIBIOTICS NO SOB, NO CHEST PAIN OR PALPITATIONS DW RN AND PT AND CM 97 CONTINUE ANTIBIOTICS FOR TRICUSPID VALVE PROSTHETIC VALVE ENDOCARDITIS NO SOB, NO CHEST PAIN OR FEVERS OR PALPITATIONS DW RN AND PT AND CM 9 NO NEW COMPLAINTS NO FEVERS CONTINUE IV ANTIBIOTICS DW RN AND PT AND CM Physical Exam Vital signs: Vital Signs 01/18/18 16:00 01/18/18 20:00 01/19/18 00:00 Temperature 98.2 F 98.0 F 98.4 F Pulse Rate 88 76 71 Respiratory Rate 17 18 15 Blood Pressure 118/56 L 107/51 L 96/55 L Pulse Oximetry 96 94 L 96 01/19/18 04:00 01/19/18 08:00 01/19/18 12:00 Temperature 97.8 F 97.8 F Pulse Rate 73 77 66 Respiratory Rate 18 18 Blood Pressure 151/84 H 103/59 L Pulse Oximetry 98 94 L 01/19/18 14:05 Temperature 97.4 F L Pulse Rate 69 Respiratory Rate 18 Blood Pressure 99/54 L Pulse Oximetry 95 Intake & Output 01/18/18 01/19/18 01/19/18 18:59 06:59 18:59 Intake Total 1350 / 1350 1930 / 1930 1000 / 1000 Output Total 1800 / 1800 Balance 1350 / 1350 130 / 130 1000 / 1000 Weight 50 kg Intake: IV 1350 / 1350 1450 / 1450 1000 / 1000 NS Inj 1,000 ML @ 100 mls/hr IV 1000 / 1000 1000 / 1000 1000 / 1000 .CONT .Q10H [facility] Rx#:[id number] Teflaro Inj 600 MG In NS Inj 100 / 100 200 / 200 100 ML @ 100 mls/hr IV.SIG Q8H [facility] Rx#:[id number] Vancomycin Inj 1,000 MG In NS 250 / 250 250 / 250 Inj 250 ML @ 250 mls/hr IV.SIG Q12H [facility] Rx#:[id number] Oral 480 / 480 Output: Urine 1800 / 1800 Other: Date of Last Bowel Movement 01/16/18 Narrative: GENERAL: Well-appearing, no acute distress SKIN: Warm and dry. HEAD: Normocephalic. EYES: No scleral icterus. No injection or drainage. NECK: Supple, trachea midline. No JVD or lymphadenopathy. CARDIOVASCULAR: Regular rate and rhythm +YARIEL 1/6 RESPIRATORY: Breath sounds equal bilaterally. No accessory muscle use. GASTROINTESTINAL: Abdomen soft, non-tender, nondistended. MUSCULOSKELETAL: No cyanosis, or edema. Results - Labs CBC & Chem 7: 01/16/18 08:31 01/19/18 07:45 Laboratory Results - last 24 hr 01/19/18 07:45 BUN 10 Creatinine 0.84 Estimated GFR 76 L - Procedures ZEHRA 01-07 Assessment and Plan - Plan In summary this is a 37-year-old female patient with a medical history that is significant for IV drug abuse, endocarditis, status post valve replacement 3 months ago, discitis/osteomyelitis of the lumbar spine, and right infected hip. She presented with generalized weakness and inability to walk. She met sepsis criteria on admission. She was initially admitted to the intensive care unit. On admission patient was found to have an elevated lactic acid and EKG changes consistent for ischemic changes. 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 Sepsis Recurrent tricuspid valve endocarditis--large vegetation noted along tricuspid valve prosthesis Has right infected sternoclavicular joint Urine culture gram + chepe Infectious diseases following: Continue Teflaro, Diflucan, vancomycin, gentamicin. Creatinine needs to be followed closely. Per infectious disease if blood cultures are negative and she continues to have fevers consider drug fever from vancomycin. Patient with recent tricuspid valve replacement on [place] by 3 months ago, she apparently left [place], apparently hospital records have been requested and there is consideration of transferring the patient back to [place] CT surgery anticipate poor prognosis--> suggest patient be transferred? Blood cultures - 01/04, 01/05, 01/06, 01/08 are positive for MRSA. - 01/10 1/2 tubes growing staph coagulase-positive - 01/11 one tube obtained, negative to date - 01/12 one tube obtained, negative to date Elevated troponin Likely secondary to above Hepatitis B and hepatitis C Elevated LFTs noted Anemia and thrombocytopenia Temporal cytopenia likely secondary to sepsis, it is improving Transfuse as needed GI prophylaxis: Stool softeners as needed DVT prophylaxis bilateral SCDs Chronic pain and drug-seeking behavior Discharge Planning: Patient currently on IV abx for endocarditis with bacteremia, anticipate long stay. Previous notes suggest that patient be transferred back to [place] where valve was replaced 3 months ago. case management CONSULTED. On January 13 order was placed for patient to be transferred out of the ICU. Code Status: FULL CODE Discussed Condition With: RN AND PT AND CM Discharge Planning: Pending clearance by infectious disease
[2018-01-20] MEDS: Vancomycin Inj 1,000 MG in Sodium Chlor 0.9% Inj 250 ML IV.SIG SCH ×2 (01:05→13:10)
[2018-01-20] MEDS: Gabapentin 100 MG Capsule PO SCH ×3 (05:06→21:08)
[2018-01-20] MEDS: Sod Chloride 0.9% Inj 1,000 ML IV.CONT SCH ×3 (09:03→17:02)
[2018-01-20] MEDS: Mupirocin 2% Nasal Oint Topical Syringe EACH NARE SCH ×2 (09:44→21:08)
[2018-01-20] MEDS: Fluconazole 100 MG Tablet PO SCH (09:44)
[2018-01-20] MEDS: Famotidine 20 MG Tablet PO SCH ×2 (09:44→21:08)
--- NOTE | 2018-01-20 11:29 | P.PNIM ---
Subjective Interval history: 9-4 Continues to be followed regarding her history of IV drug use tricuspid valve endocarditis prosthetic valve that is. No new issues today Wanting pain medications Has been cleared to transfer to the floor and has a bed available on 1400 01-16 CONTINUE ANTIBIOTICS NO NEW COMPLAINTS WILL BE WITH US FOR AWHILE DUE TO IV ANTIBIOTICS DUE TO TRICUSPID PROSTHETIC VALVE ENDOCARDITIS 6 NO NEW ISSUES CONTINUE ANTIBIOTICS NO SOB, NO CHEST PAIN OR PALPITATIONS DW RN AND PT AND CM 97 CONTINUE ANTIBIOTICS FOR TRICUSPID VALVE PROSTHETIC VALVE ENDOCARDITIS NO SOB, NO CHEST PAIN OR FEVERS OR PALPITATIONS DW RN AND PT AND CM 9-8 NO NEW COMPLAINTS NO FEVERS CONTINUE IV ANTIBIOTICS DW RN AND PT AND CM 9- CONTINUE ANTIBIOTICS FOR TRICUSPID VALVE PROSTHETIC VALVE ENDOCARDITIS NO NEW ISSUES NO FEVERS OR CHEST PAIN DW RN AND PT AND CM Physical Exam Vital signs: Vital Signs 01/19/18 12:00 01/19/18 14:05 01/19/18 16:00 Temperature 97.4 F L Pulse Rate 66 69 67 Respiratory Rate 18 Blood Pressure 99/54 L Pulse Oximetry 95 01/19/18 18:59 01/19/18 20:00 01/20/18 00:00 Temperature 97.7 F Pulse Rate 77 79 65 Respiratory Rate 18 Blood Pressure 123/67 Pulse Oximetry 100 01/20/18 04:00 01/20/18 08:00 Temperature 97.6 F 97.5 F L Pulse Rate 65 62 Respiratory Rate 18 20 Blood Pressure 95/52 L 119/66 Pulse Oximetry 94 L 96 Intake & Output 01/19/18 01/20/18 01/20/18 18:59 06:59 18:59 Intake Total 1350 / 1350 1450 / 1450 1000 / 1000 Balance 1350 / 1350 1450 / 1450 1000 / 1000 Intake: IV 1350 / 1350 1450 / 1450 1000 / 1000 NS Inj 1,000 ML @ 100 mls/hr IV 1000 / 1000 1000 / 1000 1000 / 1000 .CONT .Q10H [facility] Rx#:[id number] Teflaro Inj 600 MG In NS Inj 100 / 100 200 / 200 100 ML @ 100 mls/hr IV.SIG Q8H [facility] Rx#:[id number] Vancomycin Inj 1,000 MG In NS 250 / 250 250 / 250 Inj 250 ML @ 250 mls/hr IV.SIG Q12H [facility] Rx#:[id number] Other: Date of Last Bowel Movement 01/19/18 Narrative: GENERAL: Well-appearing, no acute distress SKIN: Warm and dry. HEAD: Normocephalic. EYES: No scleral icterus. No injection or drainage. NECK: Supple, trachea midline. No JVD or lymphadenopathy. CARDIOVASCULAR: Regular rate and rhythm +YARIEL 1/6 RESPIRATORY: Breath sounds equal bilaterally. No accessory muscle use. GASTROINTESTINAL: Abdomen soft, non-tender, nondistended. MUSCULOSKELETAL: No cyanosis, or edema. Results - Labs CBC & Chem 7: 01/16/18 08:31 01/20/18 07:42 Laboratory Results - last 24 hr 01/20/18 07:42 BUN 9 Creatinine 0.95 Estimated GFR 66 L - Procedures ZEHRA 01-07 Assessment and Plan - Plan In summary this is a 37-year-old female patient with a medical history that is significant for IV drug abuse, endocarditis, status post valve replacement 3 months ago, discitis/osteomyelitis of the lumbar spine, and right infected hip. She presented with generalized weakness and inability to walk. She met sepsis criteria on admission. She was initially admitted to the intensive care unit. On admission patient was found to have an elevated lactic acid and EKG changes consistent for ischemic changes. 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 Sepsis Recurrent tricuspid valve endocarditis--large vegetation noted along tricuspid valve prosthesis Has right infected sternoclavicular joint Urine culture gram + chepe Infectious diseases following: Continue Teflaro, Diflucan, vancomycin, gentamicin. Creatinine needs to be followed closely. Per infectious disease if blood cultures are negative and she continues to have fevers consider drug fever from vancomycin. Patient with recent tricuspid valve replacement on [place] by 3 months ago, she apparently left A, apparently hospital records have been requested and there is consideration of transferring the patient back to [place] CT surgery anticipate poor prognosis--> suggest patient be transferred? Blood cultures - 01/04, 01/05, 01/06, 01/08 are positive for MRSA. - 01/10 1/2 tubes growing staph coagulase-positive - 01/11 one tube obtained, negative to date - 01/12 one tube obtained, negative to date Elevated troponin Likely secondary to above Hepatitis B and hepatitis C Elevated LFTs noted Anemia and thrombocytopenia Temporal cytopenia likely secondary to sepsis, it is improving Transfuse as needed GI prophylaxis: Stool softeners as needed DVT prophylaxis bilateral SCDs Chronic pain and drug-seeking behavior Discharge Planning: Patient currently on IV abx for endocarditis with bacteremia, anticipate long stay. Previous notes suggest that patient be transferred back to [place] where valve was replaced 3 months ago. case management CONSULTED Code Status: FULL CODE Discussed Condition With: RN AND PT AND CM Discharge Planning: Pending clearance by infectious disease
[2018-01-21] MEDS: Vancomycin Inj 1,000 MG in Sodium Chlor 0.9% Inj 250 ML IV.SIG SCH ×2 (00:13→11:08)
[2018-01-21] MEDS: Sod Chloride 0.9% Inj 1,000 ML IV.CONT SCH ×4 (02:00→11:08)
[2018-01-21] MEDS: Gabapentin 100 MG Capsule PO SCH ×3 (05:05→21:20)
[2018-01-21] MEDS: Famotidine 20 MG Tablet PO SCH ×2 (08:35→20:30)
[2018-01-21] MEDS: Fluconazole 100 MG Tablet PO SCH (08:35)
[2018-01-21] MEDS: Mupirocin 2% Nasal Oint Topical Syringe EACH NARE SCH ×2 (08:37→20:30)
--- NOTE | 2018-01-21 13:48 | P.PNIM ---
Subjective Interval history: 9-4 Continues to be followed regarding her history of IV drug use tricuspid valve endocarditis prosthetic valve that is. No new issues today Wanting pain medications Has been cleared to transfer to the floor and has a bed available on 1400 01-16 CONTINUE ANTIBIOTICS NO NEW COMPLAINTS WILL BE WITH US FOR AWHILE DUE TO IV ANTIBIOTICS DUE TO TRICUSPID PROSTHETIC VALVE ENDOCARDITIS 6 NO NEW ISSUES CONTINUE ANTIBIOTICS NO SOB, NO CHEST PAIN OR PALPITATIONS DW RN AND PT AND CM 9-7 CONTINUE ANTIBIOTICS FOR TRICUSPID VALVE PROSTHETIC VALVE ENDOCARDITIS NO SOB, NO CHEST PAIN OR FEVERS OR PALPITATIONS DW RN AND PT AND CM 9-8 NO NEW COMPLAINTS NO FEVERS CONTINUE IV ANTIBIOTICS DW RN AND PT AND CM 9 CONTINUE ANTIBIOTICS FOR TRICUSPID VALVE PROSTHETIC VALVE ENDOCARDITIS NO NEW ISSUES NO FEVERS OR CHEST PAIN DW RN AND PT AND CM 9 NO NEW ISSUES CONTINUE ANTIBIOTICS FOR TV ENDOCARDITIS NO FEVERS OR CHEST PAIN Physical Exam Vital signs: Vital Signs 01/20/18 16:00 01/20/18 20:00 01/21/18 00:00 Temperature 98.1 F 98.5 F 97.9 F Pulse Rate 68 72 59 L Respiratory Rate 20 16 16 Blood Pressure 103/52 L 91/62 L 126/66 Pulse Oximetry 95 95 93 L 01/21/18 04:00 01/21/18 08:00 01/21/18 12:00 Temperature 98.0 F 97.5 F L 97.8 F Pulse Rate 61 62 60 Respiratory Rate 16 18 16 Blood Pressure 117/70 94/52 L 94/50 L Pulse Oximetry 99 95 95 Intake & Output 01/20/18 01/21/18 01/21/18 18:59 06:59 18:59 Intake Total 2710 / 2710 1450 / 1450 350 / 350 Output Total 2500 / 2500 Balance 2710 / 2710 -1050 / -1050 350 / 350 Weight 48.7 kg Intake: IV 2350 / 2350 1450 / 1450 350 / 350 NS Inj 1,000 ML @ 100 mls/hr IV 1999 / 1999 1000 / 1000 .CONT .Q10H [facility] Rx#:[id number] Teflaro Inj 600 MG In NS Inj 100 / 100 200 / 200 100 / 100 100 ML @ 100 mls/hr IV.SIG Q8H [facility] Rx#:[id number] Vancomycin Inj 1,000 MG In NS 250 / 250 250 / 250 250 / 250 Inj 250 ML @ 250 mls/hr IV.SIG Q12H [facility] Rx#:[id number] Oral 360 / 360 Output: Urine 2500 / 2500 Other: # Voids 4 Date of Last Bowel Movement 01/19/18 # Bowel Movements 0 Narrative: GENERAL: Well-appearing, no acute distress SKIN: Warm and dry. HEAD: Normocephalic. EYES: No scleral icterus. No injection or drainage. NECK: Supple, trachea midline. No JVD or lymphadenopathy. CARDIOVASCULAR: Regular rate and rhythm +YARIEL 1/6 RESPIRATORY: Breath sounds equal bilaterally. No accessory muscle use. GASTROINTESTINAL: Abdomen soft, non-tender, nondistended. MUSCULOSKELETAL: No cyanosis, or edema. Results - Labs CBC & Chem 7: 01/16/18 08:31 01/21/18 07:26 Laboratory Results - last 24 hr 01/21/18 07:26 BUN 9 Creatinine 0.89 Estimated GFR 71 L - Procedures ZEHRA 01-07 Assessment and Plan - Plan In summary this is a 37-year-old female patient with a medical history that is significant for IV drug abuse, endocarditis, status post valve replacement 3 months ago, discitis/osteomyelitis of the lumbar spine, and right infected hip. She presented with generalized weakness and inability to walk. She met sepsis criteria on admission. She was initially admitted to the intensive care unit. On admission patient was found to have an elevated lactic acid and EKG changes consistent for ischemic changes. 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 Sepsis Recurrent tricuspid valve endocarditis--large vegetation noted along tricuspid valve prosthesis Has right infected sternoclavicular joint Urine culture gram + chepe Infectious diseases following: Continue Teflaro, Diflucan, vancomycin, gentamicin. Creatinine needs to be followed closely. Per infectious disease if blood cultures are negative and she continues to have fevers consider drug fever from vancomycin. Patient with recent tricuspid valve replacement on [place] by 3 months ago, she apparently left [place], apparently hospital records have been requested and there is consideration of transferring the patient back to [place] CT surgery anticipate poor prognosis--> suggest patient be transferred? Blood cultures - 01/04, 01/05, 01/06, 01/08 are positive for MRSA. - 01/10 1/2 tubes growing staph coagulase-positive - 01/11 one tube obtained, negative to date - 01/12 one tube obtained, negative to date Elevated troponin Likely secondary to above Hepatitis B and hepatitis C Elevated LFTs noted Anemia and thrombocytopenia Temporal cytopenia likely secondary to sepsis, it is improving Transfuse as needed GI prophylaxis: Stool softeners as needed DVT prophylaxis bilateral SCDs Chronic pain and drug-seeking behavior Discharge Planning: Patient currently on IV abx for endocarditis with bacteremia, anticipate long stay. Previous notes suggest that patient be transferred back to [place] where valve was replaced 3 months ago. case management CONSULTED Code Status: FULL CODE Discussed Condition With: RN AND PT AND CM Discharge Planning: Pending clearance by infectious disease
[2018-01-22] MEDS: Sod Chloride 0.9% Inj 1,000 ML IV.CONT SCH ×4 (00:21→17:23)
[2018-01-22] MEDS: Vancomycin Inj 1,000 MG in Sodium Chlor 0.9% Inj 250 ML IV.SIG SCH ×2 (00:27→11:10)
[2018-01-22] MEDS: Gabapentin 100 MG Capsule PO SCH ×3 (05:41→21:10)
[2018-01-22] MEDS: Famotidine 20 MG Tablet PO SCH ×2 (09:14→20:38)
[2018-01-22] MEDS: Fluconazole 100 MG Tablet PO SCH (09:14)
[2018-01-22] MEDS: Mupirocin 2% Nasal Oint Topical Syringe EACH NARE SCH ×2 (09:14→20:37)
--- NOTE | 2018-01-22 11:09 | P.PNIM ---
Subjective Interval history: 9-4 Continues to be followed regarding her history of IV drug use tricuspid valve endocarditis prosthetic valve that is. No new issues today Wanting pain medications Has been cleared to transfer to the floor and has a bed available on 1400 01-16 CONTINUE ANTIBIOTICS NO NEW COMPLAINTS WILL BE WITH US FOR AWHILE DUE TO IV ANTIBIOTICS DUE TO TRICUSPID PROSTHETIC VALVE ENDOCARDITIS 6 NO NEW ISSUES CONTINUE ANTIBIOTICS NO SOB, NO CHEST PAIN OR PALPITATIONS DW RN AND PT AND CM 97 CONTINUE ANTIBIOTICS FOR TRICUSPID VALVE PROSTHETIC VALVE ENDOCARDITIS NO SOB, NO CHEST PAIN OR FEVERS OR PALPITATIONS DW RN AND PT AND CM 98 NO NEW COMPLAINTS NO FEVERS CONTINUE IV ANTIBIOTICS DW RN AND PT AND CM 9 CONTINUE ANTIBIOTICS FOR TRICUSPID VALVE PROSTHETIC VALVE ENDOCARDITIS NO NEW ISSUES NO FEVERS OR CHEST PAIN DW RN AND PT AND CM 01-21 NO NEW ISSUES CONTINUE ANTIBIOTICS FOR TV ENDOCARDITIS NO FEVERS OR CHEST PAIN 01-22 NO NEW COMPLAINTS WILL BE HERE FOR AN EXTENDED PERIOD DUE TO IV ANTIBIOTICS NO FEVERS OR CHEST PAIN Physical Exam Vital signs: Vital Signs 01/21/18 12:00 01/21/18 16:00 01/21/18 20:00 Temperature 97.8 F 97.4 F L 97.9 F Pulse Rate 60 60 61 Respiratory Rate 16 16 18 Blood Pressure 94/50 L 95/49 L 115/60 Pulse Oximetry 95 96 94 L 01/21/18 21:21 01/22/18 00:00 01/22/18 04:00 Temperature 98.3 F 97.3 F L Pulse Rate 66 60 Respiratory Rate 18 18 18 Blood Pressure 101/57 L 103/68 Pulse Oximetry 94 L 92 L 01/22/18 08:00 Temperature 98.1 F Pulse Rate 62 Respiratory Rate 16 Blood Pressure 93/57 L Pulse Oximetry 93 L Intake & Output 01/21/18 01/22/18 01/22/18 18:59 06:59 18:59 Intake Total 1310 / 1310 1450 / 1450 Output Total 450 / 450 Balance 860 / 860 1450 / 1450 Intake: IV 350 / 350 1450 / 1450 NS Inj 1,000 ML @ 100 mls/hr IV 1000 / 1000 .CONT .Q10H [facility] Rx#:[id number] Teflaro Inj 600 MG In NS Inj 100 / 100 200 / 200 100 ML @ 100 mls/hr IV.SIG Q8H [facility] Rx#:[id number] Vancomycin Inj 1,000 MG In NS 250 / 250 250 / 250 Inj 250 ML @ 250 mls/hr IV.SIG Q12H [facility] Rx#:[id number] Oral 960 / 960 Output: Urine 450 / 450 Other: Date of Last Bowel Movement 01/21/18 01/21/18 # Bowel Movements 1 Narrative: GENERAL: Well-appearing, no acute distress SKIN: Warm and dry. HEAD: Normocephalic. EYES: No scleral icterus. No injection or drainage. NECK: Supple, trachea midline. No JVD or lymphadenopathy. CARDIOVASCULAR: Regular rate and rhythm +YARIEL 1/6 RESPIRATORY: Breath sounds equal bilaterally. No accessory muscle use. GASTROINTESTINAL: Abdomen soft, non-tender, nondistended. MUSCULOSKELETAL: No cyanosis, or edema. Results - Labs CBC & Chem 7: 01/16/18 08:31 01/22/18 08:47 Laboratory Results - last 24 hr 01/22/18 08:47 BUN 10 Creatinine 1.07 H Estimated GFR 58 L - Imaging ITS Impressions Chest CTA 01/04/18 15:25 CONCLUSION: 1. Abnormal soft tissue density within the mediastinum unusual appearance for adenopathy partially could be hyperplasia of the patient's thymic gland, however underlying neoplastic process such as lymphoma is not excluded. 2. Slight cardiomegaly. 3. Bilateral parenchymal infiltrates in the lungs. Cervical Spine CT 01/04/18 16:23 CONCLUSION: Unremarkable study. Lumbar Spine CT 01/04/18 16:23 CONCLUSION: 1. Mild bulging of the L4-5 and L5-S1 disks. 2. No abnormal areas of epidural enhancement seen. Thoracic Spine CT 01/04/18 16:23 CONCLUSION: Essentially unremarkable study. Abdomen Ultrasound 01/05/18 00:00 CONCLUSION: 1. Gallbladder sludge 2. Mild splenomegaly 3. Bilateral perinephric fluid 4. No other significant abnormality. Hip CT 01/05/18 00:00 CONCLUSION: 1. Right hip appears unremarkable. No fracture. Chest X-Ray 01/10/18 00:00 CONCLUSION: Increased interstitial markings bilaterally suggestive of pulmonary edema. No significant changes compared to the prior study. - Procedures ZEHRA 01-07 Assessment and Plan - Plan In summary this is a 37-year-old female patient with a medical history that is significant for IV drug abuse, endocarditis, status post valve replacement 3 months ago, discitis/osteomyelitis of the lumbar spine, and right infected hip. She presented with generalized weakness and inability to walk. She met sepsis criteria on admission. She was initially admitted to the intensive care unit. On admission patient was found to have an elevated lactic acid and EKG changes consistent for ischemic changes. 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 Sepsis Recurrent tricuspid valve endocarditis--large vegetation noted along tricuspid valve prosthesis Has right infected sternoclavicular joint Urine culture gram + chepe Infectious diseases following: Continue Teflaro, Diflucan, vancomycin, gentamicin. Creatinine needs to be followed closely. Per infectious disease if blood cultures are negative and she continues to have fevers consider drug fever from vancomycin. Patient with recent tricuspid valve replacement on [place] by 3 months ago, she apparently left AMA, apparently hospital records have been requested and there is consideration of transferring the patient back to [place] CT surgery anticipate poor prognosis--> suggest patient be transferred? Blood cultures - 01/04, 01/05, 01/06, 01/08 are positive for MRSA. - 01/10 1/2 tubes growing staph coagulase-positive - 01/11 one tube obtained, negative to date - 01/12 one tube obtained, negative to date Elevated troponin Likely secondary to above Hepatitis B and hepatitis C Elevated LFTs noted Anemia and thrombocytopenia Temporal cytopenia likely secondary to sepsis, it is improving Transfuse as needed GI prophylaxis: Stool softeners as needed DVT prophylaxis bilateral SCDs Chronic pain and drug-seeking behavior Discharge Planning: Patient currently on IV abx for endocarditis with bacteremia, anticipate long stay. Previous notes suggest that patient be transferred back to [place] where valve was replaced 3 months ago. case management CONSULTED Code Status: FULL CODE Discussed Condition With: PATIENT AND RN AND CM Discharge Planning: Pending clearance by infectious disease AND COMPLETION OF ANTIBIOTICS
[2018-01-22] MEDS ORDERED: Pharmacy Ordered Lab Info OTHER ONE (11:45)
[2018-01-23] MEDS: Sod Chloride 0.9% Inj 1,000 ML IV.CONT SCH ×3 (00:27→14:09)
[2018-01-23] MEDS: Gabapentin 100 MG Capsule PO SCH ×3 (05:22→21:25)
[2018-01-23] MEDS: Fluconazole 100 MG Tablet PO SCH (08:27)
[2018-01-23] MEDS: Famotidine 20 MG Tablet PO SCH ×2 (08:28→21:25)
[2018-01-23] MEDS ORDERED: Vancomycin Inj 500 MG in Sodium Chlor 0.9% Inj 100 ML IV.SIG SCH (11:00)
[2018-01-23] MEDS: Mupirocin 2% Nasal Oint Topical Syringe EACH NARE SCH ×2 (11:35→21:26)
--- NOTE | 2018-01-23 12:01 | P.PNIM ---
Subjective Interval history: No complaints today. Patient inquires about the N date of her antibiotic treatment. No specific intake has been selected. She still says that she has chills and sweats but no fevers in the last 24 hours. Physical Exam Vital signs: Vital Signs 01/22/18 12:00 01/22/18 16:00 01/22/18 20:00 Temperature 97.9 F 98.3 F 98.6 F Pulse Rate 60 61 74 Respiratory Rate 16 16 15 Blood Pressure 93/55 L 103/52 L 98/52 L Pulse Oximetry 96 95 94 L 01/22/18 21:09 01/23/18 00:00 01/23/18 04:00 Temperature 97.4 F L 98.8 F Pulse Rate 60 60 Respiratory Rate 18 18 15 Blood Pressure 95/53 L 107/53 L Pulse Oximetry 94 L 94 L 01/23/18 04:15 01/23/18 08:00 Temperature 98 F Pulse Rate 61 Respiratory Rate 18 18 Blood Pressure 112/55 L Pulse Oximetry 96 Intake & Output 01/22/18 01/23/18 01/23/18 18:59 06:59 18:59 Intake Total 1949 1620 / 1620 1000 / 1000 Output Total 1700 / 1700 Balance 1949 -80 / -80 1000 / 1000 Weight 49.1 kg Intake: IV 1350 / 1350 1200 / 1200 1000 / 1000 NS Inj 1,000 ML @ 100 mls/hr IV 1000 / 1000 1000 / 1000 1000 / 1000 .CONT .Q10H [facility] Rx#:[id number] Teflaro Inj 600 MG In NS Inj 100 / 100 200 / 200 100 ML @ 100 mls/hr IV.SIG Q8H [facility] Rx#:[id number] Oral 600 / 600 420 / 420 Output: Urine 1700 / 1700 Other: # Voids 4 Date of Last Bowel Movement 01/21/18 01/21/18 # Bowel Movements 1 Narrative: GENERAL: NAD, A&Ox3 HEAD: Normocephalic. NECK: Supple, trachea midline. No lymphadenopathy. EYES: No scleral icterus. No injection or drainage. CARDIOVASCULAR: Regular rate and rhythm without murmurs, gallops, or rubs. RESPIRATORY: Breath sounds equal bilaterally. No accessory muscle use. GASTROINTESTINAL: Abdomen soft, non-tender, nondistended. MUSCULOSKELETAL: No cyanosis, or edema. SKIN: Warm and dry. NEURO: No focal neurological deficits. Results - Labs CBC & Chem 7: 01/16/18 08:31 01/22/18 08:47 Laboratory Results - last 24 hr 01/23/18 07:10 Random Vancomycin 14.4 - Procedures ZEHRA 01-07 Assessment and Plan - Plan 37-year-old female patient with a medical history that is significant for IV drug abuse, endocarditis, status post valve replacement 3 months ago in [place], additional discitis/osteomyelitis of the lumbar spine, and right infected hip. Patient left AMA from her hospital in [place]. Admitted with Sepsis. Sepsis Recurrent tricuspid valve endocarditis Sternoclavicular joint infection large vegetation noted along tricuspid valve prosthesis ID following Continue Teflaro, Diflucan, vancomycin, gentamicin. Follow creatinine closely Monitor vital signs - 01/04, 01/05, 01/06, 01/08 are positive for MRSA. - 01/10 1/2 tubes growing staph coagulase-positive - 01/11 one tube obtained, negative to date - 01/12 one tube obtained, negative to date Elevated troponin Secondary to inflammation No need for further monitoring Hepatitis B and hepatitis C Elevated LFTs noted Follow clinically Anemia and thrombocytopenia Temporal cytopenia likely secondary to sepsis, it is improving Transfuse as needed DVT prophylaxis bilateral SCDs Drug abuse history chronic pain and drug-seeking behavior Monitor closely for drug abuse Outpatient counseling recommended upon discharge Discharge Planning: Patient has completed approximately 2 weeks of her 6-8 week IV antibiotic therapy This patient has a poor long-term outlook unless she curves her drug abuse habits
[2018-01-24] MEDS: Sod Chloride 0.9% Inj 1,000 ML IV.CONT SCH ×4 (01:34→22:05)
[2018-01-24] MEDS: Gabapentin 100 MG Capsule PO SCH ×3 (06:05→21:57)
[2018-01-24] MEDS: Fluconazole 100 MG Tablet PO SCH (08:02)
[2018-01-24] MEDS: Famotidine 20 MG Tablet PO SCH ×2 (08:02→21:57)
[2018-01-24] MEDS: Mupirocin 2% Nasal Oint Topical Syringe EACH NARE SCH ×2 (08:02→21:58)
--- NOTE | 2018-01-24 12:27 | P.PNIM ---
Subjective Interval history: No acute changes. No fevers overnight. Night sweats and chills remain. Physical Exam Vital signs: Vital Signs 01/23/18 16:00 01/23/18 20:00 01/24/18 00:00 Temperature 97.7 F 98.3 F 97.8 F Pulse Rate 60 89 56 L Respiratory Rate 18 16 18 Blood Pressure 83/53 L 91/50 L 93/51 L Pulse Oximetry 94 L 95 95 01/24/18 04:00 01/24/18 06:07 01/24/18 08:00 Temperature 97.9 F 98.1 F Pulse Rate 59 L 63 Respiratory Rate 16 Blood Pressure 94/50 L 94/65 L 107/58 L Pulse Oximetry 94 L 95 01/24/18 12:00 Temperature 97.5 F L Pulse Rate 57 L Respiratory Rate 19 Blood Pressure 94/50 L Pulse Oximetry 96 Intake & Output 01/23/18 01/24/18 01/24/18 18:59 06:59 18:59 Intake Total 1680 / 1680 1882 / 1882 200 / 200 Output Total 2100 / 2100 Balance 1680 / 1680 -218 / -218 200 / 200 Weight 48.7 kg Intake: IV 1200 / 1200 1200 / 1200 200 / 200 NS Inj 1,000 ML @ 100 mls/hr IV 1000 / 1000 1000 / 1000 .CONT .Q10H [facility] Rx#:[id number] Teflaro Inj 600 MG In NS Inj 100 / 100 100 / 100 100 / 100 100 ML @ 100 mls/hr IV.SIG Q8H [facility] Rx#:[id number] Vancomycin Inj 500 MG In NS Inj 100 / 100 100 / 100 100 / 100 100 ML @ 200 mls/hr IV.SIG Q12H [facility] Rx#:[id number] Oral 480 / 480 682 / 682 Output: Urine 2100 / 2100 Other: # Voids 3 # Bowel Movements 1 Narrative: GENERAL: NAD, A&Ox3 HEAD: Normocephalic. NECK: Supple, trachea midline. No lymphadenopathy. EYES: No scleral icterus. No injection or drainage. CARDIOVASCULAR: Regular rate and rhythm without murmurs, gallops, or rubs. RESPIRATORY: Breath sounds equal bilaterally. No accessory muscle use. GASTROINTESTINAL: Abdomen soft, non-tender, nondistended. MUSCULOSKELETAL: No cyanosis, or edema. SKIN: Warm and dry. NEURO: No focal neurological deficits. Results - Labs CBC & Chem 7: 01/16/18 08:31 01/24/18 06:56 Laboratory Results - last 24 hr 01/24/18 06:56 BUN 10 Creatinine 1.09 H Estimated GFR 56 L - Procedures ZEHRA 01-07 Assessment and Plan - Plan 37-year-old female patient with a medical history that is significant for IV drug abuse, endocarditis, status post valve replacement 3 months ago in [place], additional discitis/osteomyelitis of the lumbar spine, and right infected hip. Patient left AMA from her hospital in [place]. Admitted with Sepsis. Ensure added to diet. Sepsis Recurrent tricuspid valve endocarditis Sternoclavicular joint infection Treatment plans through 02/21/2018 large vegetation noted along tricuspid valve prosthesis ID following Continue Teflaro, Diflucan, vancomycin, gentamicin. Follow creatinine closely Monitor vital signs - 01/04, 01/05, 01/06, 01/08 are positive for MRSA. - 01/10 1/2 tubes growing staph coagulase-positive - 01/11 one tube obtained, negative to date - 01/12 one tube obtained, negative to date Elevated troponin Secondary to inflammation No need for further monitoring Hepatitis B and hepatitis C Elevated LFTs noted Follow clinically Anemia and thrombocytopenia Temporal cytopenia likely secondary to sepsis, it is improving Transfuse as needed DVT prophylaxis bilateral SCDs Drug abuse history chronic pain and drug-seeking behavior Monitor closely for drug abuse Outpatient counseling recommended upon discharge Discharge Planning: Patient has completed approximately 2 weeks of her 6-8 week IV antibiotic therapy This patient has a poor long-term outlook unless she curves her drug abuse habits
[2018-01-24] MEDS ORDERED: Pharmacy Ordered Lab Info OTHER SCH (22:45)
[2018-01-25 00:34] LABS: Vancomycin,Trough 13.6 mcg/mL (5.0-10.0)
[2018-01-25] MEDS: Gabapentin 100 MG Capsule PO SCH ×3 (06:24→21:51)
[2018-01-25] MEDS: Sod Chloride 0.9% Inj 1,000 ML IV.CONT SCH ×2 (08:14→16:23)
[2018-01-25] MEDS: Mupirocin 2% Nasal Oint Topical Syringe EACH NARE SCH ×2 (08:15→21:50)
[2018-01-25] MEDS: Fluconazole 100 MG Tablet PO SCH (09:36)
[2018-01-25] MEDS: Famotidine 20 MG Tablet PO SCH ×2 (09:36→21:51)
--- NOTE | 2018-01-25 11:27 | P.PNIM ---
Subjective Interval history: No new complaints from the patient today. Mild chills and sweats overnight. Pain remains but is controlled on present treatment. Physical Exam Vital signs: Vital Signs 01/24/18 12:00 01/24/18 16:00 01/24/18 20:00 Temperature 97.5 F L 97.2 F L 98.0 F Pulse Rate 65 55 L 51 L Respiratory Rate 19 19 18 Blood Pressure 94/50 L 94/54 L 91/51 L Pulse Oximetry 96 96 01/25/18 00:00 01/25/18 04:00 01/25/18 08:00 Temperature 98.1 F 97.9 F 97.2 F L Pulse Rate 54 L 54 L 51 L Respiratory Rate 19 17 20 Blood Pressure 94/53 L 86/54 L 106/67 Pulse Oximetry 94 L 95 99 Intake & Output 01/24/18 01/25/18 01/25/18 18:59 06:59 18:59 Intake Total 1300 / 1300 1300 / 1300 0 / 0 Balance 1300 / 1300 1300 / 1300 0 / 0 Intake: IV 1300 / 1300 1300 / 1300 0 / 0 NS Inj 1,000 ML @ 100 mls/hr IV 1000 / 1000 1000 / 1000 0 / 0 .CONT .Q10H [facility] Rx#:[id number] Teflaro Inj 600 MG In NS Inj 200 / 200 200 / 200 100 ML @ 100 mls/hr IV.SIG Q8H [facility] Rx#:[id number] Vancomycin Inj 500 MG In NS Inj 100 / 100 100 / 100 100 ML @ 200 mls/hr IV.SIG Q12H [facility] Rx#:[id number] Other: Date of Last Bowel Movement 01/21/18 Narrative: GENERAL: NAD, A&Ox3 HEAD: Normocephalic. NECK: Supple, trachea midline. No lymphadenopathy. EYES: No scleral icterus. No injection or drainage. CARDIOVASCULAR: Regular rate and rhythm without murmurs, gallops, or rubs. RESPIRATORY: Breath sounds equal bilaterally. No accessory muscle use. GASTROINTESTINAL: Abdomen soft, non-tender, nondistended. MUSCULOSKELETAL: No cyanosis, or edema. SKIN: Warm and dry. NEURO: No focal neurological deficits. Results - Labs CBC & Chem 7: 01/16/18 08:31 01/25/18 09:07 Laboratory Results - last 24 hr 01/24/18 01/25/18 23:30 09:07 BUN 10 Creatinine 1.15 H Estimated GFR 53 L Vancomycin Trough 13.6 H - Procedures ZEHRA 01-07 Assessment and Plan - Plan 37-year-old female patient with a medical history that is significant for IV drug abuse, endocarditis, status post valve replacement 3 months ago in [place], additional discitis/osteomyelitis of the lumbar spine, and right infected hip. Patient left AMA from her hospital in [place]. Admitted with Sepsis. Ensure added to diet. Sepsis Recurrent tricuspid valve endocarditis Sternoclavicular joint infection Continue pain treatments Consider initiating narcotic weaning during the last 2 weeks of her hospital stay large vegetation noted along tricuspid valve prosthesis ID following Continue Teflaro, Diflucan, vancomycin, gentamicin. Follow creatinine closely Monitor vital signs - 01/04, 01/05, 01/06, 01/08 are positive for MRSA. - 01/10 1/2 tubes growing staph coagulase-positive - 01/11 one tube obtained, negative to date - 01/12 one tube obtained, negative to date Elevated troponin Secondary to inflammation No need for further monitoring Hepatitis B and hepatitis C Elevated LFTs noted Follow clinically Anemia and thrombocytopenia Temporal cytopenia likely secondary to sepsis, it is improving Transfuse as needed DVT prophylaxis bilateral SCDs Drug abuse history chronic pain and drug-seeking behavior Monitor closely for drug abuse Outpatient counseling recommended upon discharge Patient will need to be weaned off narcotics prior to discharge, to avoid withdrawal. Discharge Planning: Patient has completed approximately 2 weeks of her 6-8 week IV antibiotic therapy This patient has a poor long-term outlook unless she curves her drug abuse habits
[2018-01-26] MEDS: Sod Chloride 0.9% Inj 1,000 ML IV.CONT SCH ×2 (05:23→13:43)
[2018-01-26] MEDS: Gabapentin 100 MG Capsule PO SCH ×3 (05:25→21:40)
[2018-01-26] MEDS: Famotidine 20 MG Tablet PO SCH ×2 (09:43→21:40)
[2018-01-26] MEDS: Fluconazole 100 MG Tablet PO SCH (09:43)
[2018-01-26] MEDS: Mupirocin 2% Nasal Oint Topical Syringe EACH NARE SCH ×2 (09:49→21:40)
[2018-01-26] MEDS ORDERED: Pharmacy Ordered Lab Info OTHER ONE (10:45)
--- NOTE | 2018-01-26 11:59 | P.PNIM ---
Subjective Interval history: No acute changes overnight. Patient has no complaints today. Physical Exam Vital signs: Vital Signs 01/25/18 12:00 01/25/18 16:00 01/25/18 20:00 Temperature 97.8 F 98.1 F 98.0 F Pulse Rate 56 L 59 L 61 Respiratory Rate 20 20 16 Blood Pressure 100/64 94/59 L 111/67 Pulse Oximetry 97 95 97 01/26/18 00:00 01/26/18 04:00 01/26/18 08:00 Temperature 97.9 F 97.9 F 97.9 F Pulse Rate 61 52 L 61 Respiratory Rate 18 20 18 Blood Pressure 95/54 L 95/54 L 112/56 L Pulse Oximetry 95 95 94 L Intake & Output 01/25/18 01/26/18 01/26/18 18:59 06:59 18:59 Intake Total 2160 / 2160 1200 / 1200 Balance 2160 / 2160 1200 / 1200 Intake: IV 1200 / 1200 1200 / 1200 NS Inj 1,000 ML @ 100 mls/hr IV 1000 / 1000 1000 / 1000 .CONT .Q10H [facility] Rx#:[id number] Teflaro Inj 600 MG In NS Inj 100 / 100 100 / 100 100 ML @ 100 mls/hr IV.SIG Q8H [facility] Rx#:[id number] Vancomycin Inj 500 MG In NS Inj 100 / 100 100 / 100 100 ML @ 200 mls/hr IV.SIG Q12H [facility] Rx#:[id number] Oral 960 / 960 Other: # Voids 4 # Bowel Movements 1 Narrative: GENERAL: NAD, A&Ox3 HEAD: Normocephalic. NECK: Supple, trachea midline. No lymphadenopathy. EYES: No scleral icterus. No injection or drainage. CARDIOVASCULAR: Regular rate and rhythm without murmurs, gallops, or rubs. RESPIRATORY: Breath sounds equal bilaterally. No accessory muscle use. GASTROINTESTINAL: Abdomen soft, non-tender, nondistended. MUSCULOSKELETAL: No cyanosis, or edema. SKIN: Warm and dry. NEURO: No focal neurological deficits. Results - Labs CBC & Chem 7: 01/16/18 08:31 01/26/18 06:00 Laboratory Results - last 24 hr 01/26/18 01/26/18 01/26/18 06:00 06:00 10:22 BUN 13 Creatinine 1.24 H Estimated GFR 49 L Vancomycin Trough 13.0 H - Procedures ZEHRA 01-07 Assessment and Plan - Plan 37-year-old female patient with a medical history that is significant for IV drug abuse, endocarditis, status post valve replacement 3 months ago in [place], additional discitis/osteomyelitis of the lumbar spine, and right infected hip. Patient left AMA from her hospital in [place]. Admitted with Sepsis. Doing well overnight. No complaints. Sepsis Recurrent tricuspid valve endocarditis Sternoclavicular joint infection Continue pain treatments Consider initiating narcotic weaning during the last 2 weeks of her hospital stay large vegetation noted along tricuspid valve prosthesis ID following Continue Teflaro, Diflucan, vancomycin, gentamicin. Follow creatinine closely Monitor vital signs - 01/04, 01/05, 01/06, 01/08 are positive for MRSA. - 01/10 1/ tubes growing staph coagulase-positive - 01/11 one tube obtained, negative to date - 01/12 one tube obtained, negative to date Elevated troponin Secondary to inflammation No need for further monitoring Hepatitis B and hepatitis C Elevated LFTs noted Follow clinically Anemia and thrombocytopenia Temporal cytopenia likely secondary to sepsis, it is improving Transfuse as needed DVT prophylaxis bilateral SCDs Drug abuse history chronic pain and drug-seeking behavior Monitor closely for drug abuse Outpatient counseling recommended upon discharge Patient will need to be weaned off narcotics prior to discharge, to avoid withdrawal. Discharge Planning: Continuing 6 week IV antibiotic therapy, based on date of first negative blood culture, to be completed 02/21/18. This patient has a poor long-term outlook unless she curves her drug abuse habits
[2018-01-27] MEDS: Sod Chloride 0.9% Inj 1,000 ML IV.CONT SCH ×2 (02:58→08:21)
[2018-01-27] MEDS: Gabapentin 100 MG Capsule PO SCH ×3 (05:02→21:39)
[2018-01-27] MEDS: Fluconazole 100 MG Tablet PO SCH (08:21)
[2018-01-27] MEDS: Famotidine 20 MG Tablet PO SCH ×2 (08:21→21:39)
[2018-01-27] MEDS: Mupirocin 2% Nasal Oint Topical Syringe EACH NARE SCH ×2 (08:21→21:39)
--- NOTE | 2018-01-27 12:09 | P.PNIM ---
Subjective Interval history: Patient reports no sensations of chills or sweats last night. She still has joint pains. No new complaints. Physical Exam Vital signs: Vital Signs 01/26/18 16:00 01/26/18 20:00 01/26/18 23:14 Temperature 98.2 F 98.5 F Pulse Rate 57 L 56 L Respiratory Rate 18 18 16 Blood Pressure 121/57 L 106/52 L Pulse Oximetry 95 96 01/27/18 00:00 01/27/18 04:00 01/27/18 06:21 Temperature 98.3 F 97.9 F Pulse Rate 56 L 57 L Respiratory Rate 18 18 16 Blood Pressure 109/55 L 122/53 L Pulse Oximetry 94 L 95 01/27/18 08:00 Temperature 97.8 F Pulse Rate 63 Respiratory Rate 16 Blood Pressure 122/101 H Pulse Oximetry 97 Intake & Output 01/26/18 01/27/18 01/27/18 18:59 06:59 18:59 Intake Total 1620 / 1620 1300 / 1300 Balance 1620 / 1620 1300 / 1300 Weight 50.6 kg Intake: IV 1200 / 1200 1300 / 1300 NS Inj 1,000 ML @ 100 mls/hr IV 1000 / 1000 1000 / 1000 .CONT .Q10H [facility] Rx#:[id number] Teflaro Inj 600 MG In NS Inj 100 / 100 200 / 200 100 ML @ 100 mls/hr IV.SIG Q8H [facility] Rx#:[id number] Vancomycin Inj 500 MG In NS Inj 100 / 100 100 / 100 100 ML @ 200 mls/hr IV.SIG Q12H [facility] Rx#:[id number] Oral 420 / 420 Other: # Voids 6 Date of Last Bowel Movement 01/21/18 # Bowel Movements 1 Narrative: GENERAL: NAD, A&Ox3 HEAD: Normocephalic. NECK: Supple, trachea midline. No lymphadenopathy. EYES: No scleral icterus. No injection or drainage. CARDIOVASCULAR: Regular rate and rhythm without murmurs, gallops, or rubs. RESPIRATORY: Breath sounds equal bilaterally. No accessory muscle use. GASTROINTESTINAL: Abdomen soft, non-tender, nondistended. MUSCULOSKELETAL: No cyanosis, or edema. SKIN: Warm and dry. NEURO: No focal neurological deficits. Results - Labs CBC & Chem 7: 01/16/18 08:31 01/27/18 06:54 Laboratory Results - last 24 hr 01/27/18 01/27/18 06:54 06:54 BUN 12 Creatinine 1.34 H Estimated GFR 45 L - Procedures ZEHRA 01-07 Assessment and Plan - Plan 37-year-old female patient with a medical history that is significant for IV drug abuse, endocarditis, status post valve replacement 3 months ago in [place], additional discitis/osteomyelitis of the lumbar spine, and right infected hip. Patient left AMA from her hospital in [place]. Admitted with Sepsis. Continue present treatments. Continue to monitor clinically. Sepsis Recurrent tricuspid valve endocarditis Sternoclavicular joint infection Continue pain treatments Consider initiating narcotic weaning during the last 2 weeks of her hospital stay large vegetation noted along tricuspid valve prosthesis ID following Continue Teflaro, Diflucan, vancomycin, gentamicin. Follow creatinine closely Monitor vital signs - 01/04, 01/05, 01/06, 01/08 are positive for MRSA. - 01/10 1/2 tubes growing staph coagulase-positive - 01/11 one tube obtained, negative to date - 01/12 one tube obtained, negative to date Elevated troponin Secondary to inflammation No need for further monitoring Hepatitis B and hepatitis C Elevated LFTs noted Follow clinically Anemia and thrombocytopenia Temporal cytopenia likely secondary to sepsis, it is improving Transfuse as needed DVT prophylaxis bilateral SCDs Drug abuse history chronic pain and drug-seeking behavior Monitor closely for drug abuse Outpatient counseling recommended upon discharge Patient will need to be weaned off narcotics prior to discharge, to avoid withdrawal. Discharge Planning: Continuing 6 week IV antibiotic therapy, based on date of first negative blood culture, to be completed 02/21/18. This patient has a poor long-term outlook unless she curves her drug abuse habits
[2018-01-28] MEDS: Gabapentin 100 MG Capsule PO SCH ×3 (05:02→21:01)
[2018-01-28] MEDS: Mupirocin 2% Nasal Oint Topical Syringe EACH NARE SCH ×2 (09:24→20:57)
[2018-01-28] MEDS: Fluconazole 100 MG Tablet PO SCH (09:24)
[2018-01-28] MEDS: Famotidine 20 MG Tablet PO SCH ×2 (09:25→20:56)
--- NOTE | 2018-01-28 13:44 | P.PNID ---
Subjective Remarks: Patient is a 37-year-old female, presented to the hospital complaining of right- sided back pain hip pain, fever and chills. She is also complaining of pain in her right upper extremity. She had noted that she has difficulty moving it because of the pain. Patient history is significant for treatment of tricuspid valve endocarditis back in 2013, lumbar spine infection,, and she was in the hospital for quite a long time, and subsequently developed other kinds of bacteremia which was felt to be related to PICC. She had Klebsiella, Acinetobacter, candidemia, as well as Mycobacterium abscesses. Recently she was hospitalized in the hospital in [place], and the patient stated she was there from July - September 2017. She was treated with 6 weeks of IV antibiotics for endocarditis, and she was also told that she had a hip infection , but she did not have any surgery for the hip. Patient stated she had valve surgery around September 28, and she thinks it might be the tricuspid valve, however she signed out AGAINST MEDICAL ADVICE about 3 days after the surgery. Her boyfriend has been helping her take care of her incision. She came back to this area. Patient denies any significant cough or congestion. No chest pain or shortness of breath. No nausea or vomiting or diarrhea. She has had some incontinence which he attributes due to inability to ambulate secondary to her back and hip pain. On presentation she has been febrile up to 102. She had a CTA which did not show any pulmonary embolism, but it did show abnormalities in the lung as well as some opacity seen on the anterior mediastinum. I had reviewed with radiology and there is also a density seen in the right sternoclavicular joint, and the anterior mediastinum opacity looks like it may be a complex fluid collection. CAT scan of her spine, cervical, thoracic, and lumbar did not show any significant abnormality. 2 blood cultures on admission are now reported as growing gram-positive cocci in pairs and clusters. Patient is currently on vancomycin and meropenem. 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 Notes reviewed Temps ok. Last fever 9/5 Feels better C/O pain in R foreram at IV site No rash or itching No diarrhea WBC normal Creatinine rising Last (+) BC 01/10, no new (+) BC ZEHRA - large vegetation encompassing the TV prosthesis Antibiotics: Vancomycin Teflaro Lines: PIV Past Medical History: Abscess in epidural space of lumbar spine Endocarditis Hepatitis C Hypokalemia Hyponatremia IVDU (intravenous drug user) Osteomyelitis Pneumonia Renal failure Sepsis Thrombocytopenia UTI (urinary tract infection) S/P valve surgery Allergies/Adverse Reactions: Allergies bee venom protein (honey bee) Allergy (Severe, Verified 01/04/18 14:34) rash Objective Vital Signs 01/27/18 16:00 01/27/18 20:00 01/28/18 00:00 Temperature 97.9 F 97.9 F 97.8 F Pulse Rate 53 L 53 L 51 L Respiratory Rate 16 17 17 Blood Pressure 117/56 L 104/52 L 106/64 Pulse Oximetry 95 98 98 01/28/18 04:00 01/28/18 08:00 01/28/18 12:00 Temperature 97.9 F 97.7 F Pulse Rate 60 54 L 58 L Respiratory Rate 17 18 Blood Pressure 110/58 L 113/69 Pulse Oximetry 98 95 Intake & Output 01/27/18 01/28/18 01/28/18 18:59 06:59 18:59 Intake Total 1660 / 1660 300 / 300 200 / 200 Balance 1660 / 1660 300 / 300 200 / 200 Weight 50.7 kg Intake: IV 1200 / 1200 300 / 300 200 / 200 NS Inj 1,000 ML @ 100 mls/hr IV 1000 / 1000 .CONT .Q10H [facility] Rx#:[id number] Teflaro Inj 600 MG In NS Inj 100 / 100 200 / 200 100 / 100 100 ML @ 100 mls/hr IV.SIG Q8H [facility] Rx#:[id number] Vancomycin Inj 500 MG In NS Inj 100 / 100 100 / 100 100 / 100 100 ML @ 200 mls/hr IV.SIG Q12H [facility] Rx#:[id number] Oral 460 / 460 Other: # Voids 6 Date of Last Bowel Movement 01/21/18 # Bowel Movements 1 Lab - Chemistry Results 01/27/18 01/27/18 01/28/18 06:54 06:54 05:30 BUN 12 13 Creatinine 1.34 H 1.28 H Estimated GFR 45 L 47 L Imaging: ITS Impressions Chest CTA 01/04/18 15:25 CONCLUSION: 1. Abnormal soft tissue density within the mediastinum unusual appearance for adenopathy partially could be hyperplasia of the patient's thymic gland, however underlying neoplastic process such as lymphoma is not excluded. 2. Slight cardiomegaly. 3. Bilateral parenchymal infiltrates in the lungs. Cervical Spine CT 01/04/18 16:23 CONCLUSION: Unremarkable study. Lumbar Spine CT 01/04/18 16:23 CONCLUSION: 1. Mild bulging of the L4-5 and L5-S1 disks. 2. No abnormal areas of epidural enhancement seen. Thoracic Spine CT 01/04/18 16:23 CONCLUSION: Essentially unremarkable study. Abdomen Ultrasound 01/05/18 00:00 CONCLUSION: 1. Gallbladder sludge 2. Mild splenomegaly 3. Bilateral perinephric fluid 4. No other significant abnormality. Hip CT 01/05/18 00:00 CONCLUSION: 1. Right hip appears unremarkable. No fracture. Chest X-Ray 01/10/18 00:00 CONCLUSION: Increased interstitial markings bilaterally suggestive of pulmonary edema. No significant changes compared to the prior study. Physical Exam: GENERAL: awake and alert, NAD SKIN: Cool and dry, no generalized rash HEAD: Atraumatic. Normocephalic. No temporal wasting, or tenderness. EYES: [place] conjunctiva. No petechia or hemorrhage. No scleral icterus. No injection or drainage. EARS, NOSE AND THROAT: Mucous membranes pink and moist. No oral lesions noted. No exudate. No oral thrush. NECK: Trachea midline. Supple and not tender, no meningeal signs. R sternoclavicular joint, better CARDIOVASCULAR: Regular rate and rhythm. No murmurs, rubs or gallops heard. healed incision, no sternal instability RESPIRATORY: Coarse BS matty ABDOMEN: Soft, non-tender, nondistended. Bowel sounds present and normoactive. No guarding. No rebound. No organomegaly. EXTREMITIES: No clubbing, cyanosis, or edema. No calf tenderness. Good ROM R hip BACK: tender to R of lumbar spine at buttock NEUROLOGICAL: Grossly non-focal PSYCHIATRIC: Normal affect, calm and cooperative. LINE: No evidence of infection Assessment and Plan - Plan Impression Sepsis, BC (+) MRSA - has a large veg around her TV prosthesis - has infected R sternoclavicular joint, improving - CT lumbar spine ok; ?pelvic bone, SI joint S/P Rx for endocarditis this year TV PVE, MRSA - BC peristent (+) Episode of endocarditis 2013 and lumbar spine infection IVDU Thrombocytopenia, due to sepsis,improving Recurrent fevers, resolved Renal insufficiency Recommendation Continue Teflaro Continue vanco Check UA Repeat labs - labs at least once a week Will need 6-8 weeks IV Abx from last (+) BC, and possibly an oral Abx fpc - 6 weeks is Feb 20 Monitor progress D/W RN
[2018-01-28 14:49] LABS: Bacteria,Urine Rare /hpf; Bilirubin,Urine Negative (Negative); Clarity,Urine Hazy (Clear); Color,Urine Yellow (Yellw/Straw); Glucose,Urine (UA) Negative (Negative); Leukocyte Esterase,Urine Moderate (Negative); Nitrite,Urine Negative (Negative); Specific Gravity,Urine 1.009 (1.002-1.035); Squamous Epithelial Cell,Urine 5 /hpf (0-5)
--- NOTE | 2018-01-28 15:38 | P.PNIM ---
Subjective Interval history: No acute changes. No distress. No complaints of chest pain and no fevers overnight. Physical Exam Vital signs: Vital Signs 01/27/18 16:00 01/27/18 20:00 01/28/18 00:00 Temperature 97.9 F 97.9 F 97.8 F Pulse Rate 53 L 53 L 51 L Respiratory Rate 16 17 17 Blood Pressure 117/56 L 104/52 L 106/64 Pulse Oximetry 95 98 98 01/28/18 04:00 01/28/18 08:00 01/28/18 12:00 Temperature 97.9 F 97.7 F 98.0 F Pulse Rate 60 54 L 64 Respiratory Rate 18 16 Blood Pressure 110/58 L 113/69 107/61 Pulse Oximetry 98 95 97 Intake & Output 01/27/18 01/28/18 01/28/18 18:59 06:59 18:59 Intake Total 1660 / 1660 300 / 300 200 / 200 Balance 1660 / 1660 300 / 300 200 / 200 Weight 50.7 kg Intake: IV 1200 / 1200 300 / 300 200 / 200 NS Inj 1,000 ML @ 100 mls/hr IV 1000 / 1000 .CONT .Q10H [facility] Rx#:[id number] Teflaro Inj 600 MG In NS Inj 100 / 100 200 / 200 100 / 100 100 ML @ 100 mls/hr IV.SIG Q8H [facility] Rx#:[id number] Vancomycin Inj 500 MG In NS Inj 100 / 100 100 / 100 100 / 100 100 ML @ 200 mls/hr IV.SIG Q12H [facility] Rx#:[id number] Oral 460 / 460 Other: # Voids 6 Date of Last Bowel Movement 01/21/18 # Bowel Movements 1 Narrative: GENERAL: NAD, A&Ox3 HEAD: Normocephalic. NECK: Supple, trachea midline. No lymphadenopathy. EYES: No scleral icterus. No injection or drainage. CARDIOVASCULAR: Regular rate and rhythm without murmurs, gallops, or rubs. RESPIRATORY: Breath sounds equal bilaterally. No accessory muscle use. GASTROINTESTINAL: Abdomen soft, non-tender, nondistended. MUSCULOSKELETAL: No cyanosis, or edema. SKIN: Warm and dry. NEURO: No focal neurological deficits. Results - Labs CBC & Chem 7: 01/16/18 08:31 01/28/18 05:30 Laboratory Results - last 24 hr 01/28/18 01/28/18 05:30 14:25 BUN 13 Creatinine 1.28 H Estimated GFR 47 L Urine Color Yellow Urine Clarity Hazy H Urine pH 7.0 Ur Specific [place] 1.009 Urine Protein Negative Urine Glucose (UA) Negative Urine Ketones Negative Urine Occult Blood Small H Urine Nitrate Negative Urine Bilirubin Negative Urine Urobilinogen Less than 2 Ur Leukocyte Esterase Moderate H Urine RBC 6 H Urine WBC 16 H Ur Squamous Epith Cells 5 Urine Bacteria Rare H Ur Microscopic Review Not Reportable - Procedures ZEHRA 01-07 Assessment and Plan - Plan 37-year-old female patient with a medical history that is significant for IV drug abuse, endocarditis, status post valve replacement 3 months ago in [place], additional discitis/osteomyelitis of the lumbar spine, and right infected hip. Patient left AMA from her hospital in [place]. Admitted with Sepsis. No acute chagnes. Continue present treatments. Continue to monitor clinically. A two week narcotic wean could be started on 02/07/18. Patient should be off narcotics by discharge (Hx of narcotic abuse prohibits outpatient prescription of narcotics) with a slow taper to prevent withdraw. Sepsis Recurrent tricuspid valve endocarditis Sternoclavicular joint infection Continue pain treatments Consider initiating narcotic weaning during the last 2 weeks of her hospital stay large vegetation noted along tricuspid valve prosthesis ID following Continue Teflaro, Diflucan, vancomycin, gentamicin. Follow creatinine closely Monitor vital signs - 01/04, 01/05, 01/06, 01/08 are positive for MRSA. - 01/10 1/2 tubes growing staph coagulase-positive - 01/11 one tube obtained, negative to date - 01/12 one tube obtained, negative to date Elevated troponin Secondary to inflammation No need for further monitoring Hepatitis B and hepatitis C Elevated LFTs noted Follow clinically Anemia and thrombocytopenia Temporal cytopenia likely secondary to sepsis, it is improving Transfuse as needed DVT prophylaxis bilateral SCDs Drug abuse history chronic pain and drug-seeking behavior Monitor closely for drug abuse Outpatient counseling recommended upon discharge Patient will need to be weaned off narcotics prior to discharge, to avoid withdrawal. Discharge Planning: Continuing 6 week IV antibiotic therapy, based on date of first negative blood culture, to be completed 02/21/18. This patient has a poor long-term outlook unless she curves her drug abuse habits
[2018-01-28 17:53] LABS: Baso # (Auto) 0.1 th/mm3 (0.0-0.2); Baso % (Auto) 1.1 % (0.0-2.0); Eos # (Auto) 0.2 th/mm3 (0.0-0.4); Eos % (Auto) 3.2 % (0.0-4.0); Hematocrit 30.3 % (35.0-46.0); Hemoglobin 10.1 gm/dL (11.6-15.3); Lymph # (Auto) 1.7 th/mm3 (1.0-4.8); Lymph % (Auto) 27.1 % (9.0-44.0); Mean Corpuscular HGB Conc 33.2 % (32.0-36.0); Mean Corpuscular Hemoglobin 31.4 pg (27.0-34.0); Mean Corpuscular Volume 94.3 fL (80.0-100.0); Mean Platelet Volume 9.5 fL (7.0-11.0); Mono # (Auto) 0.4 th/mm3 (0.0-0.9); Mono % (Auto) 6.8 % (0.0-8.0); Neut % (Auto) 61.8 % (16.0-70.0); Platelet Count 143 th/mm3 (150-450); Red Blood Count 3.21 mil/mm3 (4.00-5.30); Red Cell Distribution Width 14.5 % (11.6-17.2); White Blood Count 6.4 th/mm3 (4.0-11.0)
--- NOTE | 2018-01-28 22:10 | XR ---
EXAM DATE: 01/28/2018 9:49 PM EDT AGE/SEX: 37 years / Female INDICATIONS: MRI clearance. CLINICAL DATA: This is the patient's initial encounter. Patient reports that signs and symptoms have been present for 1 day and indicates a pain score of 0/10. MEDICAL/SURGICAL HISTORY: . Hepatitis C. Abscess. Endocarditis. Hypokalemia. Hypernatremia. IV drug use. Osteomyelitis. Pneumonia. Renal failure. Sepsis. Thrombocytopenia CABG. Valve replacement. COMPARISON: No prior exams available for comparison. FINDINGS: Examination of the abdomen demonstrates a normal bowel gas pattern. Residual coiled pacer leads are present in the left upper quadrant. No free air is identified. No organomegaly is evident. Osseous structures are intact. CONCLUSION: Patient is not cleared for MRI. There are persistent coiled pacer leads in the left upper quadrant. M ild constipation. Electronically signed by: Eulogio Garza MD 01/28/2018 10:09 PM EDT
[2018-01-29] MEDS: Gabapentin 100 MG Capsule PO SCH ×3 (05:30→22:19)
[2018-01-29 07:14] LABS: Albumin 2.8 g/dL (3.4-5.0); Anion Gap 9 meq/L (5-15); Aspartate Aminotransferase 18 U/L (15-37); Blood Urea Nitrogen 18 mg/dL (7-18); Calcium 8.8 mg/dL (8.5-10.1); Carbon Dioxide 28.2 meq/L (21.0-32.0); Chloride 103 meq/L (98-107); Glomerular Filtration Rate 47 mL/min (>89); Glucose,Random 90 mg/dL (74-106); Potassium 4.6 meq/L (3.5-5.1); Sodium 140 meq/L (136-145)
[2018-01-29 07:15] LABS: Alanine Aminotransferase 17 U/L (10-53)
[2018-01-29 07:18] LABS: Alkaline Phosphatase 186 U/L (45-117); Total Protein 8.4 g/dL (6.4-8.2)
[2018-01-29] MEDS: Famotidine 20 MG Tablet PO SCH ×2 (09:21→20:50)
[2018-01-29] MEDS: Fluconazole 100 MG Tablet PO SCH (09:21)
[2018-01-29] MEDS: Mupirocin 2% Nasal Oint Topical Syringe EACH NARE SCH ×2 (09:22→20:51)
--- NOTE | 2018-01-29 12:38 | P.PNID ---
Subjective Remarks: Patient is a 37-year-old female, presented to the hospital complaining of right- sided back pain hip pain, fever and chills. She is also complaining of pain in her right upper extremity. She had noted that she has difficulty moving it because of the pain. Patient history is significant for treatment of tricuspid valve endocarditis back in 2013, lumbar spine infection,, and she was in the hospital for quite a long time, and subsequently developed other kinds of bacteremia which was felt to be related to PICC. She had Klebsiella, Acinetobacter, candidemia, as well as Mycobacterium abscesses. Recently she was hospitalized in the hospital in [place], and the patient stated she was there from July - September 2017. She was treated with 6 weeks of IV antibiotics for endocarditis, and she was also told that she had a hip infection , but she did not have any surgery for the hip. Patient stated she had valve surgery around September 28, and she thinks it might be the tricuspid valve, however she signed out AGAINST MEDICAL ADVICE about 3 days after the surgery. Her boyfriend has been helping her take care of her incision. She came back to this area. Patient denies any significant cough or congestion. No chest pain or shortness of breath. No nausea or vomiting or diarrhea. She has had some incontinence which he attributes due to inability to ambulate secondary to her back and hip pain. On presentation she has been febrile up to 102. She had a CTA which did not show any pulmonary embolism, but it did show abnormalities in the lung as well as some opacity seen on the anterior mediastinum. I had reviewed with radiology and there is also a density seen in the right sternoclavicular joint, and the anterior mediastinum opacity looks like it may be a complex fluid collection. CAT scan of her spine, cervical, thoracic, and lumbar did not show any significant abnormality. 2 blood cultures on admission are now reported as growing gram-positive cocci in pairs and clusters. Patient is currently on vancomycin and meropenem. 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 Notes reviewed Temps ok. Feels better No rash or itching No diarrhea WBC normal Creatinine rising Urine for eos - rare Last (+) BC 01/10, no new (+) BC ZEHRA - large vegetation encompassing the TV prosthesis Antibiotics: Vancomycin Teflaro Lines: PIV Past Medical History: Abscess in epidural space of lumbar spine Endocarditis Hepatitis C Hypokalemia Hyponatremia IVDU (intravenous drug user) Osteomyelitis Pneumonia Renal failure Sepsis Thrombocytopenia UTI (urinary tract infection) S/P valve surgery Allergies/Adverse Reactions: Allergies bee venom protein (honey bee) Allergy (Severe, Verified 01/04/18 14:34) rash Objective Vital Signs 01/28/18 16:00 01/28/18 20:00 01/28/18 23:35 Temperature 97.6 F 98.2 F Pulse Rate 62 57 L Respiratory Rate 18 Blood Pressure 116/56 L 105/69 Pulse Oximetry 96 99 01/29/18 00:00 01/29/18 04:00 01/29/18 08:00 Temperature 98.3 F 97.7 F 97.9 F Pulse Rate 59 L 54 L 56 L Respiratory Rate 18 16 Blood Pressure 90/52 L 109/56 L 108/60 Pulse Oximetry 94 L 95 98 01/29/18 10:56 Temperature Pulse Rate Respiratory Rate 18 Blood Pressure Pulse Oximetry Intake & Output 01/28/18 01/29/18 01/29/18 18:59 06:59 18:59 Intake Total 200 / 200 300 / 300 Balance 200 / 200 300 / 300 Weight 45.3 kg Intake: IV 200 / 200 300 / 300 Teflaro Inj 600 MG In NS Inj 100 / 100 200 / 200 100 ML @ 100 mls/hr IV.SIG Q8H [facility] Rx#:[id number] Vancomycin Inj 500 MG In NS Inj 100 / 100 100 / 100 100 ML @ 200 mls/hr IV.SIG Q12H [facility] Rx#:[id number] Other: # Voids 5 Date of Last Bowel Movement 01/28/18 01/28/18 # Bowel Movements 1 Lab - Hematology Results 01/28/18 17:03 WBC 6.4 RBC 3.21 L Hgb 10.1 L Hct 30.3 L MCV 94.3 MCH 31.4 MCHC 33.2 RDW 14.5 Plt Count 143 L MPV 9.5 Neut % (Auto) 61.8 Lymph % (Auto) 27.1 [place] % (Auto) 6.8 Eos % (Auto) 3.2 Baso % (Auto) 1.1 Neut # (Auto) 4.0 Lymph # (Auto) 1.7 [place] # (Auto) 0.4 Eos # (Auto) 0.2 Baso # (Auto) 0.1 WBC Differential . Differential Comment Auto diff final Lab - Chemistry Results 01/28/18 01/29/18 01/29/18 05:30 05:50 05:50 Sodium 140 Potassium 4.6 Chloride 103 Carbon Dioxide 28.2 Anion Gap 9 BUN 13 17 18 Creatinine 1.28 H 1.27 H Estimated GFR 47 L 47 L Random Glucose 90 Calcium 8.8 Total Bilirubin 0.3 AST 18 ALT 17 Alkaline Phosphatase 186 H Total Protein 8.4 H Albumin 2.8 L Imaging: ITS Impressions Chest CTA 01/04/18 15:25 CONCLUSION: 1. Abnormal soft tissue density within the mediastinum unusual appearance for adenopathy partially could be hyperplasia of the patient's thymic gland, however underlying neoplastic process such as lymphoma is not excluded. 2. Slight cardiomegaly. 3. Bilateral parenchymal infiltrates in the lungs. Cervical Spine CT 01/04/18 16:23 CONCLUSION: Unremarkable study. Lumbar Spine CT 01/04/18 16:23 CONCLUSION: 1. Mild bulging of the L4-5 and L5-S1 disks. 2. No abnormal areas of epidural enhancement seen. Thoracic Spine CT 01/04/18 16:23 CONCLUSION: Essentially unremarkable study. Abdomen Ultrasound 01/05/18 00:00 CONCLUSION: 1. Gallbladder sludge 2. Mild splenomegaly 3. Bilateral perinephric fluid 4. No other significant abnormality. Hip CT 01/05/18 00:00 CONCLUSION: 1. Right hip appears unremarkable. No fracture. Chest X-Ray 01/10/18 00:00 CONCLUSION: Increased interstitial markings bilaterally suggestive of pulmonary edema. No significant changes compared to the prior study. Abdomen X-Ray 01/28/18 00:00 CONCLUSION: Patient is not cleared for MRI. There are persistent coiled pacer leads in the left upper quadrant. Mild constipation. Physical Exam: GENERAL: awake and alert, NAD SKIN: Cool and dry, no generalized rash HEAD: Atraumatic. Normocephalic. No temporal wasting, or tenderness. EYES: [place] conjunctiva. No petechia or hemorrhage. No scleral icterus. No injection or drainage. EARS, NOSE AND THROAT: Mucous membranes pink and moist. No oral lesions noted. No exudate. No oral thrush. NECK: Trachea midline. Supple and not tender, no meningeal signs. R sternoclavicular joint, better CARDIOVASCULAR: Regular rate and rhythm. No murmurs, rubs or gallops heard. healed incision, no sternal instability RESPIRATORY: Coarse BS matty ABDOMEN: Soft, non-tender, nondistended. Bowel sounds present and normoactive. No guarding. No rebound. No organomegaly. EXTREMITIES: No clubbing, cyanosis, or edema. No calf tenderness. Good ROM R hip BACK: tender to R of lumbar spine at buttock NEUROLOGICAL: Grossly non-focal PSYCHIATRIC: Normal affect, calm and cooperative. LINE: No evidence of infection Assessment and Plan - Plan Impression Sepsis, BC (+) MRSA - has a large veg around her TV prosthesis - has infected R sternoclavicular joint, improving - CT lumbar spine ok; ?pelvic bone, SI joint S/P Rx for endocarditis this year TV PVE, MRSA - BC peristent (+) Episode of endocarditis 2013 and lumbar spine infection IVDU Thrombocytopenia, due to sepsis,improving Recurrent fevers, resolved Renal insufficiency - (+) eos - has been on Vanco since 01/04, and Teflaro since 01/10 Recommendation Continue Teflaro Hold vanco Will ask renal opinion regarding (+) urine eos Will need 6-8 weeks IV Abx from last (+) BC, and 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
--- NOTE | 2018-01-29 15:06 | P.PN ---
Subjective Interval history: Follow-up visit endocarditis, history of IVDA, hepatitis B and hepatitis C, chronic pain and drug-seeking behavior. Patient seen and examined today. Reports she is doing well. States right hip pain intermittent. Denies SOB/ dyspnea. Denies chest pain, palpitations, headaches, dizziness. Denies fevers, chills, n/v/d. Denies dysuria. Physical Exam Vital signs: Vital Signs 01/28/18 16:00 01/28/18 20:00 01/28/18 23:35 Temperature 97.6 F 98.2 F Pulse Rate 62 57 L Respiratory Rate 18 18 18 Blood Pressure 116/56 L 105/69 Pulse Oximetry 96 99 01/29/18 00:00 01/29/18 04:00 01/29/18 08:00 Temperature 98.3 F 97.7 F 97.9 F Pulse Rate 59 L 54 L 56 L Respiratory Rate 18 18 16 Blood Pressure 90/52 L 109/56 L 108/60 Pulse Oximetry 94 L 95 98 01/29/18 10:56 01/29/18 12:00 Temperature 97.9 F Pulse Rate 60 Respiratory Rate 18 16 Blood Pressure 104/55 L Pulse Oximetry 97 Intake & Output 01/28/18 01/29/18 01/29/18 18:59 06:59 18:59 Intake Total 200 / 200 300 / 300 Balance 200 / 200 300 / 300 Weight 45.3 kg Intake: IV 200 / 200 300 / 300 Teflaro Inj 600 MG In NS Inj 100 / 100 200 / 200 100 ML @ 100 mls/hr IV.SIG Q8H [facility] Rx#:[id number] Vancomycin Inj 500 MG In NS Inj 100 / 100 100 / 100 100 ML @ 200 mls/hr IV.SIG Q12H [facility] Rx#:[id number] Other: # Voids 5 Date of Last Bowel Movement 01/28/18 01/28/18 # Bowel Movements 1 Narrative: GENERAL: This is a well-nourished, well-developed patient, in no apparent distress. SKIN: Warm and dry. HEENT: Normocephalic. Pupils equal round and reactive. Nose without bleeding. Airway patent. NECK: Trachea midline. CARDIOVASCULAR: Regular rate and rhythm. Sternal scar noted. RESPIRATORY: Clear to auscultation. Breath sounds equal bilaterally. No wheezes , rales, or rhonchi. GASTROINTESTINAL: Abdomen soft, non-tender, nondistended. Bowel Sounds normoactive x4. MUSCULOSKELETAL: Extremities without clubbing, cyanosis, or edema. NEUROLOGICAL: Awake and alert. No focal neuro deficit. Moves all extremities. Normal speech. Results - Labs CBC & Chem 7: 01/28/18 17:03 01/29/18 05:50 Laboratory Results - last 24 hr 01/28/18 01/28/18 01/29/18 14:25 17:03 05:50 WBC 6.4 RBC 3.21 L Hgb 10.1 L Hct 30.3 L MCV 94.3 MCH 31.4 MCHC 33.2 RDW 14.5 Plt Count 143 L MPV 9.5 Neut % (Auto) 61.8 Lymph % (Auto) 27.1 [place] % (Auto) 6.8 Eos % (Auto) 3.2 Baso % (Auto) 1.1 Neut # (Auto) 4.0 Lymph # (Auto) 1.7 [place] # (Auto) 0.4 Eos # (Auto) 0.2 Baso # (Auto) 0.1 WBC Differential . Differential Comment Auto diff final Sodium Potassium Chloride Carbon Dioxide Anion Gap BUN 17 Creatinine Estimated GFR Random Glucose Calcium Total Bilirubin AST ALT Alkaline Phosphatase Total Protein Albumin Urine Eosinophils Rare H 01/29/18 05:50 WBC RBC Hgb Hct MCV MCH MCHC RDW Plt Count MPV Neut % (Auto) Lymph % (Auto) [place] % (Auto) Eos % (Auto) Baso % (Auto) Neut # (Auto) Lymph # (Auto) [place] # (Auto) Eos # (Auto) Baso # (Auto) WBC Differential Differential Comment Sodium 140 Potassium 4.6 Chloride 103 Carbon Dioxide 28.2 Anion Gap 9 BUN 18 Creatinine 1.27 H Estimated GFR 47 L Random Glucose 90 Calcium 8.8 Total Bilirubin 0.3 AST 18 ALT 17 Alkaline Phosphatase 186 H Total Protein 8.4 H Albumin 2.8 L Urine Eosinophils - Imaging Impressions Abdomen X-Ray 01/28/18 00:00 CONCLUSION: Patient is not cleared for MRI. There are persistent coiled pacer leads in the left upper quadrant. Mild constipation. - Procedures ZEHRA 8- Assessment and Plan - Plan 37-year-old female patient with a medical history that is significant for IV drug abuse, endocarditis, status post valve replacement 3 months ago in [place], additional discitis/osteomyelitis of the lumbar spine, and right infected hip. Patient left AMA from her hospital in [place]. Admitted with Sepsis. 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 - 01/10 1/2 tubes growing staph coagulase-positive - 01/11 one tube obtained, negative to date - 01/12 one tube obtained, negative to date Hepatitis B and hepatitis C -Elevated LFTs noted -Follow clinically. Treatment recommendations for outpatient if she becomes free of IVDA Anemia and thrombocytopenia -likely secondary to sepsis, it is improving -Transfuse as needed Drug abuse history chronic pain and drug-seeking behavior Hip and back pain -Monitor closely for drug abuse -Outpatient counseling recommended upon discharge -Patient will need to be weaned off narcotics prior to discharge, to avoid withdrawal. -MRI was ordered. Unable to do. Internal pacer wires from previous heart surgery still in place Elevated troponin -Secondary to inflammation -No need for further monitoring DVT prophylaxis SCDs Code Status: Full code Discussed Condition With: Patient, nursing Discharge Planning: Plan to DC home when cleared by infectious disease. Will continue with antibiotic use. Continuing 6 week IV antibiotic therapy, based on date of first negative blood culture, to be completed 02/21/18.
[2018-01-30] MEDS: Gabapentin 100 MG Capsule PO SCH ×3 (06:09→22:16)
[2018-01-30] MEDS: Famotidine 20 MG Tablet PO SCH ×2 (08:51→22:15)
[2018-01-30] MEDS: Mupirocin 2% Nasal Oint Topical Syringe EACH NARE SCH ×2 (08:52→22:16)
--- NOTE | 2018-01-30 14:02 | P.PNID ---
Subjective Remarks: Patient is a 37-year-old female, presented to the hospital complaining of right- sided back pain hip pain, fever and chills. She is also complaining of pain in her right upper extremity. She had noted that she has difficulty moving it because of the pain. Patient history is significant for treatment of tricuspid valve endocarditis back in 2013, lumbar spine infection,, and she was in the hospital for quite a long time, and subsequently developed other kinds of bacteremia which was felt to be related to PICC. She had Klebsiella, Acinetobacter, candidemia, as well as Mycobacterium abscesses. Recently she was hospitalized in the hospital in [place], and the patient stated she was there from July - September 2017. She was treated with 6 weeks of IV antibiotics for endocarditis, and she was also told that she had a hip infection , but she did not have any surgery for the hip. Patient stated she had valve surgery around September 28, and she thinks it might be the tricuspid valve, however she signed out AGAINST MEDICAL ADVICE about 3 days after the surgery. Her boyfriend has been helping her take care of her incision. She came back to this area. Patient denies any significant cough or congestion. No chest pain or shortness of breath. No nausea or vomiting or diarrhea. She has had some incontinence which he attributes due to inability to ambulate secondary to her back and hip pain. On presentation she has been febrile up to 102. She had a CTA which did not show any pulmonary embolism, but it did show abnormalities in the lung as well as some opacity seen on the anterior mediastinum. I had reviewed with radiology and there is also a density seen in the right sternoclavicular joint, and the anterior mediastinum opacity looks like it may be a complex fluid collection. CAT scan of her spine, cervical, thoracic, and lumbar did not show any significant abnormality. 2 blood cultures on admission are now reported as growing gram-positive cocci in pairs and clusters. Patient is currently on vancomycin and meropenem. 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 Notes reviewed Temps ok. No new complaints No rash or itching No diarrhea WBC normal Creatinine rising Urine for eos - rare Last (+) BC 01/10, no new (+) BC ZEHRA - large vegetation encompassing the TV prosthesis Antibiotics: Teflaro Lines: PIV Past Medical History: Abscess in epidural space of lumbar spine Endocarditis Hepatitis C Hypokalemia Hyponatremia IVDU (intravenous drug user) Osteomyelitis Pneumonia Renal failure Sepsis Thrombocytopenia UTI (urinary tract infection) S/P valve surgery Allergies/Adverse Reactions: Allergies bee venom protein (honey bee) Allergy (Severe, Verified 01/04/18 14:34) rash Objective Vital Signs 01/29/18 16:00 01/29/18 16:31 01/29/18 20:00 Temperature 98.2 F 98.1 F Pulse Rate 69 64 Respiratory Rate 18 Blood Pressure 99/57 L 103/62 Pulse Oximetry 97 96 01/30/18 00:00 01/30/18 04:00 01/30/18 08:00 Temperature 98 F 98.1 F 97.8 F Pulse Rate 69 57 L 71 Respiratory Rate 18 18 20 Blood Pressure 109/63 115/80 116/66 Pulse Oximetry 98 99 97 01/30/18 12:00 Temperature Pulse Rate 63 Respiratory Rate Blood Pressure Pulse Oximetry 97 Intake & Output 01/29/18 01/30/18 01/30/18 18:59 06:59 18:59 Intake Total 520 / 520 200 / 200 100 / 100 Balance 520 / 520 200 / 200 100 / 100 Weight 44.9 kg Intake: IV 100 / 100 200 / 200 100 / 100 Teflaro Inj 600 MG In NS Inj 100 / 100 200 / 200 100 / 100 100 ML @ 100 mls/hr IV.SIG Q8H [facility] Rx#:[id number] Oral 420 / 420 Other: # Voids 3 Date of Last Bowel Movement 01/28/18 # Bowel Movements 0 Lab - Hematology Results 01/28/18 17:03 WBC 6.4 RBC 3.21 L Hgb 10.1 L Hct 30.3 L MCV 94.3 MCH 31.4 MCHC 33.2 RDW 14.5 Plt Count 143 L MPV 9.5 Neut % (Auto) 61.8 Lymph % (Auto) 27.1 [place] % (Auto) 6.8 Eos % (Auto) 3.2 Baso % (Auto) 1.1 Neut # (Auto) 4.0 Lymph # (Auto) 1.7 [place] # (Auto) 0.4 Eos # (Auto) 0.2 Baso # (Auto) 0.1 WBC Differential . Differential Comment Auto diff final Lab - Chemistry Results 01/29/18 01/29/18 01/30/18 05:50 05:50 05:42 Sodium 140 Potassium 4.6 Chloride 103 Carbon Dioxide 28.2 Anion Gap 9 BUN 17 18 21 H Creatinine 1.27 H 1.37 H Estimated GFR 47 L 43 L Random Glucose 90 Calcium 8.8 Total Bilirubin 0.3 AST 18 ALT 17 Alkaline Phosphatase 186 H Total Protein 8.4 H Albumin 2.8 L Imaging: ITS Impressions Chest CTA 01/04/18 15:25 CONCLUSION: 1. Abnormal soft tissue density within the mediastinum unusual appearance for adenopathy partially could be hyperplasia of the patient's thymic gland, however underlying neoplastic process such as lymphoma is not excluded. 2. Slight cardiomegaly. 3. Bilateral parenchymal infiltrates in the lungs. Cervical Spine CT 01/04/18 16:23 CONCLUSION: Unremarkable study. Lumbar Spine CT 01/04/18 16:23 CONCLUSION: 1. Mild bulging of the L4-5 and L5-S1 disks. 2. No abnormal areas of epidural enhancement seen. Thoracic Spine CT 01/04/18 16:23 CONCLUSION: Essentially unremarkable study. Abdomen Ultrasound 01/05/18 00:00 CONCLUSION: 1. Gallbladder sludge 2. Mild splenomegaly 3. Bilateral perinephric fluid 4. No other significant abnormality. Hip CT 01/05/18 00:00 CONCLUSION: 1. Right hip appears unremarkable. No fracture. Chest X-Ray 01/10/18 00:00 CONCLUSION: Increased interstitial markings bilaterally suggestive of pulmonary edema. No significant changes compared to the prior study. Abdomen X-Ray 01/28/18 00:00 CONCLUSION: Patient is not cleared for MRI. There are persistent coiled pacer leads in the left upper quadrant. Mild constipation. Physical Exam: GENERAL: awake and alert, NAD SKIN: Cool and dry, no generalized rash HEAD: Atraumatic. Normocephalic. No temporal wasting, or tenderness. EYES: [place] conjunctiva. No petechia or hemorrhage. No scleral icterus. No injection or drainage. EARS, NOSE AND THROAT: Mucous membranes pink and moist. No oral lesions noted. No exudate. No oral thrush. NECK: Trachea midline. Supple and not tender, no meningeal signs. R sternoclavicular joint, better CARDIOVASCULAR: Regular rate and rhythm. No murmurs, rubs or gallops heard. healed incision, no sternal instability RESPIRATORY: Coarse BS matty ABDOMEN: Soft, non-tender, nondistended. Bowel sounds present and normoactive. No guarding. No rebound. No organomegaly. EXTREMITIES: No clubbing, cyanosis, or edema. No calf tenderness. Good ROM R hip BACK: tender to R of lumbar spine at buttock NEUROLOGICAL: Grossly non-focal PSYCHIATRIC: Normal affect, calm and cooperative. LINE: No evidence of infection Assessment and Plan - Plan Impression Sepsis, BC (+) MRSA - has a large veg around her TV prosthesis - has infected R sternoclavicular joint, improving - CT lumbar spine ok; ?pelvic bone, SI joint S/P Rx for endocarditis this year TV PVE, MRSA - BC peristent (+) Episode of endocarditis 2013 and lumbar spine infection IVDU Thrombocytopenia, due to sepsis,improving Recurrent fevers, resolved Renal insufficiency - (+) eos - has been on Vanco since 01/04, and Teflaro since 01/10 Recommendation Continue Teflaro Follow BMP If continues to rise, will switch to Cubicin Will need 6-8 weeks IV Abx from last (+) BC, and possibly an oral Abx halfway - 6 weeks is Oct 10 Monitor progress
--- NOTE | 2018-01-30 15:30 | P.PN ---
Subjective Interval history: Follow-up visit endocarditis, history of IVDA, hepatitis B and hepatitis C, chronic pain and drug-seeking behavior. Patient seen and examined today. Reports she is doing well. Reports she has been ambulating her room without difficulty. Denies SOB/ dyspnea. Denies chest pain, palpitations, headaches, dizziness. Denies fevers, chills, n/v/d. Denies dysuria. Physical Exam Vital signs: Vital Signs 01/29/18 16:00 01/29/18 16:31 01/29/18 20:00 Temperature 98.2 F 98.1 F Pulse Rate 69 64 Respiratory Rate 18 Blood Pressure 99/57 L 103/62 Pulse Oximetry 97 96 01/30/18 00:00 01/30/18 04:00 01/30/18 08:00 Temperature 98 F 98.1 F 97.8 F Pulse Rate 69 57 L 71 Respiratory Rate 18 18 20 Blood Pressure 109/63 115/80 116/66 Pulse Oximetry 98 99 97 01/30/18 12:00 Temperature Pulse Rate 63 Respiratory Rate Blood Pressure Pulse Oximetry 97 Intake & Output 01/29/18 01/30/18 01/30/18 18:59 06:59 18:59 Intake Total 520 / 520 200 / 200 100 / 100 Balance 520 / 520 200 / 200 100 / 100 Weight 44.9 kg Intake: IV 100 / 100 200 / 200 100 / 100 Teflaro Inj 600 MG In NS Inj 100 / 100 200 / 200 100 / 100 100 ML @ 100 mls/hr IV.SIG Q8H [facility] Rx#:[id number] Oral 420 / 420 Other: # Voids 3 Date of Last Bowel Movement 01/28/18 # Bowel Movements 0 Narrative: GENERAL: This is a well-nourished, well-developed patient, in no apparent distress. SKIN: Warm and dry. HEENT: Normocephalic. Pupils equal round and reactive. Nose without bleeding. Airway patent. NECK: Trachea midline. CARDIOVASCULAR: Regular rate and rhythm. Sternal scar noted. RESPIRATORY: Clear to auscultation. Breath sounds equal bilaterally. No wheezes , rales, or rhonchi. GASTROINTESTINAL: Abdomen soft, non-tender, nondistended. Bowel Sounds normoactive x4. MUSCULOSKELETAL: Extremities without clubbing, cyanosis, or edema. NEUROLOGICAL: Awake and alert. No focal neuro deficit. Moves all extremities. Normal speech. Results - Labs CBC & Chem 7: 01/28/18 17:03 01/30/18 05:42 Laboratory Results - last 24 hr 01/30/18 05:42 BUN 21 H Creatinine 1.37 H Estimated GFR 43 L - Procedures ZEHRA 01-07 Assessment and Plan - Plan 37-year-old female patient with a medical history that is significant for IV drug abuse, endocarditis, status post valve replacement 3 months ago in [place], additional discitis/osteomyelitis of the lumbar spine, and right infected hip. Patient left AMA from her hospital in [place]. Admitted with Sepsis. 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 -DC Vanco per ID/ nephro as TURNER OFF is slightly elevated -Follow creatinine closely - Continues to be slightly elevated, as per ID if continues to be elevated may need to switch to Cubicin. -Will need 6 weeks course ABX, February 20 - poss long term care social worker oral abx -Blood cultures - 01/04, 01/05, 01/06, 01/08 are positive for MRSA. - 01/10 1/2 tubes growing staph coagulase-positive - 01/11 one tube obtained, negative to date - 01/12 one tube obtained, negative to date Hepatitis B and hepatitis C -Elevated LFTs noted -Follow clinically. Treatment recommendations for outpatient if she becomes free of IVDA Anemia and thrombocytopenia -likely secondary to sepsis, it is improving -Transfuse as needed Drug abuse history chronic pain and drug-seeking behavior Hip and back pain -Monitor closely for drug abuse -Outpatient counseling recommended upon discharge -Patient will need to be weaned off narcotics prior to discharge, to avoid withdrawal. -MRI was ordered. Unable to do. Internal pacer wires from previous heart surgery still in place Elevated troponin -Secondary to inflammation -No need for further monitoring DVT prophylaxis SCDs Code Status: Full Code Discussed Condition With: Patient, nursing Discharge Planning: Plan to DC home when cleared by infectious disease. Will continue with antibiotic use. Continuing 6 week IV antibiotic therapy, based on date of first negative blood culture, to be completed 02/21/18.
[2018-01-31] MEDS: Gabapentin 100 MG Capsule PO SCH ×3 (05:28→21:04)
[2018-01-31 07:28] LABS: Calcium 9.2 mg/dL (8.5-10.1); Carbon Dioxide 28.8 meq/L (21.0-32.0); Potassium 4.7 meq/L (3.5-5.1)
[2018-01-31] MEDS: Famotidine 20 MG Tablet PO SCH ×2 (09:18→21:04)
[2018-01-31] MEDS: Mupirocin 2% Nasal Oint Topical Syringe EACH NARE SCH ×2 (09:22→21:04)
[2018-01-31] MEDS ORDERED: Pharmacy Ordered Lab Info OTHER ONE (10:45)
--- NOTE | 2018-01-31 14:01 | P.PN ---
Subjective Interval history: no complains good po up on chair no diarrhea voiding well Physical Exam Vital signs: Vital Signs 01/30/18 16:00 01/30/18 18:00 01/30/18 20:00 Temperature 97.8 F 97.5 F L 97.6 F Pulse Rate 68 82 77 Respiratory Rate 16 20 18 Blood Pressure 101/58 L 107/63 107/56 L Pulse Oximetry 96 94 L 98 01/31/18 00:00 01/31/18 04:00 01/31/18 08:00 Temperature 97.6 F 98.0 F 98.0 F Pulse Rate 64 66 64 Respiratory Rate 20 20 18 Blood Pressure 101/52 L 100/56 L 107/55 L Pulse Oximetry 96 96 96 01/31/18 11:23 Temperature 98.8 F Pulse Rate 83 Respiratory Rate 16 Blood Pressure 120/73 Pulse Oximetry Intake & Output 01/30/18 01/31/18 01/31/18 18:59 06:59 18:59 Intake Total 420 / 420 1060 / 1060 Balance 420 / 420 1060 / 1060 Weight 44 kg Intake: IV 100 / 100 200 / 200 Teflaro Inj 600 MG In NS Inj 100 / 100 200 / 200 100 ML @ 100 mls/hr IV.SIG Q8H [facility] Rx#:[id number] Oral 320 / 320 860 / 860 Other: # Voids 4 3 # Bowel Movements 0 Narrative: GENERAL: in no apparent distress. SKIN: Warm and dry. HEENT: Normocephalic. Pupils equal round and reactive. Nose without bleeding. Airway patent. NECK: Trachea midline. CARDIOVASCULAR: Regular rate and rhythm. Sternal scar noted. RESPIRATORY: Clear to auscultation. Breath sounds equal bilaterally. No wheezes , rales, or rhonchi. GASTROINTESTINAL: Abdomen soft, non-tender, nondistended. Bowel Sounds normoactive x4. MUSCULOSKELETAL: Extremities without clubbing, cyanosis, or edema. NEUROLOGICAL: Awake and alert. No focal neuro deficit. Moves all extremities. Normal speech. Results - Labs CBC & Chem 7: 01/28/18 17:03 01/31/18 06:09 Laboratory Results - last 24 hr 01/31/18 06:09 Sodium 135 L Potassium 4.7 Chloride 100 Carbon Dioxide 28.8 Anion Gap 6 BUN 26 H Creatinine 1.58 H Estimated GFR 37 L Random Glucose 106 Calcium 9.2 - Procedures ZEHRA 8-27 Assessment and Plan - Plan 37-year-old female patient with a medical history that is significant for IV drug abuse, endocarditis, status post valve replacement 3 months ago in [place], additional discitis/osteomyelitis of the lumbar spine, and right infected hip. Patient left AMA from her hospital in [place]. Admitted with Sepsis. 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 -Will need 6 weeks course ABX, February 20 - poss oysterman oral abx -Blood cultures - 01/04, 01/05, 01/06, 01/08 are positive for MRSA. - 01/10 1/2 tubes growing staph coagulase-positive - 01/11 one tube obtained, negative to date - 01/12 one tube obtained, negative to date - latest blood culture- negative for 5 days ID ff Continue Teflaro Follow BMP If continues to rise, will switch to Cubicin Will need 6-8 weeks IV Abx from last (+) BC, and possibly an oral Abx oysterman - 6 weeks is Feb 20 Monitor progress JACQUELIN- + Urine eosinophilia non oliguric- creatinine trending up ff closely on current antiibotics give 1L NS ff BMP Hepatitis B and hepatitis C -Elevated LFTs noted -Follow clinically. Treatment recommendations for outpatient if she becomes free of IVDA Anemia and thrombocytopenia -likely secondary to sepsis, it is improving -Transfuse as needed Drug abuse history chronic pain and drug-seeking behavior Hip and back pain -Monitor closely for drug abuse -Outpatient counseling recommended upon discharge -Patient will need to be weaned off narcotics prior to discharge, to avoid withdrawal. -MRI was ordered. Unable to do. Internal pacer wires from previous heart surgery still in place Elevated troponin -Secondary to inflammation -No need for further monitoring DVT prophylaxis SCDs Code Status: Full Code Discussed Condition With: Patient, nursing Discharge Planning: Plan to DC home when cleared by infectious disease. Will continue with antibiotic use. Continuing 6 week IV antibiotic therapy, based on date of first negative blood culture, to be completed 02/21/18.
[2018-01-31] MEDS ORDERED: Sod Chloride 0.9% Inj 1,000 ML IV.CONT SCH (14:45)
--- NOTE | 2018-01-31 14:47 | P.PNID ---
Subjective Remarks: Patient is a 37-year-old female, presented to the hospital complaining of right- sided back pain hip pain, fever and chills. She is also complaining of pain in her right upper extremity. She had noted that she has difficulty moving it because of the pain. Patient history is significant for treatment of tricuspid valve endocarditis back in 2013, lumbar spine infection,, and she was in the hospital for quite a long time, and subsequently developed other kinds of bacteremia which was felt to be related to PICC. She had Klebsiella, Acinetobacter, candidemia, as well as Mycobacterium abscesses. Recently she was hospitalized in the hospital in [place], and the patient stated she was there from July - September 2017. She was treated with 6 weeks of IV antibiotics for endocarditis, and she was also told that she had a hip infection , but she did not have any surgery for the hip. Patient stated she had valve surgery around September 28, and she thinks it might be the tricuspid valve, however she signed out AGAINST MEDICAL ADVICE about 3 days after the surgery. Her boyfriend has been helping her take care of her incision. She came back to this area. Patient denies any significant cough or congestion. No chest pain or shortness of breath. No nausea or vomiting or diarrhea. She has had some incontinence which he attributes due to inability to ambulate secondary to her back and hip pain. On presentation she has been febrile up to 102. She had a CTA which did not show any pulmonary embolism, but it did show abnormalities in the lung as well as some opacity seen on the anterior mediastinum. I had reviewed with radiology and there is also a density seen in the right sternoclavicular joint, and the anterior mediastinum opacity looks like it may be a complex fluid collection. CAT scan of her spine, cervical, thoracic, and lumbar did not show any significant abnormality. 2 blood cultures on admission are now reported as growing gram-positive cocci in pairs and clusters. Patient is currently on vancomycin and meropenem. 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 Notes reviewed Temps ok. No new complaints No rash or itching No diarrhea WBC normal Creatinine continues to rise Urine for eos - rare Last (+) BC 01/10, no new (+) BC ZEHRA - large vegetation encompassing the TV prosthesis Antibiotics: Teflaro Lines: PIV Past Medical History: Abscess in epidural space of lumbar spine Endocarditis Hepatitis C Hypokalemia Hyponatremia IVDU (intravenous drug user) Osteomyelitis Pneumonia Renal failure Sepsis Thrombocytopenia UTI (urinary tract infection) S/P valve surgery Allergies/Adverse Reactions: Allergies bee venom protein (honey bee) Allergy (Severe, Verified 01/04/18 14:34) rash Objective Vital Signs 01/30/18 16:00 01/30/18 18:00 01/30/18 20:00 Temperature 97.8 F 97.5 F L 97.6 F Pulse Rate 68 82 77 Respiratory Rate 16 20 18 Blood Pressure 101/58 L 107/63 107/56 L Pulse Oximetry 96 94 L 98 01/31/18 00:00 01/31/18 04:00 01/31/18 08:00 Temperature 97.6 F 98.0 F 98.0 F Pulse Rate 64 66 64 Respiratory Rate 20 20 18 Blood Pressure 101/52 L 100/56 L 107/55 L Pulse Oximetry 96 96 96 01/31/18 11:23 Temperature 98.8 F Pulse Rate 83 Respiratory Rate 16 Blood Pressure 120/73 Pulse Oximetry Intake & Output 01/30/18 01/31/18 01/31/18 18:59 06:59 18:59 Intake Total 420 / 420 1060 / 1060 Balance 420 / 420 1060 / 1060 Weight 44 kg Intake: IV 100 / 100 200 / 200 Teflaro Inj 600 MG In NS Inj 100 / 100 200 / 200 100 ML @ 100 mls/hr IV.SIG Q8H [facility] Rx#:[id number] Oral 320 / 320 860 / 860 Other: # Voids 4 3 # Bowel Movements 0 Lab - Chemistry Results 01/30/18 01/31/18 05:42 06:09 Sodium 135 L Potassium 4.7 Chloride 100 Carbon Dioxide 28.8 Anion Gap 6 BUN 21 H 26 H Creatinine 1.37 H 1.58 H Estimated GFR 43 L 37 L Random Glucose 106 Calcium 9.2 Imaging: ITS Impressions Chest CTA 01/04/18 15:25 CONCLUSION: 1. Abnormal soft tissue density within the mediastinum unusual appearance for adenopathy partially could be hyperplasia of the patient's thymic gland, however underlying neoplastic process such as lymphoma is not excluded. 2. Slight cardiomegaly. 3. Bilateral parenchymal infiltrates in the lungs. Cervical Spine CT 01/04/18 16:23 CONCLUSION: Unremarkable study. Lumbar Spine CT 01/04/18 16:23 CONCLUSION: 1. Mild bulging of the L4-5 and L5-S1 disks. 2. No abnormal areas of epidural enhancement seen. Thoracic Spine CT 01/04/18 16:23 CONCLUSION: Essentially unremarkable study. Abdomen Ultrasound 01/05/18 00:00 CONCLUSION: 1. Gallbladder sludge 2. Mild splenomegaly 3. Bilateral perinephric fluid 4. No other significant abnormality. Hip CT 01/05/18 00:00 CONCLUSION: 1. Right hip appears unremarkable. No fracture. Chest X-Ray 01/10/18 00:00 CONCLUSION: Increased interstitial markings bilaterally suggestive of pulmonary edema. No significant changes compared to the prior study. Abdomen X-Ray 01/28/18 00:00 CONCLUSION: Patient is not cleared for MRI. There are persistent coiled pacer leads in the left upper quadrant. Mild constipation. Physical Exam: GENERAL: awake and alert, NAD SKIN: Cool and dry, no generalized rash HEAD: Atraumatic. Normocephalic. No temporal wasting, or tenderness. EYES: [place] conjunctiva. No petechia or hemorrhage. No scleral icterus. No injection or drainage. EARS, NOSE AND THROAT: Mucous membranes pink and moist. No oral lesions noted. No exudate. No oral thrush. NECK: Trachea midline. Supple and not tender, no meningeal signs. R sternoclavicular joint, better CARDIOVASCULAR: Regular rate and rhythm. No murmurs, rubs or gallops heard. healed incision, no sternal instability RESPIRATORY: Coarse BS matty ABDOMEN: Soft, non-tender, nondistended. Bowel sounds present and normoactive. No guarding. No rebound. No organomegaly. EXTREMITIES: No clubbing, cyanosis, or edema. No calf tenderness. Good ROM R hip BACK: tender to R of lumbar spine at buttock NEUROLOGICAL: Grossly non-focal PSYCHIATRIC: Normal affect, calm and cooperative. LINE: No evidence of infection Assessment and Plan - Plan Impression Sepsis, BC (+) MRSA - has a large veg around her TV prosthesis - has infected R sternoclavicular joint, improving - CT lumbar spine ok; ?pelvic bone, SI joint S/P Rx for endocarditis this year TV PVE, MRSA - BC peristent (+) Episode of endocarditis 2013 and lumbar spine infection IVDU Thrombocytopenia, due to sepsis,improving Recurrent fevers, resolved Renal insufficiency - (+) eos, worsening - has been on Vanco since 01/04, and Teflaro since 01/10 Recommendation Stop Teflaro Follow BMP Start Daptomycin - follow CPK Will need 6-8 weeks IV Abx from last (+) BC, and possibly an oral Abx [facility] - 6 weeks is Feb 20 Monitor progress D/W Dr Mclaughlin
[2018-01-31] MEDS: DAPTOmycin Inj 400 MG in Sodium Chlor 0.9% Inj 100 ML IV.SIG SCH (17:38)
[2018-02-01] MEDS: Gabapentin 100 MG Capsule PO SCH ×3 (05:42→21:38)
[2018-02-01 07:58] LABS: Calcium 8.9 mg/dL (8.5-10.1); Carbon Dioxide 29.2 meq/L (21.0-32.0); Potassium 4.5 meq/L (3.5-5.1)
[2018-02-01] MEDS: Famotidine 20 MG Tablet PO SCH ×2 (08:04→21:39)
[2018-02-01] MEDS: Mupirocin 2% Nasal Oint Topical Syringe EACH NARE SCH ×2 (08:04→21:37)
--- NOTE | 2018-02-01 12:37 | P.PN ---
Subjective Interval history: patient complained of cold. chilly sensation- check T - no fever no complains of nausea or vomiting no dysuria , diarrhea, cough Physical Exam Vital signs: Vital Signs 01/31/18 16:00 01/31/18 20:00 02/01/18 00:00 Temperature 98 F 97.4 F L Pulse Rate 66 73 75 Respiratory Rate 20 20 Blood Pressure 110/64 98/54 L Pulse Oximetry 96 98 02/01/18 04:00 02/01/18 08:00 02/01/18 11:50 Temperature 98.0 F 98.1 F 98.7 F Pulse Rate 74 70 81 Respiratory Rate 18 16 18 Blood Pressure 97/53 L 128/74 99/61 L Pulse Oximetry 98 95 Intake & Output 01/31/18 02/01/18 02/01/18 18:59 06:59 18:59 Intake Total 1060 / 1060 1000 / 1000 Balance 1060 / 1060 1000 / 1000 Weight 44 kg Intake: IV 100 / 100 1000 / 1000 NS Inj 1,000 ML @ 70 mls/hr IV. 1000 / 1000 CONT .[id number] [facility] Rx#:[id number] Cubicin Inj 400 MG In NS Inj 100 / 100 100 ML @ 200 mls/hr IV.SIG Q24H [facility] Rx#:[id number] Oral 960 / 960 Other: # Voids 4 Date of Last Bowel Movement 01/30/18 01/31/18 # Bowel Movements 1 Narrative: in no apparent distress. SKIN: Warm and dry. HEENT: Normocephalic. Pupils equal round and reactive. Nose without bleeding. Airway patent. NECK: Trachea midline. CARDIOVASCULAR: Regular rate and rhythm. Sternal scar noted. RESPIRATORY: Clear to auscultation. Breath sounds equal bilaterally. No wheezes , rales, or rhonchi. GASTROINTESTINAL: Abdomen soft, non-tender, nondistended. Bowel Sounds normoactive x4. MUSCULOSKELETAL: Extremities without clubbing, cyanosis, or edema. NEUROLOGICAL: Awake and alert. No focal neuro deficit. Moves all extremities. Normal speech. Results - Labs CBC & Chem 7: 01/28/18 17:03 02/01/18 06:23 Laboratory Results - last 24 hr 02/01/18 06:23 Sodium 139 Potassium 4.5 Chloride 104 Carbon Dioxide 29.2 Anion Gap 6 BUN 22 H Creatinine 1.40 H Estimated GFR 42 L Random Glucose 86 Calcium 8.9 Total Creatine Kinase 41 - Procedures ZEHRA 01-07 Assessment and Plan - Plan 37-year-old female patient with a medical history that is significant for IV drug abuse, endocarditis, status post valve replacement 3 months ago in [place], additional discitis/osteomyelitis of the lumbar spine, and right infected hip. Patient left AMA from her hospital in [place]. Admitted with Sepsis. Sepsis Recurrent tricuspid valve endocarditis Sternoclavicular joint infection status post valve replacement 3 months ago, [place] -Continue pain treatments -Consider initiating narcotic weaning during the last 2 weeks of her hospital stay -Large vegetation noted along tricuspid valve prosthesis -Continue Teflaro - Previously Diflucan, vancomycin, gentamicin. 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 Treatment recommendations for outpatient if she becomes free of IVDA Anemia and thrombocytopenia -likely secondary to sepsis, it is improving -Transfuse as needed Drug abuse history chronic pain and drug-seeking behavior Hip and back pain -Monitor closely for drug abuse -Outpatient counseling recommended upon discharge - weaned off narcotics IV prior to discharge, to avoid withdrawal. on PO Roxicodone prn -MRI was ordered. Unable to do. Internal pacer wires from previous heart surgery still in place Elevated troponin -Secondary to inflammation -No need for further monitoring DVT prophylaxis SCDs Code Status: Full Code Discussed Condition With: Patient, nursing Discharge Planning: Plan to DC home when cleared by infectious disease. Will continue with antibiotic use. Continuing 6 week IV antibiotic therapy, based on date of first negative blood culture, to be completed 02/21/18.
[2018-02-01] MEDS: DAPTOmycin Inj 400 MG in Sodium Chlor 0.9% Inj 100 ML IV.SIG SCH (15:54)
[2018-02-02] MEDS: Gabapentin 100 MG Capsule PO SCH ×3 (05:32→22:00)
[2018-02-02 06:10] LABS: Calcium 8.8 mg/dL (8.5-10.1); Carbon Dioxide 26.5 meq/L (21.0-32.0); Potassium 4.1 meq/L (3.5-5.1)
[2018-02-02] MEDS: Mupirocin 2% Nasal Oint Topical Syringe EACH NARE SCH ×2 (08:19→20:40)
[2018-02-02] MEDS: Famotidine 20 MG Tablet PO SCH (08:22)
--- NOTE | 2018-02-02 13:00 | P.PNID ---
Subjective Remarks: Patient is a 37-year-old female, presented to the hospital complaining of right- sided back pain hip pain, fever and chills. She is also complaining of pain in her right upper extremity. She had noted that she has difficulty moving it because of the pain. Patient history is significant for treatment of tricuspid valve endocarditis back in 2013, lumbar spine infection,, and she was in the hospital for quite a long time, and subsequently developed other kinds of bacteremia which was felt to be related to PICC. She had Klebsiella, Acinetobacter, candidemia, as well as Mycobacterium abscesses. Recently she was hospitalized in the hospital in [place], and the patient stated she was there from July - September 2017. She was treated with 6 weeks of IV antibiotics for endocarditis, and she was also told that she had a hip infection , but she did not have any surgery for the hip. Patient stated she had valve surgery around September 28, and she thinks it might be the tricuspid valve, however she signed out AGAINST MEDICAL ADVICE about 3 days after the surgery. Her boyfriend has been helping her take care of her incision. She came back to this area. Patient denies any significant cough or congestion. No chest pain or shortness of breath. No nausea or vomiting or diarrhea. She has had some incontinence which he attributes due to inability to ambulate secondary to her back and hip pain. On presentation she has been febrile up to 102. She had a CTA which did not show any pulmonary embolism, but it did show abnormalities in the lung as well as some opacity seen on the anterior mediastinum. I had reviewed with radiology and there is also a density seen in the right sternoclavicular joint, and the anterior mediastinum opacity looks like it may be a complex fluid collection. CAT scan of her spine, cervical, thoracic, and lumbar did not show any significant abnormality. 2 blood cultures on admission are now reported as growing gram-positive cocci in pairs and clusters. Patient is currently on vancomycin and meropenem. 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 Notes reviewed Temps ok. No new complaints No rash or itching No diarrhea WBC normal Urine for eos - rare Last (+) BC 01/10, no new (+) BC ZEHRA - large vegetation encompassing the TV prosthesis Antibiotics: Cubicin Lines: PIV Past Medical History: Abscess in epidural space of lumbar spine Endocarditis Hepatitis C Hypokalemia Hyponatremia IVDU (intravenous drug user) Osteomyelitis Pneumonia Renal failure Sepsis Thrombocytopenia UTI (urinary tract infection) S/P valve surgery Allergies/Adverse Reactions: Allergies bee venom protein (honey bee) Allergy (Severe, Verified 01/04/18 14:34) rash Objective Vital Signs 02/01/18 16:00 02/01/18 20:00 02/02/18 00:00 Temperature 98.3 F 98 F 98.2 F Pulse Rate 69 79 77 Respiratory Rate 17 15 16 Blood Pressure 94/59 L 103/70 97/61 L Pulse Oximetry 98 96 97 02/02/18 04:00 02/02/18 08:00 02/02/18 12:00 Temperature 97.8 F 98.3 F 98.9 F Pulse Rate 68 63 82 Respiratory Rate 18 18 20 Blood Pressure 99/60 L 102/50 L 106/66 Pulse Oximetry 97 98 98 Intake & Output 02/01/18 02/02/18 02/02/18 18:59 06:59 18:59 Intake Total 2059 / 2059 480 / 480 Balance 2059 / 2059 480 / 480 Weight 47.5 kg Intake: IV 1100 / 1100 NS Inj 1,000 ML @ 70 mls/hr IV. 1000 / 1000 CONT .[id number] [facility] Rx#:[id number] Cubicin Inj 400 MG In NS Inj 100 / 100 100 ML @ 200 mls/hr IV.SIG Q24H [facility] Rx#:[id number] Oral 960 / 960 480 / 480 Other: # Voids 6 3 Date of Last Bowel Movement 02/01/18 # Bowel Movements 0 1 Lab - Chemistry Results 02/01/18 02/02/18 06:23 04:32 Sodium 139 139 Potassium 4.5 4.1 Chloride 104 102 Carbon Dioxide 29.2 26.5 Anion Gap 6 11 BUN 22 H 20 H Creatinine 1.40 H 1.45 H Estimated GFR 42 L 41 L Random Glucose 86 108 H Calcium 8.9 8.8 Total Creatine Kinase 41 Imaging: ITS Impressions Chest CTA 01/04/18 15:25 CONCLUSION: 1. Abnormal soft tissue density within the mediastinum unusual appearance for adenopathy partially could be hyperplasia of the patient's thymic gland, however underlying neoplastic process such as lymphoma is not excluded. 2. Slight cardiomegaly. 3. Bilateral parenchymal infiltrates in the lungs. Cervical Spine CT 01/04/18 16:23 CONCLUSION: Unremarkable study. Lumbar Spine CT 01/04/18 16:23 CONCLUSION: 1. Mild bulging of the L4-5 and L5-S1 disks. 2. No abnormal areas of epidural enhancement seen. Thoracic Spine CT 01/04/18 16:23 CONCLUSION: Essentially unremarkable study. Abdomen Ultrasound 01/05/18 00:00 CONCLUSION: 1. Gallbladder sludge 2. Mild splenomegaly 3. Bilateral perinephric fluid 4. No other significant abnormality. Hip CT 01/05/18 00:00 CONCLUSION: 1. Right hip appears unremarkable. No fracture. Chest X-Ray 01/10/18 00:00 CONCLUSION: Increased interstitial markings bilaterally suggestive of pulmonary edema. No significant changes compared to the prior study. Abdomen X-Ray 01/28/18 00:00 CONCLUSION: Patient is not cleared for MRI. There are persistent coiled pacer leads in the left upper quadrant. Mild constipation. Physical Exam: GENERAL: awake and alert, NAD SKIN: Cool and dry, no generalized rash HEAD: Atraumatic. Normocephalic. No temporal wasting, or tenderness. EYES: [place] conjunctiva. No petechia or hemorrhage. No scleral icterus. No injection or drainage. EARS, NOSE AND THROAT: Mucous membranes pink and moist. No oral lesions noted. No exudate. No oral thrush. NECK: Trachea midline. Supple and not tender, no meningeal signs. R sternoclavicular joint, better CARDIOVASCULAR: Regular rate and rhythm. No murmurs, rubs or gallops heard. healed incision, no sternal instability RESPIRATORY: Coarse BS matty ABDOMEN: Soft, non-tender, nondistended. Bowel sounds present and normoactive. No guarding. No rebound. No organomegaly. EXTREMITIES: No clubbing, cyanosis, or edema. No calf tenderness. Good ROM R hip BACK: tender to R of lumbar spine at buttock NEUROLOGICAL: Grossly non-focal PSYCHIATRIC: Normal affect, calm and cooperative. LINE: No evidence of infection Assessment and Plan - Plan Impression Sepsis, BC (+) MRSA - has a large veg around her TV prosthesis - has infected R sternoclavicular joint, improving - CT lumbar spine ok; ?pelvic bone, SI joint S/P Rx for endocarditis this year TV PVE, MRSA - BC peristent (+) Episode of endocarditis 2013 and lumbar spine infection IVDU Thrombocytopenia, due to sepsis,improving Recurrent fevers, resolved Renal insufficiency - (+) eos - has been on Vanco since 01/04, and Teflaro since 01/10 Recommendation Continue Cubicin Follow BMP Will need 6-8 weeks IV Abx from last (+) BC, and possibly an oral Abx shelter - 6 weeks is Feb 10 Monitor progress
--- NOTE | 2018-02-02 13:13 | P.PN ---
Subjective Interval history: no complains in SR Physical Exam Vital signs: Vital Signs 02/01/18 16:00 02/01/18 20:00 02/02/18 00:00 Temperature 98.3 F 98 F 98.2 F Pulse Rate 69 79 77 Respiratory Rate 17 15 16 Blood Pressure 94/59 L 103/70 97/61 L Pulse Oximetry 98 96 97 02/02/18 04:00 02/02/18 08:00 02/02/18 12:00 Temperature 97.8 F 98.3 F 98.9 F Pulse Rate 68 63 70 Respiratory Rate 18 18 20 Blood Pressure 99/60 L 102/50 L 106/66 Pulse Oximetry 97 98 98 Intake & Output 02/01/18 02/02/18 02/02/18 18:59 06:59 18:59 Intake Total 2059 480 / 480 Balance 2059 480 / 480 Weight 47.5 kg Intake: IV 1100 / 1100 NS Inj 1,000 ML @ 70 mls/hr IV. 1000 / 1000 CONT .[id number] [facility] Rx#:[id number] Cubicin Inj 400 MG In NS Inj 100 / 100 100 ML @ 200 mls/hr IV.SIG Q24H [facility] Rx#:[id number] Oral 960 / 960 480 / 480 Other: # Voids 6 3 Date of Last Bowel Movement 02/01/18 # Bowel Movements 0 1 Narrative: in no apparent distress. SKIN: Warm and dry. HEENT: Normocephalic. Pupils equal round and reactive. Nose without bleeding. Airway patent. NECK: Trachea midline. CARDIOVASCULAR: Regular rate and rhythm. Sternal scar noted. RESPIRATORY: Clear to auscultation. Breath sounds equal bilaterally. No wheezes , rales, or rhonchi. GASTROINTESTINAL: Abdomen soft, non-tender, nondistended. Bowel Sounds normoactive x4. MUSCULOSKELETAL: Extremities without clubbing, cyanosis, or edema. NEUROLOGICAL: Awake and alert. No focal neuro deficit. Moves all extremities. Normal speech. Results - Labs CBC & Chem 7: 01/28/18 17:03 02/02/18 04:32 Laboratory Results - last 24 hr 02/02/18 04:32 Sodium 139 Potassium 4.1 Chloride 102 Carbon Dioxide 26.5 Anion Gap 11 BUN 20 H Creatinine 1.45 H Estimated GFR 41 L Random Glucose 108 H Calcium 8.8 - Procedures ZEHRA 8- Assessment and Plan - Plan 37-year-old female patient with a medical history that is significant for IV drug abuse, endocarditis, status post valve replacement 3 months ago in [place], additional discitis/osteomyelitis of the lumbar spine, and right infected hip. Patient left AMA from her hospital in [place]. Admitted with Sepsis. 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 -DC Vanco per ID/ nephro as [employer] is slightly elevated -Follow creatinine closely - Continues to be slightly elevated, as per ID if continues to be elevated may need to switch to Cubicin. -Will need 6 weeks course ABX, February 20 - poss fpc oral abx -Blood cultures - 01/04, 01/05, 01/06, 01/08 are positive for MRSA. - 01/10 1/ tubes growing staph coagulase-positive - 01/11 one tube obtained, negative to date - 01/12 one tube obtained, negative to date - latest blood culture- negative for 5 days ID ff- Teflaro DC- changed to cubicin 01/31 beause creatinine trending up Follow BMP Will need 6-8 weeks IV Abx from last (+) BC, and possibly an oral Abx fpc - 6 weeks is Feb 20 Monitor progress JACQUELIN- - creatinine stabilizing, non oliguric + Urine eosinophilia creatinien stabilizing 1.45-1.48 ff BMP Hepatitis B and hepatitis C -Elevated LFTs noted- no encephalopathy -Follow clinically. Treatment recommendations for outpatient if she becomes free of IVDA Anemia and thrombocytopenia -likely secondary to sepsis, it is improving -Transfuse as needed Drug abuse history chronic pain and drug-seeking behavior Hip and back pain -Monitor closely for drug abuse -Outpatient counseling recommended upon discharge - weaned off narcotics IV . on PO Roxicodone prn -MRI was ordered. Unable to do. Internal pacer wires from previous heart surgery still in place Elevated troponin -Secondary to inflammation -No need for further monitoring DVT prophylaxis SCDs Code Status: Full Code Discussed Condition With: Patient, nursing Discharge Planning: Plan to DC home when cleared by infectious disease. Will continue with antibiotic use. Continuing 6 week IV antibiotic therapy, based on date of first negative blood culture, to be completed 02/21/18.
[2018-02-02] MEDS: DAPTOmycin Inj 400 MG in Sodium Chlor 0.9% Inj 100 ML IV.SIG SCH (15:57)
[2018-02-03] MEDS: Gabapentin 100 MG Capsule PO SCH ×3 (05:52→21:52)
[2018-02-03] MEDS: Mupirocin 2% Nasal Oint Topical Syringe EACH NARE SCH ×2 (08:24→21:52)
--- NOTE | 2018-02-03 10:03 | P.PN ---
Subjective Interval history: feels cold and chilly - check temp- afebrile no diarrhea great po "breakfast is the best" no pain complains Physical Exam Vital signs: Vital Signs 02/02/18 12:00 02/02/18 15:12 02/02/18 16:00 Temperature 98.9 F 97.9 F Pulse Rate 70 76 Respiratory Rate 20 18 Blood Pressure 106/66 96/59 L Pulse Oximetry 98 98 98 02/02/18 20:00 02/03/18 00:00 02/03/18 04:00 Temperature 98.2 F 98.7 F 98.3 F Pulse Rate 87 85 82 Respiratory Rate 20 18 18 Blood Pressure 111/85 102/73 112/77 Pulse Oximetry 99 98 97 02/03/18 08:00 Temperature 98.5 F Pulse Rate 81 Respiratory Rate 16 Blood Pressure 97/54 L Pulse Oximetry 96 Intake & Output 02/02/18 02/03/18 02/03/18 18:59 06:59 18:59 Intake Total 1540 / 1540 960 / 960 Balance 1540 / 1540 960 / 960 Weight 47 kg Intake: IV 100 / 100 Cubicin Inj 400 MG In NS Inj 100 / 100 100 ML @ 200 mls/hr IV.SIG Q24H MIGDALIA Rx#:[id number] Oral 1440 / 1440 960 / 960 Other: # Voids 5 5 Date of Last Bowel Movement 02/02/18 # Bowel Movements 1 Narrative: in no apparent distress. SKIN: Warm and dry. HEENT: Normocephalic. Pupils equal round and reactive. Nose without bleeding. Airway patent. NECK: Trachea midline. CARDIOVASCULAR: Regular rate and rhythm. Sternal scar noted. RESPIRATORY: Clear to auscultation. Breath sounds equal bilaterally. No wheezes , rales, or rhonchi. GASTROINTESTINAL: Abdomen soft, non-tender, nondistended. Bowel Sounds normoactive x4. MUSCULOSKELETAL: Extremities without clubbing, cyanosis, or edema. NEUROLOGICAL: Awake and alert. No focal neuro deficit. Moves all extremities. Normal speech. Results - Labs CBC & Chem 7: 01/28/18 17:03 02/02/18 04:32 - Procedures ZEHRA 8 Assessment and Plan - Plan 37-year-old female patient with a medical history that is significant for IV drug abuse, endocarditis, status post valve replacement 3 months ago in [place], additional discitis/osteomyelitis of the lumbar spine, and right infected hip. Patient left AMA from her hospital in [place]. Admitted with Sepsis. 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 -Will need 6 weeks course ABX, February 20 - termite control representative oral abx -Blood cultures - 01/04, 01/05, 01/06, 01/08 are positive for MRSA. - 01/10 1/2 tubes growing staph coagulase-positive - 01/11 one tube obtained, negative to date - 01/12 latest culture negative - latest blood culture- negative for 5 days ID ff- Teflaro DC- changed to cubicin 01/31 beause creatinine trending up Follow BMP Will need 6-8 weeks IV Abx from last (+) BC, and possibly an oral Abx termite control representative - 6 weeks is Feb 20 Monitor progress JACQUELIN- - creatinine stabilizing, non oliguric + Urine eosinophilia creatinien stabilizing 1.45-1.48 ff BMP Hepatitis B and hepatitis C -Elevated LFTs noted- no encephalopathy -Follow clinically. Treatment recommendations for outpatient if she becomes free of IVDA Anemia and thrombocytopenia -likely secondary to sepsis, it is improving -Transfuse as needed Drug abuse history chronic pain and drug-seeking behavior Hip and back pain -Monitor closely for drug abuse -Outpatient counseling recommended upon discharge - weaned off narcotics IV . on PO Roxicodone prn -MRI was ordered. Unable to do. Internal pacer wires from previous heart surgery still in place Elevated troponin -Secondary to inflammation -No need for further monitoring DVT prophylaxis SCDs Code Status: Full Code Discussed Condition With: Patient, nursing Discharge Planning: Plan to DC home when cleared by infectious disease. Will continue with antibiotic use. Continuing 6 week IV antibiotic therapy, based on date of first negative blood culture, to be completed 02/21/18. will d/w ID regard IV access for lonterm antibiotics
[2018-02-03] MEDS: DAPTOmycin Inj 400 MG in Sodium Chlor 0.9% Inj 100 ML IV.SIG SCH (15:20)
[2018-02-04] MEDS: Gabapentin 100 MG Capsule PO SCH (06:15)
[2018-02-04] MEDS: Mupirocin 2% Nasal Oint Topical Syringe EACH NARE SCH (08:50)
--- NOTE | 2018-02-04 09:29 | P.PN ---
Subjective Interval history: patient states and feels that the antiibotics is "making me aches" T down good po, no diarrhea patient also states she needs to leave as her [place] a [place] in [place] Physical Exam Vital signs: Vital Signs 02/03/18 12:00 02/03/18 16:00 02/03/18 20:00 Temperature 99.1 F 98.6 F 98.2 F Pulse Rate 107 H 81 83 Respiratory Rate 16 16 22 Blood Pressure 96/55 L 103/60 110/73 Pulse Oximetry 96 96 100 02/04/18 00:00 02/04/18 04:00 Temperature 98.0 F 99.1 F Pulse Rate 91 H 80 Respiratory Rate 18 18 Blood Pressure 106/63 107/62 Pulse Oximetry 96 96 Intake & Output 02/03/18 02/04/18 02/04/18 18:59 06:59 18:59 Intake Total 940 / 940 1140 / 1140 Balance 940 / 940 1140 / 1140 Weight 47.1 kg Intake: IV 100 / 100 Cubicin Inj 400 MG In NS Inj 100 / 100 100 ML @ 200 mls/hr IV.SIG Q24H MIGDALIA Rx#:[id number] Oral 840 / 840 1140 / 1140 Other: # Voids 3 4 Date of Last Bowel Movement 02/03/18 # Bowel Movements 0 Narrative: in no apparent distress. SKIN: Warm and dry. HEENT: Normocephalic. Pupils equal round and reactive. Nose without bleeding. Airway patent. NECK: Trachea midline. CARDIOVASCULAR: Regular rate and rhythm. Sternal scar noted. RESPIRATORY: Clear to auscultation. Breath sounds equal bilaterally. No wheezes , rales, or rhonchi. GASTROINTESTINAL: Abdomen soft, non-tender, nondistended. Bowel Sounds normoactive x4. MUSCULOSKELETAL: Extremities without clubbing, cyanosis, or edema. NEUROLOGICAL: Awake and alert. No focal neuro deficit. Moves all extremities. Normal speech. Results - Labs CBC & Chem 7: 01/28/18 17:03 02/02/18 04:32 - Procedures ZEHRA 8 Assessment and Plan - Plan 37-year-old female patient with a medical history that is significant for IV drug abuse, endocarditis, status post valve replacement 3 months ago in [place], additional discitis/osteomyelitis of the lumbar spine, and right infected hip. Patient left AMA from her hospital in [place]. Admitted with Sepsis. 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 -Will need 6 weeks course ABX, February 20 - poss alf oral abx - NOw on cubicin 01/31 beause creatinine trending up - 01/04, 01/05, 01/06, 01/08 are positive for MRSA. - 01/10 1 tubes growing staph coagulase-positive - 01/11 one tube obtained, negative to date - 01/12 latest culture negative - latest blood culture- negative for 5 days Follow BMP Will need 6-8 weeks IV Abx from last (+) BC, and possibly an oral Abx baggageman - 6 weeks is Feb 20 Monitor progress JACQUELIN- - creatinine stabilizing, non oliguric + Urine eosinophilia creatinien stabilizing 1.45-1.48 ff BMP Hepatitis B and hepatitis C -Elevated LFTs noted- no encephalopathy -Follow clinically. Treatment recommendations for outpatient if she becomes free of IVDA Anemia and thrombocytopenia -likely secondary to sepsis, it is improving -Transfuse as needed Drug abuse history chronic pain and drug-seeking behavior Hip and back pain -Monitor closely for drug abuse -Outpatient counseling recommended upon discharge - weaned off narcotics IV . on PO Roxicodone prn -MRI was ordered. Unable to do. Internal pacer wires from previous heart surgery still in place Elevated troponin -Secondary to inflammation -No need for further monitoring DVT prophylaxis SCDs Code Status: Full Code Discussed Condition With: Patient, nursing Discharge Planning: Plan to DC home when cleared by infectious disease. Will continue with antibiotic use. Continuing 6 week IV antibiotic therapy, based on date of first negative blood culture, to be completed 02/21/18. will d/w ID regard IV access for shelter antibiotics
[2018-02-04 11:10] VITALS: BP 112/63; PULSE 90; RESP 20; TEMP 98.6; O2SAT 98
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
== END 2018-02-04 11:29 | disposition left against medical advice (07) ==
LOC: NEPE 10:40 → NEDA 16:03 → HIMC 17:45 → N04 01-09 15:02 → N03 01-11 13:52 → N04 01-15 16:47
PROVIDERS: ADMIT Internal Medicine; ATTEND Internal Medicine

== ENCOUNTER 2018-02-07 15:50 | Inpatient (IN) ==
[2018-02-07] MEDS ORDERED: DAPTOmycin Inj 400 MG in Sodium Chlor 0.9% Inj 100 ML IV.SIG ONE (21:39)
--- NOTE | 2018-02-07 21:53 | ED ---
HPI General Chief complaint: Chest Pain Stated complaint: Medical Clearance Time Seen by Provider: 02/07/18 21:21 Source: patient and RN notes reviewed Mode of arrival: ambulatory Limitations: no limitations History of Present Illness HPI narrative: 37-year-old female presents back to the emergency department after leaving AMA 3 days ago. Patient was admitted originally for IV drug use, endocarditis. She was on IV antibiotics. However, she states that her significant other had an issue with his job so she had to leave AMA. She denies using any IV drugs since being discharged. The patient does have history of a recent valve replacement surgery [place] 3 months ago. She also has history of right infected hip, discitis/osteomyelitis lumbar spine 2013 , remote history of pericardial effusion in 2014. She was discharged with tricuspid valve endocarditis, sternoclavicular joint infection. It appears that she was on Cubicin when she left AM. She was instructed that she would need at least 6 weeks of antibiotics. The patient returns today to continue her IV antibiotic treatment. Radiation: non-radiation Severity: moderate Relieving factors: none Exacerbating factors: none Associated symptoms: denies other symptoms Related Data Home Medications Medication Instructions Recorded Confirmed No Known Home Medications 01/04/18 02/07/18 Allergies Allergy/AdvReac Type Severity Reaction Status Date / Time bee venom protein (honey bee) Allergy Severe rash Verified 01/04/18 14:34 Review of Systems ROS: all other systems reviewed are negative PMFSH Social History Social History Substance History: Past History Second Hand Smoke Exposure: Yes Smoking Status: Former smoker Tobacco Type: Cigarettes How Often Do You Have a Drink Containing Alcohol: Monthly or less Recent Travel in [facility] within the Last 8 Weeks: No Recent Out of Country Travel within the Last 8 Weeks: No Exam Narrative Exam Narrative: GENERAL: Well-nourished, well-developed female patient, ambulatory. Afebrile. SKIN: Focused skin assessment warm/dry. HEAD: Normocephalic. Atraumatic. EYES: No scleral icterus. No injection or drainage. NECK: Supple, trachea midline. No JVD or lymphadenopathy. CARDIOVASCULAR: Regular rate and rhythm without murmurs, gallops, or rubs. Bilateral radial and pedal pulses are 2+ RESPIRATORY: Breath sounds equal bilaterally. No accessory muscle use. Lung sounds are clear to auscultation GASTROINTESTINAL: Abdomen soft, non-tender, nondistended. MUSCULOSKELETAL: No cyanosis, or edema. BACK: Nontender without obvious deformity. No CVA tenderness. Course Initial Documented Vital Signs Temperature 98.2 F 02/07/18 15:58 Pulse Rate 95 H 02/07/18 15:58 Blood Pressure 117/57 L 02/07/18 15:58 Pulse Oximetry 100 02/07/18 15:58 Last Documented Vital Signs Temperature 98.2 F 02/07/18 15:58 Pulse Rate 90 02/07/18 22:00 Blood Pressure 117/57 L 02/07/18 15:58 Pulse Oximetry 99 02/07/18 22:00 Medical Decision Making MDM Narrative Medical decision making narrative: 37-year-old female presents back to the emergency department for continue IV antibiotic treatment for endocarditis after she left AMA 3 days ago. IBS is obtained. EKG, CBC, CMP, ESR, CRP, CK, troponin, PTT, PT/INR, UA are ordered and pending. Blood cultures x2 are ordered. Patient will be restarted on Cubicin 400 mg IV. [facility] is paged for admission. Dr. Harvey accepted admission. Medical Screen Exam Complete: Yes Emergency Medical Condition: Yes Differential Diagnosis Differential Diagnosis: Endocarditis versus IV drug use versus sepsis Medical Records Medical records reviewed: Yes I reviewed the patient's medical records. Lab Data Result diagrams: 02/07/18 21:45 02/07/18 21:45 Discharge Plan Discharge Disposition Patient Disposition: 30 Still Patient Discharge Details Diagnosis: Endocarditis Physicians Team ED Provider: Sage Lopez ED Midlevel Provider: Genesis Patel Primary Care Provider: Primary Care Carolina Espitia Attending Provider: Carlos Harvey ED Status: Admitted Patient
[2018-02-07 22:28] LABS: Baso % (Auto) 0.6 % (0.0-2.0); Eos # (Auto) 0.1 th/mm3 (0.0-0.4); Eos % (Auto) 1.7 % (0.0-4.0); Hematocrit 28.7 % (35.0-46.0); Hemoglobin 9.7 gm/dL (11.6-15.3); Lymph # (Auto) 1.4 th/mm3 (1.0-4.8); Lymph % (Auto) 20.9 % (9.0-44.0); Mean Corpuscular HGB Conc 33.7 % (32.0-36.0); Mean Corpuscular Hemoglobin 31.9 pg (27.0-34.0); Mean Corpuscular Volume 94.8 fL (80.0-100.0); Mean Platelet Volume 10.6 fL (7.0-11.0); Mono # (Auto) 0.6 th/mm3 (0.0-0.9); Mono % (Auto) 8.3 % (0.0-8.0); Neut # (Auto) 4.6 th/mm3 (1.8-7.7); Neut % (Auto) 68.5 % (16.0-70.0); Platelet Count 97 th/mm3 (150-450); Red Blood Count 3.03 mil/mm3 (4.00-5.30); Red Cell Distribution Width 14.4 % (11.6-17.2); White Blood Count 6.7 th/mm3 (4.0-11.0)
[2018-02-07] MEDS ORDERED: Bisacodyl 10 MG Supp RECTAL PRN (22:29)
[2018-02-07 22:40] LABS: Activated Partial Thrombo Time 27.8 sec (24.3-30.1); INR 1.2 Ratio; Prothrombin Time 12.2 sec (9.8-11.6)
--- NOTE | 2018-02-07 22:48 | P.HPIM ---
History of Present Illness Primary Care Physician: No Primary Care Physician History of Present Illness: 37-year-old female with a history of IV drug abuse, endocarditis status post valve replacement in [place], discitis/osteomyelitis of lumbar spine, right infected hip. She was being treated for endocarditis with Cleocin to be completed on February 20. She left AMA 3 days ago for personal reasons, and is now back to continue treatment. She continues to report chronic pain. She denies any fevers or chills. Family history reviewed with the patient and found to be currently noncontributory. Inpatient Certification: I certify that the inpatient services were ordered in accordance with Medicare regulations governing the order. This includes certification that hospital inpatient services are reasonable and necessary and in the case of services not specified as inpatient-only under 42 CFR 419.22(n), that they are appropriately provided as inpatient services in accordance to with the 2-midnight benchmark under 43 CFR 412.3(e) Estimated Total Length of Stay (Days): 2 Plans for Post Hospital Care: Not yet determined Review of Systems All other systems reviewed negative except as stated in HPI PMFSH - History History Provided By: Patient - Medical History Medical History: Medical History (Last Reviewed 01/14/18 @ 07:32 by Shirley High) Abscess in epidural space of lumbar spine Endocarditis Hepatitis C Hypokalemia Hyponatremia IVDU (intravenous drug user) Osteomyelitis Pneumonia Renal failure Sepsis Thrombocytopenia UTI (urinary tract infection) - Surgical History Surgical History: Surgical History (Last Reviewed 01/14/18 @ 07:32 by Shirley High) History of heart surgery - Social History I have reviewed the patient's Social History: Yes - Tobacco History Second Hand Smoke Exposure: Yes Smoking Status: Former smoker Tobacco Type: Cigarettes - Alcohol History How Often Do You Have a Drink Containing Alcohol: Monthly or less - Substance Use History Substance History: Past History - Travel History Recent Travel in the USA Within the Last 8 Weeks: No Recent Travel Out of the Country Within the Last 8 Weeks: No - Immunization History Tetanus Immunization: <5 Years Hx Influenza Vaccine This Season: No Medications and Allergies Active Medications: Active Medications Al Hydroxide/Mg Hydroxide (Milk Of Magnesia Liq) 30 ml PO Q12H PRN PRN Reason: Mild Constipation Bisacodyl (Dulcolax Supp) 10 mg RECTAL DAILY PRN PRN Reason: SEVERE CONSITIPATION Daptomycin 400 mg/ Sodium (Chloride) 100 mls @ 200 mls/hr IV.SIG Q24H MIGDALIA Lactulose (Lactulose Liq) 30 ml PO DAILY PRN PRN Reason: SEVERE CONSITIPATION Sennosides (Senokot) 17.2 mg PO Q12H PRN PRN Reason: Moderate Constipation Allergies Allergy/AdvReac Type Severity Reaction Status Date / Time bee venom protein (honey bee) Allergy Severe rash Verified 01/04/18 14:34 Home Medications Medication Instructions Recorded Confirmed Type No Known Home Medications 01/04/18 02/07/18 History Exam Vital signs: Vital Signs 02/07/18 15:58 02/07/18 22:00 Temperature 98.2 F Pulse Rate 95 H 90 Blood Pressure 117/57 L Pulse Oximetry 100 99 Intake & Output 02/07/18 02/07/18 02/08/18 06:59 18:59 06:59 Weight 50 kg Narrative: GENERAL: Patient lying in bed. Appears comfortable. Alert and oriented x3. Appears greater than stated age. Patient examined with nursing present. SKIN: Warm and dry. HEAD: Atraumatic. Normocephalic. EYES: Pupils equal and round. No scleral icterus. No injection or drainage. ENT: No nasal bleeding or discharge. Mucous membranes pink and moist. NECK: Trachea midline. No JVD. CARDIOVASCULAR: Regular rate and rhythm. RESPIRATORY: No accessory muscle use. Clear to auscultation. Breath sounds equal bilaterally. GASTROINTESTINAL: Abdomen soft, non-tender, nondistended. Hepatic and splenic margins not palpable. MUSCULOSKELETAL: Extremities without clubbing, cyanosis, or edema. No obvious deformities. NEUROLOGICAL: Awake and alert. No obvious cranial nerve deficits. Motor grossly within normal limits. Five out of 5 muscle strength in the arms and legs. Normal speech. Patient shows me a healed ulcer on sacrum. No signs of infection or erythema. PSYCHIATRIC: Appropriate mood and affect; insight and judgment normal. Results - Labs CBC & Chem 7: 02/07/18 21:45 02/07/18 21:45 Labs: Short CBC 02/07/18 Range/Units 21:45 WBC 6.7 (4.0-11.0) th/mm3 Hgb 9.7 L (11.6-15.3) gm/dL Hct 28.7 L (35.0-46.0) % Plt Count 97 L D (150-450) th/mm3 Caprini VTE Risk Assessment Caprini VTE Risk Assessment: Moderate/High Risk (score >= 2) Caprini Risk Assessment Model: Point Value = 1 Point Value = 2 Point Value = 3 Point Value = 5 Age 41-60 Minor surgery BMI > 25 kg/m2 Swollen legs Varicose veins or History of unexplained or recurrent spontaneous Oral contraceptives or hormone replacement Sepsis (< 1 month) Serious lung disease, including pneumonia (< 1 month) Abnormal pulmonary function Acute myocardial infarction Congestive heart failure (< 1 month) History of inflammatory bowel disease Medical patient at bed rest Age 61-74 Arthroscopic surgery Major open surgery (> 45 min) Laparoscopic surgery (> 45 min) Malignancy Confined to bed (> 72 hours) Immobilizing plaster cast Central venous access Age >= 75 History of VTE Family history of VTE Factor V Leiden Prothrombin [id number] Lupus anticoagulant Anticardiolipin antibodies Elevated serum homocysteine Heparin-induced thrombocytopenia Other congenital or acquired thrombophilia Stroke (< 1 month) Elective arthroplasty Hip, pelvis, or leg fracture Acute spinal cord injury (< 1 month) Prophylaxis Regimen: Total Risk Factor Score Risk Level Prophylaxis Regimen 0-1 Low Early ambulation 2 Moderate Order ONE of the following: *Sequential Compression Device (SCD) *Heparin 5000 units SQ BID 3-4 Higher Order ONE of the following medications: *Heparin 5000 units SQ TID *Enoxaparin/Lovenox 40 mg SQ daily (WT < 150 kg, CrCl > 30 mL/min) *Enoxaparin/Lovenox 30 mg SQ daily (WT < 150 kg, CrCl > 10-29 mL/min) *Enoxaparin/Lovenox 30 mg SQ BID (WT < 150 kg, CrCl > 30 mL/min) AND/OR *Sequential Compression Device (SCD) 5 or more Highest Order ONE of the following medications: *Heparin 5000 units SQ TID (Preferred with Epidurals) *Enoxaparin/Lovenox 40 mg SQ daily (WT < 150 kg, CrCl > 30 mL/min) *Enoxaparin/Lovenox 30 mg SQ daily (WT < 150 kg, CrCl > 10-29 mL/min) *Enoxaparin/Lovenox 30 mg SQ BID (WT < 150 kg, CrCl > 30 mL/min) AND *Sequential Compression Device (SCD) Assessment and Plan - Plan //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 Patient is not currently septic, however was on previous admission. = We will start back on Cubicin. There is no need for blood cultures. White count is not elevated. ESR is pending. Follow-up ID recommendations. //History of acute kidney injury. Labs are pending. //Hepatitis B and C. ID will be consulted. //Thrombus cytopenia. Platelets acceptable. No signs of bleeding. Continue to monitor. //History of IV drug abuse. Patient counseled. Discussed Condition With: Patient, nurse, ED physician.
[2018-02-07 22:53] LABS: Alanine Aminotransferase 24 U/L (10-53); Albumin 2.9 g/dL (3.4-5.0); Anion Gap 7 meq/L (5-15); Aspartate Aminotransferase 25 U/L (15-37); Blood Urea Nitrogen 10 mg/dL (7-18); Calcium 8.2 mg/dL (8.5-10.1); Carbon Dioxide 28.8 meq/L (21.0-32.0); Chloride 105 meq/L (98-107); Glomerular Filtration Rate 68 mL/min (>89); Glucose,Random 88 mg/dL (74-106); Potassium 3.5 meq/L (3.5-5.1); Sodium 141 meq/L (136-145)
[2018-02-07 22:55] LABS: Alkaline Phosphatase 170 U/L (45-117); C-Reactive Protein 4.23 mg/dL (0.00-0.30)
[2018-02-07 22:56] LABS: Creatine Kinase 72 U/L (26-192)
[2018-02-07 22:59] LABS: Platelet Morphology Normal (Normal)
[2018-02-07 23:01] LABS: Bacteria,Urine Rare /hpf; Bilirubin,Urine Negative (Negative); Clarity,Urine Clear (Clear); Color,Urine Yellow (Yellw/Straw); Glucose,Urine (UA) Negative (Negative); Leukocyte Esterase,Urine Trace (Negative); Nitrite,Urine Negative (Negative); Specific Gravity,Urine 1.008 (1.002-1.035); Squamous Epithelial Cell,Urine 2 /hpf (0-5)
[2018-02-08 08:10] LABS: Baso % (Auto) 0.7 % (0.0-2.0); Eos # (Auto) 0.2 th/mm3 (0.0-0.4); Eos % (Auto) 2.8 % (0.0-4.0); Hematocrit 27.1 % (35.0-46.0); Hemoglobin 8.9 gm/dL (11.6-15.3); Lymph # (Auto) 1.4 th/mm3 (1.0-4.8); Mean Corpuscular HGB Conc 32.9 % (32.0-36.0); Mean Corpuscular Hemoglobin 31.3 pg (27.0-34.0); Mean Corpuscular Volume 95.3 fL (80.0-100.0); Mean Platelet Volume 10.2 fL (7.0-11.0); Mono # (Auto) 0.5 th/mm3 (0.0-0.9); Mono % (Auto) 9.7 % (0.0-8.0); Neut # (Auto) 3.3 th/mm3 (1.8-7.7); Neut % (Auto) 60.8 % (16.0-70.0); Platelet Count 93 th/mm3 (150-450); Red Blood Count 2.84 mil/mm3 (4.00-5.30); Red Cell Distribution Width 14.4 % (11.6-17.2); White Blood Count 5.5 th/mm3 (4.0-11.0)
[2018-02-08 08:34] LABS: Albumin 2.6 g/dL (3.4-5.0); Anion Gap 8 meq/L (5-15); Aspartate Aminotransferase 17 U/L (15-37); Blood Urea Nitrogen 9 mg/dL (7-18); Chloride 108 meq/L (98-107); Glomerular Filtration Rate 74 mL/min (>89); Glucose,Random 89 mg/dL (74-106); Potassium 3.2 meq/L (3.5-5.1); Sodium 142 meq/L (136-145)
[2018-02-08 08:35] LABS: Alanine Aminotransferase 18 U/L (10-53)
[2018-02-08 08:37] LABS: Alkaline Phosphatase 143 U/L (45-117); Total Protein 7.1 g/dL (6.4-8.2)
--- NOTE | 2018-02-08 14:01 | P.CONID ---
History of Present Illness Service: Infectious disease Consult date: 02/08/18 Requesting Physician: Reji Dunn Reason for Consult: Evaluate patient with endocarditis Primary Care Provider: No Primary Care Physician History of Present Illness: Patient seen and examined. Records reviewed. Patient is a 37-year-old female, known to me from her previous hospitalization, came back to the hospital for further evaluation and treatment of her known endocarditis. She was admitted January 04 and at that time she was complaining of right-sided back pain, hip pain, fever and chills. She was diagnosed to have tricuspid valve prosthetic valve endocarditis, and her blood cultures grew MRSA. She had a prolonged course of bacteremia, which finally cleared after she was on vancomycin and Teflaro. She was also felt to possibly have a right sacroiliitis, explaining her hip pain, and buttock pain. There was no abnormality seen in the right hip. During the course of her hospitalization, she had a cardiothoracic surgery evaluation and felt that she was not a surgical candidate. She also developed renal insufficiency, and her urine was positive for eosinophils. Her antibiotic was changed to Cubicin. It was felt that it could either be vancomycin or Teflaro causing her renal insufficiency. Patient is supposed to complete her treatment February 20, but she signed out AGAINST MEDICAL ADVICE on February 04 for personal reasons. She came back to the hospital this time to complete her antibiotic treatment. Patient overall feels much better. She has not been febrile. She still has some pain in the right buttock but able to ambulate. Denies shortness of breath. No rash or itching. No nausea or vomiting or diarrhea. And she is voiding okay. Since readmission she has not been febrile. Her WBC is normal. Creatinine is down to normal. Infectious disease consultation has been requested to continue with management of her infection. Review of Systems Constitutional: Denies chills, Denies fever(s), Denies headache(s), Denies night sweats Eyes: Denies discharge, Denies dry eyes Ears, Nose, Mouth, and Throat: Denies difficulty swallowing, Denies dry mouth, Denies ear pain, Denies nasal discharge, Denies sore throat Cardiovascular: Denies chest pain, Denies shortness of breath Respiratory: Denies chest congestion, Denies cough, Denies shortness of breath Gastrointestinal: Denies abdominal pain, Denies loose stools, Denies nausea, Denies pain with swallowing, Denies vomiting Genitourinary: Denies difficulty starting urination, Denies difficulty urinating , Denies painful urination Musculoskeletal: Reports back pain, Denies joint pain Skin/Breast: Denies rash, Denies sores Neurologic: Denies headache(s) PMFSH - History History Provided By: Patient - Medical History Medical History: Medical History (Last Reviewed 02/08/18 @ 13:59 by Katie Richard MD) Hand abscess Abscess in epidural space of lumbar spine Endocarditis Hepatitis C Hypokalemia Hyponatremia IVDU (intravenous drug user) Osteomyelitis Pneumonia Renal failure Sepsis Thrombocytopenia UTI (urinary tract infection) - Surgical History Surgical History: Surgical History (Last Reviewed 02/08/18 @ 13:59 by Katie Richard MD) History of History of heart surgery - Tobacco History Second Hand Smoke Exposure: No Tobacco Use In Past 30 Days: No Smoking Status: Former smoker Tobacco Type: Cigarettes - Alcohol History How Often Do You Have a Drink Containing Alcohol: Never - Substance Use History Substance History: Past History - Substance Use Type Marijuana Status: Active Route Used: Inhalation Frequency: once Comment: pain - Travel History Recent Travel in the [place] Within the Last 8 Weeks: No Recent Travel Out of the Country Within the Last 8 Weeks: No - Immunization History Tetanus Immunization: <5 Years Hx Influenza Vaccine This Season: No Medications and Allergies Active Medications: Active Medications Al Hydroxide/Mg Hydroxide (Milk Of Magnesia Liq) 30 ml PO Q12H PRN PRN Reason: Mild Constipation Bisacodyl (Dulcolax Supp) 10 mg RECTAL DAILY PRN PRN Reason: SEVERE CONSITIPATION Daptomycin 400 mg/ Sodium (Chloride) 100 mls @ 200 mls/hr IV.SIG Q24H MIGDALIA Lactulose (Lactulose Liq) 30 ml PO DAILY PRN PRN Reason: SEVERE CONSITIPATION Oxycodone HCl (Roxicodone) 5 mg PO Q6H PRN PRN Reason: pain >5 Last Admin: 02/08/18 09:03 Dose: 5 mg Sennosides (Senokot) 17.2 mg PO Q12H PRN PRN Reason: Moderate Constipation Allergies Allergy/AdvReac Type Severity Reaction Status Date / Time bee venom protein (honey bee) Allergy Severe rash Verified 01/04/18 14:34 Home Medications Medication Instructions Recorded Confirmed Type No Known Home Medications 01/04/18 02/07/18 History Exam Vital signs: Vital Signs 02/07/18 15:58 02/07/18 22:00 02/07/18 22:58 Temperature 98.2 F Pulse Rate 95 H 90 88 Respiratory Rate 16 Blood Pressure 117/57 L 115/60 Pulse Oximetry 100 99 100 02/07/18 23:45 02/08/18 00:15 02/08/18 04:00 Temperature 97.6 F 97.9 F Pulse Rate 64 72 75 Respiratory Rate 18 18 Blood Pressure 137/83 107/63 Pulse Oximetry 98 96 02/08/18 08:00 02/08/18 09:00 02/08/18 12:00 Temperature 97.6 F 97.7 F Pulse Rate 61 73 65 Respiratory Rate 19 21 Blood Pressure 95/67 L 97/61 L Pulse Oximetry 97 98 Intake & Output 02/07/18 02/08/18 02/08/18 18:59 06:59 18:59 Intake Total 580 / 580 Output Total 350 / 350 Balance 230 / 230 Weight 50 kg 49.6 kg Intake: IV 100 / 100 Cubicin Inj 400 MG In NS Inj 100 / 100 100 ML @ 200 mls/hr IV.SIG ONCE ONE Rx#:[id number] Oral 480 / 480 Output: Urine 350 / 350 Other: Date of Last Bowel Movement 02/07/18 02/07/18 # Bowel Movements 0 Weight On Admission 49.9 kg Narrative: Physical Examination GENERAL: Patient is a well-nourished, well-developed female, awake and alert, not in respiratory distress. SKIN: Cool and dry. No generalized rash, no ecchymoses and no evidence of embolic lesions. HEAD: Atraumatic. Normocephalic. No temporal wasting, or tenderness. EYES: [place] conjunctiva. No petechia or hemorrhage. Pupils equal, round and reactive to light. Extraocular movements full and intact. No scleral icterus. No injection or drainage. EARS, NOSE AND THROAT: Nose without bleeding or purulent nasal discharge. No sinus tenderness. Mucous membranes pink and moist. No oral lesions noted. No exudate. No oral thrush. NECK: Trachea midline. Supple and not tender, no meningeal signs CARDIOVASCULAR: Regular rate and rhythm. No murmurs, rubs or gallops heard. Healed sternotomy incision RESPIRATORY: Clear to auscultation. Breath sounds equal bilaterally. No rales , wheezing or rhonchi ABDOMEN: Soft, non-tender, nondistended. Bowel sounds present and normoactive. No guarding. No rebound. No organomegaly. EXTREMITIES: No clubbing, cyanosis, or edema. No joint effusion, has good ROM. No calf tenderness. Well perfused and warm. NEUROLOGICAL: Awake and alert. Cranial nerves grossly intact. Motor grossly within normal limits. PSYCHIATRIC: Normal affect, calm and cooperative. LINE: No evidence of infection Results - Labs CBC & Chem 7: 02/08/18 07:10 02/08/18 07:10 Labs: Laboratory Results - last 24 hr 02/07/18 02/07/18 02/07/18 21:45 21:45 21:45 WBC 6.7 RBC 3.03 L Hgb 9.7 L Hct 28.7 L MCV 94.8 MCH 31.9 MCHC 33.7 RDW 14.4 Plt Count 97 L D MPV 10.6 Prelim Diff (Auto) Slide review pending Neut % (Auto) 68.5 Lymph % (Auto) 20.9 Bee % (Auto) 8.3 H Eos % (Auto) 1.7 Baso % (Auto) 0.6 Neut # (Auto) 4.6 Lymph # (Auto) 1.4 Bee # (Auto) 0.6 Eos # (Auto) 0.1 Baso # (Auto) 0.0 WBC Differential . Diff Scan Auto diff confirmed Differential Comment . Platelet Estimate Low L Platelet Morphology Normal ESR PT 12.2 H INR 1.2 APTT 27.8 Sodium 141 Potassium 3.5 Chloride 105 Carbon Dioxide 28.8 Anion Gap 7 BUN 10 Creatinine 0.93 Estimated GFR 68 L Random Glucose 88 Calcium 8.2 L Total Bilirubin 0.4 AST 25 ALT 24 Alkaline Phosphatase 170 H Total Creatine Kinase Troponin I C-Reactive Protein 4.23 H Total Protein 8.0 Albumin 2.9 L Urine Color Urine Clarity Urine pH Ur Specific [place] Urine Protein Urine Glucose (UA) Urine Ketones Urine Occult Blood Urine Nitrate Urine Bilirubin Urine Urobilinogen Ur Leukocyte Esterase Urine RBC Urine WBC Ur Squamous Epith Cells Urine Bacteria Micro UA Comment Ur Microscopic Review Urine Culture Comments 02/07/18 02/07/18 02/07/18 21:45 21:45 22:25 WBC RBC Hgb Hct MCV MCH MCHC RDW Plt Count MPV Prelim Diff (Auto) Neut % (Auto) Lymph % (Auto) Bee % (Auto) Eos % (Auto) Baso % (Auto) Neut # (Auto) Lymph # (Auto) Bee # (Auto) Eos # (Auto) Baso # (Auto) WBC Differential Diff Scan Differential Comment Platelet Estimate Platelet Morphology ESR 65 H PT INR APTT Sodium Potassium Chloride Carbon Dioxide Anion Gap BUN Creatinine Estimated GFR Random Glucose Calcium Total Bilirubin AST ALT Alkaline Phosphatase Total Creatine Kinase 72 Troponin I Less than 0.02 L C-Reactive Protein Total Protein Albumin Urine Color Yellow Urine Clarity Clear Urine pH 7.0 Ur Specific [place] 1.008 Urine Protein Negative Urine Glucose (UA) Negative Urine Ketones Negative Urine Occult Blood Small H Urine Nitrate Negative Urine Bilirubin Negative Urine Urobilinogen Less than 2 Ur Leukocyte Esterase Trace H Urine RBC 2 Urine WBC 3 Ur Squamous Epith Cells 2 Urine Bacteria Rare H Micro UA Comment Culture not ind Ur Microscopic Review Not Reportable Urine Culture Comments Culture not ind 02/08/18 02/08/18 07:10 07:10 WBC 5.5 RBC 2.84 L Hgb 8.9 L Hct 27.1 L MCV 95.3 MCH 31.3 MCHC 32.9 RDW 14.4 Plt Count 93 L MPV 10.2 Prelim Diff (Auto) Slide review pending Neut % (Auto) 60.8 Lymph % (Auto) 26.0 Bee % (Auto) 9.7 H Eos % (Auto) 2.8 Baso % (Auto) 0.7 Neut # (Auto) 3.3 Lymph # (Auto) 1.4 Bee # (Auto) 0.5 Eos # (Auto) 0.2 Baso # (Auto) 0.0 WBC Differential . Diff Scan Auto diff confirmed Differential Comment . Platelet Estimate Low L Platelet Morphology Enlarged H ESR PT INR APTT Sodium 142 Potassium 3.2 L Chloride 108 H Carbon Dioxide 26.0 Anion Gap 8 BUN 9 Creatinine 0.86 Estimated GFR 74 L Random Glucose 89 Calcium 8.0 L Total Bilirubin 0.4 AST 17 ALT 18 Alkaline Phosphatase 143 H Total Creatine Kinase Troponin I C-Reactive Protein Total Protein 7.1 D Albumin 2.6 L Urine Color Urine Clarity Urine pH Ur Specific [place] Urine Protein Urine Glucose (UA) Urine Ketones Urine Occult Blood Urine Nitrate Urine Bilirubin Urine Urobilinogen Ur Leukocyte Esterase Urine RBC Urine WBC Ur Squamous Epith Cells Urine Bacteria Micro UA Comment Ur Microscopic Review Urine Culture Comments Assessment and Plan - Plan Impression TV PVE with MRSA, last (+) BC 01/10 - previous SC joint infection, resolved - possible SI joint seeding better S/P Rx endocarditis this year prior to her TVR Episode on endocarditis and lumbar spine infection, treated 2013 Renal insufficiency resolved - ?due to Teflaro or Vancomycin Known IVDU Problems with signing out AMA Recommendation Complete RX as planned Feb 20 - then oral Abx for life Consider referring her for patient assistance and fup up in clinic Check CPK, creat and CBC wewekly while on IV Abx Monitor progress Thank you for this consultation D/W Dr Dunn
--- NOTE | 2018-02-08 15:16 | P.PNIM ---
Subjective Interval history: Patient reports she is feeling okay today. She denies any chest pain. She is requesting a regular diet. She is concerned about the wires left in her chest from her previous surgery in [place] where she signed out AMA. Physical Exam Vital signs: Vital Signs 02/07/18 15:58 02/07/18 22:00 02/07/18 22:58 Temperature 98.2 F Pulse Rate 95 H 90 88 Respiratory Rate 16 Blood Pressure 117/57 L 115/60 Pulse Oximetry 100 99 100 02/07/18 23:45 02/08/18 00:15 02/08/18 04:00 Temperature 97.6 F 97.9 F Pulse Rate 64 72 75 Respiratory Rate 18 18 Blood Pressure 137/83 107/63 Pulse Oximetry 98 96 02/08/18 08:00 02/08/18 09:00 02/08/18 12:00 Temperature 97.6 F 97.7 F Pulse Rate 61 73 65 Respiratory Rate 19 21 Blood Pressure 95/67 L 97/61 L Pulse Oximetry 97 98 Intake & Output 02/07/18 02/08/18 02/08/18 18:59 06:59 18:59 Intake Total 580 / 580 Output Total 350 / 350 Balance 230 / 230 Weight 50 kg 49.6 kg Intake: IV 100 / 100 Cubicin Inj 400 MG In NS Inj 100 / 100 100 ML @ 200 mls/hr IV.SIG ONCE ONE Rx#:[id number] Oral 480 / 480 Output: Urine 350 / 350 Other: Date of Last Bowel Movement 02/07/18 02/07/18 # Bowel Movements 0 Weight On Admission 49.9 kg Narrative: GENERAL: Patient appears older than stated age, in no apparent distress. CARDIOVASCULAR: Normal rate and regular rhythm with 2 out of 6 YARIEL murmur best heard in the tricuspid area RESPIRATORY: Good respiratory efforts. Breath sounds equal and clear to auscultation bilaterally. GASTROINTESTINAL: Abdomen soft, non-tender, non-distended. Normal active bowel sounds MUSCULOSKELETAL: Extremities without cyanosis, or edema. NEURO: Alert & Oriented x4 to person, place, time, situation. Moves all ext x4 PSYCH: Appropriate mood and affect. Results - Labs CBC & Chem 7: 02/08/18 07:10 02/08/18 07:10 Laboratory Results - last 24 hr 02/07/18 02/07/18 02/07/18 21:45 21:45 21:45 WBC 6.7 RBC 3.03 L Hgb 9.7 L Hct 28.7 L MCV 94.8 MCH 31.9 MCHC 33.7 RDW 14.4 Plt Count 97 L D MPV 10.6 Prelim Diff (Auto) Slide review pending Neut % (Auto) 68.5 Lymph % (Auto) 20.9 [place] % (Auto) 8.3 H Eos % (Auto) 1.7 Baso % (Auto) 0.6 Neut # (Auto) 4.6 Lymph # (Auto) 1.4 [place] # (Auto) 0.6 Eos # (Auto) 0.1 Baso # (Auto) 0.0 WBC Differential . Diff Scan Auto diff confirmed Differential Comment . Platelet Estimate Low L Platelet Morphology Normal ESR PT 12.2 H INR 1.2 APTT 27.8 Sodium 141 Potassium 3.5 Chloride 105 Carbon Dioxide 28.8 Anion Gap 7 BUN 10 Creatinine 0.93 Estimated GFR 68 L Random Glucose 88 Calcium 8.2 L Total Bilirubin 0.4 AST 25 ALT 24 Alkaline Phosphatase 170 H Total Creatine Kinase Troponin I C-Reactive Protein 4.23 H Total Protein 8.0 Albumin 2.9 L Urine Color Urine Clarity Urine pH Ur Specific [place] Urine Protein Urine Glucose (UA) Urine Ketones Urine Occult Blood Urine Nitrate Urine Bilirubin Urine Urobilinogen Ur Leukocyte Esterase Urine RBC Urine WBC Ur Squamous Epith Cells Urine Bacteria Micro UA Comment Ur Microscopic Review Urine Culture Comments 02/07/18 02/07/18 02/07/18 21:45 21:45 22:25 WBC RBC Hgb Hct MCV MCH MCHC RDW Plt Count MPV Prelim Diff (Auto) Neut % (Auto) Lymph % (Auto) [place] % (Auto) Eos % (Auto) Baso % (Auto) Neut # (Auto) Lymph # (Auto) [place] # (Auto) Eos # (Auto) Baso # (Auto) WBC Differential Diff Scan Differential Comment Platelet Estimate Platelet Morphology ESR 65 H PT INR APTT Sodium Potassium Chloride Carbon Dioxide Anion Gap BUN Creatinine Estimated GFR Random Glucose Calcium Total Bilirubin AST ALT Alkaline Phosphatase Total Creatine Kinase 72 Troponin I Less than 0.02 L C-Reactive Protein Total Protein Albumin Urine Color Yellow Urine Clarity Clear Urine pH 7.0 Ur Specific [place] 1.008 Urine Protein Negative Urine Glucose (UA) Negative Urine Ketones Negative Urine Occult Blood Small H Urine Nitrate Negative Urine Bilirubin Negative Urine Urobilinogen Less than 2 Ur Leukocyte Esterase Trace H Urine RBC 2 Urine WBC 3 Ur Squamous Epith Cells 2 Urine Bacteria Rare H Micro UA Comment Culture not ind Ur Microscopic Review Not Reportable Urine Culture Comments Culture not ind 02/08/18 02/08/18 07:10 07:10 WBC 5.5 RBC 2.84 L Hgb 8.9 L Hct 27.1 L MCV 95.3 MCH 31.3 MCHC 32.9 RDW 14.4 Plt Count 93 L MPV 10.2 Prelim Diff (Auto) Slide review pending Neut % (Auto) 60.8 Lymph % (Auto) 26.0 [place] % (Auto) 9.7 H Eos % (Auto) 2.8 Baso % (Auto) 0.7 Neut # (Auto) 3.3 Lymph # (Auto) 1.4 [place] # (Auto) 0.5 Eos # (Auto) 0.2 Baso # (Auto) 0.0 WBC Differential . Diff Scan Auto diff confirmed Differential Comment . Platelet Estimate Low L Platelet Morphology Enlarged H ESR PT INR APTT Sodium 142 Potassium 3.2 L Chloride 108 H Carbon Dioxide 26.0 Anion Gap 8 BUN 9 Creatinine 0.86 Estimated GFR 74 L Random Glucose 89 Calcium 8.0 L Total Bilirubin 0.4 AST 17 ALT 18 Alkaline Phosphatase 143 H Total Creatine Kinase Troponin I C-Reactive Protein Total Protein 7.1 D Albumin 2.6 L Urine Color Urine Clarity Urine pH Ur Specific [place] Urine Protein Urine Glucose (UA) Urine Ketones Urine Occult Blood Urine Nitrate Urine Bilirubin Urine Urobilinogen Ur Leukocyte Esterase Urine RBC Urine WBC Ur Squamous Epith Cells Urine Bacteria Micro UA Comment Ur Microscopic Review Urine Culture Comments Microbiology 02/07/18 21:50 Blood - Peripheral Aerobic Blood Culture - Preliminary No growth in 1 day 02/07/18 21:50 Blood - Peripheral Anaerobic Blood Culture - Preliminary No growth in 1 day 02/07/18 21:45 Blood - Peripheral Aerobic Blood Culture - Preliminary No growth in 1 day 02/07/18 21:45 Blood - Peripheral Anaerobic Blood Culture - Preliminary No growth in 1 day Assessment and Plan - Plan 37-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 She left the hospital AGAINST MEDICAL ADVICE a couple of days ago with the intention of going to [facility] to continue her treatment. However her boyfriend is changing job site so she return here to the hospital to complete her treatment. The patient denies using any IV drugs since she left the hospital. She admitted to using marijuana for pain. She denies any fevers or chills. 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 Patient is not currently septic, however was on previous admission. Continue on Cubicin. WBC normal. Patient does have what appeared to be pacer leads from when she had her surgery back in [place] and left AM without them being removed. Will discuss with CT surgery to see if she would be a candidate for removal during this hospitalization. Hepatitis B and C. Need outpatient follow-up with GI. Thrombocytopenia. Platelets acceptable. No signs of bleeding. Continue to monitor. History of IV drug abuse. Patient counseled Discharge Planning: Continue IV antibiotics until completion date.
--- NOTE | 2018-02-08 15:28 | ECG ---
Date Performed: 02/07/2018 Time Performed: 22:30:09 PTAGE: 37 years EKG: Sinus rhythm LEFT ATRIAL ENLARGEMENT RIGHT BUNDLE BRANCH BLOCK ABNORMAL ECG Since the PREVIOUS TRACING , no significant change noted PREVIOUS TRACIN01/04/2018 21.48 DOCTOR: Anette Lockwood Interpretating Date/Time 02/08/2018 15:19:27
[2018-02-08] MEDS: DAPTOmycin Inj 400 MG in Sodium Chlor 0.9% Inj 100 ML IV.SIG SCH (23:19)
--- NOTE | 2018-02-09 13:02 | P.PNIM ---
Subjective Interval history: Patient reports she is feeling okay today. No new complaints. Physical Exam Vital signs: Vital Signs 02/08/18 16:00 02/08/18 20:00 02/09/18 00:00 Temperature 97.7 F 98.5 F 97.8 F Pulse Rate 67 96 H 66 Respiratory Rate 20 16 16 Blood Pressure 98/69 L 90/50 L 104/51 L Pulse Oximetry 100 97 98 02/09/18 02:00 02/09/18 04:00 02/09/18 08:00 Temperature 98.2 F 98.1 F Pulse Rate 73 74 77 Respiratory Rate 18 23 Blood Pressure 102/75 109/58 L Pulse Oximetry 97 97 02/09/18 12:00 Temperature 97.9 F Pulse Rate 69 Respiratory Rate 23 Blood Pressure 93/57 L Pulse Oximetry 98 Intake & Output 02/08/18 02/09/18 02/09/18 18:59 06:59 18:59 Intake Total 960 / 960 550 / 550 Balance 960 / 960 550 / 550 Weight 49.6 kg Intake: IV 100 / 100 Cubicin Inj 400 MG In NS Inj 100 / 100 100 ML @ 200 mls/hr IV.SIG Q24H [facility] Rx#:[id number] Oral 960 / 960 450 / 450 Other: # Voids 4 6 Date of Last Bowel Movement 02/07/18 Narrative: GENERAL: Patient appears older than stated age, in no apparent distress. CARDIOVASCULAR: Normal rate and regular rhythm with 2 out of 6 YARIEL murmur best heard in the tricuspid area RESPIRATORY: Good respiratory efforts. Breath sounds equal and clear to auscultation bilaterally. PSYCH: Appropriate mood and affect. 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 She left the hospital AGAINST MEDICAL ADVICE a couple of days ago with the intention of going to [facility] to continue her treatment. However her boyfriend is changing job site so she return here to the hospital to complete her treatment. The patient denies using any IV drugs since she left the hospital. She admitted to using marijuana for pain. She denies any fevers or chills. 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 Patient is not currently septic, however was on previous admission. Continue on Cubicin. WBC normal. Patient does have what appeared to be pacer leads from when she had her surgery back in [place] and left AMA without them being removed. Will discuss with CT surgery on Sunday to see if she would be a candidate for removal during this hospitalization. Hepatitis B and C. Need outpatient follow-up with GI. Thrombocytopenia. Platelets acceptable. No signs of bleeding. Continue to monitor. History of IV drug abuse. Patient previously counseled Discharge Planning: Continue IV antibiotics until completion date.
[2018-02-09] MEDS: DAPTOmycin Inj 400 MG in Sodium Chlor 0.9% Inj 100 ML IV.SIG SCH (22:33)
--- NOTE | 2018-02-10 13:59 | P.PNIM ---
Subjective Interval history: Patient reports she is feeling OK. No new issues. Physical Exam Vital signs: Vital Signs 02/09/18 16:00 02/09/18 20:00 02/10/18 00:00 Temperature 97.7 F 98.9 F 97.7 F Pulse Rate 67 92 H 79 Respiratory Rate 22 18 20 Blood Pressure 92/57 L 103/69 106/77 Pulse Oximetry 98 97 98 02/10/18 04:00 02/10/18 08:00 02/10/18 09:00 Temperature 97.8 F 98.4 F Pulse Rate 79 80 65 Respiratory Rate 20 22 Blood Pressure 101/71 93/52 L Pulse Oximetry 99 98 02/10/18 12:00 Temperature 97.5 F L Pulse Rate 78 Respiratory Rate 23 Blood Pressure 112/66 Pulse Oximetry 99 Intake & Output 02/09/18 02/10/18 02/10/18 18:59 06:59 18:59 Intake Total 840 / 840 820 / 820 Balance 840 / 840 820 / 820 Intake: IV 100 / 100 Cubicin Inj 400 MG In NS Inj 100 / 100 100 ML @ 200 mls/hr IV.SIG Q24H [facility] Rx#:[id number] Oral 840 / 840 720 / 720 Other: # Voids 4 5 Narrative: GENERAL: Patient appears older than stated age, in no apparent distress. CARDIOVASCULAR: Normal rate and regular rhythm with 2 out of 6 YARIEL murmur best heard in the tricuspid area RESPIRATORY: Good respiratory efforts. Breath sounds equal and clear to auscultation bilaterally. PSYCH: Appropriate mood and affect. Results - Labs CBC & Chem 7: 02/08/18 07:10 02/08/18 07:10 Microbiology 02/07/18 21:50 Blood - Peripheral Aerobic Blood Culture - Preliminary No growth in 3 days 02/07/18 21:50 Blood - Peripheral Anaerobic Blood Culture - Preliminary No growth in 3 days 02/07/18 21:45 Blood - Peripheral Aerobic Blood Culture - Preliminary No growth in 3 days 02/07/18 21:45 Blood - Peripheral Anaerobic Blood Culture - Preliminary No growth in 3 days Assessment and Plan - Plan 37-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 She left the hospital AGAINST MEDICAL ADVICE a couple of days ago with the intention of going to [facility] to continue her treatment. However her boyfriend is changing job site so she return here to the hospital to complete her treatment. The patient denies using any IV drugs since she left the hospital. She admitted to using marijuana for pain. She denies any fevers or chills. 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 Patient is not currently septic, however was on previous admission. Continue on Cubicin. WBC normal. Patient does have what appeared to be pacer leads from when she had her surgery back in [place] and left AMA without them being removed. Will discuss with CT surgery tomorrow to see if she would be a candidate for removal during this hospitalization. Hepatitis B and C. Need outpatient follow-up with GI. Thrombocytopenia. Platelets acceptable. No signs of bleeding. Continue to monitor. History of IV drug abuse. Patient previously counseled Discharge Planning: Continue IV antibiotics until completion date.
[2018-02-10] MEDS: DAPTOmycin Inj 400 MG in Sodium Chlor 0.9% Inj 100 ML IV.SIG SCH (23:31)
--- NOTE | 2018-02-11 17:47 | P.PNIM ---
Subjective Interval history: Follow-up endocarditis. Patient sitting in the bed. Complaints of her usual pain that is relieved with pain medication. Pt discussed her hx of IV drug use and trying to get away from it. Patient also discussed her previous heart surgery 1 year ago, patient mentioned that a pacer lead was left on her heart. Discussed also IV drug use can cause endocarditis. Patient denies any chest pain or shortness of breath, denies any headache or dizziness, denie any nausea or vomiting. Denies any fever or chills. Physical Exam Vital signs: Vital Signs 02/10/18 20:00 02/11/18 00:00 02/11/18 04:00 Temperature 97.6 F 97.4 F L 97.5 F L Pulse Rate 75 63 68 Respiratory Rate 18 18 18 Blood Pressure 105/63 103/52 L 103/47 L Pulse Oximetry 99 98 100 02/11/18 08:00 02/11/18 09:00 02/11/18 12:00 Temperature 97.4 F L Pulse Rate 69 59 L 83 Respiratory Rate 20 Blood Pressure 98/71 L Pulse Oximetry 98 Intake & Output 02/10/18 02/11/18 02/11/18 18:59 06:59 18:59 Intake Total 720 / 720 340 / 340 Balance 720 / 720 340 / 340 Intake: IV 100 / 100 Cubicin Inj 400 MG In NS Inj 100 / 100 100 ML @ 200 mls/hr IV.SIG Q24H [facility] Rx#:[id number] Oral 720 / 720 240 / 240 Other: # Voids 1 1 Date of Last Bowel Movement 02/07/18 Narrative: GENERAL: Well-developed, well-nourished, alert and oriented x3, with no apparent distress SKIN: Warm and dry. HEAD: Atraumatic. Normocephalic. EYES: Pupils equal and round. No scleral icterus. No injection or drainage. ENT: No nasal bleeding or discharge. Mucous membranes pink and moist. NECK: Trachea midline. No JVD. CARDIOVASCULAR: Regular rate and rhythm. + murmur RESPIRATORY: No accessory muscle use. Clear to auscultation. Breath sounds equal bilaterally. GASTROINTESTINAL: Abdomen soft, non-tender, nondistended. Hepatic and splenic margins not palpable. MUSCULOSKELETAL: Extremities without clubbing, cyanosis, or edema. No obvious deformities. NEUROLOGICAL: Awake and alert. No obvious cranial nerve deficits. Motor grossly within normal limits. moving all 4 extremities. Normal speech. PSYCHIATRIC: Appropriate mood and affect; insight and judgment normal. 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 She left the hospital AGAINST MEDICAL ADVICE a couple of days ago with the intention of going to [facility] to continue her treatment. However her boyfriend is changing job site so she return here to the hospital to complete her treatment. The patient denies using any IV drugs since she left the hospital. She admitted to using marijuana for pain. 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 Patient is not currently septic, however was on previous admission. Patient does have what appeared to be pacer leads from when she had her surgery back in [place] and left AMA without them being removed. -Cardiology consult: if she would be a candidate for removal during this hospitalization. Hepatitis B and C -outpatient follow-up with GI -monitor signs and symptoms Chronic Anemia/Thrombocytopenia - h/h 8.9/27.1, Platelets 93 - No signs of bleeding -Continue to monitor CBC History of IV drug abuse -counseling given DVT Prophylaxis: patient ambulatory Code Status: full code Discussed Condition With: patient, nurse and Dr Harvey
[2018-02-11] MEDS: DAPTOmycin Inj 400 MG in Sodium Chlor 0.9% Inj 100 ML IV.SIG SCH (22:53)
[2018-02-12 07:22] LABS: Hematocrit 31.1 % (35.0-46.0); Hemoglobin 10.3 gm/dL (11.6-15.3); Mean Corpuscular HGB Conc 33.1 % (32.0-36.0); Mean Corpuscular Hemoglobin 31.3 pg (27.0-34.0); Mean Corpuscular Volume 94.6 fL (80.0-100.0); Mean Platelet Volume 9.6 fL (7.0-11.0); Platelet Count 99 th/mm3 (150-450); Red Blood Count 3.29 mil/mm3 (4.00-5.30); Red Cell Distribution Width 14.4 % (11.6-17.2); White Blood Count 7.6 th/mm3 (4.0-11.0)
[2018-02-12 07:45] LABS: Calcium 8.4 mg/dL (8.5-10.1); Potassium 4.4 meq/L (3.5-5.1)
--- NOTE | 2018-02-12 10:37 | P.CONCA ---
History of Present Illness Service: Cardiology Consult date: 02/12/18 Reason for Consult: Endocardititis Primary Care Provider: [place] Primary Care Physician Chief Complaint: Endocarditis History of Present Illness: This is a very pleasant 37 year old hx of Tricuspid valve endocarditis first episode in 07/2013 at [place] with a prolonged hospital course who eventually underwent a Tricuspid valve replacement with a bioprosthetic valve on 09/2017 at [place] who was told she needed a revision but declined to do so at that time. There was mention of a "wire that needed to be removed " per the patient.She presented in late December with Staph aureus bacteremia and tricuspid valve endocarditis. At that time she had a 2.7 x 1.0 echodensity on the atria surface of the prosthetic tricuspid valve leaflet with mild TR. CV surgery was consulted, but felt to be high risk for surgical intervention. She was initially treated with Vancomycin and Trefluro but developed renal failure and was switched to Cubicin. She subsquenlty left AMA but returned after she could not be taken to [place] for further treatment. Patient has been having shortness of breath, fevers, and chills. Currently, the patient denies PND/ orthopnea/LE/stroke symptoms. Review of Systems All other systems reviewed negative except as stated in HPI PMFSH - History History Provided By: Patient - Medical History Medical History: Medical History (Last Reviewed 02/08/18 @ 13:59 by Katie Richard MD) Hand abscess Abscess in epidural space of lumbar spine Endocarditis Hepatitis C Hypokalemia Hyponatremia IVDU (intravenous drug user) Osteomyelitis Pneumonia Renal failure Sepsis Thrombocytopenia UTI (urinary tract infection) - Surgical History Surgical History: Surgical History (Last Reviewed 02/08/18 @ 13:59 by Katie Richard MD) History of History of heart surgery - Tobacco History Second Hand Smoke Exposure: No Tobacco Use In Past 30 Days: No Smoking Status: Former smoker Tobacco Type: Cigarettes - Alcohol History How Often Do You Have a Drink Containing Alcohol: Never - Substance Use History Substance History: Past History - Substance Use Type Marijuana Status: Active Route Used: Inhalation Frequency: once Comment: pain - Travel History Recent Travel in the [place] Within the Last 8 Weeks: No Recent Travel Out of the Country Within the Last 8 Weeks: No - Immunization History Tetanus Immunization: <5 Years Hx Influenza Vaccine This Season: No Medications and Allergies Active Medications: Active Medications Al Hydroxide/Mg Hydroxide (Milk Of Magnesia Liq) 30 ml PO Q12H PRN PRN Reason: Mild Constipation Bisacodyl (Dulcolax Supp) 10 mg RECTAL DAILY PRN PRN Reason: SEVERE CONSITIPATION Daptomycin 400 mg/ Sodium (Chloride) 100 mls @ 200 mls/hr IV.SIG Q24H [facility] Last Infusion: 02/11/18 23:23 Dose: Infused Lactulose (Lactulose Liq) 30 ml PO DAILY PRN PRN Reason: SEVERE CONSITIPATION Oxycodone HCl (Roxicodone) 5 mg PO Q6H PRN PRN Reason: pain >5 Last Admin: 02/12/18 08:37 Dose: 5 mg Sennosides (Senokot) 17.2 mg PO Q12H PRN PRN Reason: Moderate Constipation Allergies Allergy/AdvReac Type Severity Reaction Status Date / Time bee venom protein (honey bee) Allergy Severe rash Verified 01/04/18 14:34 Home Medications Medication Instructions Recorded Confirmed Type No Known Home Medications 01/04/18 02/07/18 History Exam Vital signs: Vital Signs 02/11/18 12:00 02/11/18 16:00 02/11/18 20:00 Temperature 98.2 F 97.6 F 98.9 F Pulse Rate 83 87 93 H Respiratory Rate 20 20 18 Blood Pressure 111/75 103/61 103/66 Pulse Oximetry 100 100 98 02/11/18 20:18 02/12/18 00:02 02/12/18 00:03 Temperature 97.4 F L Pulse Rate 73 91 H 87 Respiratory Rate 18 Blood Pressure 97/55 L Pulse Oximetry 98 02/12/18 04:00 02/12/18 04:10 02/12/18 08:00 Temperature 97.7 F 97.8 F Pulse Rate 74 67 70 Respiratory Rate 17 18 Blood Pressure 109/53 L 110/53 L Pulse Oximetry 99 Intake & Output 02/11/18 02/12/18 02/12/18 18:59 06:59 18:59 Intake Total 960 / 960 100 / 100 Balance 960 / 960 100 / 100 Weight 51.7 kg Intake: IV 100 / 100 Cubicin Inj 400 MG In NS Inj 100 / 100 100 ML @ 200 mls/hr IV.SIG Q24H [facility] Rx#:[id number] Oral 960 / 960 Other: # Voids 5 # Bowel Movements 2 - Constitutional no acute distress - Routine HEENT Exam Head: Present: normocephalic Eye: Present: EOMI, PERRL ENT: Present: mucous membranes moist - Routine Neck Exam Present: supple. Absent: JVD - Routine Chest/Breast/Axilla Exam Chest wall: Absent: tenderness - Routine Respiratory Exam Present: CTA bilaterally - Routine Cardiovascular Exam Present: RRR, S1, S2 - Routine Extremities Exam Absent: edema - Routine Neurological Exam Present: alert, oriented X3 - Routine Psychiatric Exam Present: normal affect Results 02/12/18 05:53 02/12/18 05:53 CBC 02/12/18 Range/Units 05:53 WBC 7.6 (4.0-11.0) th/mm3 RBC 3.29 L (4.00-5.30) mil/mm3 Hgb 10.3 L (11.6-15.3) gm/dL Hct 31.1 L (35.0-46.0) % Plt Count 99 L (150-450) th/mm3 Comprehensive Metabolic Panel 02/12/18 Range/Units 05:53 Sodium 141 (136-145) meq/L Potassium 4.4 (3.5-5.1) meq/L Chloride 106 (98-107) meq/L Carbon Dioxide 26.0 (21.0-32.0) meq/L BUN 14 (7-18) mg/dL Creatinine 1.01 H (0.50-1.00) mg/dL Calcium 8.4 L (8.5-10.1) mg/dL Intake and Output 02/11/18 02/12/18 02/12/18 22:59 06:59 14:59 Intake Total 960 / 960 100 / 100 Balance 960 / 960 100 / 100 Intake: IV 100 / 100 Cubicin Inj 400 MG In NS Inj 100 / 100 100 ML @ 200 mls/hr IV.SIG Q24H [facility] Rx#:[id number] Oral 960 / 960 Other: # Voids 5 # Bowel Movements 2 Weight 51.7 kg Assessment and Plan - Assessment (1) Endocarditis Code(s): I38 - Endocarditis, valve unspecified Status: Chronic - Plan The patient has blood cx that show no growth to date. She has had a ZEHRA which showed evidence of mobile mass on the tricuspid prosthetic leaflets. CV surgery has declined operation. Difficult to ascertain a good history from the patient. I am unsure of what "wires" she is referring to for extraction. The imaging I have reviewed appear to be consistent with telemetry leads; however this is uncertain. No other physician has mentioned retained pacer leads either. We will need to repeat the XRAY. Additionally, there are no leads on the TTE or TTE. Therefore, I do not believe there is anything to extract from an endovascular standpoint. ID is following, the patient is on IV abx with plans to switch to po abx. At this juncture, I have reordered a TTE. If ID would like , we can repeat a ZEHRA to assess therapy response, but I feel it is too soon at this juncture. It is good that her cultures are negative. Thank you for allowing me to participate in the care of Mrs. Corona, please contact me with any question. (1) Endocarditis Qualifiers: Endocarditis type: infective Infective endocarditis organism: bacterial Chronicity: acute Qualified Code(s): I33.0 - Acute and subacute infective endocarditis
--- NOTE | 2018-02-12 15:59 | P.PNIM ---
Subjective Interval history: Follow-up endocarditis. Patient sitting in bed complaining of the IV site hurting her, she stated it is burning, stated that she change her IV every 2 days and requesting to have a line put in instead as it is burning her with IV drug administration. However overall feeling better. Patient denies any headache or dizziness, denies any nausea or vomiting, denies diarrhea or constipation. Patient denies any fever or chills. Physical Exam Vital signs: Vital Signs 02/11/18 16:00 02/11/18 20:00 02/11/18 20:18 Temperature 97.6 F 98.9 F Pulse Rate 73 93 H 73 Respiratory Rate 20 18 Blood Pressure 103/61 103/66 Pulse Oximetry 100 98 02/12/18 00:02 02/12/18 00:03 02/12/18 04:00 Temperature 97.4 F L 97.7 F Pulse Rate 91 H 87 74 Respiratory Rate 18 17 Blood Pressure 97/55 L 109/53 L Pulse Oximetry 98 02/12/18 04:10 02/12/18 08:00 02/12/18 09:00 Temperature 97.8 F Pulse Rate 67 70 67 Respiratory Rate 18 Blood Pressure 110/53 L Pulse Oximetry 99 02/12/18 12:00 Temperature 97.6 F Pulse Rate 74 Respiratory Rate 17 Blood Pressure 94/53 L Pulse Oximetry 99 Intake & Output 02/11/18 02/12/18 02/12/18 18:59 06:59 18:59 Intake Total 960 / 960 100 / 100 Balance 960 / 960 100 / 100 Weight 51.7 kg Intake: IV 100 / 100 Cubicin Inj 400 MG In NS Inj 100 / 100 100 ML @ 200 mls/hr IV.SIG Q24H [facility] Rx#:[id number] Oral 960 / 960 Other: # Voids 5 # Bowel Movements 2 Narrative: GENERAL: Well-developed, well-nourished, alert and oriented x3, with no apparent distress SKIN: Warm and dry. HEAD: Atraumatic. Normocephalic. EYES: Pupils equal and round. No scleral icterus. No injection or drainage. ENT: No nasal bleeding or discharge. Mucous membranes pink and moist. NECK: Trachea midline. No JVD. CARDIOVASCULAR: Regular rate and rhythm. + murmur RESPIRATORY: No accessory muscle use. Clear to auscultation. Breath sounds equal bilaterally. GASTROINTESTINAL: Abdomen, flat, soft, non-tender, nondistended. Hepatic and splenic margins not palpable. MUSCULOSKELETAL: Extremities without clubbing, cyanosis, or edema. No obvious deformities. NEUROLOGICAL: Awake and alert. No obvious cranial nerve deficits. Motor grossly within normal limits. moving all 4 extremities. Normal speech. PSYCHIATRIC: Appropriate mood and affect; insight and judgment normal. Results - Labs CBC & Chem 7: 02/12/18 05:53 02/12/18 05:53 Laboratory Results - last 24 hr 02/12/18 02/12/18 05:53 05:53 WBC 7.6 RBC 3.29 L Hgb 10.3 L Hct 31.1 L MCV 94.6 MCH 31.3 MCHC 33.1 RDW 14.4 Plt Count 99 L MPV 9.6 Sodium 141 Potassium 4.4 Chloride 106 Carbon Dioxide 26.0 Anion Gap 9 BUN 14 Creatinine 1.01 H Estimated GFR 62 L Random Glucose 80 Calcium 8.4 L Microbiology 02/07/18 21:50 Blood - Peripheral Aerobic Blood Culture - Final No growth in 5 days 02/07/18 21:50 Blood - Peripheral Anaerobic Blood Culture - Final No growth in 5 days 02/07/18 21:45 Blood - Peripheral Aerobic Blood Culture - Final No growth in 5 days 02/07/18 21:45 Blood - Peripheral Anaerobic Blood Culture - Final No growth in 5 days Assessment and Plan - Plan 37-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 She left the hospital AGAINST MEDICAL ADVICE a couple of days ago with the intention of going to [facility] to continue her treatment. However her boyfriend is changing job site so she return here to the hospital to complete her treatment. The patient denies using any IV drugs since she left the hospital. She admitted to using marijuana for pain. 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 Patient is not currently septic, however was on previous admission. -Patient does have what appeared to be pacer leads from when she had her surgery back in [place] and left AM without them being removed. -Cardiology consult: if she would be a candidate for removal during this hospitalization. Hepatitis B and C -outpatient follow-up with GI -monitor signs and symptoms Chronic Anemia/Thrombocytopenia - h/h 8.9/27.1, Platelets 93 - No signs of bleeding -Continue to monitor CBC History of IV drug abuse -counseling given DVT Prophylaxis: patient ambulatory Code Status: full code Discussed Condition With: patient and nurse
[2018-02-12] MEDS: DAPTOmycin Inj 400 MG in Sodium Chlor 0.9% Inj 100 ML IV.SIG SCH (22:53)
--- NOTE | 2018-02-13 15:34 | ECHRPT ---
Indication: sepsis endocarditis CONCLUSIONS Wall thickness is normal. The left ventricular systolic function is low normal with an estimated ejection fraction in the rang e of 50- 55%. The left atrial size is mildly dilated. The right atrial size is moderately dilated. Trace mitral valve regurgitation. Bioprosthetic tricuspid valve prosthesis. Severe thickening of the tricuspid valve leaflets. can not rule out vegetation 3 mean gradient BP: / HR: Rhythm: MEASUREMENTS (Male / Female) Normal Values Technical Quality: 2D ECHO LV Diastolic Diameter PLAX 5.0 cm 4.2 - 5.9 / 3.9 - 5.3 cm LV Systolic Diameter PLAX 3.9 cm IVS Diastolic Thickness 1.0 cm 0.6 - 1.0 / 0.6 - 0.9 cm LVPW Diastolic Thickness 1.3 cm 0.6 - 1.0 / 0.6 - 0.9 cm LV Relative Wall Thickness 0.5 RV Internal Dim ED PLAX 2.8 cm LVOT Diameter 1.7 cm Aortic Root Diameter 2.7 cm LA Systolic Diameter LX 4.1 cm 3.0 - 4.0 / 2.7 - 3.8 cm M-MODE Aortic Root Diameter MM 2.7 cm LA Systolic Diameter MM 4.6 cm LA Ao Ratio MM 1.7 AV Cusp Separation MM 1.9 cm DOPPLER AV Peak Velocity 164.0 cm/s AV Peak Gradient 10.8 mmHg AI Peak Velocity 130.0 cm/s AI Peak Gradient 6.8 mmHg AI Pressure Half Time 453.0 ms Mitral E Point Velocity 83.4 cm/s Mitral A Point Velocity 53.8 cm/s Mitral E to A Ratio 1.6 LV E' Lateral Velocity 10.5 cm/s Mitral E to LV E' Lateral Ratio 7.9 LV E' Septal Velocity 6.9 cm/s Mitral E to LV E' Septal Ratio 12.1 TR Peak Velocity 147.0 cm/s TR Peak Gradient 8.6 mmHg Right Atrial Pressure 10.0 mmHg Pulmonary Artery Systolic Pressu 18.6 mmHg Right Ventricular Systolic Press 18.6 mmHg PV Peak Velocity 119.0 cm/s PV Peak Gradient 5.7 mmHg FINDINGS LEFT VENTRICLE Wall thickness is normal. The left ventricular systolic function is low normal with an estimated ejection fraction in the rang e of 50- 55%. LEFT ATRIUM The left atrial size is mildly dilated. RIGHT ATRIUM The right atrial size is moderately dilated. MITRAL VALVE Trace mitral valve regurgitation. TRICUSPID VALVE Bioprosthetic tricuspid valve prosthesis. Severe thickening of the tricuspid valve leaflets. 3 mean gradient Glenn Fisher MD, FACC, [facility] (Electronically Signed) Final Date:13 February 2018 15:33
--- NOTE | 2018-02-13 16:00 | P.PNIM ---
Subjective Interval history: Follow-up endocarditis, anemia, thrombocytopenia, IVDU. Patient seen and examined laying in bed, patient stated feeling better. Complains of the right upper arm IV site pain stated better last night with antibiotic administration. However it vasquez when it flush. It does not look like infiltrated. Discussed well have midline if necessary. Denies any chest pain, pain or shortness of breath, denies any nausea or vomiting, denies any diarrhea or constipation. Patient denies any fever or chills. Physical Exam Vital signs: Vital Signs 02/12/18 16:00 02/12/18 17:07 02/12/18 20:00 Temperature 97.8 F 98.4 F Pulse Rate 73 65 88 Respiratory Rate 17 18 Blood Pressure 108/59 L 103/58 L Pulse Oximetry 98 100 02/13/18 00:00 02/13/18 04:00 02/13/18 08:00 Temperature 97.9 F 97.7 F 97.6 F Pulse Rate 77 66 69 Respiratory Rate 20 20 18 Blood Pressure 95/55 L 95/57 L 115/64 Pulse Oximetry 97 98 99 02/13/18 09:00 02/13/18 12:00 02/13/18 12:36 Temperature 97.4 F L Pulse Rate 76 75 66 Respiratory Rate 18 Blood Pressure 116/84 Pulse Oximetry 99 Intake & Output 02/12/18 02/13/18 02/13/18 18:59 06:59 18:59 Intake Total 960 / 960 100 / 100 Output Total Balance 959 / 959 100 / 100 Weight 51.9 kg Intake: IV 100 / 100 Cubicin Inj 400 MG In NS Inj 100 / 100 100 ML @ 200 mls/hr IV.SIG Q24H [facility] Rx#:[id number] Oral 960 / 960 Output: Urine/Stool Mix Other: # Voids 4 Narrative: GENERAL: Well-developed, well-nourished, alert and oriented x3, with no apparent distress SKIN: Warm and dry. HEAD: Atraumatic. Normocephalic. EYES: Pupils equal and round. No scleral icterus. No injection or drainage. ENT: No nasal bleeding or discharge. Mucous membranes pink and moist. NECK: Trachea midline. No JVD. CARDIOVASCULAR: Regular rate and rhythm. + murmur RESPIRATORY: No accessory muscle use. Clear to auscultation. Breath sounds equal bilaterally. GASTROINTESTINAL: Abdomen, flat, soft, non-tender, nondistended. Hepatic and splenic margins not palpable. MUSCULOSKELETAL: Extremities without clubbing, cyanosis, or edema. No obvious deformities. NEUROLOGICAL: Awake and alert. No obvious cranial nerve deficits. Motor grossly within normal limits. moving all 4 extremities. Normal speech. PSYCHIATRIC: Appropriate mood and affect; insight and judgment normal. 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 She left the hospital AGAINST MEDICAL ADVICE a couple of days ago with the intention of going to [facility] to continue her treatment. However her boyfriend is changing job site so she return here to the hospital to complete her treatment. The patient denies using any IV drugs since she left the hospital. She admitted to using marijuana for pain. Tricuspid valve endocarditis History of sternoclavicular joint infection Status post valve replacement in [place], per patient history, patient declined the recommendation for the revision recommended on 09/2017 -ID following -blood culture no growth on 02/07 - continue IV Cubicin to complete treatment course on February 20. ID recommended oral antibiotic for life. Patient is not currently septic, however was on previous admission. -Patient stated she does have what appeared to be pacer leads from when she had her surgery back in [place] and left AMA without them being removed. Cardiology reviewed imaging and noted there is nothing to extract. -Cardiology consulted, reviewed previous ZEHRA in 12/2017, noted evidence of mobile mass on the tricuspid prosthetic leaflets. Patient declined CV surgery recommendation at that time -2D Echo 02/13/18: The left ventricular systolic function is low normal with an estimated ejection fraction in the range of 50- 55%. The left atrial size is mildly dilated. The right atrial size is moderately dilated. Trace mitral valve regurgitation. Bioprosthetic tricuspid valve prosthesis. Severe thickening of the tricuspid valve leaflets. can not rule out vegetation , 3 mean gradient Hepatitis B and C -outpatient follow-up with GI -monitor signs and symptoms Chronic Anemia/Thrombocytopenia - h/h improving today 10.3/31.1, Platelets 99 - No signs of bleeding -Continue to monitor CBC History of IV drug abuse -counseling given DVT Prophylaxis: patient ambulatory Code Status: full code Discussed Condition With: candi and nurse Discharge Planning: Discharge when cleared with ID and antibiotic finished on 02/20/18
[2018-02-13] MEDS: DAPTOmycin Inj 400 MG in Sodium Chlor 0.9% Inj 100 ML IV.SIG SCH (22:30)
--- NOTE | 2018-02-14 11:53 | P.PNIM ---
Physical Exam Vital signs: Vital Signs 02/13/18 12:00 02/13/18 12:36 02/13/18 16:00 Temperature 97.4 F L 97.9 F Pulse Rate 75 66 70 Respiratory Rate 18 18 Blood Pressure 116/84 101/56 L Pulse Oximetry 99 100 02/13/18 18:00 02/13/18 20:00 02/14/18 00:00 Temperature 98.0 F 98.0 F Pulse Rate 74 81 81 Respiratory Rate 16 18 Blood Pressure 114/61 101/67 Pulse Oximetry 99 96 02/14/18 00:10 02/14/18 03:24 02/14/18 04:00 Temperature 97.5 F L Pulse Rate 75 63 Respiratory Rate 19 18 Blood Pressure 99/59 L Pulse Oximetry 100 02/14/18 08:00 02/14/18 09:00 Temperature 98.0 F Pulse Rate 73 70 Respiratory Rate 18 Blood Pressure 107/50 L Pulse Oximetry 98 Intake & Output 02/13/18 02/14/18 02/14/18 18:59 06:59 18:59 Intake Total 720 / 720 561 / 561 Balance 720 / 720 561 / 561 Weight 51.6 kg Intake: IV 100 / 100 Cubicin Inj 400 MG In NS Inj 100 / 100 100 ML @ 200 mls/hr IV.SIG Q24H [facility] Rx#:[id number] Oral 720 / 720 461 / 461 Other: # Voids 3 2 # Bowel Movements 1 Results - Labs CBC & Chem 7: 02/12/18 05:53 02/12/18 05:53 Laboratory Results - last 24 hr 02/14/18 07:25 Total Creatine Kinase 34 Assessment and Plan - Plan 37-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 She left the hospital AGAINST MEDICAL ADVICE a couple of days ago with the intention of going to [facility] to continue her treatment. However her boyfriend is changing job site so she return here to the hospital to complete her treatment. The patient denies using any IV drugs since she left the hospital. She admitted to using marijuana for pain. Tricuspid valve endocarditis History of sternoclavicular joint infection Status post valve replacement in [place], per patient history, patient declined the recommendation for the revision recommended on 09/2017 -ID following -blood culture no growth on 02/07 - continue IV Cubicin to complete treatment course on February 20. ID recommended oral antibiotic for life. Patient is not currently septic, however was on previous admission. -Patient stated she does have what appeared to be pacer leads from when she had her surgery back in [place] and left AMA without them being removed. Cardiology reviewed imaging and noted there is nothing to extract. -Cardiology consulted, reviewed previous ZEHRA in 12/2017, noted evidence of mobile mass on the tricuspid prosthetic leaflets. Patient declined CV surgery recommendation at that time -2D Echo 02/13/18: The left ventricular systolic function is low normal with an estimated ejection fraction in the range of 50- 55%. The left atrial size is mildly dilated. The right atrial size is moderately dilated. Trace mitral valve regurgitation. Bioprosthetic tricuspid valve prosthesis. Severe thickening of the tricuspid valve leaflets. can not rule out vegetation , 3 mean gradient Hepatitis B and C -outpatient follow-up with GI -monitor signs and symptoms Chronic Anemia/Thrombocytopenia - h/h improving today 10.3/31.1, Platelets 99 - No signs of bleeding -Continue to monitor CBC History of IV drug abuse -counseling given DVT Prophylaxis: patient ambulatory Discharge Planning: Discharge when cleared with ID and antibiotic finished on 02/20/18
--- NOTE | 2018-02-14 12:53 | P.PNID ---
Subjective Remarks: Patient is a 37-year-old female, known to me from her previous hospitalization, came back to the hospital for further evaluation and treatment of her known endocarditis. She was admitted January 04 and at that time she was complaining of right-sided back pain, hip pain, fever and chills. She was diagnosed to have tricuspid valve prosthetic valve endocarditis, and her blood cultures grew MRSA. She had a prolonged course of bacteremia, which finally cleared after she was on vancomycin and Teflaro. She was also felt to possibly have a right sacroiliitis, explaining her hip pain, and buttock pain. There was no abnormality seen in the right hip. During the course of her hospitalization, she had a cardiothoracic surgery evaluation and felt that she was not a surgical candidate. She also developed renal insufficiency, and her urine was positive for eosinophils. Her antibiotic was changed to Cubicin. It was felt that it could either be vancomycin or Teflaro causing her renal insufficiency. Patient is supposed to complete her treatment February 20, but she signed out AGAINST MEDICAL ADVICE on February 04 for personal reasons. She came back to the hospital this time to complete her antibiotic treatment. Patient overall feels much better. She has not been febrile. She still has some pain in the right buttock but able to ambulate. Denies shortness of breath. No rash or itching. No nausea or vomiting or diarrhea. And she is voiding okay. Since readmission she has not been febrile. Her WBC is normal. Creatinine is down to normal. Infectious disease consultation has been requested to continue with management of her infection. Notes reviewed NO new complaints Being evaluated for ?pacer wires in place Temps ok Running out of IV access Antibiotics: Cubicin Past Medical History: Reviewed Allergies/Adverse Reactions: Allergies bee venom protein (honey bee) Allergy (Severe, Verified 01/04/18 14:34) rash Objective Vital Signs 02/13/18 16:00 02/13/18 18:00 02/13/18 20:00 Temperature 97.9 F 98.0 F Pulse Rate 70 74 81 Respiratory Rate 18 16 Blood Pressure 101/56 L 114/61 Pulse Oximetry 100 99 02/14/18 00:00 02/14/18 00:10 02/14/18 03:24 Temperature 98.0 F Pulse Rate 81 75 Respiratory Rate 18 19 Blood Pressure 101/67 Pulse Oximetry 96 02/14/18 04:00 02/14/18 08:00 10/04/18 09:00 Temperature 97.5 F L 98.0 F Pulse Rate 63 73 70 Respiratory Rate 18 18 Blood Pressure 99/59 L 107/50 L Pulse Oximetry 100 98 Intake & Output 02/13/18 02/14/18 02/14/18 18:59 06:59 18:59 Intake Total 720 / 720 561 / 561 Balance 720 / 720 561 / 561 Weight 51.6 kg Intake: IV 100 / 100 Cubicin Inj 400 MG In NS Inj 100 / 100 100 ML @ 200 mls/hr IV.SIG Q24H [facility] Rx#:[id number] Oral 720 / 720 461 / 461 Other: # Voids 3 2 # Bowel Movements 1 02/07/18 21:50 Blood - Peripheral Aerobic Blood Culture - Final No growth in 5 days 02/07/18 21:50 Blood - Peripheral Anaerobic Blood Culture - Final No growth in 5 days 02/07/18 21:45 Blood - Peripheral Aerobic Blood Culture - Final No growth in 5 days 02/07/18 21:45 Blood - Peripheral Anaerobic Blood Culture - Final No growth in 5 days Lab - Chemistry Results 02/14/18 07:25 Total Creatine Kinase 34 Physical Exam: GENERAL: awake and alert, not in respiratory distress. SKIN: Cool and dry. No generalized rash, no ecchymoses and no evidence of embolic lesions. HEAD: Atraumatic. Normocephalic. No temporal wasting, or tenderness. EYES: [place] conjunctiva. No petechia or hemorrhage. Pupils equal, round and reactive to light. Extraocular movements full and intact. No scleral icterus. No injection or drainage. EARS, NOSE AND THROAT: Nose without bleeding or purulent nasal discharge. No sinus tenderness. Mucous membranes pink and moist. No oral lesions noted. No exudate. No oral thrush. NECK: Trachea midline. Supple and not tender, no meningeal signs CARDIOVASCULAR: Regular rate and rhythm. No murmurs, rubs or gallops heard. Healed sternotomy incision RESPIRATORY: Clear to auscultation. Breath sounds equal bilaterally. No rales , wheezing or rhonchi ABDOMEN: Soft, non-tender, nondistended. Bowel sounds present and normoactive. No guarding. No rebound. No organomegaly. EXTREMITIES: No clubbing, cyanosis, or edema. No joint effusion, has good ROM. No calf tenderness. Well perfused and warm. NEUROLOGICAL: Awake and alert. Cranial nerves grossly intact. Motor grossly within normal limits. PSYCHIATRIC: Normal affect, calm and cooperative. LINE: No evidence of infection Assessment and Plan - Plan Impression TV PVE with MRSA, last (+) BC 01/10 - previous SC joint infection, resolved - possible SI joint seeding better S/P Rx endocarditis this year prior to her TVR Episode on endocarditis and lumbar spine infection, treated 2013 Renal insufficiency resolved - ?due to Teflaro or Vancomycin Known IVDU Problems with signing out AMA Recommendation Continue Cubicin Repeat CXR and AXR to check re: pacing wires Levaquin and Rifampin for now - has been used to Rx endocarditis; her end date is Feb 20 D/W RN D/W Alisha CHRISTOPHER (JABIER)
--- NOTE | 2018-02-14 13:48 | XR ---
EXAM DATE: 02/14/2018 12:00 AM EDT AGE/SEX: 37 years / Female INDICATIONS: . Short of breath. CLINICAL DATA: This is the patient's subsequent encounter. Patient reports that signs and symptoms h ave been present for 1 month and indicates a pain score of 0/10. MEDICAL/SURGICAL HISTORY: . Hepatitis C. Abscess. Endocarditis. Hypokalemia. Hypernatremia. IV drug use. Osteomyelitis. Pneumonia. Renal failure. Sepsis. Thrombocytopenia. . Valve replacement. p acemaker COMPARISON: [facility], CHEST 2V AP&LAT, 01/10/2018. . FINDINGS: Median sternotomy wires are noted status post cardiac surgery. Cardiac valve replacement is stable. M ild increased interstitial markings are noted bilaterally consistent with acute or chronic interstiti al disease. No focal alveolar consolidation is noted. Pacer leads overlie the left heart. CONCLUSION: Mild increased interstitial markings bilaterally consistent with acute or chronic interstitial diseas e. Clinical correlation is recommended. Electronically signed by: Grant Gudino MD 02/14/2018 1:47 PM EDT
--- NOTE | 2018-02-14 14:02 | XR ---
EXAM DATE: 02/14/2018 12:00 AM EDT AGE/SEX: 37 years / Female INDICATIONS: Short of breath. CLINICAL DATA: This is the patient's subsequent encounter. Patient reports that signs and symptoms h ave been present for 1 month and indicates a pain score of 0/10. MEDICAL/SURGICAL HISTORY: . Hepatitis C. Abscess. Endocarditis. Hypokalemia. Hypernatremia. IV drug use. Osteomyelitis. Pneumonia. Renal failure. Sepsis. Thrombocytopenia . valve replacement. Pa cemaker COMPARISON: [facility] [place], ABDOMEN AP & LAT, 01/28/2018. . FINDINGS: Supine and upright views of the abdomen were performed. There is moderate to large amount of stool th roughout the colon. The patient is status post median sternotomy and artificial heart valve in place. Epicardial pacer leads are present. No air-fluid levels are seen. No abnormal masses, calcifications , or organomegaly is seen. The visualized lower lungs are clear. No evidence of free intraperitoneal gas. The osseous structures are unremarkable. CONCLUSION: Moderate to large amount of stool present throughout the colon most characteristic of constipation. Electronically signed by: Stephen Malagon MD 02/14/2018 2:00 PM EDT
[2018-02-14] MEDS: levoFLOXacin 750 MG Tablet PO SCH (14:04)
--- NOTE | 2018-02-14 20:03 | P.PNCA ---
Subjective Interval history: No CP/SO. Repeat XRAY shows evidence of epicardial leads after all surface leads have been removed. OR report from the OSH confirms this. Medications and Allergies Active Medications: Active Medications Al Hydroxide/Mg Hydroxide (Milk Of Magnesia Liq) 30 ml PO Q12H PRN PRN Reason: Mild Constipation Bisacodyl (Dulcolax Supp) 10 mg RECTAL DAILY PRN PRN Reason: SEVERE CONSITIPATION Lactulose (Lactulose Liq) 30 ml PO DAILY PRN PRN Reason: SEVERE CONSITIPATION Levofloxacin (Levaquin) 750 mg PO Q24H [facility] Last Admin: 02/14/18 14:04 Dose: 750 mg Oxycodone HCl (Roxicodone) 5 mg PO Q6H PRN PRN Reason: pain >5 Last Admin: 02/14/18 16:17 Dose: 5 mg Rifampin (Rifampin) 300 mg PO Q12H [facility] Last Admin: 02/14/18 14:04 Dose: 300 mg Sennosides (Senokot) 17.2 mg PO Q12H PRN PRN Reason: Moderate Constipation Allergies Allergy/AdvReac Type Severity Reaction Status Date / Time bee venom protein (honey bee) Allergy Severe rash Verified 01/04/18 14:34 Home Medications Medication Instructions Recorded Confirmed Type No Known Home Medications 01/04/18 02/07/18 History Physical Exam Vital signs: Vital Signs 02/14/18 00:00 02/14/18 00:10 02/14/18 03:24 Temperature 98.0 F Pulse Rate 81 75 Respiratory Rate 18 19 Blood Pressure 101/67 Pulse Oximetry 96 02/14/18 04:00 02/14/18 08:00 02/14/18 09:00 Temperature 97.5 F L 98.0 F Pulse Rate 63 73 70 Respiratory Rate 18 18 Blood Pressure 99/59 L 107/50 L Pulse Oximetry 100 98 02/14/18 12:00 02/14/18 16:00 Temperature 97.5 F L 97.9 F Pulse Rate 80 79 Respiratory Rate 18 18 Blood Pressure 131/67 125/70 Pulse Oximetry 100 98 Intake & Output 02/14/18 02/14/18 02/15/18 06:59 18:59 06:59 Intake Total 561 / 561 840 / 840 Balance 561 / 561 840 / 840 Weight 51.6 kg Intake: IV 100 / 100 Cubicin Inj 400 MG In NS Inj 100 / 100 100 ML @ 200 mls/hr IV.SIG Q24H [facility] Rx#:[id number] Oral 461 / 461 840 / 840 Other: # Voids 2 6 # Bowel Movements 1 - Constitutional no acute distress, chronically ill appearing - Routine HEENT Exam Head: Present: normocephalic Eye: Present: EOMI - Routine Neck Exam Absent: JVD - Routine Respiratory Exam Present: CTA bilaterally - Routine Cardiovascular Exam Present: RRR, S1, S2 - Routine Abdominal Exam Present: soft, normoactive bowel sounds. Absent: tenderness - Routine Neurological Exam Present: alert, oriented X3, CN II-XII intact - Routine Psychiatric Exam Present: normal affect Results 02/12/18 05:53 02/12/18 05:53 Intake and Output 02/14/18 02/14/18 02/14/18 06:59 14:59 22:59 Intake Total 561 / 561 840 / 840 Balance 561 / 561 840 / 840 Intake: IV 100 / 100 Cubicin Inj 400 MG In NS Inj 100 / 100 100 ML @ 200 mls/hr IV.SIG Q24H [facility] Rx#:[id number] Oral 461 / 461 840 / 840 Other: # Voids 2 6 # Bowel Movements 1 Weight 51.6 kg - Imaging and Cardiology Imaging: Impressions Abdomen X-Ray 02/14/18 00:00 CONCLUSION: Moderate to large amount of stool present throughout the colon most characteristic of constipation. Chest X-Ray 02/14/18 00:00 CONCLUSION: Mild increased interstitial markings bilaterally consistent with acute or chronic interstitial disease. Clinical correlation is recommended. Assessment and Plan - Assessment (1) Endocarditis Code(s): I38 - Endocarditis, valve unspecified Status: Chronic - Plan Although, there is now sufficient evidence demonstrating retained epicardial leads from her prior CV surgery, unclear that this is a nidus for the bacterial endocarditis. There are no endocardial leads as demonstrated by echo. She has been declined for repeat CV surgery and blood cultures have been negative at this point. I discussed with Dr. Nunez, no need for surgical extraction of these leads at this juncture. Would recommend starting ASA 81mg given her Tricuspid Valve Prosthesis. ID following continue IV abx. Blood Cx NGTD which is a good sign. Repeat TTE did not show any significant valvular abnormalities in light of a known vegetation on the prosthetic tricuspid valve. Thank you for allowing me to participate in the care of Mrs. Corona, please contact me with any question. (1) Endocarditis Qualifiers: Endocarditis type: infective Infective endocarditis organism: bacterial Chronicity: acute Qualified Code(s): I33.0 - Acute and subacute infective endocarditis
[2018-02-15 06:34] VITALS: RESP 18
[2018-02-15] MEDS ORDERED: DALBAVANCIN IV.SIG STA ×2 (08:39)
[2018-02-15] MEDS ORDERED: DEXTROSE 5% IV.SIG STA ×2 (08:39)
[2018-02-15] MEDS ORDERED: WATER IV.SIG STA ×2 (08:39)
--- NOTE | 2018-02-15 09:00 | P.DCO ---
Post Hospital Infusion Therapy Location of Infusion Therapy: Ambulatory Infusion Therapy Order Patient Weight: 51.6 kg - Diagnosis (1) Endocarditis Code(s): I38 - Endocarditis, valve unspecified (2) S/P tricuspid valve replacement Code(s): Z95.4 - Presence of other heart-valve replacement - Additional Information Additional Medications: Dalvance 1000 mg IV x 1 dose today Venous Access: Peripheral Additional Instructions: [x] Peripheral flush and dressing changes per protocol [x] Implanted port and central pipeline technician: * Implanted port: 10 ml Normal Saline followed by 5 ml Heparin 100 units/ml Heparin flush after each use and monthly to maintain. [] May leave port accessed during therapy. [] May leave peripheral site accessed for duration of therapy. [x] If patient has SOB or respiratory distress, check oxygen saturation. If less than 90% or clinical signs of respiratory distress, administer oxygen at 2 L/min. via nasal cannula and notify physician. [x] Anaphylaxis/Reaction orders: * Stop infusion. * Keep IV line open with saline flush. * Notify physician. * Monitor vital signs every 15 minutes until symptoms resolve. * Check Oxygen saturation; Oxygen at 2 L/min. via nasal cannula if less than 90% or clinical signs of respiratory distress. * Administer diphenhydramine (Benadryl) 25 mg IV STAT, (unless patient has received as pre-med). May repeat once, if necessary. * Solu-Cortef 250 mg IVP over 30-60 seconds, use 100 mg vials for each dissolution. * Epinephrine (1mg/1 ml) 0.3 mg subcutaneously or IVP now with any signs of respiratory distress. * Check with physician for new additional pre-med orders if patient is re- challenged or re-treated. [x] May remove PICC line when treatment complete, after confirming with Physician. [x] If the patient is admitted to the hospital, the ED, or transferred via [facility] , complete transfer form including medication reconciliation order sheet. Allergies bee venom protein (honey bee) Allergy (Severe, Verified 01/04/18 14:34) rash (1) Endocarditis Qualifiers: Endocarditis type: infective Infective endocarditis organism: bacterial Chronicity: acute Qualified Code(s): I33.0 - Acute and subacute infective endocarditis
--- NOTE | 2018-02-15 09:02 | P.PNID ---
Subjective Remarks: Patient is a 37-year-old female, known to me from her previous hospitalization, came back to the hospital for further evaluation and treatment of her known endocarditis. She was admitted January 04 and at that time she was complaining of right-sided back pain, hip pain, fever and chills. She was diagnosed to have tricuspid valve prosthetic valve endocarditis, and her blood cultures grew MRSA. She had a prolonged course of bacteremia, which finally cleared after she was on vancomycin and Teflaro. She was also felt to possibly have a right sacroiliitis, explaining her hip pain, and buttock pain. There was no abnormality seen in the right hip. During the course of her hospitalization, she had a cardiothoracic surgery evaluation and felt that she was not a surgical candidate. She also developed renal insufficiency, and her urine was positive for eosinophils. Her antibiotic was changed to Cubicin. It was felt that it could either be vancomycin or Teflaro causing her renal insufficiency. Patient is supposed to complete her treatment February 20, but she signed out AGAINST MEDICAL ADVICE on February 04 for personal reasons. She came back to the hospital this time to complete her antibiotic treatment. Patient overall feels much better. She has not been febrile. She still has some pain in the right buttock but able to ambulate. Denies shortness of breath. No rash or itching. No nausea or vomiting or diarrhea. And she is voiding okay. Since readmission she has not been febrile. Her WBC is normal. Creatinine is down to normal. Infectious disease consultation has been requested to continue with management of her infection. Notes reviewed NO new complaints Cardiology notes reviewed Antibiotics: Levaquin Rifampin Past Medical History: Reviewed Allergies/Adverse Reactions: Allergies bee venom protein (honey bee) Allergy (Severe, Verified 01/04/18 14:34) rash Objective Vital Signs 02/14/18 12:00 02/14/18 16:00 02/14/18 20:00 Temperature 97.5 F L 97.9 F 97.8 F Pulse Rate 80 79 75 Respiratory Rate 18 18 20 Blood Pressure 131/67 125/70 110/63 Pulse Oximetry 100 98 98 02/15/18 00:00 02/15/18 04:00 Temperature 97.8 F 97.6 F Pulse Rate 65 69 Respiratory Rate 20 18 Blood Pressure 102/60 110/71 Pulse Oximetry 99 100 Intake & Output 02/14/18 02/15/18 02/15/18 18:59 06:59 18:59 Intake Total 840 / 840 630 / 630 Balance 840 / 840 630 / 630 Weight 51.6 kg Intake: Oral 840 / 840 630 / 630 Other: # Voids 6 4 # Bowel Movements 1 02/07/18 21:50 Blood - Peripheral Aerobic Blood Culture - Final No growth in 5 days 02/07/18 21:50 Blood - Peripheral Anaerobic Blood Culture - Final No growth in 5 days 02/07/18 21:45 Blood - Peripheral Aerobic Blood Culture - Final No growth in 5 days 02/07/18 21:45 Blood - Peripheral Anaerobic Blood Culture - Final No growth in 5 days Lab - Chemistry Results 02/14/18 07:25 Total Creatine Kinase 34 Imaging: ITS Impressions Abdomen X-Ray 02/14/18 00:00 CONCLUSION: Moderate to large amount of stool present throughout the colon most characteristic of constipation. Chest X-Ray 02/14/18 00:00 CONCLUSION: Mild increased interstitial markings bilaterally consistent with acute or chronic interstitial disease. Clinical correlation is recommended. Physical Exam: GENERAL: awake and alert, not in respiratory distress. SKIN: Cool and dry. No generalized rash, no ecchymoses and no evidence of embolic lesions. HEAD: Atraumatic. Normocephalic. No temporal wasting, or tenderness. EYES: [place] conjunctiva. No petechia or hemorrhage. Pupils equal, round and reactive to light. Extraocular movements full and intact. No scleral icterus. No injection or drainage. EARS, NOSE AND THROAT: Nose without bleeding or purulent nasal discharge. No sinus tenderness. Mucous membranes pink and moist. No oral lesions noted. No exudate. No oral thrush. NECK: Trachea midline. Supple and not tender, no meningeal signs CARDIOVASCULAR: Regular rate and rhythm. No murmurs, rubs or gallops heard. Healed sternotomy incision RESPIRATORY: Clear to auscultation. Breath sounds equal bilaterally. No rales , wheezing or rhonchi ABDOMEN: Soft, non-tender, nondistended. Bowel sounds present and normoactive. No guarding. No rebound. No organomegaly. EXTREMITIES: No clubbing, cyanosis, or edema. No joint effusion, has good ROM. No calf tenderness. Well perfused and warm. NEUROLOGICAL: Awake and alert. Cranial nerves grossly intact. Motor grossly within normal limits. PSYCHIATRIC: Normal affect, calm and cooperative. LINE: No evidence of infection Assessment and Plan (1) Endocarditis Status: Chronic Code(s): I38 - Endocarditis, valve unspecified (2) S/P tricuspid valve replacement Status: Chronic Code(s): Z95.4 - Presence of other heart-valve replacement - Plan Impression TV PVE with MRSA, last (+) BC 01/10 - previous SC joint infection, resolved - possible SI joint seeding better S/P Rx endocarditis this year prior to her TVR Episode on endocarditis and lumbar spine infection, treated 2013 Renal insufficiency resolved - ?due to Teflaro or Vancomycin Known IVDU Problems with signing out AMA Recommendation Continue Levaquin and Rifampin - will ask CM to help get one month supply of ABx D/C today once arrangements made for her oral Abx and one dose of Dalvance Will give one dose Dalvance in infusion clinic Will have her do followup with Dr Gutierres - for her chronic oral suppression for TV PVE D/W Alisha CHRISTOPHER (HEPAS) D/W RN Explained plan to the patient (1) Endocarditis Qualifiers: Endocarditis type: infective Infective endocarditis organism: bacterial Chronicity: acute Qualified Code(s): I33.0 - Acute and subacute infective endocarditis
[2018-02-15 09:14] VITALS: BP 102/62; TEMP 97.5; O2SAT 99
--- NOTE | 2018-02-15 09:35 | P.PNIM ---
Physical Exam Vital signs: Vital Signs 02/14/18 12:00 02/14/18 16:00 02/14/18 20:00 Temperature 97.5 F L 97.9 F 97.8 F Pulse Rate 80 79 75 Respiratory Rate 18 18 20 Blood Pressure 131/67 125/70 110/63 Pulse Oximetry 100 98 98 02/15/18 00:00 02/15/18 04:00 Temperature 97.8 F 97.6 F Pulse Rate 65 69 Respiratory Rate 20 18 Blood Pressure 102/60 110/71 Pulse Oximetry 99 100 Intake & Output 02/14/18 02/15/18 02/15/18 18:59 06:59 18:59 Intake Total 840 / 840 630 / 630 Balance 840 / 840 630 / 630 Weight 51.6 kg Intake: Oral 840 / 840 630 / 630 Other: # Voids 6 4 # Bowel Movements 1 Results - Labs CBC & Chem 7: 02/12/18 05:53 02/12/18 05:53 Laboratory Results - last 24 hr 02/14/18 07:25 Total Creatine Kinase 34 - Imaging Impressions Abdomen X-Ray 02/14/18 00:00 CONCLUSION: Moderate to large amount of stool present throughout the colon most characteristic of constipation. Chest X-Ray 02/14/18 00:00 CONCLUSION: Mild increased interstitial markings bilaterally consistent with acute or chronic interstitial disease. Clinical correlation is recommended. 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 She left the hospital AGAINST MEDICAL ADVICE a couple of days ago with the intention of going to [facility] to continue her treatment. However her boyfriend is changing job site so she return here to the hospital to complete her treatment. The patient denies using any IV drugs since she left the hospital. She admitted to using marijuana for pain. Tricuspid valve endocarditis History of sternoclavicular joint infection Status post valve replacement in [place], per patient history, patient declined the recommendation for the revision recommended on 09/2017 -ID following -blood culture no growth on 02/07 - continue IV Cubicin to complete treatment course on February 20. ID recommended oral antibiotic for life. Patient is not currently septic, however was on previous admission. -Patient stated she does have what appeared to be pacer leads from when she had her surgery back in [place] and left AMA without them being removed. Cardiology reviewed imaging and noted there is nothing to extract. -Cardiology consulted, reviewed previous ZEHRA in 12/2017, noted evidence of mobile mass on the tricuspid prosthetic leaflets. Patient declined CV surgery recommendation at that time -2D Echo 02/13/18: The left ventricular systolic function is low normal with an estimated ejection fraction in the range of 50- 55%. The left atrial size is mildly dilated. The right atrial size is moderately dilated. Trace mitral valve regurgitation. Bioprosthetic tricuspid valve prosthesis. Severe thickening of the tricuspid valve leaflets. can not rule out vegetation , 3 mean gradient Hepatitis B and C -outpatient follow-up with GI -monitor signs and symptoms Chronic Anemia/Thrombocytopenia - h/h improving today 10./31.1, Platelets 99 - No signs of bleeding -Continue to monitor CBC History of IV drug abuse -counseling given DVT Prophylaxis: patient ambulatory Discharge Planning: Discharge when cleared with ID and antibiotic finished on 02/20/18
--- NOTE | 2018-02-15 10:23 | P.DS ---
Primary care physician: No Primary Care Physician Attending physician on discharge: Carlos Harvey Anticipated date of discharge: 02/15/18 Brief History from admission: 37-year-old female with a history of IV drug abuse, endocarditis status post valve replacement in [place], discitis/osteomyelitis of lumbar spine, right infected hip. She was being treated for endocarditis with Cleocin to be completed on February 20. She left AMA 3 days ago for personal reasons, and is now back to continue treatment. She continues to report chronic pain. She denies any fevers or chills. Family history reviewed with the patient and found to be currently noncontributory. Patient update on day of discharge: Discussed DC planning with ID Dr. Richard and antibiotic regimen after discharge. Patient seen and examined awake sitting in bed alert and oriented x3, discussed discharge planning for today after IV antibiotic. Discussed the patient the importance of antibiotic treatment after discharge that she needs to comply and continue taking her medications, and follow-up with the clinic. Discussed the patient the importance of changing lifestyle and not going back to street drug use. Patient stated she wants to go to a pain management clinic mentioned about following up with Dr. George. Patient discussed pain medication for home use stated we can send her for 3-day supply of pain medication. That she needs to follow-up with the pain management. Patient denies any pain or shortness of breath at this time denies any headache or dizziness, denies any nausea or vomiting, denies any diarrhea or constipation. Patient denies any fever or chills. 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 She left the hospital AGAINST MEDICAL ADVICE a couple of days ago with the intention of going to [facility] to continue her treatment. However her boyfriend is changing job site so she return here to the hospital to complete her treatment. The patient denies using any IV drugs since she left the hospital. She admitted to using marijuana for pain. Patient received IV antibiotics for endocarditis/TV PVE/MRSA Patient will be given IV antibiotic, Dalvance in the infusion clinic today before discharge. Patient has to go home with oral antibiotics, Levaquin and rifampin for 1 month and then will start the doxycycline after that discussed that she needs to take antibiotic for life. Patient has to follow-up with the outpatient clinic. Patient also discussed to follow-up with the pain management clinic, was referred to Dr. George. Patient has to follow-up with outpatient community clinic. Patient stated she is going to [place] moving with her boyfriend. Patient stated her boyfriend will help him with her medications. - Time Spent with Patient Total time spent providing and/or coordinating discharge services: Greater than 30 minutes - Quality: VTE Deep Vein Thrombosis/Pulmonary Embolism Present on Admission: No Exam Vital signs: Vital Signs 02/14/18 12:00 02/14/18 16:00 02/14/18 20:00 Temperature 97.5 F L 97.9 F 97.8 F Pulse Rate 80 79 75 Respiratory Rate 18 18 20 Blood Pressure 131/67 125/70 110/63 Pulse Oximetry 100 98 98 02/15/18 00:00 02/15/18 04:00 02/15/18 08:00 Temperature 97.8 F 97.6 F 97.5 F L Pulse Rate 65 69 74 Respiratory Rate 20 18 18 Blood Pressure 102/60 110/71 102/62 Pulse Oximetry 99 100 99 Intake & Output 02/14/18 02/15/18 02/15/18 18:59 06:59 18:59 Intake Total 840 / 840 630 / 630 Balance 840 / 840 630 / 630 Weight 51.6 kg Intake: Oral 840 / 840 630 / 630 Other: # Voids 6 4 # Bowel Movements 1 Narrative: GENERAL: Well-developed, well-nourished, alert and oriented x3, with no apparent distress SKIN: Warm and dry. HEAD: Atraumatic. Normocephalic. EYES: Pupils equal and round. No scleral icterus. No injection or drainage. ENT: No nasal bleeding or discharge. Mucous membranes pink and moist. NECK: Trachea midline. No JVD. CARDIOVASCULAR: Regular rate and rhythm. + murmur RESPIRATORY: No accessory muscle use. Clear to auscultation. Breath sounds equal bilaterally. GASTROINTESTINAL: Abdomen, flat, soft, non-tender, nondistended. Hepatic and splenic margins not palpable. MUSCULOSKELETAL: Extremities without clubbing, cyanosis, or edema. No obvious deformities. NEUROLOGICAL: Awake and alert. No obvious cranial nerve deficits. Motor grossly within normal limits. moving all 4 extremities. Normal speech. PSYCHIATRIC: Appropriate mood and affect; insight and judgment normal. Results Procedures completed during hospitalization: IV antibiotic treatments - Impressions ITS Impressions Abdomen X-Ray 02/14/18 00:00 CONCLUSION: Moderate to large amount of stool present throughout the colon most characteristic of constipation. Chest X-Ray 02/14/18 00:00 CONCLUSION: Mild increased interstitial markings bilaterally consistent with acute or chronic interstitial disease. Clinical correlation is recommended. Discharge Plan - Discharge Disposition Patient Disposition: /Home Health Service - Discharge Condition Condition: Stable - Discharge Order Discharge Orders: Discharge Order (Routine); Ordered 02/15/18 Ordered By: Lela Marti - Physicians Team Primary Care Provider: Primary Care Nupur,[place] Attending Provider: Carlos Harvey Other Providers: Peg Fisher MD ; Bobo Rick MD ; Blake Nunez MD
--- NOTE | 2018-02-15 12:32 | MB ---
cc: Blake Nunez MD DATE: 02/15/2018 HISTORY OF PRESENT ILLNESS: This is a 37-year-old patient who was seen back on 01/06/[address] Barragan. We were consulted for tricuspid valve endocarditis. The patient has a history of ongoing IV drug use for the past 4 years. She had a tricuspid valve replacement 4 months ago in [facility] on 09/28/2017, a bioprosthetic valve. Per the patient, she said she needed revision but declined. Apparently had a wire that needed to be removed. She underwent ZEHRA, which showed a 2.7 x 1.0 echodensity on the atria surface of the prosthetic valve leaflet. This was on her last admission. She was treated with IV antibiotics. She was also treated for diskitis, osteomyelitis lumbar spine, right infected hip. Was supposed to be on Cleocin, but signed herself out AMA on 02/04/2018. She states she was going to be moving to [place] and would be going to a hospital in [place] for treatment, but did not apparently do so. So, came back and was readmitted on 02/07/2018 for repeat and continued IV therapy. She denies doing any further IV drugs; however, no urine drug screen was completed on this admission. We were asked to see the patient again in regard to possible tricuspid valve endocarditis. They were also concerned about possible infected pacemaker leads. PAST MEDICAL HISTORY: Hepatitis C, tricuspid valve endocarditis, electrolyte imbalance, osteomyelitis, history of acute kidney injury, thrombocytopenia, recent UTI. PAST SURGICAL HISTORY: Status post tricuspid valve bioprosthetic placement 09/28/[address] [facility], and again she was told she needed a revision due to wires needing to be removed. ALLERGIES: INCLUDE BEE VENOM PROTEIN. MEDICATIONS: No home medications. FAMILY HISTORY: Noncontributory. SOCIAL HISTORY: Former smoker. No alcohol. Occasional marijuana. Denies recent IV drug use. REVIEW OF SYSTEMS: As in the initial H and P. PHYSICAL EXAMINATION: VITAL SIGNS: Blood pressure 102/60, heart rate is 74, temperature max 97.5, O2 saturation 99% on room air. GENERAL: The patient is awake, alert, in no acute distress. HEENT: Head is normocephalic, atraumatic. Pupils equal and reactive. NECK: Supple. No JVD. HEART: Sounds S1, S2. Regular rate and rhythm. Well-healed sternotomy incision. She has a well-healed chest tube site incision. LUNGS: Clear to auscultation. No wheezes, rales or rhonchi. ABDOMEN: Soft, nontender. No masses or organomegaly. EXTREMITIES: No cyanosis, clubbing, or edema. LABORATORY WORK: Shows hemoglobin 10, hematocrit of 31, white cell count of 7.6, platelet count of 99. INR 1.2. Sodium 141, potassium 4.4, BUN of 14, creatinine 1.01. Urinalysis was unremarkable. Micro blood cultures 02/07/2018 negative x5 days. IMPRESSION: This is a patient with a history of endocarditis associated with prosthetic tricuspid valve, now with recent negative blood cultures; however, the CT of the chest in 12/2017 was reviewed. There appear to be some retained epicardial wires, probably unrelated to her endocarditis. There is no surgical intervention warranted in this patient. She should seek further evaluation back at her original hospital in [place] at [facility]. Will try to obtain her old records, but she stable for discharge from a cardiothoracic standpoint. Dictated by ASHWIN Garcia Pt and chart examined and studies reviewed on 02/15/2018. Agree with above. She has epicardial pacing leads placed at the time of her tricuspid valvular surgery (as is routinely done for tricuspid replacement) which are not affected or involved by the endocarditis process. I do not recommend reoperative median sternotomy for removal of the same. No surgical intervention indicated at this time. She needs to follow-up with her cardiac surgeon in [place] following discharge from the hospital. Thank you for allowing me to participate in the care of this patient. MD MAGDALENO Hartley/dennis , 11:55 AM , 12:06 PM RIGO
[2018-02-15 13:18] VITALS: PULSE 77
[2018-02-15] MEDS: levoFLOXacin 750 MG Tablet PO SCH (13:21)
== END 2018-02-15 17:15 | disposition home health service (06) ==
LOC: NEPE 15:50 → NEDA 22:02 → N04 23:53
PROVIDERS: ADMIT Internal Medicine; ATTEND Internal Medicine